=== PATIENT | female | born 1940 | race Caucasian/White ===

== ENCOUNTER 2017-12-02 11:58 | Observation (INO) | payer OTHER ==
[2017-12-02 12:39] LABS: Urine Blood TRACE (NEG); Urine Glucose NEGATIVE (NEG); Urine Protein NEGATIVE (NEG)
--- NOTE | 2017-12-02 12:58 | RAD REPORT ---
EXAM DESCRIPTION: CT - CTHCSPWOC - 12/02/2017 12:43 pm CLINICAL HISTORY: Trauma, head and neck injury. fall COMPARISON: No comparisons TECHNIQUE: Axial 5 mm thick images of the head were obtained. Axial 2 mm thick images of the cervical spine were obtained with sagittal and coronal reconstruction images generated and reviewed. All CT scans are performed using dose optimization technique as appropriate and may include automated exposure control or mA/KV adjustment according to patient size. FINDINGS: CT HEAD WITHOUT CONTRAST: No acute hemorrhage, hydrocephalus or extra-axial collection is identified.Moderate generalized brain atrophy is present with moderate periventricular and deep white matter chronic microvascular ischemi c changes.No areas of brain edema or midline shift. Mild opacification of the sphenoid sinus is seen. The paranasal sinuses and mastoids are otherwise cl ear.The calvarium is intact. CT CERVICAL SPINE WITHOUT CONTRAST: No fracture or subluxation.Moderate midcervical degenerative change.No prevertebral soft tissues swel ling is identified. IMPRESSION: No acute intracranial or cervical spine findings.
--- NOTE | 2017-12-02 13:39 | RAD REPORT ---
EXAM DESCRIPTION: RAD - Chest Single View - 12/02/2017 1:26 pm CLINICAL HISTORY: S/P FALL , COUGH Chest pain. COMPARISON: CHEST SINGLE VIEW dated 08/19/2014; CHEST SINGLE VIEW dated 04/30/2013 FINDINGS: Portable technique limits examination quality. The lungs are grossly clear. The heart is normal in size. No displaced fractures. IMPRESSION: No acute intrathoracic process suspected.
[2017-12-02 13:59] LABS: Absolute Lymphocytes (CBC) 1.2 K/uL (0.7-4.9); Absolute Monocytes 1.1 K/uL (0.1-1.3); Absolute Neutrophil 14.3 K/uL (1.8-8.0); Basophils % 0.4 % (0-1.3); Eosinophils % 0.1 % (0-4.4); Hematocrit 44.4 % (36.0-45.0); Lymphocytes % 7.3 % (15.3-44.8); MCH 32.8 pg (27.0-35.0); MCV 96.6 fL (80-100); MPV 8.6 fL (7.6-11.3); Monocytes % 6.6 % (3.3-12.3)
[2017-12-02] MEDS ORDERED: HYDROCODONE/APAP 5/325 MG TAB ONE (14:10)
[2017-12-02] MEDS ORDERED: ACETAMINOPHEN 500 MG TAB ONE (14:15)
--- NOTE | 2017-12-02 14:20 | ER ---
Nurse's Notes [facility] Name: Monique Bocanegra Age: 77 yrs Sex: Female : 1940 Arrival Date: 12/02/2017 Time: 12:00 Bed 7 Private MD: Diagnosis: Fracture of other parts of pelvis;Other slipping, tripping and stumbling and falls Presentation: 12/02 11:58 Presenting complaint: EMS states: c/o left groin pain last night and daughter reported sv to EMS that she fell this morning. BP 216/107 on arrival and before getting to ER 180/94. BS-124. Transition of care: patient was not received from another setting of care. Onset of symptoms was December 01, 2017. Risk Assessment: Do you want to hurt yourself or someone else? Patient reports no desire to harm self or others. Initial Sepsis Screen: Does the patient meet any 2 criteria? HR > 90 bpm. Yes Does the patient have a suspected source of infection? No. Patient's initial sepsis screen is negative. Care prior to arrival: None. 11:58 Method Of Arrival: EMS: [facility] sv 11:58 Acuity: JULIUS 3 sv 11:58 Mechanism of Injury: Fall from standing position. Trauma event details: Injury occurred sv in the [facility], Injury occurred: at home. Injury occurred: December 02, 2017. Trauma Activation: Not Applicable Physician: ED Physician; Name: ; Notified At: ; Arrived At: Physician: General Surgeon; Name: ; Notified At: ; Arrived At: Physician: Radiology; Name: ; Notified At: ; Arrived At: Physician: Respiratory; Name: ; Notified At: ; Arrived At: Physician: Lab; Name: ; Notified At: ; Arrived At: Historical: - Allergies: 12:12 Codeine; sv 12:12 Adhesives; sv - PMHx: 12:12 Hypertension; Dementia; sv - PSHx: 12:12 Hysterectomy; 3 heart stents; sv - Immunization history:: Adult Immunizations up to date. - Social history:: Smoking status: Patient/guardian denies using tobacco. - Immunization history: Last tetanus immunization: unknown. - Ebola Screening: : No symptoms or risks identified at this time. Screenin:00 Abuse screen: Denies threats or abuse. Denies injuries from another. Tuberculosis sv screening: No symptoms or risk factors identified. 12:00 Nutritional screening: No deficits noted. Fall Risk No fall in past 12 months (0 pts). sv Secondary diagnosis (15 points) dementia, IV access (20 points). Ambulatory Aid- None/Bed Rest/Nurse Assist (0 pts). Gait- Normal/Bed Rest/Wheelchair (0 pts) Mental Status- Oriented to own ability (0 pts). Total Hayden Fall Scale indicates Low Risk Score (25-44 pts). Fall prevention measures have been instituted. Side Rails Up X 2 Placed close to Nursing Station Frequent Obs/Assesments occuring As available Patient and Family Educated on Fall Prevention Program and strategies. Primary Survey: 11:58 A: Airway: patent, No supplemental oxygen in use on arrival. Oral cavity: clear, sv Trachea midline. Breathing/Chest: Respiratory pattern: regular, Respiratory effort: spontaneous, unlabored, Breath sounds: clear, bilaterally. Chest inspection: symmetrical rise and fall of the chest. Circulation: Cardiac rhythm: sinus rhythm Heart tones present. Pulses: palpable right radial artery, right dorsalis pedis artery, left radial artery and left dorsalis pedis artery. Skin color: pink, Skin temperature: warm. Disability Alert. 13:30 Reassessment Airway Airway Patent Oxygen No O2 Oral cavity Clear Trachea Midline sv Breathing/Chest Respiratory pattern Regular Respiratory effort Spontaneous Unlabored Breath sounds Clear Chest inspection Symmetrical Circulation Heart rhythm Sinus rhythm Heart tones Present Pulses Palpable Color [place] Temperature Warm Dry Disability Alert. Secondary Survey: 11:58 HEENT: No deficits noted. Gastrointestinal: No deficits noted. : No deficits noted. sv Musculoskeletal: Circulation, motion, and sensation intact. Range of motion: limited in left hip Swelling absent. Assessment: 13:20 Reassessment: Patient appears in no apparent distress at this time. No changes from sv previously documented assessment. Patient and/or family updated on plan of care and expected duration. Pain level reassessed. 14:00 Reassessment: Patient appears in no apparent distress at this time. No changes from sv previously documented assessment. Patient and/or family updated on plan of care and expected duration. Pain level reassessed. 15:21 Reassessment: Tapan GILBERT to call back for report. sv 15:45 Reassessment: Patient appears in no apparent distress at this time. No changes from sv previously documented assessment. Patient and/or family updated on plan of care and expected duration. Pain level reassessed. Vital Signs: 12:00 BP 187 / 75; Pulse 102; Resp 18; Temp 98.7; Pulse Ox 100% ; Pain 3/10; sv 12:15 BP 187 / 75; Pulse 96; Resp 20; Temp 98.6; Pulse Ox 95% ; Pain 3/10; sv 13:29 BP 148 / 66; Pulse 91; Resp 22; Pulse Ox 99% ; sv 14:22 BP 127 / 64; Pulse 108; Resp 18; Pulse Ox 99% ; sv 15:46 BP 125 / 86; Pulse 105; Resp 18; Pulse Ox 99% ; sv 16:16 BP 115 / 63; Pulse 103; Resp 16; Pulse Ox 99% ; sv [place] Coma Score: 11:58 Eye Response: spontaneous(4). Verbal Response: confused(4). Motor Response: obeys sv commands(6). Total: 14. 12:15 Eye Response: spontaneous(4). Verbal Response: confused(4). Motor Response: obeys sv commands(6). Total: 14. Trauma Score (Adult): 11:58 Eye Response: spontaneous(1); Verbal Response: confused(1); Motor Response: obeys sv commands(2); Systolic BP: > 89 mm Hg(4); Respiratory Rate: 10 to 29 per min(4); Rodri Score: 14; Trauma Score: 12 12:15 Eye Response: spontaneous(1); Verbal Response: confused(1); Motor Response: obeys sv commands(2); Systolic BP: > 89 mm Hg(4); Respiratory Rate: 10 to 29 per min(4); [place] Score: 14; Trauma Score: 12 ED Course: 12:00 Patient arrived in ED. sv 12:06 Gabi Kwan, VLADIMIR is Primary Nurse. sv 12:08 Triage completed. sv 12:12 Arm band placed on right wrist. sv 12:14 Aldair Serrano PA is PHCP. cp 12:14 Hiren Lopez MD is Attending Physician. cp 12:15 Patient has correct armband on for positive identification. Placed in gown. Bed in low sv position. Call light in reach. Side rails up X2. clinical research monitor on. Pulse ox on. NIBP on. Door closed. Head of bed elevated. 12:15 Patient maintains SpO2 saturation greater than 95% on room air. Thermoregulation: warm sv blanket given to patient. 12:31 EKG done, by senior maintenance technician. reviewed by Aldair JONES. tc 12:43 CT Head C Spine In Process Unspecified. EDMS 12:50 CT completed. Patient tolerated procedure well. Patient moved to radiology via stretcher. 13:06 XRAY Pelvis In Process Unspecified. EDMS 13:06 XRAY Hip LEFT 2 view In Process Unspecified. EDMS 13:06 XRAY Hip RIGHT 2 view In Process Unspecified. EDMS 13:17 X-ray completed. Patient tolerated procedure well. Patient moved back from radiology. jb2 13:25 Chest Single View In Process Unspecified. EDMS 13:32 BMP Sent. ag 13:32 CBC with Diff Sent. ag 13:32 Inserted saline lock: 22 gauge in right antecubital area, using aseptic technique. ag Blood collected. 14:17 Jyoti Cheema MD is Hospitalizing Provider. cp 15:24 No provider procedures requiring assistance completed. Patient admitted, IV remains in sv place. intact. Administered Medications: 14:11 Not Given (Patient Refused): HYDROcodone-acetaminophen 5 mg-325 mg 1 tabs PO once tw2 14:14 Drug: Tylenol 500 mg Route: PO; tw2 14:38 Follow up: Response: No adverse reaction sv Intake: 11:58 PO: 0ml; Total: 0ml. sv Output: 11:58 Urine: 0ml; Total: 0ml. sv 12:30 Urine: 300ml (Voided); Total: 300ml. sv Outcome: 14:19 Decision to Hospitalize by Provider. cp 15:45 Patient's length of stay in the Emergency Department was greater than 2 hours. due to sv staffing on the floor.Patient's length of stay extended due to 16:02 Admitted to Med/surg accompanied by tech, via stretcher, room 201, with chart, Report sv called to Kriss GILBERT 16:02 Condition: stable 16:02 Instructed on the need for admit. 16:17 Patient left the ED. sv Signatures: Dispatcher [employer] Gabi Delgado RN RN sv Buechter, Jesse jb2 Comfort Lopez Justine Harden, bias binding cutter EKG Ttc Angella Dos Santos Corey, PA PA cp Merritt, Kirstin, RN RN tw2 Corrections: (The following items were deleted from the chart) 12:28 12:00 Pulse 102bpm; Resp 18bpm; Pulse Ox 100%; Temp 98.7F; Pain 3/10; sv sv
--- NOTE | 2017-12-02 14:20 | EDPHYS ---
Physician Documentation [facility] Name: Monique Bocanegra Age: 77 yrs Sex: Female : 1940 Arrival Date: 12/02/2017 Time: 12:00 Bed 7 Private MD: ED Physician Hiren Lopez HPI: 12/02 12:40 This 77 yrs old Female presents to ER via EMS with complaints of Groin Pain, cp Fall Injury. 12:40 Details of fall: The patient fell from an upright position. cp 12:40 Onset: The symptoms/episode began/occurred this morning. Associated injuries: The cp patient sustained pelvis, pain. Severity of symptoms: in the emergency department the symptoms are unchanged. Historical: - Allergies: 12:12 Codeine; sv 12:12 Adhesives; sv - PMHx: 12:12 Hypertension; Dementia; sv - PSHx: 12:12 Hysterectomy; 3 heart stents; sv - Immunization history:: Adult Immunizations up to date. - Social history:: Smoking status: Patient/guardian denies using tobacco. - Immunization history: Last tetanus immunization: unknown. - Ebola Screening: : No symptoms or risks identified at this time. ROS: 12:45 Constitutional: Negative for body aches, chills, fever, poor PO intake. cp 12:45 Eyes: Negative for injury, pain, redness, and discharge. cp 12:45 Neck: Negative for pain with movement, pain at rest, stiffness. 12:45 Cardiovascular: Negative for chest pain, edema, palpitations. 12:45 Respiratory: Negative for cough, shortness of breath, wheezing. 12:45 Abdomen/GI: Negative for abdominal pain, nausea, vomiting, and diarrhea. 12:45 Back: Negative for radiated pain. 12:45 : Positive for pelvic pain, of the right groin, Negative for urinary symptoms. 12:45 Skin: Negative for cellulitis, rash. 12:45 Neuro: Negative for altered mental status, headache, loss of consciousness, weakness. 12:45 All other systems are negative. Exam: 12:25 ECG was reviewed by the Attending Physician. cp 12:50 Constitutional: The patient appears in no acute distress, alert, awake, cp non-diaphoretic, non-toxic, well developed, well nourished. 12:50 Head/Face: Normocephalic, atraumatic. Eyes: Pupils equal round and reactive to light, cp extra-ocular motions intact. Lids and lashes normal. Conjunctiva and sclera are non-icteric and not injected. Cornea within normal limits. Periorbital areas with no swelling, redness, or edema. ENT: Nares patent. No nasal discharge, no septal abnormalities noted. Tympanic membranes are normal and external auditory canals are clear. Oropharynx with no redness, swelling, or masses, exudates, or evidence of obstruction, uvula midline. Mucous membranes moist. Neck: Trachea midline, no thyromegaly or masses palpated, and no cervical lymphadenopathy. Supple, full range of motion without nuchal rigidity, or vertebral point tenderness. No Meningismus. Chest/axilla: Normal chest wall appearance and motion. Nontender with no deformity. No lesions are appreciated. 12:50 Cardiovascular: Rate: normal, Rhythm: regular, Pulses: Pulses are 2+ in right radial artery, right dorsalis pedis artery, left radial artery and left dorsalis pedis artery. Edema: is not appreciated, JVD: is not appreciated. 12:50 Respiratory: the patient does not display signs of respiratory distress, Respirations: normal, no use of accessory muscles, no retractions, no splinting, no tachypnea, labored breathing, is not present, Breath sounds: are clear throughout, no decreased breath sounds, no stridor, no wheezing. 12:50 Abdomen/GI: Inspection: abdomen appears normal, Bowel sounds: active, all quadrants, Palpation: soft, in all quadrants, moderate abdominal tenderness, in the right lower abdomen and pelvic area, involuntary guarding. 12:50 Back: pain, that is mild, of the lumbar area, Straight leg raises: right lower extremity illicits pain. 12:50 Musculoskeletal/extremity: Exam is negative for calf tenderness, deformity. 12:50 Skin: cellulitis, is not appreciated, no rash present. 12:50 Neuro: Orientation: no acute changes, per family, Mentation: no acute changes, per family, lucid, able to follow commands, Cerebellar function: is grossly normal, Motor: moves all fours, strength is normal, Sensation: no obvious gross deficits. Vital Signs: 12:00 BP 187 / 75; Pulse 102; Resp 18; Temp 98.7; Pulse Ox 100% ; Pain 3/10; sv 12:15 BP 187 / 75; Pulse 96; Resp 20; Temp 98.6; Pulse Ox 95% ; Pain 3/10; sv 13:29 BP 148 / 66; Pulse 91; Resp 22; Pulse Ox 99% ; sv 14:22 BP 127 / 64; Pulse 108; Resp 18; Pulse Ox 99% ; sv 15:46 BP 125 / 86; Pulse 105; Resp 18; Pulse Ox 99% ; sv 16:16 BP 115 / 63; Pulse 103; Resp 16; Pulse Ox 99% ; sv [place] Coma Score: 11:58 Eye Response: spontaneous(4). Verbal Response: confused(4). Motor Response: obeys sv commands(6). Total: 14. 12:15 Eye Response: spontaneous(4). Verbal Response: confused(4). Motor Response: obeys sv commands(6). Total: 14. Trauma Score (Adult): 11:58 Eye Response: spontaneous(1); Verbal Response: confused(1); Motor Response: obeys sv commands(2); Systolic BP: > 89 mm Hg(4); Respiratory Rate: 10 to 29 per min(4); Rodri Score: 14; Trauma Score: 12 12:15 Eye Response: spontaneous(1); Verbal Response: confused(1); Motor Response: obeys sv commands(2); Systolic BP: > 89 mm Hg(4); Respiratory Rate: 10 to 29 per min(4); Rodri Score: 14; Trauma Score: 12 MDM: 12:14 Patient medically screened. cp 14:33 Data reviewed: vital signs, nurses notes, radiologic studies, CT scan, plain films, and cp as a result, I will admit patient. 14:33 Test interpretation: by ED physician or midlevel provider: plain radiologic studies. cp Counseling: I had a detailed discussion with the patient and/or guardian regarding: the historical points, exam findings, and any diagnostic results supporting the discharge/admit diagnosis, radiology results, the need for further work-up and treatment in the hospital. 14:34 Physician consultation: Frankie Aguilar MD was contacted at 14:35, regarding consult, cp patient's condition, would like admission per Dr. Jyoti Cheema MD. 12/02 12:24 Order name: Urine Dipstick--Ancillary (enter results); Complete Time: 13:33 dm5 12/02 13:33 Interpretation: Normal except: UBLD TRACE. cp 12/02 12:30 Order name: CBC with Diff cp 12/02 12:30 Order name: XRAY Pelvis; Complete Time: 14:33 cp 12/02 12:30 Order name: BMP; Complete Time: 14:33 cp 12/02 14:08 Order name: CBC Smear Scan EDMS 12/02 15:25 Order name: Manual Differential EDMS 12/02 12:30 Order name: XRAY Hip LEFT 2 view; Complete Time: 14:33 cp 12/02 14:34 Interpretation: Report reviewed. cp 12/02 12:30 Order name: XRAY Hip RIGHT 2 view; Complete Time: 14:33 cp 12/02 12:30 Order name: EKG; Complete Time: 12:30 cp 12/02 12:30 Order name: CT Head C Spine; Complete Time: 13:33 cp 12/02 13:24 Order name: Chest Single View; Complete Time: 13:52 EDMS 12/02 14:19 Order name: Diet Heart Healthy; Complete Time: 14:19 ss EC:25 Rate is 91 beats/min. QRS [employer] is Normal. QRS interval is normal. QT interval is cp normal. Interpreted by me. Reviewed by me. Administered Medications: 14:11 Not Given (Patient Refused): HYDROcodone-acetaminophen 5 mg-325 mg 1 tabs PO once tw2 14:14 Drug: Tylenol 500 mg Route: PO; tw2 14:38 Follow up: Response: No adverse reaction sv Disposition: 12/02/17 14:19 Hospitalization ordered by Jyoti Cheema for Inpatient Admission. Preliminary diagnosis are Fracture of other parts of pelvis, Other slipping, tripping and stumbling and falls. - Bed requested for Telemetry/MedSurg (Inpatient). - Status is Inpatient Admission. sv - Condition is Stable. - Problem is new. - Symptoms have improved. UTI on Admission? No Addendum: 12/05/2017 10:11 Co-signature as Attending Physician, Hiren Lopez MD I agree with the assessment and k dr plan of care. Signatures: Dispatcher [employer] EDGabi Wesley RN RN sv Woody, Diana, RN RN dw Rittger, Kevin, MD MD [facility] Page, Aldair, PA PA cp Merritt, Kirstin, RN RN tw2 Corrections: (The following items were deleted from the chart) 12/02 15:04 14:19 Hospitalization Ordered by yJoti Cheema MD for Inpatient Admission. Preliminary dw diagnosis is Fracture of other parts of pelvis; Other slipping, tripping and stumbling and falls. Bed requested for Telemetry/MedSurg (Inpatient). Status is Inpatient Admission. Condition is Stable. Problem is new. Symptoms have improved. UTI on Admission? No. cp 15:20 15:04 12/02/2017 14:19 Hospitalization Ordered by Jyoti Cheema MD for Inpatient sv Admission. Preliminary diagnosis is Fracture of other parts of pelvis; Other slipping, tripping and stumbling and falls. Bed requested for Telemetry/MedSurg (Inpatient). Status is Inpatient Admission. Condition is Stable. Problem is new. Symptoms have improved. UTI on Admission? No. dw 16:17 15:20 12/02/2017 14:19 Hospitalization Ordered by Jyoti Cheema MD for Inpatient sv Admission. Preliminary diagnosis is Fracture of other parts of pelvis; Other slipping, tripping and stumbling and falls. Bed requested for Telemetry/MedSurg (Inpatient). Status is Inpatient Admission. Condition is Stable. Problem is new. Symptoms have improved. UTI on Admission? No. sv
--- NOTE | 2017-12-02 14:25 | RAD REPORT ---
EXAM DESCRIPTION: RAD - Pelvis - 12/02/2017 1:16 pm CLINICAL HISTORY: bilateral groin pain Fall, trauma COMPARISON: No comparisons FINDINGS: Both hips appear intact. Fracture of the superior pubic ramus is seen on the right. Minima l fracture inferior pubic ramus on the right also likely present. Vascular stenting is seen. A large amount of stool is present in the rectum. IMPRESSION: Right-sided pubic rami fractures are seen.
--- NOTE | 2017-12-02 14:26 | RAD REPORT ---
EXAM DESCRIPTION: RAD - Hip Right 2 View - 12/02/2017 1:16 pm CLINICAL HISTORY: fall;Pain COMPARISON: No comparisons FINDINGS: Fractures of the superior and inferior pubic rami on the right are identified. Extensive v ascular stenting is seen. The right hip is intact. IMPRESSION: Right-sided pubic rami fractures are present.
--- NOTE | 2017-12-02 14:31 | RAD REPORT ---
EXAM DESCRIPTION: RAD - Hip Left 2 View - 12/02/2017 1:16 pm CLINICAL HISTORY: fall;Pain COMPARISON: Pelvis dated 12/02/2017; Hip Right 2 View dated 12/02/2017 FINDINGS: Bony irregularity of the superior and inferior pubic ramus on the right is again noted com patible with fracture. Subtle bony irregularity along the inferior margin of the left pubic ramus is probably chronic but a very subtle fracture in this location is difficult to completely exclude. The left hip is intact.
[2017-12-02 15:24] LABS: Platelet Estimate ADEQ
[2017-12-02 15:25] LABS: Blood Morphology Comment NOT SEEN (NOT SEEN)
[2017-12-02 16:04] LABS: Urine White Blood Cell Casts DIFF
[2017-12-02] MEDS ORDERED: ONDANSETRON 4 MG/2 ML VIAL IV PRN (16:29)
[2017-12-02] MEDS ORDERED: NA CHLORIDE 0.9% 1,000 ML IV SCH ×2 (16:29→18:00)
[2017-12-02 16:49] VITALS: BMI 18.7
[2017-12-02] MEDS: ENOXAPARIN 40 MG/0.4 ML SQ SCH (17:00)
--- NOTE | 2017-12-02 17:02 | EKG ---
Test Date: 2017-12-02 Test Time: 12:17:56 Tobacco Wetter: LEFTY MEASUREMENT RESULTS: Intervals: Rate: 91 WI: 138 QRSD: 76 QT: 354 QTc: 435 Hassell: P: 63 WI: 138 QRS: 57 T: 115 INTERPRETIVE STATEMENTS: Normal sinus rhythm Minimal voltage criteria for LVH, may be normal variant T wave abnormality, consider lateral ischemia Abnormal ECG Compared to ECG 08/20/2014 06:45:41 T-wave abnormality now present Possible ischemia now present Electronically Signed On 12-02-17 17:01:05 CDT by Chago Randall
--- NOTE | 2017-12-02 17:12 | P.HP ---
Certification for Inpatient Patient admitted to: Inpatient With expected LOS: >2 Midnights Patient will require the following post-hospital care: None Practitioner: I am a practitioner with admitting privileges, knowledge of patient current condition, hospital course, and medical plan of care. Services: Services provided to patient in accordance with Admission requirements found in Title 42 Section 412.3 of the Code of Federal Regulations Patient History Date of Service: 12/02/17 Reason for admission: FALL History of Present Illness: 77 y/o F with PMHX of dementia, CHF, COPD, HTN presented to the hospital after having a mechanical Fall at the house. Pt is currently Altered, However at baseline is severly demented but lives along by herself and is able to perform activities of daily living. Pt was found to have a fall in the kitched by her daughter today. She was then complaining of groin pain and hip pain. He was not able to get up on her own. In ER Pt was found to have Fracture of the pelvis and thus admitted to the hospital Allergies adhesive Allergy (Mild, Verified 10/07/14 13:23) Rash codeine Allergy (Verified 10/07/14 13:23) Unknown Adhesives Allergy (Uncoded 12/02/17 16:21) Unknown Home Medications: Carvedilol [Coreg] 25 mg PO DAILY 08/19/14 Donepezil HCl [Aricept] 10 mg PO DAILY 08/19/14 Doxazosin [Cardura*] 4 mg PO DAILY 08/19/14 Esomeprazole Magnesium [Nexium 24Hr] 40 mg PO DAILY 08/19/14 Isosorbide Mononitrate [Isosorbide Mononitrate ER] 30 mg PO DAILY 08/19/14 Memantine HCl [Namenda Xr] 28 mg PO DAILY 08/19/14 Pramipexole [Mirapex*] 0.5 mg PO BID 08/19/14 - Past Medical/Surgical History Has patient received pneumonia vaccine in the past: No Diabetic: No -: stroke 10 yrs ago -: hypertension -: stents in leg and heart -: hysterectomy -: bilateral foot surgery - Family History Father -: Cancer Notes: lung cancer Mother -: Stroke Sister -: Stroke - Social History Smoking Status: Current every day smoker Alcohol use: Yes CD- Drugs: No Caffeine use: Yes Place of Residence: Home Review of Systems General: As per HPI Physical Examination - Vital Signs Temperature: 98.6 F Blood Pressure: 115/63 Pulse: 103 Respirations: 16 - Physical Exam General: In no apparent distress, Other (AMS) HEENT: Atraumatic Neck: Supple Respiratory: Clear to auscultation bilaterally, Normal air movement Cardiovascular: Regular rate/rhythm, Normal S1 S2 Gastrointestinal: Normal bowel sounds, No tenderness Musculoskeletal: Tenderness (in the groin and right hip pain) Integumentary: No rashes Neurological: Normal speech, Normal strength at 5/5 x4 extr, Normal affect Lymphatics: No axilla or inguinal lymphadenopathy - Studies Laboratory Data (last 24 hrs) 12/02/17 13:30: Sodium 133 L, Potassium 4.0, BUN 14, Creatinine 0.80, Glucose 117 H 12/02/17 13:30: WBC 16.7 H, Hgb 15.1 H, Hct 44.4, Plt Count 284 Assessment and Plan - Problems (Diagnosis) (1) Fall Current Visit: Yes Status: Acute Plan: Mechanical Fall -PT consulted. Evaluation Pending -Fall precaution given -CM for placement Qualifiers: Encounter type: initial encounter Qualified Code(s): W19.XXXA - Unspecified fall, initial encounter (2) Pelvic fracture Current Visit: Yes Status: Acute Plan: Right Sided Inferior and superior Ramus Fracture -Ortho Consulted. Awaiting Reccs at this time -IV fludis with caution with History of CHF -PT consulted. Qualifiers: Encounter type: initial encounter Pelvic bone location: pubis Fracture type: closed Fracture alignment: nondisplaced Laterality: right Qualified Code(s): S32.501A - Unspecified fracture of right pubis, initial encounter for closed fracture (3) HTN (hypertension) Current Visit: Yes Status: Chronic Plan: Restart Home medicaiton Qualifiers: Hypertension type: essential hypertension Qualified Code(s): I10 - Essential (primary) hypertension (4) COPD (chronic obstructive pulmonary disease) Current Visit: Yes Status: Chronic Plan: Duonebs for now Qualifiers: COPD type: chronic bronchitis Chronic bronchitis type: unspecified Qualified Code(s): J42 - Unspecified chronic bronchitis (5) Dementia Current Visit: Yes Status: Chronic Qualifiers: Dementia type: Alzheimer's disease Alzheimer's disease onset: early-onset Dementia behavioral disturbance: without behavioral disturbance Qualified Code(s): G30.0 - Alzheimer's disease with early onset; F02.80 - Dementia in other diseases classified elsewhere without behavioral disturbance Discharge Plan: Other Plan to discharge in: 48 Hours - Advance Directives Does patient have a Living Will: No Does patient have a Durable POA for Healthcare: No - Code Status/Comfort Care Code Status Assessed: Yes Critical Care: No
[2017-12-02] MEDS: CEFTRIAXONE/SWI 1gm 1 GM/10 ML SYR IVP SCH (17:45)
[2017-12-02] MEDS: ALBUTEROL 2.5 MG/3 ML NEB SOL NEB SCH (20:00)
[2017-12-02] MEDS: IPRATROPIUM BROM 0.5MG/2.5ML NEB SCH (20:00)
[2017-12-02] MEDS: PNEUMOCOCCAL VACCINE 0.5 ML IMVAC ONE (21:00)
[2017-12-02] MEDS: ACETAMINOPHEN 500 MG TAB PO PRN (21:17)
[2017-12-03] MEDS: ALBUTEROL 2.5 MG/3 ML NEB SOL NEB SCH ×4 (02:00→20:13)
[2017-12-03] MEDS: IPRATROPIUM BROM 0.5MG/2.5ML NEB SCH ×4 (02:00→20:13)
[2017-12-03 04:52] LABS: Urine Appearance CLOUDY; Urine Bilirubin NEGATIVE (NEG); Urine Blood 1+ (NEG); Urine Color YELLOW; Urine Glucose NEGATIVE (NEG); Urine Protein NEGATIVE (NEG); Urine Specific Gravity 1.025 (1.005-1.030); Urine Urobilinogen 0.2 mg/dL (0.2-1.0)
[2017-12-03 04:54] LABS: Urine Microscopic Reflex ORDER UMIC
[2017-12-03 05:03] LABS: Urine Amorphous Sediment 2+ /HPF (NONE SEEN); Urine Bacteria 20-50 /HPF (<20); Urine Culture Reflex Order NOT NEEDED
[2017-12-03] MEDS: PNEUMOCOCCAL VACCINE 0.5 ML IMVAC ONE (05:24)
[2017-12-03 05:42] LABS: Absolute Lymphocytes (CBC) 2.1 K/uL (0.7-4.9); Absolute Monocytes 0.8 K/uL (0.1-1.3); Absolute Neutrophil 5.7 K/uL (1.8-8.0); Basophils % 0.5 % (0-1.3); Eosinophils % 1.2 % (0-4.4); Hematocrit 32.9 % (36.0-45.0); MCH 33.8 pg (27.0-35.0); MCV 96.6 fL (80-100); MPV 8.6 fL (7.6-11.3); Monocytes % 9.3 % (3.3-12.3); RBC Red Blood Cell Count 3.41 M/uL (3.86-4.86)
[2017-12-03 06:03] LABS: Bilirubin Total 0.6 mg/dL (0.2-1.0); Magnesium 2.1 mg/dL (1.8-2.4); Potassium 3.8 mmol/L (3.5-5.1); Protein, Total 6.2 g/dL (6.4-8.2)
[2017-12-03] MEDS ORDERED: POTASSIUM 25 MEQ EFFERV TAB PO ONE (06:38)
[2017-12-03] MEDS: ENOXAPARIN 40 MG/0.4 ML SQ SCH (08:45)
[2017-12-03] MEDS: CEFTRIAXONE/SWI 1gm 1 GM/10 ML SYR IVP SCH (08:45)
--- NOTE | 2017-12-03 11:54 | P.PN ---
Subjective Date of Service: 12/03/17 Chief Complaint: FALL Pt seen and examined at bedside. Chart Reviewed and Case DW with Orthopedics No C/o OVernight Today having pain while working with PT. Will premedicate before afternoon therapy Waiting on Placement to rehab Review of Systems General: As per HPI Physical Examination - Vital Signs Temperature: 97.8 F Blood Pressure: 125/67 Pulse: 116 Respirations: 16 Pulse Ox (%): 93 - Physical Exam General: Alert, In no apparent distress, Demented HEENT: Atraumatic Neck: Supple Respiratory: Clear to auscultation bilaterally, Normal air movement Cardiovascular: Regular rate/rhythm, Normal S1 S2 Gastrointestinal: Normal bowel sounds, Soft and benign, Non-distended, No tenderness Musculoskeletal: Tenderness, Other (Left sided Pain ) Integumentary: No rashes Neurological: Normal speech, Normal tone, Normal affect Lymphatics: No axilla or inguinal lymphadenopathy - Studies Laboratory Data (last 24 hrs) 12/02/17 13:30: Sodium 133 L, Potassium 4.0, BUN 14, Creatinine 0.80, Glucose 117 H 12/02/17 13:30: WBC 16.7 H, Hgb 15.1 H, Hct 44.4, Plt Count 284 Medications List Reviewed: Yes Assessment & Plan - Problems (Diagnosis) (1) Fall Onset Date: 12/03/17 Current Visit: Yes Status: Acute Plan: Mechanical Fall -PT consulted. Evaluation Pending -Fall precaution given -CM for placement Qualifiers: Encounter type: initial encounter Qualified Code(s): W19.XXXA - Unspecified fall, initial encounter (2) Pelvic fracture Onset Date: 12/03/17 Current Visit: Yes Status: Acute Plan: Left Sided Inferior and superior Ramus Fracture -Ortho Consulted. Awaiting Reccs at this time -IV fludis with caution with History of CHF -PT consulted. Awaiting Placement Qualifiers: Encounter type: initial encounter Pelvic bone location: pubis Fracture type: closed Fracture alignment: nondisplaced Laterality: right Qualified Code(s): S32.501A - Unspecified fracture of right pubis, initial encounter for closed fracture (3) HTN (hypertension) Onset Date: 12/03/17 Current Visit: Yes Status: Chronic Plan: Restart Home medicaiton Qualifiers: Hypertension type: essential hypertension Qualified Code(s): I10 - Essential (primary) hypertension (4) COPD (chronic obstructive pulmonary disease) Onset Date: 12/03/17 Current Visit: Yes Status: Chronic Plan: Duonebs for now Qualifiers: COPD type: chronic bronchitis Chronic bronchitis type: unspecified Qualified Code(s): J42 - Unspecified chronic bronchitis (5) Dementia Onset Date: 12/03/17 Current Visit: Yes Status: Chronic Qualifiers: Dementia type: Alzheimer's disease Alzheimer's disease onset: early-onset Dementia behavioral disturbance: without behavioral disturbance Qualified Code(s): G30.0 - Alzheimer's disease with early onset; F02.80 - Dementia in other diseases classified elsewhere without behavioral disturbance Discharge Plan: Other Plan to discharge in: 48 Hours - Code Status/Comfort Care Code Status Assessed: Yes Critical Care: No
[2017-12-03] MEDS: TRAMADOL HCL 50 MG TAB PO PRN (16:23)
[2017-12-04] MEDS: TRAMADOL HCL 50 MG TAB PO PRN (01:22)
[2017-12-04] MEDS: ALBUTEROL 2.5 MG/3 ML NEB SOL NEB SCH ×4 (01:26→20:07)
[2017-12-04] MEDS: IPRATROPIUM BROM 0.5MG/2.5ML NEB SCH ×4 (01:26→20:07)
[2017-12-04 05:19] LABS: Absolute Lymphocytes (CBC) 1.8 K/uL (0.7-4.9); Absolute Monocytes 0.9 K/uL (0.1-1.3); Absolute Neutrophil 6.2 K/uL (1.8-8.0); Basophils % 0.5 % (0-1.3); Eosinophils % 0.7 % (0-4.4); Hematocrit 30.4 % (36.0-45.0); Lymphocytes % 20.1 % (15.3-44.8); MCH 33.9 pg (27.0-35.0); MCV 96.1 fL (80-100); MPV 8.6 fL (7.6-11.3); Monocytes % 9.5 % (3.3-12.3); RBC Red Blood Cell Count 3.17 M/uL (3.86-4.86)
[2017-12-04 05:34] LABS: Bilirubin Total 0.6 mg/dL (0.2-1.0); Potassium 3.7 mmol/L (3.5-5.1); Protein, Total 6.3 g/dL (6.4-8.2)
[2017-12-04] MEDS: POTASSIUM CL SA 10 MEQ TAB PO ONE ×2 (05:36→05:45)
[2017-12-04] MEDS: ENOXAPARIN 40 MG/0.4 ML SQ SCH ×2 (09:00→09:24)
[2017-12-04] MEDS: levoFLOXacin 500 MG TAB PO SCH (09:24)
--- NOTE | 2017-12-04 13:44 | P.SSS ---
Patient History Date of Service: 12/04/17 Reason for admission: FALL History of Present Illness: 77 y/o F with PMHX of dementia, CHF, COPD, HTN presented to the hospital after having a mechanical Fall at the house. Pt is currently Altered, However at baseline is severly demented but lives along by herself and is able to perform activities of daily living. Pt was found to have a fall in the kitched by her daughter today. She was then complaining of groin pain and hip pain. He was not able to get up on her own. In ER Pt was found to have Fracture of the pelvis and thus admitted to the hospital Allergies adhesive Allergy (Mild, Verified 10/07/14 13:23) Rash codeine Allergy (Verified 10/07/14 13:23) Unknown Adhesives Allergy (Uncoded 12/02/17 16:21) Unknown Home Medications: levoFLOXacin [Levaquin*] 500 mg PO DAILY #10 tab 12/04/17 - Past Medical/Surgical History Has patient received pneumonia vaccine in the past: No Diabetic: No -: stroke 10 yrs ago -: hypertension -: stents in leg and heart -: hysterectomy -: bilateral foot surgery - Family History Father -: Cancer Notes: lung cancer Mother -: Stroke Sister -: Stroke - Social History Smoking Status: Current every day smoker Alcohol use: Yes CD- Drugs: No Caffeine use: Yes Place of Residence: Home Review of Systems General: As per HPI Physical Examination - Vital Signs Temperature: 98.8 F Blood Pressure: 104/55 Pulse: 79 Respirations: 16 Pulse Ox (%): 92 - Physical Exam General: Alert, In no apparent distress, Demented HEENT: Atraumatic, PERRLA, Mucous membr. moist/pink, EOMI, Sclerae nonicteric Neck: Supple, 2+ carotid pulse no bruit, No LAD, Without JVD or thyroid abnormality Respiratory: Clear to auscultation bilaterally, Normal air movement Cardiovascular: Regular rate/rhythm, Normal S1 S2 Gastrointestinal: Normal bowel sounds, No tenderness Musculoskeletal: No tenderness Integumentary: No rashes Neurological: Normal gait, Normal speech, Normal strength at 5/5 x4 extr, Normal tone, Normal affect Lymphatics: No axilla or inguinal lymphadenopathy - Diagnosis (Problem(s)) (1) Fall Onset Date: 12/03/17 Current Visit: Yes Status: Acute Qualifiers: Encounter type: initial encounter Qualified Code(s): W19.XXXA - Unspecified fall, initial encounter (2) Pelvic fracture Onset Date: 12/03/17 Current Visit: Yes Status: Acute Qualifiers: Encounter type: initial encounter Pelvic bone location: pubis Fracture type: closed Fracture alignment: nondisplaced Laterality: right Qualified Code(s): S32.501A - Unspecified fracture of right pubis, initial encounter for closed fracture (3) HTN (hypertension) Onset Date: 12/03/17 Current Visit: Yes Status: Chronic Qualifiers: Hypertension type: essential hypertension Qualified Code(s): I10 - Essential (primary) hypertension (4) COPD (chronic obstructive pulmonary disease) Onset Date: 12/03/17 Current Visit: Yes Status: Chronic Qualifiers: COPD type: chronic bronchitis Chronic bronchitis type: unspecified Qualified Code(s): J42 - Unspecified chronic bronchitis (5) Dementia Onset Date: 12/03/17 Current Visit: Yes Status: Chronic Qualifiers: Dementia type: Alzheimer's disease Alzheimer's disease onset: early-onset Dementia behavioral disturbance: without behavioral disturbance Qualified Code(s): G30.0 - Alzheimer's disease with early onset; F02.80 - Dementia in other diseases classified elsewhere without behavioral disturbance Treatment Summary: Overall during the hospital stay patient remained stable The patient was initially admitted to the hospital after having mechanical fall at the house. Patient was found to have a left inferior superior pubic ramus fracture. Orthopedic was consulted who recommended patient be managed medically and no surgical procedure was required. The patient then was referred to inpatient rehab for further therapy. Patient was accepted by inpatient rehab and then a stress over to the rehab for physical and occupational therapy. Patient of note also had a urinary tract infection while here in the hospital. Was given Levaquin 500 mg to be taken for total of 10-day - Disposition Disposition: ROUTINE DISCHARGE Condition: GOOD Diet: Regular Activity: Ad annemarie
[2017-12-05] MEDS: ALBUTEROL 2.5 MG/3 ML NEB SOL NEB SCH ×2 (01:50→07:11)
[2017-12-05] MEDS: IPRATROPIUM BROM 0.5MG/2.5ML NEB SCH ×2 (01:50→07:10)
[2017-12-05 05:35] LABS: Absolute Lymphocytes (CBC) 1.5 K/uL (0.7-4.9); Absolute Monocytes 0.9 K/uL (0.1-1.3); Absolute Neutrophil 5.4 K/uL (1.8-8.0); Basophils % 0.8 % (0-1.3); Eosinophils % 1.4 % (0-4.4); Hematocrit 30.6 % (36.0-45.0); MCH 34.1 pg (27.0-35.0); MCV 96.2 fL (80-100); MPV 8.5 fL (7.6-11.3); Monocytes % 10.9 % (3.3-12.3); RBC Red Blood Cell Count 3.19 M/uL (3.86-4.86)
[2017-12-05 05:45] LABS: ALT/SGPT 12 U/L (12-78); AST/SGOT 23 U/L (15-37); Albumin 2.8 g/dL (3.4-5.0); Alkaline Phosphatase 68 U/L (45-117); BUN Blood Urea Nitrogen 12 mg/dL (7-18); Bicarbonate 28 mmol/L (21-32); Bilirubin Total 0.6 mg/dL (0.2-1.0); Glucose Level 92 mg/dL (74-106); Protein, Total 6.2 g/dL (6.4-8.2); Sodium Level 134 mmol/L (136-145)
[2017-12-05] MEDS ORDERED: ALBUTEROL 2.5 MG/3 ML NEB SOL NEB PRN (08:49)
[2017-12-05] MEDS ORDERED: IPRATROPIUM BROM 0.5MG/2.5ML NEB PRN (08:49)
[2017-12-05] MEDS: ENOXAPARIN 40 MG/0.4 ML SQ SCH (09:00)
[2017-12-05] MEDS: levoFLOXacin 500 MG TAB PO SCH (09:25)
[2017-12-05] MEDS: TRAMADOL HCL 50 MG TAB PO PRN (10:36)
--- NOTE | 2017-12-05 16:54 | PN ---
Date of Progress Note: 12/05/2017 Code status: Full Subjective: The patient seen and examined. Chart reviewed and case discussed with RN. The patient doing well. Denies any pain. Awaiting acceptance to rehab. Review of Systems: Negative except as above. Medications: List reviewed. Physical Examination: Vital Signs: Temperature 99, heart rate 95, blood pressure 147/69, respirations 18, O2 sat 94% on room air. General: Awake, alert, oriented x3. Not any acute distress. Elderly female, cachectic. BMI 18. CV: S1, S2. No murmurs. Regular rate and rhythm. Peripheral pulses present. Respiratory: Moving air well bilaterally. No wheezing. Gastrointestinal: Abdomen is soft, nontender, nondistended. Positive bowel sounds. No guarding or rigidity. Extremities: No clubbing, cyanosis, edema. Musculoskeletal: No tenderness. Neurologic: Nonfocal. Laboratory Data: Sodium 134, potassium 4, chloride 101, CO2 of 28, BUN 12, creatinine 0.6, glucose 92, calcium 8.2. WBC 8, H and H are 10.9 and 30.6, platelets 184, neutrophils 67%. Assessment And Plan: 1. Status post fall, initial encounter. 2. Pelvic fracture, initial encounter, b/l pubic rami closed fracture, non surgical treatment. 3. Essential hypertension, stable. 4. Chronic obstructive pulmonary disease, chronic bronchitis. 5. Alzheimer's dementia early onset without behavioral disturbance. 6. Plan to discharge the patient to rehab once accepted. If not accepted to rehab, may include a SNF. 7. Urinary tract infection, acute cystitis without hematuria. Levaquin. LIZARRAGA/HOA Voice ID: [id number] Report ID: [id number] MTDD
[2017-12-06] MEDS: levoFLOXacin 500 MG TAB PO SCH (08:11)
[2017-12-06] MEDS: ENOXAPARIN 40 MG/0.4 ML SQ SCH (08:12)
[2017-12-06] MEDS: TRAMADOL HCL 50 MG TAB PO PRN (10:04)
[2017-12-06] MEDS: ACETAMINOPHEN 500 MG TAB PO PRN (12:47)
[2017-12-06] MEDS ORDERED: HYDROCODONE/APAP 5/325 MG TAB PO PRN (14:22)
[2017-12-07] MEDS: ACETAMINOPHEN 500 MG TAB PO PRN (01:28)
--- NOTE | 2017-12-07 03:59 | DS ---
Date of Discharge: 12/06/2017 Procedures: None. Admitting Diagnoses: 1.Status post mechanical fall. 2.Pelvic fracture, right inferior and superior rami. 3.Essential hypertension. 4.Chronic obstructive pulmonary disease, chronic bronchitis. 5.Alzheimer dementia, early onset without behavioral disturbance. Discharge Diagnoses: 1.Status post fall, initial encounter. 2.Pelvic fracture, initial encounter, bilateral pubic rami, nonsurgical treatment. 3.Essential hypertension, stable. 4.Chronic obstructive pulmonary disease with chronic bronchitis. 5.Alzheimer dementia, early onset without behavioral disturbance. 6.Urinary tract infection, acute cystitis without hematuria. Hospital Course: The patient is a 77-year-old demented female who had a mechanical fall at the house , comes in with pain in her hip. Imaging studies were done which showed bilateral pubic rami fractur e, inferior margin of the left pubic ramus as well as right-sided pubic ramus fracture. The patient was seen by Dr. Melchor. Dr. Melchor was consulted and did not recommend any surgical intervention . The patient was then seen by PT. She was recommended to go to rehab versus SNiF. Insurance [facility]. The patient was then referred to SNiF. The patient also incidentally found to have UTI and was treated with Levaquin. The patient otherwise was doing well, and her pain was well controlled. She did not have any further dysuria. Her electrolytes remained stable. Vital signs were also stab le. She was afebrile. She worked well with PT. The patient was then discharged in a stable conditi on. Activity: As per rehab. Diet: Regular. Followup: Follow up with primary care physician in 2 to 3 days. Follow up with orthopedic doctor, Wei Melchor in 1 to 2 weeks. Medications: As per medication reconciliation list. Physical Examination: General: Awake, alert, oriented, no acute distress, elderly female. CV: S1, S2. No murmurs. Respiratory: Moving air well bilaterally. GI: Abdomen is soft, nontender, nondistended. Positive bowel sounds. Extremities: No clubbing, cyanosis, or edema. Musculoskeletal: Mild hip pain. Neurologic: Nonfocal. SA/MODL Voice ID: [id number] Report ID: [id number]
[2017-12-07] MEDS: ENOXAPARIN 40 MG/0.4 ML SQ SCH (08:45)
[2017-12-07] MEDS: levoFLOXacin 500 MG TAB PO SCH (08:46)
[2017-12-07 09:15] VITALS: O2SAT 97
[2017-12-07 09:41] VITALS: BP 163/68; TEMP 97.9
== END 2017-12-07 11:41 ==
LOC: ER 11:58 → INTOOBSV 15:17 → ERHOLD 15:17 → 2ND 16:02
PROVIDERS: ADMIT Family Medicine; ATTEND Family Medicine
DX: S32.511A Fracture of superior rim of right pubis, initial encounter for closed fracture (principal); S32.591A Other specified fracture of right pubis, initial encounter for closed fracture; N30.00 Acute cystitis without hematuria; J44.9 Chronic obstructive pulmonary disease, unspecified; G30.0 Alzheimer's disease with early onset; F02.80 Dementia in other diseases classified elsewhere, unspecified severity, without behavioral disturbance, psychotic disturbance, mood disturbance, and anxiety; I10 Essential (primary) hypertension; W18.30XA Fall on same level, unspecified, initial encounter; Y92.009 Unspecified place in unspecified non-institutional (private) residence as the place of occurrence of the external cause; Z86.73 Personal history of transient ischemic attack (TIA), and cerebral infarction without residual deficits; Z95.5 Presence of coronary angioplasty implant and graft; Z23 Encounter for immunization
CPT/HCPCS: 36415 ×3; 70450; 71045; 72125; 72170; 73502 ×2; 80048; 80053 ×3; 81003; 82962 ×19; 83735; 84100; 85025 ×4; 90670; 93005; 94640; 97110; 97112 ×2; 97163; 97530 ×8; 99285; G0009; J0696 ×2; J1650 ×3; J7030; 81015; G0378

== ENCOUNTER 2018-11-06 09:24 | Inpatient (IN) | payer OTHER ==
--- OUTSIDE RECORDS SUMMARY | 2018-11-06 09:32 | XMS REPORT | Continuity of Care Document ---
:1940 Author Organization [employer] Information Motility Count Care Team Providers Name Role Phone [employer] Unavailable Unavailable Problems Problem Status Onset Classification Date Comments Source Date Reported Hypotension, 12/29/19 07/12/2018 unspecified 18 [place] Transient 12/24/19 07/12/2018 hypotension 18 [place] Weakness of both 12/24/19 07/12/2018 legs 18 [place] HYPERTENSION Active 12/24/19 18 [place] PER /IRENE HRT Active 08/23/[address] Center TIA, CAD Active 08/23/[address] DX:CLUADICATION, Active 07/10/19 [facility] SEVERE PAD / Medical Center CCL/ R LOWE EXTR Active 07/10/19 [facility] ANGIO / Medical DX:CLUADICATION Center CAD, HTN, DYSPNEA Active 02/11/[address] Center CCL/RENAL Active 02/11/20 [facility] ANGIO/DX: CAD, 14 Medical HTN, DYSPNEA Center Discharge 10/07/19 10/09/2013 [facility] Diagnosis: 14 Medical Ecchymosis Center Discharge 10/07/19 10/09/2013 [facility] Diagnosis: Postop 14 Medical check Center SENT BY Active 10/02/[address] Center CLAUDICATION, Active 09/15/19 [facility] SEVERE PAD 14 Medical Center CCL/RIGHT LOWER Active 09/15/19 [facility] EXTREMITY 14 Medical ANGIO/WAGE CONCILIATOR/DX: Center CCL/LEFT LOWER Active 09/02/19 [facility] EXTREMITY 14 Medical ANGIO/WAGE CONCILIATOR/DX: C Center ANGINA, ABN STRESS Active 08/22/19 [facility] TEST, CLAUDICATION 14 Medical Center 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 Problem 07/12/[address], [place] Nicotine 07/12/2018 dependence, other [place] tobacco product, uncomplicated 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 Heart failure, 07/12/2018 unspecified [place] Unspecified 07/12/2018 dementia without [place] behavioral disturbance Chronic 07/12/2018 obstructive [place] pulmonary disease, unspecified 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 [place] Personal history 07/12/2018 MH of transient [place] ischemic attack , and cerebral infarction without residual deficits 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 Anxiety Resolved Problem 07/12/2018 [facility], [place] Bronchitis Resolved Problem 07/12/2018 [facility], [place] CAD - Coronary Resolved Problem 07/12/2018 [facility] artery [facility], [place] CHF (Confirmed) Resolved Problem 07/12/2018 [facility], [place] COPD - Chronic Resolved Problem 07/12/2018 [facility] pulmonary disease [place], [place] CVA (Confirmed) Resolved Problem 07/12/2018 [facility], [place] Dementia Resolved Problem 07/12/2018 [facility], [place] Dyslipidemia Resolved Problem 07/12/2018 [facility], [place] Headache Resolved Problem 07/12/2018 [facility], [place] Heartburn Resolved Problem 07/12/2018 [facility] HTN - Hypertension Resolved Problem 07/12/2018 [facility] PVD - Peripheral Resolved Problem 07/12/2018 [facility] vascular disease [facility], [place] Squamous cell Resolved Problem 07/12/2018 [facility] carcinoma [facility], [place] Tingling Resolved Problem 07/12/2018 [facility], [place] Weakness Resolved Problem 07/12/2018 [facility], [place] Final: 08/27/2014 [facility] TRANS CEREB Active [facility] ISCHEMIA [facility] Medications Medication Details Route Status Patient Ordering Order Source Instructions Provider Date Sodium Chloride 500 mL, 500 Inactive 0.9% (Bolus) IV ml/hr, Infuse 2017 [facility] Over: 1 hr, Route: IV, 500, Drug form: INJ, ONCE, Priority: STAT, Dosing Weight 61.364 kg, Start date: 12/23/17 16:42:00 CDT, Stop date: 12/23/17 16:42:00 CDT Saline Flush 0.9% 10 mL, Route: Inactive IVP, Drug 2017 [facility] Form: INJ, Dosing Weight 61.364, kg, PRN, PRN Line Flush, Start date: 12/23/17 16:42:00 CDT, Duration: 30 day, Stop date: 01/22/18 16:41:00 CDTNotes: (Same as: BD Posiflush) Niferex-150 Forte 1 cap, Route: No Longer [facility] PO, Drug Form: Active 2014 Medical CAP, Dosing Center Weight 57.273, kg, Daily, Start date: 08/25/14 9:00:00, Duration: 30 day, Stop date: 09/23/14 9:00:00Notes: Give with food. Thiamine 100 mg, 1 tab, No Longer [place] Route: PO, Active 2014 Medical Drug form: Center TAB, Daily, Dosing Weight 57.273, kg, Start date: 08/25/14 9:00:00, Duration: 30 day, Stop date: 09/23/14 9:00:00Notes: (Same As: Vitamin B1) Hydrochlorothiazid 1 tab, PO, Active [facility] e 12.5 MG / Daily, # 30 2014 Medical Olmesartan tab, 0 Center medoxomil 40 MG Refill(s) Oral Tablet 12 HR ranolazine 500 mg=1 tab, Active [facility] 500 MG Extended PO, Q12H, # 30 2015 Medical Release Tablet tab, 0 Center [Ranexa] Refill(s) Vitamin B12 with 1 mg=1 tab, Active [facility] Folic Acid and PO, Daily, # 2015 Medical Iron oral capsule 30 tab, 0 Center Refill(s) prasugrel 10 MG 10 mg=1 tab, Active [facility] Oral Tablet PO, Daily, # 2015 Medical [Effient] 30 tab, 0 Center Refill(s) Trazodone 25 mg=0.5 tab, Active [facility] Hydrochloride 50 PO, Bedtime, 2015 Medical MG Oral Tablet PRN Center Sleeplessness, use this for sleeplessness; discuss possibly continuing it with your primay care MD., # 10 tab, 0 Refill(s)Speci al Instructions: use this for sleeplessness; discuss possibly continuing it with your primay care MD. thiamine 100 mg 100 mg, PO, Active [facility] oral tablet Daily, # 30 2015 Medical tab, 0 Center Refill(s) doxazosin 2 mg 6 mg=3 tab, Active [facility] oral tablet PO, Daily, 2015 Medical take three 0.2 Center mg tabs each day, making 6 mg of medication daily, # 90 tab, 0 Refill(s)Speci al Instructions: take three 0.2 mg tabs each day, making 6 mg of medication daily isosorbide 30 mg=1 tab, Active [facility] mononitrate 30 mg PO, QAM, # 30 2014 Medical oral tablet, tab, 0 [place] extended release Refill(s) Effient 10 mg, 1 tab, Inactive [facility] Route: PO, 2014 Medical Drug form: Center TAB, Daily, Start date: 08/24/14 13:00:00, Duration: 30 day, Stop date: 09/23/14 9:00:00Notes: Same as Effient For patients 60kg, without history of TIA/Ischemic stroke and without likely bypass surgery Effient 10 mg, Route: Inactive [facility] PO, Daily, 2014 Medical Dosing Weight Center 57.273, kg, Start date: 08/24/14 11:27:00, Duration: 30 day, Stop date: 09/23/14 9:00:00 Vitamin B12 1,000 Inactive [facility] microgram, 1 2014 Medical mL, Route: IM, [place] Drug form: INJ, ONCE, Dosing Weight 57.273, kg, Start date: 08/24/14 11:20:00, Stop date: 08/24/14 11:20:00Notes: (Same As: Vitamin B12) atorvastatin 10 mg, 1 tab, No Longer [facility] Route: PO, Active 2014 Medical Drug form: [place] TAB, Bedtime, Dosing Weight 56.818, kg, Start date: 08/23/14 21:00:00, Duration: 30 day, Stop date: 09/21/14 21:00:00Notes: (Same As: Lipitor) Trazodone 25 mg, 0.5 No Longer [facility] tab, Route: Active 2014 Medical PO, Drug form: [place] TAB, Bedtime, Dosing Weight 57.273, kg, PRN Sleep, dose for inability to sleep, please, Start date: 08/23/14 19:52:00, Duration: 30 day, Stop date: 09/22/14 19:51:00Notes: (Same As: Desyrel) potassium chloride 20 mEq, 1 tab, Inactive [place] Route: PO, 2014 Medical Drug form: [place] ERTAB, ONCE, Dosing Weight 57.273, kg, Start date: 08/23/14 14:22:00, Stop date: 08/23/14 14:22:00Notes: (Same as: K-Dur 20) "Do Not Crush" With food and full glass of water Lovenox 40 mg, 0.4 mL, No Longer [place] Route: SUB-Q, Active 2014 Medical Drug form: [place] INJ, [id number], Dosing Weight 57.273, kg, Start date: 08/23/14 10:00:00, Duration: 30 day, Stop date: 09/21/14 10:00:00Notes: (Same as: Lovenox) Albuterol 0.833 3 mL, Route: No Longer [place] MG/ML / INHALATION, Active 2014 Medical Ipratropium Drug Form: [place] 0.167 SOLN, Dosing MG/ML Inhalant Weight 57.273, Solution [DuoNeb] kg, QID, PRN as needed for shortness of breath or wheezing, Start date: 08/23/14 9:04:00, Duration: 30 day, Stop date: 09/22/14 9:03:00Notes: (Same as: Duoneb) Dulcolax Laxative 10 mg, 2 tab, No Longer [place] Route: PO, Active 2014 Medical Drug form: [place] ECTAB, Daily, Dosing Weight 57.273, kg, PRN Constipation, Start date: 08/23/14 9:02:00, Duration: 30 day, Stop date: 09/22/14 9:01:00Notes: (Same As: Dulcolax, Correctol) (Do Not Crush) "Do Not Crush" Docusate 100 mg, 1 cap, No Longer [place] Route: PO, Active 2014 Medical Drug form: [place] CAP, BID, Dosing Weight 56.818, kg, Start date: 08/23/14 9:00:00, Duration: 30 day, Stop date: 09/21/14 17:00:00Notes: (Same as: Colace) (Do Not Crush) Microzide 12.5 mg, 1 No Longer [place] cap, Route: Active 2014 Medical PO, Drug form: [place] CAP, Daily, Start date: 08/23/14 9:00:00, Duration: 30 day, Stop date: 09/21/14 9:00:00Notes: (Same as: Microzide) With food. Isosorbide 30 mg, 1 tab, No Longer [place] Route: PO, Active 2014 Medical Drug form: [place] ERTAB, QAM, Dosing Weight 56.818, kg, hold for sbpNotes: (Same as:Imdur) "Do Not Crush" Take on empty stomach/ full glass of water. Do not crush Hydrochlorothiazid 1 tab, Route: No Longer [place] e 12.5 MG / PO, Drug Form: Active 2014 Medical Olmesartan TAB, Dosing Center medoxomil 40 MG Weight 56.818, Oral Tablet kg, Daily, [Benicar HCT hold for sbp 40/12.5] Nexium 40 mg, Route: No Longer [place] PO, Drug form: Active 2014 Medical ECCAP, Daily, Center Dosing Weight 56.818, kg, Start date: 08/23/14 9:00:00, Duration: 30 day, Stop date: 09/21/14 9:00:00 Coreg 25 mg, 1 tab, No Longer [place] Route: PO, Active 2014 Medical Drug form: [place] TAB, BID, Dosing Weight 56.818, kg, Start date: 08/23/14 9:00:00, Duration: 30 day, Stop date: 09/21/14 17:00:00Notes: Give with food. (Same As: Coreg) Magnesium Oxide 400 mg, 1 tab, No Longer [place] Route: PO, Active 2014 Medical Drug form: [place] TAB, BID, Dosing Weight 57.273, kg, Start date: 08/23/14 9:00:00, Duration: 4 doses or times, Stop date: 08/24/14 17:00:00Notes: (Same as: Mag-Ox 400) Magnesium oxide [id number] elemental magnesium Dose=____mg magnesium oxide (___mg elemental magnesium) Benicar 40 mg, 2 tab, No Longer [place] Route: PO, Active 2014 Medical Drug form: [place] TAB, Daily, Start date: 08/23/14 9:00:00, Stop date: 09/21/14 9:00:00 Doxazosin 6 mg, 3 tab, No Longer [place] Route: PO, Active 2014 Medical Drug form: [place] TAB, Daily, Dosing Weight 56.818, kg, hold for sbpNotes: (Same as: Pa) Aspirin 81 mg, 1 tab, No Longer [place] Route: PO, Active 2014 Medical Drug form: [place] CHEWTAB, Daily, Dosing Weight 56.818, kg, Start date: 08/23/14 9:00:00, Duration: 30 day, Stop date: 09/21/14 9:00:00Notes: Take with food. 12 HR ranolazine 500 mg, 1 tab, No Longer [place] 500 MG Extended Route: PO, Active 2014 Medical Release Tablet Drug form: [place] [Ranexa] TAB, Q12H, Dosing Weight 56.818, kg, Start date: 08/23/14 9:00:00, Duration: 30 day, Stop date: 09/21/14 21:00:00Notes: Same as Ranexa "Do Not Crush" Mirapex 0.5 mg, 2 tab, No Longer [place] Route: PO, Active 2014 Medical Drug form: [place] TAB, BID, Dosing Weight 56.818, kg, Start date: 08/23/14 9:00:00, Duration: 30 day, Stop date: 09/21/14 17:00:00Notes: (Same as: Mirapex) Namenda 10 mg, 1 tab, No Longer [place] Route: PO, Active 2014 Medical Drug form: [place] TAB, BID, Dosing Weight 56.818, kg, Start date: 08/23/14 9:00:00, Duration: 30 day, Stop date: 09/21/14 17:00:00Notes: (Same As: Namenda) Protonix 40 mg, 1 tab, No Longer [place] Route: PO, Active 2014 Medical Drug form: [place] ECTAB, Before Breakfast, Start date: 08/23/14 7:30:00, Duration: 30 day, Stop date: 09/21/14 7:30:00Notes: Tablet should not be chewed or crushed. (Same as: Protonix) donepezil 10 mg 10 mg=1 tab, Active [place] oral tablet PO, Bedtime, 0 2014 Medical Refill(s) Center doxazosin 4 mg 4 mg=1 tab, No Longer [facility] oral tablet PO, Daily, 0 Active 2014 Medical Refill(s) Center Morphine 2 mg, 1 mL, No Longer [place] Route: IVP, Active 2014 Medical Drug form: Center INJ, Q3H, Dosing Weight 56.818, kg, PRN Pain Score 4-6, Start date: 08/22/14 21:32:00, Duration: 30 day, Stop date: 09/21/14 21:31:00Notes: (Same as:MORPhine Sulfate) Acetaminophen 325 1 tab, Route: No Longer [place] MG / Hydrocodone PO, Drug Form: Active 2014 Medical Bitartrate 5 MG TAB, Dosing Center Oral Tablet Weight 56.818, kg, Q4H, PRN Pain Score 1-3, Start date: 08/22/14 21:32:00, Duration: 30 day, Stop date: 09/21/14 21:31:00Notes: (Same as: Vest 325/5) Do not exceed 4gm/day of acetaminophen. Acetaminophen 650 mg, 2 tab, No Longer [place] Route: PO, Active 2014 Medical Drug form: Center TAB, Q4H, Dosing Weight 56.818, kg, PRN Pain 1-3/Temp > 100.4 F, Start date: 08/22/14 21:32:00, Duration: 30 day, Stop date: 09/21/14 21:31:00Notes: Do not exceed 4 gm/day. (Same as: Tylenol) Ondansetron 4 mg, 2 mL, No Longer [place] Route: IVP, Active 2014 Medical Drug form: Center INJ, Q6H, Dosing Weight 56.818, kg, PRN Nausea & Vomiting, Start date: 08/22/14 21:32:00, Duration: 30 day, Stop date: 09/21/14 21:31:00Notes: (Same as: Tree) MEDICATION WASTE Product Size: 4 mg Product Wasted: ___ mg Doxazosin 4 mg, 1 tab, Inactive [place] Route: PO, 2014 Medical Drug form: [place] TAB, ONCE, Dosing Weight 56.818, kg, Start date: 08/22/14 19:09:00, Stop date: 08/22/14 19:09:00Notes: (Same as: Pa) Aspirin 324 mg, 4 tab, Inactive [facility] Route: CHEW, 2014 Medical Drug form: [place] CHEWTAB, ONCE, Dosing Weight 56.818, kg, Priority: STAT, Start date: 08/22/14 18:47:00, Stop date: 08/22/14 18:47:00Notes: Take with food. Nitroglycerin 100 mg, 250 No Longer [facility] mL, Rate: Active 2014 Medical Infuse as Center directed, Dosing Weight 56.818, kg, Route: IV, Total Volume: 250 mL, Start date: 08/22/14 17:27:00, Duration: 30 day, Stop date: 09/21/14 17:26:00, Replace Every: 24 hrNotes: (Same as:Tridil) Final conc=0.4 mg/ml. Premix bottle. Tylenol 975 mg, Route: Inactive [facility] PO, Drug form: 2014 Medical TAB, ONCE, Center Dosing Weight 56.818, kg, Priority: STAT, Start date: 08/22/14 17:21:00, Stop date: 08/22/14 17:21:00 Saline Flush 0.9% 10 mL, Route: No Longer [facility] IVP, Drug Active 2014 Medical Form: INJ, [place] Dosing Weight 56.818, kg, PRN, PRN Line Flush, Start date: 08/22/14 15:36:00, Duration: 30 day, Stop date: 09/21/14 15:35:00Notes: (Same as: BD Posiflush) hydrochlorothiazid 12.5 mg, 0.5 No Longer [place] e 25 mg oral tab, Route: Active 2013 Medical tablet PO, Drug form: [place] TAB, Daily, Start date: 03/05/14 9:00:00, Duration: 30 day, Stop date: 04/03/14 9:00:00Notes: (Same as: Hydrodiuril) With food. Effient 10 mg, 1 tab, No Longer [place] Route: PO, Active 2013 Medical Drug form: [place] TAB, Daily, Dosing Weight 57.273, kg, Start date: 03/05/14 9:00:00, Duration: 30 day, Stop date: 04/03/14 9:00:00Notes: Same as Effient For patients 60kg, without history of TIA/Ischemic stroke and without likely bypass surgery Benicar 40 mg, 2 tab, No Longer [place] Route: PO, Active 2013 Medical Drug form: [place] TAB, Daily, Start date: 03/05/14 9:00:00, Duration: 30 day, Stop date: 04/03/14 9:00:00 Isosorbide 30 mg, 1 tab, No Longer [place] Route: PO, Active 2013 Medical Drug form: [place] ERTAB, QA, Dosing Weight 57.273, kg, Start date: 03/05/14 9:00:00, Duration: 30 day, Stop date: 04/03/14 9:00:00Notes: (Same as:Imdur) "Do Not Crush" Take on empty stomach/ full glass of water. Do not crush Hydrochlorothiazid 1 tab, Route: No Longer [facility] e 12.5 MG / PO, Drug Form: Active 2013 Medical Olmesartan TAB, Dosing Center medoxomil 40 MG Weight 57.273, Oral Tablet kg, Daily, [Benicar HCT Start date: .5] 03/05/14 9:00:00, Duration: 30 day, Stop date: 04/03/14 9:00:00 Nexium 40 mg, Route: No Longer [place] PO, Drug form: Active 2013 Medical ECCAP, Daily, Center Dosing Weight 57.273, kg, Start date: 03/05/14 9:00:00, Duration: 30 day, Stop date: 04/03/14 9:00:00 Doxazosin 6 mg, 3 tab, No Longer [place] Route: PO, Active 2013 Medical Drug form: Center TAB, Daily, Dosing Weight 57.273, kg, Start date: 03/05/14 9:00:00, Duration: 30 day, Stop date: 04/03/14 9:00:00Notes: (Same as: Cardura) aspirin 81 mg, 1 tab, No Longer [facility] Route: PO, Active 2013 Medical Drug form: [place] CHEWTAB, Daily, Dosing Weight 57.273, kg, Start date: 03/05/14 9:00:00, Duration: 30 day, Stop date: 04/03/14 9:00:00Notes: Take with food. Saline Flush 0.9% 10 ml, Route: Inactive [facility] IVP, Drug 2013 Medical Form: INJ, [place] Dosing Weight 57.273, kg, Q12H, Start date: 03/04/14 21:00:00, Duration: 30 day, Stop date: 04/03/14 9:00:00Notes: (Same as: BD Posiflush) carvedilol 25 mg, 1 tab, Inactive [facility] Route: PO, 2013 Medical Drug form: [place] TAB, Q12H, Dosing Weight 57.273, kg, Start date: 03/04/14 21:00:00, Duration: 30 day, Stop date: 04/03/14 9:00:00Notes: Give with food. (Same As: Coreg) atorvastatin 10 mg, 1 tab, Inactive [facility] Route: PO, 2013 Medical Drug form: [place] TAB, Bedtime, Dosing Weight 57.273, kg, Start date: 03/04/14 21:00:00, Duration: 30 day, Stop date: 04/02/14 21:00:00Notes: (Same As: Lipitor) 12 HR ranolazine 500 mg, 1 tab, Inactive [facility] 500 MG Extended Route: PO, 2013 Medical Release Tablet Drug form: [place] [Ranexa] TAB, BID, Dosing Weight 57.273, kg, Start date: 03/04/14 17:00:00, Duration: 30 day, Stop date: 04/03/14 9:00:00Notes: Same as Ranexa "Do Not Crush" Mirapex 0.5 mg, 2 tab, Inactive [facility] Route: PO2013 Medical Drug form: [place] TAB, BID, Dosing Weight 57.273, kg, Start date: 03/04/14 17:00:00, Duration: 30 day, Stop date: 04/03/14 9:00:00Notes: (Same as: Mirapex) Namenda 10 mg, 1 tab, Inactive [facility] Route: PO, 2013 Medical Drug form: [place] TAB, BID, Dosing Weight 57.273, kg, Start date: 03/04/14 17:00:00, Duration: 30 day, Stop date: 04/03/14 9:00:00Notes: (Same As: Namenda) Protonix 40 mg, 1 tab, Inactive [facility] Route: PO2013 Medical Drug form: [place] ECTAB, Before Dinner, Start date: 03/04/14 16:30:00, Duration: 30 day, Stop date: 04/02/14 16:30:00Notes: Tablet should not be chewed or crushed. (Same as: Protonix) Saline Flush 0.9% 10 ml, Route: Inactive [facility] IVP, Drug 2013 Medical Form: INJ, [place] Dosing Weight 57.273, kg, PRN, PRN Line Flush, Start date: 03/04/14 9:27:00, Duration: 30 day, Stop date: 04/03/14 9:26:00Notes: (Same as: BD Posiflush) Nitroglycerin 0.4 mg, 1 tab, Inactive [facility] Route: SL, 2013 Medical Drug form: [place] TAB, Q5Min, Dosing Weight 57.273, kg, PRN Chest Pain, Start date: 03/04/14 9:27:00, Duration: 3 doses or times, Stop date: 03/04/14 17:00:00Notes: (Same as:Nitroquick, Nitrostat) "Do Not Crush" Sublingual tablet isosorbide 30 mg=1 tab, Active [facility] mononitrate 30 mg PO, QAM, # 30 2013 Medical oral tablet, tab, 0 [place] extended release Refill(s) Doxazosin 6 mg, PO, Active [facility] Daily, 0 2013 Medical Refill(s) Center carvedilol 25 mg 25 mg=1 tab, Active [facility] oral tablet PO, Q12H, # 60 2013 Medical tab, 0 Center Refill(s) Hydrochlorothiazid 1 tab, PO, Active [facility] e 12.5 MG / Daily, # 30 2014 Medical Olmesartan tab, 0 Center medoxomil 40 MG Refill(s) Oral Tablet [Benicar HCT 40/12.5] Effient 10 mg, 1 tab, Inactive 08/25[facility] Route: PO2013 Medical Drug form: Center TAB, Daily, Dosing Weight 60, kg, Start date: 08/25/13 10:00:00, Duration: 30 day, Stop date: 09/24/13 9:00:00Notes: Same as Effient For patients 60kg, without history of TIA/Ischemic stroke and without likely bypass surgery Tylenol 650 mg, 2 tab, Inactive [facility] Route: 2013 Medical Drug form: Center TAB, Q4H, PRN Pain Score 6-10, Start date: 08/25/13 9:43:00, Duration: 30 day, Stop date: 09/24/13 9:42:00 Tylenol 325 mg, 1 tab, Inactive [facility] Route: PO2013 Medical Drug form: Center TAB, Q4H, Dosing Weight 60, kg, PRN Pain Score 1-5, Start date: 08/25/13 9:36:00, Duration: 30 day, Stop date: 09/24/13 9:35:00Notes: Do not exceed 4 gm/day. (Same as: Tylenol) prasugrel 10 MG 10 mg=1 tab, Active [facility] Oral Tablet PO, Daily, # 2013 Medical [Effient] 30 tab, 0 Center Refill(s) Hydrochlorothiazid 1 tab, Route: No Longer [facility] e 12.5 MG / PO, Drug Form: Active 2013 Medical Olmesartan TAB, Dosing Center medoxomil 40 MG Weight 60, kg, Oral Tablet Daily, Start [Benicar HCT date: 08/25/13 40/12.5] 9:00:00, Duration: 30 day, Stop date: 09/23/13 9:00:00 Benicar 40 mg, 2 tab, Inactive [facility] Route: PO, 2013 Medical Drug form: [place] TAB, Daily, Start date: 08/25/13 9:00:00, Duration: 30 day, Stop date: 09/23/13 9:00:00 Microzide 12.5 mg, 1 Inactive [facility] cap, Route: 2013 Medical PO, Drug form: [place] CAP, Daily, Start date: 08/25/13 9:00:00, Duration: 30 day, Stop date: 09/23/13 9:00:00Notes: (Same as: Microzide) With food. Saline Flush 0.9% 5 ml, Route: No Longer [facility] IVP, Drug Active 2013 Medical Form: INJ, Center Dosing Weight 60, kg, Q12H, Start date: 08/24/13 21:00:00, Duration: 30 day, Stop date: 09/23/13 9:00:00Notes: (Same as: BD Posiflush) Ondansetron 0.8 4 mg, 5 mL, Inactive [facility] MG/ML Oral Route: PO, 2013 Medical Solution [Zofran] Drug form: [place] SOLN, ONCE, Dosing Weight 60, kg, Start date: 08/24/13 16:02:00, Stop date: 08/24/13 16:02:00Notes: (Same as: Zofran) Coreg 12.5 mg, 1 No Longer [facility] tab, Route: Active 2013 Medical PO, Drug form: Center TAB, Q12H, Dosing Weight 60, kg, Start date: 08/24/13 14:00:00, Duration: 30 day, Stop date: 09/23/13 9:00:00Notes: Give with food. (Same As: Coreg) Saline Flush 0.9% 5 ml, Route: No Longer [facility] IVP, Drug Active 2013 Medical Form: INJ, Center Dosing Weight 60, kg, PRN, PRN Line Flush, Start date: 08/24/13 12:13:00, Duration: 30 day, Stop date: 09/23/13 12:12:00Notes: (Same as: BD Posiflush) Nitroglycerin 0.4 mg, 1 tab, Inactive [facility] Route: 2013 Medical Drug form: Center TAB, Q5Min, Dosing Weight 60, kg, PRN Chest Pain, Start date: 08/24/13 12:13:00, Duration: 3 doses or times, Stop date: 08/24/13 17:00:00Notes: (Same as:Nitroquick, Nitrostat) "Do Not Crush" Sublingual tablet carvedilol 25 MG 25 mg=1 tab, Inactive [facility] Oral Tablet PO, BID, # 180 2013 Medical [Coreg] tab, 0 Center Refill(s) Hydrochlorothiazid 1 tab, PO, Inactive [facility] e 12.5 MG / Daily, # 30 2013 Medical Olmesartan tab, 0 Center medoxomil 40 MG Refill(s) Oral Tablet [Benicar HCT 40/12.5] 12 HR ranolazine 500 mg=1 tab, Active [facility] 500 MG Extended PO, BID, # 60 2013 Medical Release Tablet tab, 0 Center [Ranexa] Refill(s) ALPRAZOLam 0.25 mg 0.25 mg=1 tab, Active [facility] oral tablet, PO, TID, for 2013 Medical disintegrating anxiety, 0 Center Refill(s) Memantine 10 mg=1 tab, Active [facility] hydrochloride 10 PO, BID, # 60 2013 Medical MG Oral Tablet tab, 0 Center [Namenda] Refill(s) Pramipexole 0.5 mg=1 tab, Active [facility] dihydrochloride PO, BID, # 270 2013 Medical 0.5 MG Oral Tablet tab, 0 Center [Mirapex] Refill(s) Aspirin Low Dose =1 tab, PO, Active [facility] 81 mg oral tablet Daily, 0 2013 Medical Refill(s) [place] tiotropium 0.018 18 microgram=1 Active [facility] MG/ACTUAT Inhalant cap, 2013 Medical Powder [Spiriva] INHALATION, Center Daily, # 90 cap, 0 Refill(s) Esomeprazole 40 MG 40 mg=1 cap, Active [facility] [facility] Coated PO, Daily, # 2014 [facility] Capsule [Nexium] 30 cap, 0 Center Refill(s) Fluticasone 1 puff, Active [place] propionate 0.5 INHALATION, 2013 Medical MG/ACTUAT / BID, # 60 Center salmeterol 0.05 puff, 0 MG/ACTUAT Dry Refill(s) Powder Inhaler [Advair 500/50] atorvastatin 10 mg 10 mg=1 tab, Active [place] oral tablet PO, Bedtime, # 2014 Medical 30 tab, 0 Center Refill(s) clopidogrel 75 MG 75 mg=1 tab, No Longer [place] Oral Tablet PO, Daily, # Active 2013 Medical [Plavix] 30 tab, 0 Center Refill(s) Allergies, Adverse Reactions, Alerts Substance Category Reaction Severity Reaction Status Date Comments Source type Reported codeine Assertion Drug Active allergy [place] Adhesive Assertion Propensity Active Tape to adverse [facility] reactions to substance Immunizations No Data Provided for This Section Results Order Name Results Value Reference Date Interpretation Comments Source Range URINE AND UA Glucose Negative Negative 12/23 [facility] mg/dL mg/dL [facility] URINE AND UA Protein 30 mg/dL Negative 12/23 [facility] mg/dL [facility] URINE AND UA pH 6.0 5.0 - 8.0 12/23 STOOL [place] URINE AND UA Spec Grav 1.025 <=1.030 12/23 [facility] [place] URINE AND UA Color Gisela 12/23 [facility] [place] URINE AND UA Hyal Cast 1 0 - 2 12/23 [facility] [place] URINE AND UA Mucus Few /LPF None Seen 12/23 [facility] /LPF [place] URINE AND UA Sq Epi Few /LPF Few /LPF 12/23 [facility] [place] URINE AND UA Leuk Est Negative Negative 12/23 [facility] (12/23/17 6:37 PM) [place] URINE AND UA RBC 13 0 - 2 12/23 [facility] [place] URINE AND UA WBC 3 0 - 5 12/23 [facility] [place] URINE AND UA Nitrite Negative Negative 12/23 [facility] (12/23/17 6:37 PM) [place] URINE AND UA 4.0 0.1 - 1.0 12/23 [facility] Urobilinogen /2017 [place] URINE AND UA Bili Negative Negative 12/23 [facility] *NA* /2017 [facility] (12/23/17 6:37 PM) URINE AND UA Ketones Negative Negative 12/23 [facility] mg/dL mg/dL [facility] URINE AND UA Blood Small Negative 12/23 [facility] *ABN* /2017 [place] (12/23/17 6:37 PM) URINE AND UA Turbidity Clear Clear 12/23 [facility] (12/23/17 6:37 PM) /2017 [facility] CARDIAC Troponin-I 0.04 0.00 - 12/23 ENZYMES 0.40 [facility] CHEM PANEL eGFR 66 12/23 [facility] Comment: The [facility] eGFR is calculated using the CKD-EPI formula. In most young, healthy individuals the eGFR will be >90 mL/min/1.73m2 . The eGFR declines with age. An eGFR of 60-89 may be normal in some populations, particularly the elderly, for whom the CKD-EPI formula has not been extensively validated. Use of the eGFR is not recommended in the following populations:< br/>
Tricia viduals with unstable creatinine concentration s, including patients and those with serious co-morbid conditions.<b r/>
Patie nts with extremes in muscle mass or diet.

The data above are obtained from the National Kidney Disease Education Program (NKDEP) which additionally recommends that when the eGFR is used in patients with extremes of body mass index for purposes of drug dosing, the eGFR should be multiplied by the estimated BMI. CHEM PANEL AST 19 0 - 37 12/23 [facility] CHEM PANEL Alk Phos 235 39 - 136 12/23 [facility] CHEM PANEL ALT 10 0 - 65 12/23 [facility] CHEM PANEL Bili Total 0.3 0.2 - 1.3 12/23 [facility] CHEM PANEL CO2 29 24 - 32 12/23 [facility] CHEM PANEL Glucose Lvl 75 70 - 99 12/23 [facility] CHEM PANEL Albumin Lvl 2.7 3.5 - 5.0 12/23 [facility] CHEM PANEL Total 6.6 6.4 - 8.4 12/23 Protein [facility] CHEM PANEL Calcium Lvl 8.3 8.5 - 10.5 12/23 [facility] CHEM PANEL Chloride Lvl 104 95 - 109 12/23 [facility] CHEM PANEL Potassium 4.3 3.5 - 5.1 12/23 Lvl [facility] CHEM PANEL Sodium Lvl 142 135 - 145 12/23 [facility] CHEM PANEL Creatinine 0.85 0.50 - 09 Lvl 1.40 /2017 [facility] CHEM PANEL BUN 16 7 - 22 12/23 /2017 [facility] CHEM PANEL B/C Ratio 19 6 - 25 09 /2017 [facility] CHEM PANEL AGAP 13.3 10.0 - 09 MH 20.0 /2017 [facility] CHEM PANEL Globulin 3.9 2.7 - 4.2 09/ /2017 [facility] CHEM PANEL A/G Ratio 0.7 0.7 - 1.6 09/ /2017 [facility] HEMATOLOGY PT 13.0 12.0 - 09 MH 14.7 /2017 [facility] HEMATOLOGY INR 0.98 0.85 - 12/23 MH 1.17 /2017 [facility] HEMATOLOGY Platelet 253 133 - 450 12/23 [facility] HEMATOLOGY RDW 13.4 11.5 - 12/23 14.5 /2017 [facility] HEMATOLOGY MPV 8.7 7.4 - 10.4 12/23 /2017 [facility] HEMATOLOGY MCHC 34.4 32.0 - 12/23 36.0 /2017 [facility] HEMATOLOGY MCH 34.0 27.0 - 12/23 31.0 /2017 [facility] HEMATOLOGY MCV 98.9 80.0 - 12/23 MH 98.0 /2018 [facility] HEMATOLOGY RBC 3.32 4.20 - 12/23 5.40 /2017 [facility] HEMATOLOGY WBC 9.2 3.7 - 10.4 09 /2017 [facility] HEMATOLOGY Hct 32.8 36.0 - 12/23 48.0 /2017 [facility] HEMATOLOGY Hgb 11.3 12.0 - 12/23 16.0 /2017 [facility] HEMATOLOGY PTT 34.6 22.9 - 12/23 35.8 /2018 [facility] HEMATOLOGY Lymphocytes 1.6 1.0 - 5.5 /10 MH # /2017 [facility] HEMATOLOGY Monocytes # 0.9 0.0 - 0.8 10 /2017 [facility] HEMATOLOGY Eosinophils 0.1 0.0 - 0.5 /10 MH # /2017 [facility] HEMATOLOGY Basophils # 0.1 0.0 - 0.2 12/23 /2017 [facility] HEMATOLOGY Basophils 0.7 0.0 - 1.0 09 /2017 [facility] HEMATOLOGY Neutrophils 6.6 1.5 - 8.1 09/10 MH # /2017 [facility] HEMATOLOGY Lymphocytes 17.0 20.0 - 12/23 40.0 /2017 [facility] HEMATOLOGY Segs 72.0 45.0 - 12/23 MH 75.0 /2017 [place] HEMATOLOGY Monocytes 9.7 2.0 - 12.0 12/23 [place] HEMATOLOGY Eosinophils 0.6 0.0 - 4.0 12/23 [place] DRUG U Cannab Scr Negative Negative 08/24 [facility] SCREEN *NA* /2014 Medical (08/24/14 1:18 AM) Center DRUG U Phencyc Negative Negative 08/24 [facility] SCREEN Scr *NA* /2014 Medical (08/24/14 1:18 AM) Center DRUG U Opiate Scr Positive Negative 08/24 [facility] SCREEN *ABN* /2014 Medical (08/24/14 1:18 AM) Center DRUG UDS Note See Note 08/24 <sup>5</sup>I [facility] SCREEN (08/24/14 1:18 AM) /2014 nterpretive Medical Data: Drugs Center reported as positive have not been confirmed by a second
la thod and should be used for medical purposes only. To order
con firmation, contact laboratory.<b r/>
not e: Below are cut-off concentration s for all urine drugs of
abuse performed in the laboratory. Some drugs listed in the table
may not be included in this panel.
<b r/>Descriptio n Cut-off concentration
----- ------
Am phetamine 1000 ng/mL
Bar biturates 200 ng/mL
Tushar zodiazepines 300 ng/mL
Janett delmy metabolites 300 ng/mL
Opi ates 300 ng/mL
Phencyclidine 25 ng/mL
Pro poxyphene 300 ng/mL
Marijuana metabolites 50 ng/mL
Met hadone 300 ng/mL
Urine alcohol 20 mg/dL DRUG U Propoxyph Negative Negative 08/24 [facility] SCREEN Scr *NA* /2014 Medical (08/24/14 1:18 AM) Center DRUG U Methadone Negative Negative 08/24 [facility] SCREEN Scr *NA* Medical (08/24/14 1:18 AM) Center DRUG U Amph Scr Negative Negative 08/24 [facility] SCREEN *NA* /2014 Medical (08/24/14 1:18 AM) Center DRUG U Edna Scr Negative Negative 08/24 [facility] SCREEN *NA* Medical (08/24/14 1:18 AM) Center DRUG U Benzodia Negative Negative 08/24 [facility] SCREEN Scr *NA* /2014 Medical (08/24/14 1:18 AM) Center DRUG U Cocaine Negative Negative 08/24 [facility] SCREEN Scr *NA* /2014 Medical (08/24/14 1:18 AM) Center HEMATOLOGY PB Smear Review of 08/23 [facility] peripheral Center blood smear and CBC results shows mild macrocytic anemia with slight polychroma usman, no nucleated RBCs seen; adequate WBC count and unremarkab le morphology ; adequate platelet count with few large forms seen. Impression : Common etiologies for macrocytic anemia include nutritiona l deficiency (B12/folat e), liver disease, alcohol use, hypothyroi dism, and drug effect, and myelodyspl mary beth. Clinical correlatio n is recommende d. CPT: 67259 IMMUNOLOGY Homocyst Tot 10.8 3.7 - 13.9 08/23 [facility] TOXICOLOGY Etoh (%) <0.003 08/23 <sup>6</sup>I nterpretive Medical Data: Ethanol Center testing results should be used for medical purposes only.
Neg ative Range: <0.003%
T oxic Range: >0.25% TOXICOLOGY Ethanol Lvl <3 08/23 <sup>7</sup>I nterpretive Medical Data: Center Negative Range: <3 mg/dL
Tox ic Range: >250 mg/dL ANEMIA Vitamin B12 326 254 - 1320 08/23 [facility] STUDY Lvl /2014 [facility] CARDIAC Total CK 44 12 - 191 08/23 [facility] ENZYMES /2014 [facility] CARDIAC Troponin-T <0.010 0.000 - 08/23 [facility] ENZYMES 0.100 /2014 [facility] CARDIAC Troponin-I 0.03 0.00 - 08/23 [facility] ENZYMES 0.40 /2015 [facility] ANEMIA RBC Folate 666 280 - 791 08/23 [facility] STUDY [facility] CHEM PANEL eGFR 86 08/23 <sup>1</sup>R esult Medical Comment: The Center eGFR is calculated using the CKD-EPI formula. In most young, healthy individuals the eGFR will be >90 mL/min/1.73m2 . The eGFR declines with age. An eGFR of 60-89 may be normal in some populations, particularly the elderly, for whom the CKD-EPI formula has not been extensively validated. Use of the eGFR is not recommended in the following populations:& lt;br/>
I ndividuals with unstable creatinine concentration s, including patients and those with serious co-morbid conditions.<b r/>
Patie nts with extremes in muscle mass or diet.

The data above are obtained from the National Kidney Disease Education Program (NKDEP) which additionally recommends that when the eGFR is used in patients with extremes of body mass index for purposes of drug dosing, the eGFR should be multiplied by the estimated BMI. CHEM PANEL CO2 30 24 - 32 08/23 [facility] CHEM PANEL Calcium Lvl 8.5 8.5 - 10.5 08/23 [facility] CHEM PANEL AGAP 10.6 10.0 - 08/23 [facility] 20.0 [facility] CHEM PANEL Creatinine 0.7 0.5 - 1.4 08/23 [facility] CHEM PANEL BUN 19 7 - 22 08/23 2014 [facility] CHEM PANEL Sodium Lvl 143 135 - 145 08/23 [facility] CHEM PANEL Potassium 3.6 3.5 - 5.1 08/23 [facility] CHEM PANEL Chloride Lvl 106 95 - 109 08/23 [facility]2014 [facility] CHEM PANEL Glucose Lvl 76 70 - 99 08/23 <sup>3</sup>I nterpretive Medical Data: [facility] reference range values reflect the clinical guidelines
of the [place] [employer]. CHEM PANEL Magnesium 1.7 1.8 - 2.4 08/23 [facility] CHEM PANEL Phosphorus 3.7 2.5 - 4.5 08/23 [facility] HEMATOLOGY Retic Auto 0.9 0.5 - 1.5 08/23 [facility] HEMATOLOGY Monocytes # 0.9 0.0 - 0.8 08/23 [facility] HEMATOLOGY Lymphocytes 3.2 1.0 - 5.5 08/23 # [facility] HEMATOLOGY Macrocyte 1+ None Seen 08/23 [facility] *ABN* /2014 Medical (08/23/14 4:40 AM) [place] HEMATOLOGY Eosinophils 0.1 0.0 - 0.5 08/23 # /2014 [facility] HEMATOLOGY Basophils 0.6 0.0 - 1.0 08/23 [facility] HEMATOLOGY Eosinophils 1.5 0.0 - 4.0 08/23 [facility] HEMATOLOGY Segs-Bands # 3.0 1.5 - 8.1 08/23 [facility] HEMATOLOGY Lymphocytes 44.4 20.0 - 08/23 40.0 [facility] HEMATOLOGY Segs 40.6 45.0 - 08/23 [place] 75.0 [facility] HEMATOLOGY Monocytes 12.9 2.0 - 12.0 08/23 [facility] HEMATOLOGY Hct 34.7 36.0 - 08/23 48.0 [facility] HEMATOLOGY MCV 104.7 80.0 - 08/23 98.0 /2014 [facility] HEMATOLOGY MCH 35.4 27.0 - 08/23 31.0 /2014 [facility] HEMATOLOGY MCHC 33.8 32.0 - 08/23 36.0 /2014 [facility] HEMATOLOGY WBC 7.3 3.7 - 10.4 08/23 [facility] HEMATOLOGY RBC 3.31 4.20 - 08/23 [place] 5.40 /2014 [facility] HEMATOLOGY Hgb 11.7 12.0 - 05 16.0 [facility] HEMATOLOGY RDW 12.0 11.5 - 05 14.5 [facility] HEMATOLOGY Platelet 201 133 - 450 08/23 [facility] HEMATOLOGY MPV 8.8 7.4 - 10.4 08/23 [facility] HEMATOLOGY INR 1.02 0.85 - 08/23 <sup>9</sup>I 1. nterpretive Medical Data: Center RECOMMENDED RANGES FOR PROTIME INR:
2.0-3.0 for most medical and surgical thromboemboli c states.
2.5-3.5 for artificial heart valves and recurrent embolism.<br/ >
INR SHOULD BE USED ONLY FOR PATIENTS ON STABLE ANTICOAGULANT THERAPY. HEMATOLOGY PTT 36.6 22.9 - 08/23 <sup>11</sup> [facility] 35.8 /2014 Interpretive Medical Data: Heparin Center Therapeutic Range: 57 - 92 Seconds HEMATOLOGY PT 13.4 12.0 - 08/23 [facility] 14.7 /2014 [facility] URINE AND UA Sq Epi Occasional Few /LPF 08/22 [facility] STOOL /LPF /2014 [facility] URINE AND UA WBC 0-2 /HPF None Seen 08/22 [facility] /HPF /2014 [facility] URINE AND UA RBC 3-5 /HPF 0 - 2 08/22 [facility] /2014 [facility] URINE AND UA Bacteria Few /HPF None Seen 08/22 [facility] /HPF /2014 [facility] URINE AND UA Turbidity Clear Clear 08/22 [facility] (08/22/14 5:00 PM) /2014 [facility] URINE AND UA Color Yellow Yellow 08/22 [facility] *NA* /2014 [facility] (08/22/14 5:00 PM) [place] URINE AND UA Blood Small Negative 08/22 [facility] *ABN* /2014 [facility] (08/22/14 5:00 PM) [place] URINE AND UA Bili Negative Negative 08/22 [facility] *NA* /2014 [facility] (08/22/14 5:00 PM) [place] URINE AND UA Spec Grav 1.025 <=1.030 08/22 [facility] /2014 [facility] URINE AND UA Ketones Trace Negative 08/22 [facility] *ABN* /2014 [facility] (08/22/14 5:00 PM) [place] URINE AND UA Glucose Negative Negative 08/22 [facility] (08/22/14 5:00 PM) /2014 [facility] URINE AND UA Nitrite Negative Negative 08/22 [facility] (08/22/14 5:00 PM) /2014 [facility] URINE AND UA 0.2 0.1 - 1.0 08/22 [facility] Urobilinogen /2014 [facility] URINE AND UA Protein Negative Negative 08/22 [facility] (08/22/14 5:00 PM) /2014 [facility] URINE AND UA pH 6.0 5.0 - 8.0 08/22 [facility] STOOL [facility] URINE AND UA Leuk Est Negative Negative 08/22 [facility] STOOL (08/22/14 5:00 PM) [facility] URINE CHEM U Cotinine Positive 8 Negative 08/22 <sup>8</sup>I [facility] Lvl *ABN* nterpretive Medical (08/22/14 5:00 PM) Data: Center Negative: </=212 ng/mL Cotinine. CARDIAC Troponin-I <0.02 0.00 - 08/22 [facility] ENZYMES 0.40 [facility] CHEM PANEL eGFR 63 08/22 <sup>2</sup>R esult Medical Comment: The Center eGFR is calculated using the CKD-EPI formula. In most young, healthy individuals the eGFR will be >90 mL/min/1.73m2 . The eGFR declines with age. An eGFR of 60-89 may be normal in some populations, particularly the elderly, for whom the CKD-EPI formula has not been extensively validated. Use of the eGFR is not recommended in the following populations:& lt;br/>
I ndividuals with unstable creatinine concentration s, including patients and those with serious co-morbid conditions.<b r/>
Patie nts with extremes in muscle mass or diet.

The data above are obtained from the National Kidney Disease Education Program (NKDEP) which additionally recommends that when the eGFR is used in patients with extremes of body mass index for purposes of drug dosing, the eGFR should be multiplied by the estimated BMI. CHEM PANEL Calcium Lvl 9.1 8.5 - 10.5 08/22 [facility] CHEM PANEL CO2 30 24 - 32 08/22 [facility] CHEM PANEL Sodium Lvl 139 135 - 145 08/22 [facility] CHEM PANEL Creatinine 0.9 0.5 - 1.4 08/22 [facility] CHEM PANEL Potassium 3.6 3.5 - 5.1 08/22 [facility] CHEM PANEL Chloride Lvl 102 95 - 109 08/22 [facility] CHEM PANEL Glucose Lvl 76 70 - 99 08/22 <sup>4</sup>I nterpretive Medical Data: Adult Center reference range values reflect the clinical guidelines
of the [place] [employer]. CHEM PANEL BUN 19 7 - 22 05/ [facility] CHEM PANEL ALT 19 0 - 65 05/ [facility] CHEM PANEL Bili Total 0.3 0.2 - 1.3 05/ [facility] CHEM PANEL Alk Phos 105 39 - 136 05/ [facility] CHEM PANEL AST 26 0 - 37 05/ [facility] CHEM PANEL Total 7.8 6.4 - 8.4 05 Protein [facility] CHEM PANEL Albumin Lvl 4.1 3.5 - 5.0 05/ [facility] CHEM PANEL AGAP 10.6 10.0 - 0510 [place] 20.0 [facility] CHEM PANEL B/C Ratio 21 6 - 25 05/ [facility] CHEM PANEL A/G Ratio 1.1 0.7 - 1.6 / [facility] CHEM PANEL Globulin 3.7 2.0 - 4.0 05/ [facility] HEMATOLOGY RBC 3.60 4.20 - 0510 [place] 5.40 /2014 [facility] HEMATOLOGY WBC 9.1 3.7 - 10.4 05/ [facility] HEMATOLOGY MCV 105.2 80.0 - 0510 [place] 98.0 /2014 [facility] HEMATOLOGY Hgb 12.7 12.0 - 0510 [place] 16.0 /2014 [facility] HEMATOLOGY Hct 37.9 36.0 - 0510 [place] 48.0 /2014 [facility] HEMATOLOGY MCHC 33.5 32.0 - 05/10 [place] 36.0 /2014 [facility] HEMATOLOGY RDW 11.9 11.5 - 0510 [place] 14.5 /2014 [facility] HEMATOLOGY MCH 35.3 27.0 - 05/10 [place] 31.0 [facility] HEMATOLOGY MPV 8.4 7.4 - 10.4 05 [facility] HEMATOLOGY Platelet 254 133 - 450 05 [facility] HEMATOLOGY INR 0.97 0.85 - 0510 <sup>10</sup> [place] 1.17 Interpretive Medical Data: Center RECOMMENDED RANGES FOR PROTIME INR:
2.0-3.0 for most medical and surgical thromboemboli c states.
2.5-3.5 for artificial heart valves and recurrent embolism.<br/ >
INR SHOULD BE USED ONLY FOR PATIENTS ON STABLE ANTICOAGULANT THERAPY. HEMATOLOGY PT 12.9 12.0 - 08/22 [facility] 14.7 [facility] HEMATOLOGY PTT 34.2 22.9 - 08/22 <sup>12</sup> [facility] 35.8 /2014 Interpretive Medical Data: Heparin Center Therapeutic Range: 57 - 92 Seconds HEMATOLOGY Macrocyte 3+ None Seen 08/22 [facility] *NA* /2014 [facility] (08/22/14 3:51 PM) [place] HEMATOLOGY Segs-Bands # 4.8 1.5 - 8.1 08/22 [facility] HEMATOLOGY Monocytes # 1.0 0.0 - 0.8 08/22 [facility] HEMATOLOGY Lymphocytes 3.2 1.0 - 5.5 08/22 [facility] HEMATOLOGY Basophils # 0.0 0.0 - 0.2 08/22 [facility] HEMATOLOGY Eosinophils 0.1 0.0 - 0.5 08/22 [facility] HEMATOLOGY Eosinophils 1.1 0.0 - 4.0 08/22 [facility] HEMATOLOGY Basophils 0.2 0.0 - 1.0 08/22 [facility] HEMATOLOGY Plt Morph Normal 08/22 [facility] (08/22/14 3:51 PM) [facility] HEMATOLOGY Lymphocytes 35.5 20.0 - 08/22 [facility] 40.0 [facility] HEMATOLOGY Segs 51.9 45.0 - 08/22 [facility] 75.0 [facility] HEMATOLOGY Monocytes 11.3 2.0 - 12.0 08/22 [facility] BLOOD BANK Antibody Negative 07/15 [facility] RESULTS Scrn (07/15/14 7:10 AM) /2014 [facility] BLOOD BANK ABO/Rh O POS 07/15 [facility] RESULTS /2014 [facility] CHEM PANEL eGFR 86 07/15 <sup>1</sup>R esult Medical Comment: The Center eGFR is calculated using the CKD-EPI formula. In most young, healthy individuals the eGFR will be >90 mL/min/1.73m2 . The eGFR declines with age. An eGFR of 60-89 may be normal in some populations, particularly the elderly, for whom the CKD-EPI formula has not been extensively validated. Use of the eGFR is not recommended in the following populations:& lt;br/>
I ndividuals with unstable creatinine concentration s, including patients and those with serious co-morbid conditions.<b r/>
Patie nts with extremes in muscle mass or diet.

The data above are obtained from the National Kidney Disease Education Program (NKDEP) which additionally recommends that when the eGFR is used in patients with extremes of body mass index for purposes of drug dosing, the eGFR should be multiplied by the estimated BMI. CHEM PANEL Calcium Lvl 8.9 8.5 - 10.5 07/15 [facility] CHEM PANEL Sodium Lvl 139 135 - 145 07/15 [facility] CHEM PANEL CO2 31 24 - 32 07/15 2014 [facility] CHEM PANEL Chloride Lvl 103 95 - 109 07/15 2014 [facility] CHEM PANEL Potassium 3.5 3.5 - 5.1 07/15 [facility] CHEM PANEL Creatinine 0.7 0.5 - 1.4 07/15 [facility] CHEM PANEL Glucose Lvl 92 70 - 99 07/15 <sup>2</sup>I nterpretive Medical Data: Adult Center reference range values reflect the clinical guidelines
of the [place] [employer]. CHEM PANEL BUN 13 7 - 22 07/15 [facility] CHEM PANEL AGAP 8.5 10.0 - 07/15 20.0 [facility] HEMATOLOGY Macrocyte 1+ None Seen 07/15 [facility] *ABN* /2014 Medical (07/15/14 7:10 AM) [place] HEMATOLOGY Segs 51.3 45.0 - 07/15 [place] 75.0 [facility] HEMATOLOGY Monocytes 9.0 2.0 - 12.0 07/15 [facility] HEMATOLOGY Eosinophils 1.3 0.0 - 4.0 07/15 [facility] HEMATOLOGY Lymphocytes 37.8 20.0 - 04 [place] 40.0 /2014 [facility] HEMATOLOGY Lymphocytes 2.3 1.0 - 5.5 07/15 [facility] # /2015 [facility] HEMATOLOGY Segs-Bands # 3.1 1.5 - 8.1 / /2014 [facility] HEMATOLOGY Basophils 0.6 0.0 - 1.0 / /2014 [facility] HEMATOLOGY Eosinophils 0.1 0.0 - 0.5 / [facility] # /2014 [facility] HEMATOLOGY Monocytes # 0.5 0.0 - 0.8 / /2014 [facility] HEMATOLOGY PT 12.8 12.0 - 07/15 [place] 14.7 /2014 [facility] HEMATOLOGY PTT 36.0 22.9 - 07/15 <sup>4</sup>I [facility] 35.8 /2014 nterpretive Medical Data: Heparin Center Therapeutic Range: 57 - 92 Seconds HEMATOLOGY INR 0.96 0.85 - 07/15 <sup>3</sup>I [facility] 1.17 nterpretive Medical Data: Center RECOMMENDED RANGES FOR PROTIME INR:
2.0-3.0 for most medical and surgical thromboemboli c states.
2.5-3.5 for artificial heart valves and recurrent embolism.<br/ >
INR SHOULD BE USED ONLY FOR PATIENTS ON STABLE ANTICOAGULANT THERAPY. HEMATOLOGY Hgb 12.0 12.0 - 07/15 [facility] 16.0 /2014 [facility] HEMATOLOGY RBC 3.59 4.20 - 07/15 [facility] 5.40 /2014 [facility] HEMATOLOGY WBC 6.0 3.7 - 10.4 07/15 /2014 [facility] HEMATOLOGY RDW 12.4 11.5 - 07/15 14.5 /2014 [facility] HEMATOLOGY MCHC 32.0 32.0 - 07/15 [place] 36.0 /2014 [facility] HEMATOLOGY MCH 33.4 27.0 - 07/15 [place] 31.0 /2014 [facility] HEMATOLOGY MCV 104.6 80.0 - 07/15 98.0 /2014 [facility] HEMATOLOGY Hct 37.5 36.0 - 07/15 [place] 48.0 /2014 [facility] HEMATOLOGY Platelet 248 133 - 450 07/15 /2014 [facility] HEMATOLOGY MPV 8.3 7.4 - 10.4 07/15 [facility] URINE AND UA <=1.0 0.1 - 1.0 03/04 [facility] STOOL Urobilinogen mg/dL /2013 [facility] URINE AND UA WBC 3 0 - 5 03/04 [facility] STOOL [facility] URINE AND UA Sq Epi Few /LPF Few /LPF 03/04 [facility] STOOL [facility] URINE AND UA Mucus Few /LPF None Seen 03/04 [facility] STOOL /LPF [facility] URINE AND UA RBC 2 0 - 2 03/04 [facility] STOOL [facility] URINE AND UA Leuk Est Negative Negative 03/04 [facility] (03/04/14 11:54 AM) [facility] URINE AND UA Color Light Yellow Yellow 03/04 [facility] STOOL *NA* /2013 [facility] (03/04/14 11:54 AM) [place] URINE AND UA Turbidity Clear Clear 03/04 [facility] (03/04/14 11:54 AM) [facility] URINE AND UA pH 7.0 5.0 - 8.0 03/04 [facility] URINE AND UA Spec Grav 1.049 <=1.030 03/04 [facility] URINE AND UA Glucose Negative Negative 03/04 [facility] mg/dL mg/dL [facility] URINE AND UA Protein 30 mg/dL Negative 03/04 [facility] mg/dL [facility] URINE AND UA Bili Negative Negative 03/04 [facility] *NA* [facility] (03/04/14 11:54 AM) [place] URINE AND UA Nitrite Negative Negative 03/04 [facility] (03/04/14 11:54 AM) [facility] URINE AND UA Blood Moderate Negative 03/04 [facility] *ABN* [facility] (03/04/14 11:54 AM) [place] URINE AND UA Ketones Negative Negative 03/04 [facility] mg/dL mg/dL [facility] BLOOD BANK ABO/Rh O POS 03/04 [facility] RESULTS [facility] BLOOD BANK Antibody Negative 03/04 [facility] RESULTS Scrn (03/04/14 6:30 AM) [facility] CHEM PANEL Magnesium 1.7 1.8 - 2.4 03/04 [facility] Lvl [facility] ELECTROLYT AGAP 9.0 10.0 - 03/04 [facility] ES 20.0 [facility] ELECTROLYT eGFR 73 03/04 <sup>1</sup>R [facility] ES esult Medical Comment: The Center eGFR is calculated using the CKD-EPI formula. In most young, healthy individuals the eGFR will be >90 mL/min/1.73m2 . The eGFR declines with age. An eGFR of 60-89 may be normal in some populations, particularly the elderly, for whom the CKD-EPI formula has not been extensively validated. Use of the eGFR is not recommended in the following populations:& lt;br/>
I ndividuals with unstable creatinine concentration s, including patients and those with serious co-morbid conditions.<b r/>
Patie nts with extremes in muscle mass or diet.

The data above are obtained from the National Kidney Disease Education Program (NKDEP) which additionally recommends that when the eGFR is used in patients with extremes of body mass index for purposes of drug dosing, the eGFR should be multiplied by the estimated BMI. ELECTROLYT Calcium Lvl 9.1 8.5 - 10.5 03/04 [facility] ELECTROLYT Chloride Lvl 95 95 - 109 03/04 [facility] ELECTROLYT CO2 30 24 - 32 03/04 [facility] ELECTROLYT Potassium 4.0 3.5 - 5.1 03/04 [facility] ELECTROLYT Creatinine 0.8 0.5 - 1.4 03/04 [facility] ELECTROLYT Glucose Lvl 94 70 - 99 03/04 <sup>2</sup>I nterpretive Medical Data: Adult Center reference range values reflect the clinical guidelines
of the [place] [employer]. ELECTROLYT BUN 12 7 - 22 03/04 [facility] ELECTROLYT Sodium Lvl 130 135 - 145 03/04 [facility] HEMATOLOGY Macrocyte 2+ None Seen 03/04 *ABN* Medical (03/04/14 6:15 AM) Center HEMATOLOGY Eosinophils 0.1 0.0 - 0.5 03/04 # [facility] HEMATOLOGY Basophils # 0.1 0.0 - 0.2 03/04 [facility] HEMATOLOGY Monocytes # 0.8 0.0 - 0.8 03/04 [facility] HEMATOLOGY Lymphocytes 2.4 1.0 - 5.5 03/04 # [facility] HEMATOLOGY Segs-Bands # 6.0 1.5 - 8.1 03/04 [facility] HEMATOLOGY Basophils 0.9 0.0 - 1.0 03/04 [facility] HEMATOLOGY Segs 63.7 45.0 - 03/04 [place] 75.0 /2013 [facility] HEMATOLOGY Lymphocytes 25.5 20.0 - 03/04 [place] 40.0 /2013 [facility] HEMATOLOGY Eosinophils 1.1 0.0 - 4.0 03/04 [facility] HEMATOLOGY Monocytes 8.8 2.0 - 12.0 03/04 [facility] HEMATOLOGY INR 0.95 0.85 - 03/04 <sup>3</sup>I [facility] 1.17 nterpretive Medical Data: Center RECOMMENDED RANGES FOR PROTIME INR:
2.0-3.0 for most medical and surgical thromboemboli c states.
2.5-3.5 for artificial heart valves and recurrent embolism.<br/ >
INR SHOULD BE USED ONLY FOR PATIENTS ON STABLE ANTICOAGULANT THERAPY. HEMATOLOGY PT 12.7 12.0 - 03/04 [place] 14.7 [facility] HEMATOLOGY PTT 37.9 22.9 - 03/04 <sup>4</sup>I [facility] 35.8 nterpretive Medical Data: [facility] Therapeutic Range: 57 - 92 Second[facility] HEMATOLOGY Platelet 319 133 - 450 03/04 [facility] HEMATOLOGY MPV 7.8 7.4 - 10.4 03/04 [facility] HEMATOLOGY Hct 38.4 36.0 - 03/04 [place] 48.0 /2013 [facility] HEMATOLOGY Hgb 13.4 12.0 - 03/04 [place] 16.0 [facility] HEMATOLOGY MCV 107.6 80.0 - 03/04 [place] 98.0 /2013 [facility] HEMATOLOGY MCHC 34.8 32.0 - 03/04 [place] 36.0 [facility] HEMATOLOGY RDW 13.2 11.5 - 03/04 [place] 14. [facility] HEMATOLOGY MCH 37.4 27.0 - 03/04 [place] 31.0 [facility] HEMATOLOGY RBC 3.57 4.20 - 03/04 [place] 5.40 /2013 [facility] HEMATOLOGY WBC 9.4 3.7 - 10.4 03/04 [facility] CHEM PANEL eGFR 86 10/07 <sup>1</sup>R esult Medical Comment: The Center eGFR is calculated using the CKD-EPI formula. In most young, healthy individuals the eGFR will be >90 mL/min/1.73m2 . The eGFR declines with age. An eGFR of 60-89 may be normal in some populations, particularly the elderly, for whom the CKD-EPI formula has not been extensively validated. Use of the eGFR is not recommended in the following populations:& lt;br/>
I ndividuals with unstable creatinine concentration s, including patients and those with serious co-morbid conditions.<b r/>
Patie nts with extremes in muscle mass or diet.

The data above are obtained from the National Kidney Disease Education Program (NKDEP) which additionally recommends that when the eGFR is used in patients with extremes of body mass index for purposes of drug dosing, the eGFR should be multiplied by the estimated BMI. CHEM PANEL Creatinine 0.7 0.5 - 1.4 10/07 [facility] CHEM PANEL Potassium 3.8 3.5 - 5.1 10/07 [facility] CHEM PANEL BUN 6 7 - 22 10/07 [facility] CHEM PANEL Sodium Lvl 132 135 - 145 10/07 [facility] CHEM PANEL Glucose Lvl 85 70 - 99 10/07 <sup>2</sup>I nterpretive Medical Data: Adult Center reference range values reflect the clinical guidelines
of the [place] [employer]. CHEM PANEL Chloride Lvl 97 95 - 109 10/07 [facility] CHEM PANEL CO2 29 24 - 32 10/07 [facility] CHEM PANEL Calcium Lvl 9.7 8.5 - 10.5 10/07 [facility] CHEM PANEL AGAP 9.8 10.0 - 10/07 20.0 [facility] HEMATOLOGY WBC 7.8 3.7 - 10.4 10/07 [facility] HEMATOLOGY RBC 3.51 4.20 - 10/07 [place] 5.40 [facility] HEMATOLOGY Hgb 12.7 12.0 - 10/07 [place] 16.0 [facility] HEMATOLOGY Hct 35.8 36.0 - 10/07 48.0 /2013 [facility] HEMATOLOGY MCV 102.1 81.0 - 10/07 99.0 /2013 [facility] HEMATOLOGY MCH 36.2 27.0 - 10/07 [place] 31.0 /2013 [facility] HEMATOLOGY MCHC 35.5 32.0 - 10/07 36.0 /2013 [facility] HEMATOLOGY RDW 12.1 11.5 - 10/07 14.5 /2013 [facility] HEMATOLOGY Platelet 314 133 - 450 10/07 [facility] HEMATOLOGY MPV 7.7 7.4 - 10.4 10/07 [facility] HEMATOLOGY Segs 54.0 45.0 - 10/07 75.0 [facility] HEMATOLOGY Lymphocytes 34.6 20.0 - 10/07 40.0 [facility] HEMATOLOGY Monocytes 9.6 2.0 - 12.0 10/07 [facility] HEMATOLOGY Basophils 0.5 0.0 - 1.0 10/07 [facility] HEMATOLOGY Eosinophils 1.3 0.0 - 4.0 10/07 [facility] HEMATOLOGY Lymphocytes 2.7 1.0 - 5.5 10/07 # /2013 [facility] HEMATOLOGY Monocytes # 0.7 0.0 - 0.8 10/07 [facility] HEMATOLOGY Segs-Bands # 4.3 1.5 - 8.1 10/07 [facility] HEMATOLOGY Eosinophils 0.1 0.0 - 0.5 10/07 [facility] HEMATOLOGY Basophils # 0.0 0.0 - 0.2 10/07 [facility] HEMATOLOGY Macrocyte 2+ None Seen 10/07 [facility] *ABN* /2013 Medical (10/06/13 7:50 PM) Center HEMATOLOGY PTT 39.5 22.9 - 10/07 <sup>4</sup>I [place] 35.8 nterpretive Medical Data: Heparin Center Therapeutic Range: 57 - 92 Seconds HEMATOLOGY INR 0.84 0.85 - 10/07 <sup>3</sup>I [facility] 1 nterpretive Medical Data: Center RECOMMENDED RANGES FOR PROTIME INR:
2.0-3.0 for most medical and surgical thromboemboli c states.
2.5-3.5 for artificial heart valves and recurrent embolism.<br/ >
INR SHOULD BE USED ONLY FOR PATIENTS ON STABLE ANTICOAGULANT THERAPY. HEMATOLOGY PT 11.5 12.0 - 10/07 [facility] 14.7 [facility] CHEM PANEL Magnesium 1.4 1.8 - 2.4 09/10 [facility] CHEM PANEL eGFR 86 09/10 <sup>1</sup>R esult Medical Comment: The Center eGFR is calculated using the CKD-EPI formula. In most young, healthy individuals the eGFR will be >90 mL/min/1.73m2 . The eGFR declines with age. An eGFR of 60-89 may be normal in some populations, particularly the elderly, for whom the CKD-EPI formula has not been extensively validated. Use of the eGFR is not recommended in the following populations:& lt;br/>
I ndividuals with unstable creatinine concentration s, including patients and those with serious co-morbid conditions.<b r/>
Patie nts with extremes in muscle mass or diet.

The data above are obtained from the National Kidney Disease Education Program (NKDEP) which additionally recommends that when the eGFR is used in patients with extremes of body mass index for purposes of drug dosing, the eGFR should be multiplied by the estimated BMI. CHEM PANEL Glucose Lvl 100 70 - 99 09/10 <sup>2</sup>I nterpretive Medical Data: Adult Center reference range values reflect the clinical guidelines
of the [place] [employer]. CHEM PANEL BUN 13 7 - 22 09/10 [facility] CHEM PANEL Creatinine 0.7 0.5 - 1.4 09/10 [facility] CHEM PANEL Sodium Lvl 132 135 - 145 09/10 [facility] CHEM PANEL CO2 29 24 - 32 09/10 [facility] CHEM PANEL Calcium Lvl 9.5 8.5 - 10.5 09/10 [facility] CHEM PANEL Chloride Lvl 94 95 - 109 09/10 [facility] CHEM PANEL Potassium 3.9 3.5 - 5.1 09/10 [facility] CHEM PANEL AGAP 12.9 10.0 - 09/10 [facility] 20.0 [facility] HEMATOLOGY Eosinophils 0.1 0.0 - 0.5 09/10 [place] # /2013 [facility] HEMATOLOGY Monocytes # 0.9 0.0 - 0.8 09/10 [facility] HEMATOLOGY Macrocyte 1+ None Seen 09/10 [facility] *ABN* /2013 Medical (09/10/13 7:05 AM) [place] HEMATOLOGY Basophils # 0.1 0.0 - 0.2 09/10 [facility] HEMATOLOGY Lymphocytes 31.7 20.0 - 09/10 [place] 40.0 [facility] HEMATOLOGY Segs 55.5 45.0 - 09/10 [place] 75.0 [facility] HEMATOLOGY Lymphocytes 2.7 1.0 - 5.5 09/10 # [facility] HEMATOLOGY Segs-Bands # 4.7 1.5 - 8.1 09/10 [facility] HEMATOLOGY Basophils 1.4 0.0 - 1.0 09/10 [facility] HEMATOLOGY Eosinophils 1.0 0.0 - 4.0 09/10 [facility] HEMATOLOGY Monocytes 10.4 2.0 - 12.0 09/10 [facility] HEMATOLOGY PT 12.4 12.0 - 09/10 14.7 [facility] HEMATOLOGY PTT 37.3 22.9 - 09/10 <sup>4</sup>I [facility] 35.8 nterpretive Medical Data: Heparin Center Therapeutic Range: 57 - 92 Seconds HEMATOLOGY INR 0.93 0.85 - 09/10 <sup>3</sup>I [facility] 1.17 nterpretive Medical Data: Center RECOMMENDED RANGES FOR PROTIME INR:
2.0-3.0 for most medical and surgical thromboemboli c states.
2.5-3.5 for artificial heart valves and recurrent embolism.<br/ >
INR SHOULD BE USED ONLY FOR PATIENTS ON STABLE ANTICOAGULANT THERAPY. HEMATOLOGY RBC 4.04 4.20 - 09/10 5.40 [facility] HEMATOLOGY Hct 40.9 36.0 - 09/10 [place] 48.0 [facility] HEMATOLOGY WBC 8.4 3.7 - 10.4 09/10 [facility] HEMATOLOGY Hgb 14.0 12.0 - 09/10 [facility] 16.0 [facility] HEMATOLOGY MCHC 34.3 32.0 - 09/10 [facility] 36.0 [facility] HEMATOLOGY MCH 34.7 27.0 - 09/10 [facility] 31.0 [facility] HEMATOLOGY RDW 11.9 11.5 - 09/10 [facility] 14. [facility] HEMATOLOGY MCV 101.2 81.0 - 09/10 [facility] 99.0 [facility] HEMATOLOGY MPV 7.4 7.4 - 10.4 09/10 [facility] HEMATOLOGY Platelet 325 133 - 450 09/10 [facility] BLOOD BANK ABO/Rh O POS 09/10 [facility] RESULTS [facility] BLOOD BANK Antibody Negative 09/10 [facility] RESULTS Scrn (09/10/13 7:00 AM) [facility] CHEM PANEL Magnesium 1.8 1.8 - 2.4 08/25 [facility] Lvl [facility] CHEM PANEL eGFR 96 08/25 <sup>2</sup>R esult Medical Comment: The Center eGFR is calculated using the CKD-EPI formula. In most young, healthy individuals the eGFR will be >90 mL/min/1.73m2 . The eGFR declines with age. An eGFR of 60-89 may be normal in some populations, particularly the elderly, for whom the CKD-EPI formula has not been extensively validated. Use of the eGFR is not recommended in the following populations:& lt;br/>
I ndividuals with unstable creatinine concentration s, including patients and those with serious co-morbid conditions.<b r/>
Patie nts with extremes in muscle mass or diet.

The data above are obtained from the National Kidney Disease Education Program (NKDEP) which additionally recommends that when the eGFR is used in patients with extremes of body mass index for purposes of drug dosing, the eGFR should be multiplied by the estimated BMI. CHEM PANEL Chloride Lvl 102 95 - 109 08/25 [facility] CHEM PANEL BUN 12 7 - 22 08/25 [facility] CHEM PANEL Glucose Lvl 84 70 - 99 08/25 <sup>4</sup>I nterpretive Medical Data: Adult Center reference range values reflect the clinical guidelines
of the [place] [employer]. CHEM PANEL Sodium Lvl 138 135 - 145 08/25 [facility] CHEM PANEL Creatinine 0.5 0.5 - 1.4 08/25 Lvl [facility] CHEM PANEL Calcium Lvl 8.5 8.5 - 10.5 08/25 [facility] CHEM PANEL CO2 27 24 - 32 08/25 [facility] CHEM PANEL Potassium 4.4 3.5 - 5.1 08/25 <sup>1</sup>R [facility] esult Medical Comment: Center Specimen Slightly Hemolyzed. CHEM PANEL AGAP 13.4 10.0 - 08/25 20.0 [facility] HEMATOLOGY RBC 2.56 4.20 - 08/25 [place] 5.40 /2013 [facility] HEMATOLOGY WBC 6.4 3.7 - 10.4 08/25 [facility] HEMATOLOGY Hct 26.8 36.0 - 08/25 [place] 48.0 [facility] HEMATOLOGY MCH 35.1 27.0 - 08/25 [place] 31.0 [facility] HEMATOLOGY MCV 104.6 81.0 - 08/25 [place] 99.0 [facility] HEMATOLOGY Hgb 9.0 12.0 - 08/25 16.0 [facility] HEMATOLOGY RDW 12.2 11.5 - 08/25 [place] 14.5 [facility] HEMATOLOGY MCHC 33.6 32.0 - 08/25 [place] 36.0 [facility] HEMATOLOGY MPV 7.4 7.4 - 10.4 08/25 [facility] HEMATOLOGY Platelet 194 133 - 450 08/25 [facility] BLOOD BANK ABO/Rh O POS 08/24 [facility] RESULTS [facility] BLOOD BANK Antibody Negative 08/24 [facility] RESULTS Scrn (08/24/13 7:21 AM) [facility] CHEM PANEL Magnesium 1.8 1.8 - 2.4 08/24 Lv [facility] ELECTROLYT AGAP 7.9 10.0 - 08/24 [facility] ES 20.0 [facility] ELECTROLYT eGFR 86 08/24 <sup>3</sup>R esult Medical Comment: The Center eGFR is calculated using the CKD-EPI formula. In most young, healthy individuals the eGFR will be >90 mL/min/1.73m2 . The eGFR declines with age. An eGFR of 60-89 may be normal in some populations, particularly the elderly, for whom the CKD-EPI formula has not been extensively validated. Use of the eGFR is not recommended in the following populations:& lt;br/>
I ndividuals with unstable creatinine concentration s, including patients and those with serious co-morbid conditions.<b r/>
Patie nts with extremes in muscle mass or diet.

The data above are obtained from the National Kidney Disease Education Program (NKDEP) which additionally recommends that when the eGFR is used in patients with extremes of body mass index for purposes of drug dosing, the eGFR should be multiplied by the estimated BMI. ELECTROLYT Calcium Lvl 9.1 8.5 - 10.5 08/24 [facility] ELECTROLYT Sodium Lvl 135 135 - 145 08/24 [facility] ELECTROLYT Creatinine 0.7 0.5 - 1.4 08/24 [facility] ELECTROLYT BUN 12 7 - 22 08/24 [facility] ELECTROLYT Glucose Lvl 99 70 - 99 08/24 <sup>5</sup>I [facility] nterpretive Medical Data: Adult Center reference range values reflect the clinical guidelines
of the [place] [employer]. ELECTROLYT CO2 33 24 - 32 08/24 [facility] ELECTROLYT Chloride Lvl 98 95 - 109 08/24 [facility] ELECTROLYT Potassium 3.9 3.5 - 5.1 08/24 [facility] HEMATOLOGY INR 0.90 0.85 - 08/24 <sup>6</sup>I [facility] 1.17 nterpretive Medical Data: Center RECOMMENDED RANGES FOR PROTIME INR:
2.0-3.0 for most medical and surgical thromboemboli c states.
2.5-3.5 for artificial heart valves and recurrent embolism.<br/ >
INR SHOULD BE USED ONLY FOR PATIENTS ON STABLE ANTICOAGULANT THERAPY. HEMATOLOGY PTT 36.9 22.9 - 08/24 <sup>7</sup>I [facility] 35.8 /2014 nterpretive Medical Data: Heparin Center Therapeutic Range: 57 - 92 Seconds HEMATOLOGY PT 12.1 12.0 - 08/24 14.7 [facility] HEMATOLOGY MCV 103.2 81.0 - 08/24 99.0 /2013 [facility] HEMATOLOGY Hct 40.1 36.0 - 08/24 [place] 48.0 /2013 [facility] HEMATOLOGY Hgb 13.8 12.0 - 08/24 [place] 16.0 [facility] HEMATOLOGY RBC 3.89 4.20 - 08/24 [place] 5.40 /2013 [facility] HEMATOLOGY MPV 7.2 7.4 - 10.4 08/24 [facility] HEMATOLOGY Platelet 273 133 - 450 08/24 [facility] HEMATOLOGY RDW 12.0 11.5 - 08/24 14. [facility] HEMATOLOGY MCHC 34.5 32.0 - 08/24 [place] 36.0 [facility] HEMATOLOGY MCH 35.6 27.0 - 08/24 [place] 31.0 [facility] HEMATOLOGY WBC 8.0 3.7 - 10.4 08/24 [facility] HEMATOLOGY Basophils # 0.1 0.0 - 0.2 08/24 [facility] HEMATOLOGY Monocytes # 0.8 0.0 - 0.8 08/24 [facility] HEMATOLOGY Segs-Bands # 5.6 1.5 - 8.1 08/24 [facility] HEMATOLOGY Lymphocytes 1.5 1.0 - 5.5 08/24 # /2013 [facility] HEMATOLOGY Eosinophils 0.1 0.0 - 0.5 08/24 # [facility] HEMATOLOGY Macrocyte 1+ None Seen 08/24 [facility] *ABN* /2013 Medical (08/24/13 7:05 AM) [place] HEMATOLOGY Basophils 0.5 0.0 - 1.0 08/24 [facility] HEMATOLOGY Eosinophils 0.8 0.0 - 4.0 08/24 [facility] HEMATOLOGY Monocytes 9.8 2.0 - 12.0 08/24 [facility] HEMATOLOGY Lymphocytes 18.9 20.0 - 08/24 [place] 40.0 [facility] HEMATOLOGY Segs 70.0 45.0 - 08/24 [place] 75.0 /2013 [facility] Center Pathology Reports No Data Provided for This Section Diagnostic Reports Report Value Date Source Brain wo contrast CT I have reviewed this examination and concur with the interpretation. 12/23/2017 [facility] Clinical Indication: - weakness, near syncope; weakness Comparison: 08/22/2014 TECHNIQUE: CT images were obtained from the foramen magnum to the vertex without the use of intravenous contrast on a multidetector CT. Coronal and sagittal reconstructions were obtained. CT imaging performed at this location utilizes radiation dose optimization techniques which include one or more of the following: -Automated exposure control -Adjustment of the mA and/or kV according to patient size -Use of iterative reconstruction technique CT Radiation Dose DLP 859 mGy-cm FINDINGS: BRAIN PARENCHYMA: There is further generalized diffuse atrophy. There are moderate to severe periventricular white matter low densities without mass effect. Stable similar focal low densities basal ganglia aspects again noted likely remote lacunar infarcts Vascular atherosclerotic changes carotid artery siphons are noted. There is no mass effect, midline shift or edema. There is no intracranial hyperdense hemorrhage. VENTRICLES: Continued dilatation the lateral 3rd and 4th ventricles noted possibly from the atrophy, nonspecific, correlate with symptoms if there is concern for other processes such as NPH. The basilar cisterns are normal. ORBITS, MASTOIDS AND PARANASAL SINUSES: The limited visualized orbits are unremarkable. The limited visualized paranasal sinuses shows mucosal changes and /or fluid at the sphenoid sinuses. The mastoid air cells are clear. SKULL: There are no osseous abnormalities. If there is further concern for intracranial pathology or acute stroke, MRI of the brain may be performed for complete assessment. ---- IMPRESSION: 1. No acute CT abnormality -- no mass effect, hemorrhage or subacute stroke. 2. Chronic changes of atrophy with nonspecific ventricular dilatation and chronic microvascular ischemic sequela again shown ----- SL: [id number] Chest 1view DX EXAM: Chest 1view DX 12/23/2017 [facility] DATE: 12/23/2017 4:42 PM CDT INDICATION: - weakness, hypotensive COMPARISON: 08/22/2014. IMPRESSION: Stable mildly enlarged cardiac silhouette. Tortuous atherosclerotic thoracic aorta. No definite failure. The lungs are mildly hyperexpanded. No gross focal consolidation, significant pleural effusion or thorax. Surgical clips overlying bilateral breasts. Mild dextroscoliosis. SL: LEVI HVI VAS Arterial INDICATION: complaints of dizziness, confusion. near syncope . 08/23/2014 [facility] Extracranial Doppler [facility] IMPRESSION: 1. There is evidence of mild atherosclerotic disease of bilateral carotid bulbs and proximal internal carotid arteries consistent with less than 50% stenosis. COMMENT: No prior studies are available for comparison. Bilateral grayscale, color- flow, and Doppler examination of the extracranial carotid arterial system was performed. On the right, mild plaque is noted in the internal carotid artery. The right internal carotid to common carotid peak systolic velocity ratio is 0.99. The peak systolic velocity in the internal carotid a rtery is 113 cm/sec. This is consistent with less than 50% stenosis. On the left, mild plaque is noted in the internal carotid artery. The left internal carotid to common carotid peak systolic velocity ratio is 1.27. The peak systolic velocity in the internal carotid art terrance a 149 cm/sec. This is consistent with less than 50% stenosis. Bilateral external carotid arteries are patent. Bilateral antegrade flow was noted in the vertebral arteries. Brain wo contrast CT CT SCAN OF THE BRAIN 08/22/2014 [facility] DATE: 08/22/2014 at 6:07 p.m. Comparison studies: 02/20/2012. CLINICAL INFORMATION: Focal neurological deficit. TECHNIQUE: Routine axial images of the brain were obtained in the unenhanced mode. Sagittal and coronal reformatted images were also provided FINDINGS: There are no acute hemorrhages or infarcts. The hudson/white interfaces are well defined. Old lacunae are noted within the right anterior limb of internal capsule, and left posterior putamen, and low density is noted within the periventricular white matter consistent with chronic small vesse l ischemic disease. There is prominence of the cortical sulci, fissures, cisterns and ventricles consistent with cortical atrophy appropriate for the patient's age of 74 years. There are no mass lesions or extra-axial collections. A partially empty sella is noted, a normal variant. There are no acute bony abnormalities. The calvarium is intact. Atherosclerotic calcification is noted within the gallegos of the cavernous internal carotid arteries bilaterally. IMPRESSION: 1. No acute intracranial abnormality. 2. Old bilateral basal ganglia region lacunae, and white matter hypodensity consistent with chronic small vessel ischemic disease. 3. Age-related volume loss. 4. Arterial atherosclerosis. Resident preliminary report by Dr.Usman Esqueda -No acute intracranial abnormality. -Chronic ischemic changes. -Ventricular size is increased slightly out of proportion to degree of volume loss. A compone nt of communicating hydrocephalus could be considered as a possible cause. - Partly empty sella. Ventricle size is likely unchanged from 02/20/2012 given differences in technique. Chest 1view DX EXAM: CHEST 1 VIEW 08/22/2014 [facility] DATE: August 22, 2014 03:57:00 PM INDICATION: Focal neurological deficit COMPARISON: August 19, 2007 at 1256 hours TECHNIQUE: Single AP view of the chest FINDINGS: The cardiomediastinal silhouette is stable. The heart is of upper limit normal in size .The thoracic aorta remains mildly tortuous and ectatic. Calcification is seen within aortic knob. Pulmo nary vascularity is normal. A cluster of surgical clips is seen overlying each breast, unchanged. The lungs are clear without focal consolidation. The costophrenic recesses are sharp without pleural eff usion. There is no acute osseous abnormality. Patient has a scoliotic curve at the thoracolumbar junction. IMPRESSION: 1. There is no acute cardio pulmonary disease nor significant interval change in the appearance of the chest radiograph since August 19, 2007. 2. Surgical clips are identified overlying each breast, unchanged. HVI VAS Venous Lower INDICATION: Limb pain. 10/07/2013 [facility] Doppler Center IMPRESSION: 1. There is no evidence of deep venous thrombosis. COMMENT: Right lower extremity hudson scale, color-flow, and Doppler examination of the venous system was performed. Examination of the right common femoral, superficial femoral, deep femoral, and popliteal veins demonstrate normal phasic flow and appropriate response to compression and augmentation. There is no evidence of deep venous thrombosis. venous HVI VAS Arterial/bypass INDICATION: Peripheral arterial disease 10/07/2013 [facility] IMPRESSION: 1. The visualized arteries of the right lower extremity are patent without any evidence of hemodynamically significant stenosis. 2. Evidence of left groin mass consistent with hematoma. COMMENT: Bilateral lower extremity grayscale, color-flow, and Doppler examination of the arterial system was performed. Examination of the right external iliac, common femoral, profunda femoral, superficial femoral, popliteal, anterior tibial, posterior tibial, and peroneal arteries demonstrates primarily monophasic wave forms without any evidence of a hemodynamically significant focal stenosis. Diffuse atherosclerotic disease is visualized. The previously placed stent in the superficial femoral artery is patent. Examination of the left groin demonstrates echolucent changes consistent with a hematoma. Consultation Notes No Data Provided for This Section Discharge Summaries No Data Provided for This Section History and Physicals No Data Provided for This Section Vital Signs Vital Sign Value Date Comments Source BMI Calculated 22.51 12/23/2017 [facility] Height 165.1 cm 12/23/2017 [facility] Temperature Oral (F) 98.6 F 12/23/2017 [facility] Weight 61.364 12/23/2017 [facility] Heart Rate 59 12/23/2017 [facility] Respitory Rate 20 12/23/2017 [facility] Systolic (mm Hg) 120 12/23/2017 [facility] Diastolic (mm Hg) 49 12/23/2017 [facility] Systolic (mm Hg) 129 08/24/2014 [facility] Diastolic (mm Hg) 61 08/24/2014 [facility] Systolic (mm Hg) 89 08/24/2014 [facility] Diastolic (mm Hg) 51 08/24/2014 [facility] Temperature Oral (F) 97.5 F 08/24/2014 [facility] Systolic (mm Hg) 146 08/24/2014 [facility] Diastolic (mm Hg) 63 08/24/2014 [facility] Temperature Oral (F) 97 F 08/24/2014 [facility] Temperature Oral (F) 96.8 F 08/24/2014 [facility] Weight 57.273 08/23/2014 [facility] Respitory Rate 49 08/23/2014 [facility] Respitory Rate 18 08/23/2014 [facility] Respitory Rate 32 08/23/2014 [facility] BMI Calculated 22.19 08/22/2014 [facility] Weight 56.818 08/22/2014 [facility] Height 160.02 cm 08/22/2014 [facility] Heart Rate 66 08/22/2014 [facility] Systolic (mm Hg) 137 07/15/2014 [facility] Diastolic (mm Hg) 66 07/15/2014 [facility] Systolic (mm Hg) 137 07/15/2014 [facility] Diastolic (mm Hg) 66 07/15/2014 [facility] Systolic (mm Hg) 137 07/15/2014 [facility] Diastolic (mm Hg) 66 07/15/2014 [facility] Height 154.94 cm 07/15/2014 [facility] BMI Calculated 24.05 07/15/2014 [facility] Weight 57.727 07/15/2014 [facility] Diastolic (mm Hg) 70 03/04/2014 [facility] Systolic (mm Hg) 150 03/04/2014 [facility] Diastolic (mm Hg) 73 03/04/2014 [facility] Systolic (mm Hg) 152 03/04/2014 [facility] Diastolic (mm Hg) 70 03/04/2014 [facility] Systolic (mm Hg) 154 03/04/2014 [facility] BMI Calculated 23.86 03/04/2014 [facility] Height 154.94 cm 03/04/2014 [facility] Weight 57.273 03/04/2014 [facility] Diastolic (mm Hg) 92 10/07/2013 [facility] Systolic (mm Hg) 193 10/07/2013 [facility] Temperature Oral (F) 97.2 F 10/07/2013 [facility] Respitory Rate 18 10/07/2013 [facility] Heart Rate 82 10/07/2013 [facility] Systolic (mm Hg) 206 10/07/2013 [facility] Diastolic (mm Hg) 92 10/07/2013 [facility] Respitory Rate 18 10/07/2013 [facility] Heart Rate 82 10/07/2013 [facility] Height 154.94 cm 10/06/2013 [facility] BMI Calculated 24.61 10/06/2013 [facility] Weight 59.091 10/06/2013 [facility] Systolic (mm Hg) 213 10/06/2013 [facility] Diastolic (mm Hg) 93 10/06/2013 [facility] Temperature Oral (F) 98.0 F 10/06/2013 [facility] Respitory Rate 18 10/06/2013 [facility] Heart Rate 78 10/06/2013 [facility] Diastolic (mm Hg) 70 09/10/2013 [facility] Systolic (mm Hg) 139 09/10/2013 [facility] Diastolic (mm Hg) 67 09/10/2013 [facility] Systolic (mm Hg) 142 09/10/2013 [facility] Diastolic (mm Hg) 66 09/10/2013 [facility] Systolic (mm Hg) 144 09/10/2013 [facility] BMI Calculated 24.43 09/10/2013 [facility] Height 154.94 cm 09/10/2013 [facility] Weight 58.636 09/10/2013 [facility] Temperature Oral (F) 97.2 F 08/25/2013 [facility] Systolic (mm Hg) 109 08/25/2013 [facility] Diastolic (mm Hg) 55 08/25/2013 [facility] Systolic (mm Hg) 106 08/25/2013 [facility] Diastolic (mm Hg) 55 08/25/2013 [facility] Diastolic (mm Hg) 50 08/25/2013 [facility] Systolic (mm Hg) 91 08/25/2013 [facility] Respitory Rate 16 08/24/2013 [facility] Temperature Oral (F) 96.7 F 08/24/2013 [facility] Respitory Rate 18 08/24/2013 [facility] Weight 60 08/24/2013 [facility] BMI Calculated 24.99 08/24/2013 [facility] Height 154.94 cm 08/24/2013 [facility] Encounters Location Location Encounter Encounter Reason Attending ADM DC Status Source Details Type Number For Provider Date Date Visit [facility] Bedded [id number] [place] 08/24 08/25 [facility] Outpatient [place] /2013 [facility] Bedded [id number] Chalino 09/10 09/10 [facility] Outpatient [place] /2013 [facility] EC [id number] [place] 10/06 10/07 [facility] Emergency [place] /2013 [facility] Bedded [id number] Chalino 03/04 03/04 [facility] Outpatient [place] /2013 [facility] Bedded [id number] Chalino 07/15 07/15 [facility] Outpatient [place] /2014 [facility] Inpatient [id number] Gilda 08/22 08/24 [facility]Pr /2014 [facility] Emergency [id number] Blake Lang 12/23 12/24 [facility] /2017 [facility] Procedures Procedure Code Date Perfomer Comments Source Partial hysterectomy [id number] [place] [id number] Partial hysterectomy [id number] [address] Cardiac [id number] [facility] catheterization, combined right and left heart Cataract surgery [id number] [facility] Decompression of [id number] [facility] lumbar spine Limb revascularization [id number] [facility] Cardiac [id number] [facility] combined right and left heart Limb revascularization [id number] [facility] Cataract surgery [id number] [facility] Decompression of [id number] [facility] Assessment and Plan Assessment and Plan Date Source Extracted from:Title: Progress Note * 08/24/2014 [facility] Author: Valentina Mosquera NP CARPENTER HELPER Date: 08/24/14 Impression and Plan Patient is a 74yo F with PMH of CAD, dementia, PAD, and prior stroke brought in for evaluation of prescyncopal symptoms and difficulty walking in the setting of chest pain, SOB, and hypertension &gt ;200s. Patient has a history of PAD with stent placement in RLE, exam only notable for mildly weak RLE with decreased sensation distal extremity related to poorly healing skin biopsy lesion. 1. Presyncopal symptoms - Neurology following. CT brain shows stable hydrocephalus ex vacuo, no acute abnormality. Carotid US shows mild stenosis < 50% bilaterally. - She describes her symtpoms as loss of balance/ coordination. - Pt has macrocytic anemia-B12 level in 300's. RBC folate level pending. Pt reports she drinks about 2 glasses of wine everyda. We will check MMA levels per neuro rec's and give Vit b12 x 1 dose. - Pt is not orthostatic. BP well controlled at this time. 2. CAD (s/p LAS PCI in , PCI LAD in 08/2013 with [facility]) She had an LVEF of 56% via nuclear study on 08/2013. - Pt denies any chest discomfort - cardiac enzymes x2 are negative. - EKG without any significant ST-T wave changes that would indicate ischemia. - It does not apper that her symptoms are cardiac related. No signs of cardiac ischemia. - Cont ASA, BB, statin, Ranexa. resume effient 3. Hypertension - SBP much improved Sbp 100-120's. - BP medications have been resumed - Monitor BP closely and adjust as necessary. - Pt had renal artery stenosis s/p successful WAGE CONCILIATOR and stenting in 02/2014. 4. Dyslipidemia - cont statin 5. Severe PAD- ( s/p bilateral SFA angioplasty and stenting as well as right external iliac artery stenting on 07/2014) - cont asa, statin. Will resume Effient. 6. Tobacco use - Pt report she quit smoking one month ago. 7. Dementia - Pt on Namenda - neuro following. 8. Hx mild bilateral carotid artery stenosis - bilat carotid < 50% stenosis Dispo: It is unclear what exactly is causing her symptoms. It is likely there is mild Vit b12 deficiency. She has been insutrcted to follow up with ENT as outpatient. Her symtpmos do not appear to be ca rdiac related. She is ok to discharge and follow up with Dr. Hammer in 1 month. Pt seen and discussed with Dr.Reyes Valentina Mosquera APRN, MSN, ACNP- Department of Cardiology Pager# [phone] MSO# [id number] Extracted from:Title: Neurology Consult Note Author: Iza Mendez MD Date: 08/22/14 NEUROLOGY CONSULT NOTE Patient Name: Monique Bocanegra Date of Consult: 08/22/14 Requesting Physician/Service: ER CC: dizziness, ataxia HISTORY OF PRESENT ILLNESS: Patient is a 74yo RH F with PMH of CAD, dementia, PAD, and prior stroke brought in for evaluation of dizziness and difficulty walking. Patient reports symptoms started 3-4 days ago. She was admitted to [facility] at symptom onset. She reports she wasn't very cooperative with them because she doesn't trust them so no testing was done. She wanted to come here where her log truck driver Dr. Hammer is affiliated. She was discharged to home on 08/20/14. She was unable to get a ride back to hospital until today. At symptoms onset around 08/18/14, patient reports she had just gotten out of the shower. She reports acute onset of difficulty breathing, shortness of breath, diaphoresis, and feeling shaky and felt like she was going to pass out. She vomited at home and then called 911. She reports feeling unsteady on her feet with weakness. She was admitted for a few days and symptoms overall seemed to improve. Symptoms seem to improve during hospitalization, however patient continued to have shaking/un steadiness in bilateral lower extremities and complaining of chest pain/ heaviness. Patient has had episodes of syncope in the past without warning. She had injured herself in the past with those episode s. 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 BP 200s. REVIEW OF SYSTEMS: GEN: +weight loss past few days for decreased appetite EYES: no blurred vision, double vision CARDIO: +chest pain/pressure PULM: +SOB GI: +nausea/vomiting : no frequency, dysuria, hematuria NEURO: see HPI SKIN: +anterior westfall poorly healing lesion MSK: no pain, swelling, redness LYMPH/IMMUNO: No lymph node enlargement PAST MEDICAL HISTORY: hemorrhagic stroke occured 20-30yrs ago, presented with syncope and headache. 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 Quit smoking 1 month ago, smoked for 50 year 1ppd. Has a walker at home but does not use it. MEDICATIONS: tylenol PM Doxazosin 4mg daily esomeprazole 40mg daily carvedilol 50mg BID Isosorbide MN ER 30mg daily Donepezil 10mg daily Pramipexole 0.5mg BID Namenda XR 28mg daily ASA 81mg daily ALLERGIES: NKDA adhesive tape PHYSICAL EXAM: Vitals Tmp(F) Tmp(C) Ttype BP MAP Pulse RR SpO2 FIO2 ETCO2 08/22 20:59 ---- ---- ---- 207/84 120 73 39 98 --- --- 08/22 20:37 ---- ---- ---- 125/60 87 76 28 98 --- --- 08/22 18:44 ---- ---- ---- 149/67 98 72 20 94 --- --- 08/22 18:36 ---- ---- ---- 177/77 --- 70 17 95 21% --- 08/22 17:58 ---- ---- ---- 181/79 114 65 17 96 --- --- 24 Hr Tmax: 98.2F (36.78c) at 08/22 14:27 Vital Signs are the last 5 in the past 48 hours. 24 Hr Tmin: 98.2F (36.78c) at 08/22 14:27 Weights are the last 5 in 60 days , plus initial. Date Wt(kg) Wt(lb) Ht(cm) Ht(in) Method BMI BSA 08/22 (initial) 56.82 125.00 Estimated 22.2 1.59 08/22 160.02 63.00 Stated CVS:RRR Lungs:CTAB Abdomen: (+) bowel sounds NEURO: Mental status: Awake, alert, and interactive. Answers questions and follows commands appropriately. AAOx3. Speech: fluent, nondysarthric Cranial nerves: Pupils equal, round, and reactive. R___2___mm L__2___mm. Visual herman intact to confrontation. Eye movements full without nystagmus. Face symmetric at rest and with activation. Facial s ensation is intact to light touch. Tongue and palate midline. Good strength in trapezius and sternocleidomastoid bilaterally. Motor: Normal bulk and tone. Full strength UEs, 5/5. RLE 4+/5, LLE 5/5. Sensation: Decreased sensation to pinprick, light touch right distal extremity. Coordination: No dysmetria on finger-nose Reflexes: brisk throughout. Toes equivocal. SIGNIFICANT LABS: Creatinine: 0.9 Glucose: 76 INR: 0.97 Cardiac Markers: neg UA neg DIAGNOSTIC TESTS: CT Head: stable hydrocephalus ex vacuo, no acute abnormality ASSESSMENT: Patient is a 74yo F with PMH of CAD, dementia, PAD, and prior stroke brought in for evaluation of prescyncopal symptoms and difficulty walking in the setting of chest pain, SOB, and hypertension &gt ;200s. Patient has a history of PAD with stent placement in RLE, exam only notable for mildly weak RLE with decreased sensation distal extremity related to poorly healing skin biopsy lesion. RECOMMENDATIONS: 1. Continue cardiac w/u per ED/cardiology teams. 2. Patient remains hypertensive up to 200s, normalize BP. 3. Consider MRI brain without contrast. 4. Neurology will follow as consult. Patient discussed with attending. Iza Mendez PGY3 Post-round addendum Rounded w Dr. Gallegos. Pt denied spinning sensation, endorsed that she had high BP, and her BP was 109/61 during our interview which is low per patient. Neural exam was non significant. Based on pt&ap os;s symptoms and findings so far, we do not think pt's "dizziness" was neurological. We will sign off. Yanet Sparks MD, PhD PGY1 Attending's Addendum: I personally saw,examined and interviewed the patient. I reviewed the laboratory and imaging w/u. I agree with the resident's clinical assessment. On examination patient has no focal neurological deficits. Her imaging studies do not show any significant pathological changes. Patient is complaining of "light headedness and not vertigo. Her symptoms do not appear to be of neurological etiology. Dx: Dizziness (780.4) [id number] Addendum by Cornelius Gallegos MD on 08/24/2014 00:13 Patient's B12 is [id number]. She also has macrocytic anemia. Recommend checking for methylmalonic acid levels. Will contiune to follow with vascular imaging study results as well as MMA levels, Extracted from:Title: post cath 03/04/2014 [facility] Author: Sukhdeep Rivas MD Date: 03/04/14 Interventional Cardiology Post-Catheterization Note S - No acute issues O - Medications (15) Active Scheduled: (13) aspirin 81 mg CHEW TAB 81 mg 1 tab, PO, Daily atorvastatin 10 mg TAB 10 mg 1 tab, PO, Bedtime carvedilol 25 mg TAB 25 mg 1 tab, PO, Q12H doxazosin 2 mg TAB 6 mg 3 tab, PO, Daily hydrochlorothiazide 25 mg TAB 12.5 mg 0.5 tab, PO, Daily isosorbide mononitrate 30 mg ERT 30 mg 1 tab, PO, QAM memantine 10 mg tab 10 mg 1 tab, PO, BID olmesartan 20 mg tab 40 mg 2 tab, PO, Daily pantoprazole 40 mg ECT 40 mg 1 tab, PO, Before Dinner pramipexole 0.25 mg TAB 0.5 mg 2 tab, PO, BID prasugrel 10 mg tab 10 mg 1 tab, PO, Daily Ranolazine 500mg ER tab 500 mg 1 tab, PO, BID sodium chloride 0.9% 10 ml flush syr BD 10 ml, IVP, Q12H Continuous: (0) PRN: (2) nitroglycerin 0.4 mg TAB 25's btl 0.4 mg 1 tab, SL, Q5Min sodium chloride 0.9% 10 ml flush syr BD 10 ml, IVP, PRN Vital Signs (last 24 hrs) Last Charted Minimum Maximum Heart Rate 68 (MAR 04 10:15) 68 (MAR 04 10:00) 72 (MAR 04 09:30) SBP 134 (MAR 04:15) 134 (MAR 04 10:15) H 193 (MAR 04 09:30) DBP 75 (MAR 04 10:15) 70 (MAR 04 09:45) 84 (MAR 04 06:00) Weight 57.273 (MAR 04:) Height 154.94 (MAR 04:14) BMI 23.86 (MAR 04:) Gen: NAD Chest: decreased b/s b/l lower lungs Neuro: AAOx3, ESTEBAN x 4 Abd: Soft, NT, ND, + BS HEENT: PERRLA, EOMI, no JVD Ext: + pulses b/l lower extremities CVS: RRR, s1s2+ Access site: R Groin c/d/i, no erythema/drainage noted Labs (Last four charted values) WBC 9.4 (MAR 04) Hgb 13.4 (MAR 04) Hct 38.4 (MAR 04) Plt 319 (MAR 04) Na L 130 (MAR 04) K 4.0 (MAR 04) CO2 30 (MAR 04) Cl 95 (MAR 04) Cr 0.8 (MAR 04) BUN 12 (MAR 04) Glucose Random 94 (MAR 04) Mg L 1.7 (MAR 04) Ca 9.1 (MAR 04) PT 12.7 (MAR 04) INR 0.95 (MAR 04) PTT H 37.9 (MAR 04) A/P Patient is s/p PTCA to R Renal artery - continue DAPT therapy and bp management - encouraged smoking cessation - likely to be dc/d this evening post ambulation Sukhdeep Rivas MD PGY-7 Interventional Quality Assurance Test Program Manager pager: [phone] Plan of Care No Data Provided for This Section Social History Social History Date Source Social History TypeResponse 08/23/2014 [facility] Substance Abuse Use: None. Sexual Sexually active: Yes. Alcohol Current, Type Wine. Frequency: Daily. Last use: 2-3 Glasses of Wine Daily. Alcohol use interferes with work or home: No. Drinks more than intended: No. Others hurt by drinking: No. Ready to change: No. Smoking Status Former smoker; Type: Cigarettes; Exposure to Tobacco Smoke None; Cigarette Smoking Last 365 Days Yes; Reg Smoking Cessation Counseling Yes Social History TypeResponse 08/23/2014 [facility] Substance Abuse Use: None. Sexual Sexually active: Yes. Alcohol Current, Type Wine. Frequency: Daily. Last use: 2-3 Glasses of Wine Daily. Alcohol use interferes with work or home: No. Drinks more than intended: No. Others hurt by drinking: No. Ready to change: No. Smoking Status Former smoker; Type: Cigarettes; Exposure to Tobacco Smoke None; Cigarette Smoking Last 365 Days Yes; Reg Smoking Cessation Counseling No entered on: 12/23/17 Family History No Data Provided for This Section Advance Directives No Data Provided for This Section Functional Status No Data Provided for This Section
[2018-11-06 09:56] LABS: Absolute Lymphocytes (CBC) 1.9 K/uL (0.7-4.9); Basophils % 0.3 % (0-1.3); Hematocrit 33.7 % (36.0-45.0); Lymphocytes % 7.4 % (15.3-44.8); MPV 8.8 fL (7.6-11.3); RBC Red Blood Cell Count 3.43 M/uL (3.86-4.86)
[2018-11-06 10:00] LABS: Protime INR 1.52
--- NOTE | 2018-11-06 10:10 | RAD REPORT ---
EXAM DESCRIPTION: RAD - Chest Single View - 11/06/2018 9:58 am CLINICAL HISTORY: Transient alteration of awareness COMPARISON: November 2017 TECHNIQUE: AP portable chest image was obtained 0950 hours . FINDINGS: Lung volumes are low compared to the prior study accentuating baseline interstitial patter n. No peripheral mass or consolidation. No significant failure or volume overload. Heart size within normal limits for portable imaging and shallow inspiration. No measurable pleural effusion and no pne umothorax. No acute bony abnormality seen. Aortic calcifications are present. No acute finding suspec shiva. IMPRESSION: No acute cardiopulmonary process. Shallow inspiration film is not substantially different from comparison.
[2018-11-06 10:13] LABS: Albumin 2.9 g/dL (3.4-5.0); Bilirubin Direct 0.2 mg/dL (0-0.2); Bilirubin Total 0.5 mg/dL (0.2-1.0); Potassium 5.1 mmol/L (3.5-5.1); Protein, Total 7.5 g/dL (6.4-8.2)
[2018-11-06 10:14] LABS: CKMB Creatine Kinase MB 1.7 ng/mL (0.3-3.6); Troponin (Emerg Dept Use Only) 0.08 ng/mL (0.0-0.045)
[2018-11-06 10:23] LABS: Blood Morphology Comment NOT SEEN (NOT SEEN); Platelet Estimate ADEQ
[2018-11-06 10:31] LABS: Urine Bacteria 20-50 /HPF (<20); Urine Culture Reflex Order REFLEXED; Urine RBC TNTC /HPF (NONE SEEN)
[2018-11-06 10:33] LABS: Urine Blood 2+ (NEG); Urine Glucose NEGATIVE (NEG); Urine Protein NEGATIVE (NEG); Urine Specific Gravity 1.015 (1.005-1.030); Urine pH 5.5 (5.0-7.0)
--- NOTE | 2018-11-06 10:34 | RAD REPORT ---
EXAM DESCRIPTION: CT - Head Brain Wo Cont - 11/06/2018 10:16 am CLINICAL HISTORY: Alteration of awareness/confusion COMPARISON: None TECHNIQUE: Computed axial tomography of the head was obtained. IV contrast was not requested. All CT scans are performed using dose optimization technique as appropriate and may include automated exposure control or mA/KV adjustment according to patient size. FINDINGS: An intracranial bleed is not seen . Cerebral atrophy is present The ventricles are normal in caliber. No extra-axial fluid collection is noted. Mild to moderate low-density areas within periventricular, deep and subcortical white matter likely r epresent ischemic changes secondary to small vessel disease. Small low-density area left basal gangli a likely an old lacunar infarction Fluid within the sinuses/ mastoids is not seen. IMPRESSION: No acute intracranial abnormality is seen. If patient's symptoms persist MRI of the bra in would be recommended.
--- NOTE | 2018-11-06 10:43 | RAD REPORT ---
EXAM DESCRIPTION: CT - Abdomen Pelvis Wo Contrast - 11/06/2018 10:18 am CLINICAL HISTORY: Abdominal pain COMPARISON: None TECHNIQUE: Computed axial tomography of the abdomen and pelvis was obtained. IV and oral contrast we re not requested. All CT scans are performed using dose optimization technique as appropriate and may include automated exposure control or mA/KV adjustment according to patient size. FINDINGS: The evaluation of solid organs, vessels and bowel is limited secondary to the lack of con trast administration. The liver, spleen, pancreas, and adrenals appear grossly normal. Right extrarenal pelvis which is mildly dilated. Portions of the distal right ureter are not well see n. There does not appear to be an obstructing ureteral calculus. A Jason catheter is present within t he bladder. A moderate amount of stool is present within the colon. Rectum is mildly distended with stool. Rectal wall is mildly thickened. Vascular calcifications. Edema within the subcutaneous tissues. Presacral edema. Gallstones IMPRESSION: Mild right hydronephrosis may be secondary to a UPJ stricture. Tiny nonobstructing left renal calculus. Moderate amount stool within the colon. Mild rectal wall thickening may indicate proctitis Cholelithiasis
--- NOTE | 2018-11-06 11:02 | ER ---
Nurse's Notes [facility] Name: Monique Bocanegra Age: 78 yrs Sex: Female : 1940 Arrival Date: 11/06/2018 Time: : Bed 6 Private MD: Diagnosis: Altered mental status, unspecified;Sepsis, unspecified organism Presentation: 11/06 09:23 Transition of care: patient was received from another setting of care (long-term care facility), [facility]. Risk Assessment: Do you want to hurt yourself or someone else? Unable to obtain. Initial Sepsis Screen: Does the patient meet any 2 criteria? Altered Mental Status. HR > 90 bpm. Yes Does the patient have a suspected source of infection? Yes: Skin breakdown/wound. 09:23 Method Of Arrival: EMS: [facility] sv 09: Acuity: JULIUS 2 sv 09:23 Presenting complaint: EMS states: AMS and tremors, pt is alert to person and pain, O2 sv sat in the high 80s, placed on O2 \T\ 4L per NC O2 sat up to 98%. Onset of symptoms was November 06, 2018. Care prior to arrival: IV initiated. 22 GA, in the right forearm, Glucose check: 116 Oxygen administered. via nasal cannula. 09:28 Presenting complaint: Spoke with Kezia at [facility], she stated that pt's last sv known well was last night around 1900/2000. A EQUAL OPPORTUNITY ASSISTANT went to get pt up this morning around 0700 and noticed she was a little altered. Kezia stated pt is normally able to answer questions appropriately, feeds self and is wheelchair bound. Pt was found drooling, not answering questions, laying on her right side, no pain with sternal rub. Triage Assessment: 09: General: Appears in no apparent distress. slender, Behavior is flat, obtunded. General: sv Unable to do NIH stroke scale, pt unable to follow commands.. Pain: Unable to use pain scale. Does not appear to understand pain scale. FLACC scale score is 0 out of 10. Neuro: Level of Consciousness is obtunded, Oriented to none Facial symmetry appears normal. Cardiovascular: Patient's skin is warm and dry. Rhythm is sinus tachycardia. Respiratory: Airway is patent Respiratory effort is even, unlabored, Respiratory pattern is regular, symmetrical. GI: Abdomen is flat, non-distended, Pt has a soiled brief with stool. Derm: Skin is normal, Wound noted lateral aspect of right calf Other: covered with a dressing from the snf. Historical: - Allergies: 09:48 Adhesives; tw2 09:48 Codeine; tw2 - PMHx: 09:48 Dementia; Hypertension; tw2 09:51 CHF; sv - PSHx: 09:48 Hysterectomy; 3 heart stents; tw2 - Immunization history:: Adult Immunizations. - Social history:: Smoking status: . - Ebola Screening: : Patient denies travel to an Ebola-affected area in the 21 days before illness onset. Screenin:30 Patient has been NPO before screening. The patient is not alert, or is unable to follow sv commands. Bedside swallow screening discontinued. Patient kept NPO until cleared by Speech Therapy or Physician. The patient failed the bedside swallow screening. The patient will be kept NPO until cleared by Speech Therapy or Physician. Provider notified of bedside swallow screening results: Hiren Lopez MD. 09:47 Abuse screen: Denies threats or abuse. Nutritional screening: No deficits noted. tw2 Tuberculosis screening: No symptoms or risk factors identified. Fall Risk Secondary diagnosis (15 points) impaired mobility. Assessment: 09:30 Reassessment: Code Sepsis called. sv 10:20 Reassessment: Patient appears in no apparent distress at this time. Patient and/or sv family updated on plan of care and expected duration. Pain level reassessed. 11:17 Reassessment: Patient appears in no apparent distress at this time. Patient and/or sv family updated on plan of care and expected duration. Pain level reassessed. 11:26 Reassessment: Dr Cerna at the bedside. sv 11:56 Reassessment: Juan JONES attempted LP but was unsuccessful. [facility] assisted myself sv with rolling the pt onto her back. Noticed pt stopped tremoring and RR decreased to about 14 bpm. Pupils are pinpoint and non reactive. Called Dr Lopez to the bedside and informed of change in status. 11:58 Reassessment: Dr Lopez speaking with the daughter regarding code status. Daughter sv stated that the pt is a DNR and they will see how she responds with the IVF and reevaluate if they want to start any vasopressors. 12:41 Reassessment: Patient appears in no apparent distress at this time. Patient and/or sv family updated on plan of care and expected duration. Pain level reassessed. Pt has tremors again, pupils are equal round and reactive to light. Pt trying to squeeze daughter's hand. 13:30 Reassessment: Patient appears in no apparent distress at this time. Patient and/or sv family updated on plan of care and expected duration. Pain level reassessed. Family remains at the bedside. Vital Signs: 09:29 BP 106 / 95; Pulse 91; Resp 17; Temp 98.5; Pulse Ox 96% ; Weight 57.38 kg (R); Height sv 63 in. (160.02 cm) (R); Pain 0/10; 11:17 Pulse 89; Resp 18; Pulse Ox 96% on R/A; sv 11:54 BP 79 / 39; Pulse 82; Resp 16; Pulse Ox 95% on R/A; sv 11:55 Pulse Ox 90% on R/A; sv 11:58 BP 80 / 34; Pulse 72; Resp 14; Pulse Ox 95% on 30% Venturi mask; sv 12:10 BP 82 / 36; Pulse 68; Resp 14; Pulse Ox 100% on 30% Venturi mask; sv 12:20 BP 99 / 36; Pulse 69; Resp 13; Pulse Ox 100% on 30% Venturi mask; sv 12:40 BP 113 / 97; Pulse 84; Resp 18; Pulse Ox 100% on 30% Venturi mask; sv 12:55 BP 126 / 46; Pulse 70; Resp 13; Pulse Ox 100% on 30% Venturi mask; sv 13:34 BP 106 / 39; Pulse 71; Resp 16; Pulse Ox 99% on 30% Venturi mask; sv 09:29 Body Mass Index 22.41 (57.38 kg, 160.02 cm) sv 11:55 Pt placed on 30% Venturi mask sv 11:[address] Lopez of the change in pt's status and vitals. sv ED Course: 09:23 Maintain EMS IV. Dressing intact. Site clean \T\ dry. Gauge \T\ site: 22G R FA. sv 09:27 Patient arrived in ED. sv 09:27 Gabi Kwan RN is Primary Nurse. sv 09:27 Bed in low position. Call light in reach. Side rails up X2. classroom monitor on. Pulse tw2 ox on. NIBP on. 09:29 Triage completed. sv 09:35 Initial lab(s) drawn, by ED staff, sent to lab. First set of blood cultures drawn by ED sv staff. 09:35 Inserted saline lock: 22 gauge in left antecubital area, using aseptic technique. Blood tw2 collected. 09:42 Hiren Lopez MD is Attending Physician. kdr 09:46 ED physician to see patient. sv 09:46 X-ray(s) taken. sv 09:47 Arm band placed on. tw2 09:[address] Scan. sv 09:58 Chest Single View XRAY In Process Unspecified. EDMS 10:01 Radiology exam delayed due to nurse at bedside cleaning pt. to call when ready. jj2 10:05 Jason cath inserted, using sterile technique, 16 Fr., by ar, balloon inflated, to sv gravity drainage, urine specimen collected. returned sravan urine. Patient tolerated well. 10:09 EKG done, by ED staff. sm3 10:[address] via stretcher. sv 10:18 CT Head Brain wo Cont In Process Unspecified. EDMS 10:19 Abdomen In Process Unspecified. EDMS 10:40 Awaiting lab results, Awaiting radiology results. sv 10:59 Marti Cerna MD is Hospitalizing Provider. kdr 11:17 Consent for a lumbar puncture explained by staff, explained by physician, signed by sv guardian. 11:50 Assist provider with lumbar puncture: Set up LP tray. Performed by Juan JONES sv Puncture site dressed with band aid, Procedure unsuccessful. Patient tolerated well. 12:01 ED physician to see patient. sv 12:10 Dressings: Kerlix X 1; lateral aspect of right calf non-adherent dressing x 1 lateral sv aspect of right calf. 13:25 Patient admitted, IV remains in place. intact. sv Administered Medications: 10:13 CANCELLED (Physician Discretion): NS 0.9% (30 ml/kg) 30 ml/kg IV at bolus once; Sepsis hb Protocol 11:15 Drug: Rocephin - (cefTRIAXone) 1 grams Route: IVPB; Infused Over: 30 mins; Site: right sv forearm; 11:17 Follow up: Response: No adverse reaction; IV Status: Completed infusion; IV Intake: 10mlsv 11:17 Drug: Flagyl 500 mg Volume: 100 ml; Route: IVPB; Rate: 200 ml/hr; Infused Over: 30 sv mins; Site: right forearm; 12:10 Follow up: Response: No adverse reaction; IV Status: Completed infusion; IV Intake: sv 100ml 12:10 Drug: vancoMYCIN 1 grams Route: IVPB; Infused Over: 2 hrs; Site: right forearm; sv 13:34 Follow up: Response: No adverse reaction; IV Status: Infusion continued upon admission sv 12:10 Drug: NS 0.9% (30 ml/kg) 30 ml/kg Route: IV; Rate: bolus; Site: right forearm; sv 13:33 Follow up: Response: No adverse reaction; IV Status: Order to discontinue infusion; IV sv Intake: 1000ml ; Dr Lopez said he only wants 1L bolus at this time. Intake: 11:17 IV: 10ml; Total: 10ml. sv 12:10 IV: 100ml; Total: 110ml. sv 13:33 IV: 1000ml; Total: 1110ml. sv Outcome: 10:59 Decision to Hospitalize by Provider. kdr 13:26 Admitted to Tele accompanied by tech, family with patient, via stretcher, room 425, sv with oxygen, with chart, Report called to Lucy GILBERT 13:26 Condition: stable 13:26 Instructed on the need for admit. 13:37 Patient left the ED. sv Signatures: Dispatcher [employer] Gabi Delgado, RN RN sv Hiren Lopez MD MD kdr Jaramillo, Justin jj2 Kirstin Merritt RN RN 2 Latanya Valerio 3 Angelique Mckeon RN Corrections: (The following items were deleted from the chart) 10:25 09:29 BP 106 / 95; Pulse 91bpm; Resp 17bpm; Pulse Ox 96%; Temp 98.5F; Pain 0/10; sv sv
--- NOTE | 2018-11-06 11:02 | EDPHYS ---
Physician Documentation [facility] Name: Monique Bocanegra Age: 78 yrs Sex: Female : 1940 Arrival Date: 11/06/2018 Time: : Bed 6 Private MD: ED Physician Hiren Lopez HPI: 11/06 10:09 This 78 yrs old Female presents to ER via EMS with complaints of Altered kdr Mental Status. 10:09 The patient presents with confusion, decreased responsiveness. Onset: The kdr symptoms/episode began/occurred at an unknown time. Possible causes: CVA or TIA, head injury, sepsis. Associated signs and symptoms: The patient has no apparent associated signs or symptoms. Current symptoms: In the emergency department the patient's symptoms are unchanged from the initial presentation. Patient's baseline: Neuro: alert but confused, Motor: no deficits, Ambulation: walks with assist only, uses walker. It is unknown whether or not the patient has had similar symptoms in the past. It is unknown whether or not the patient has recently seen a physician. Historical: - Allergies: 09:48 Adhesives; tw2 09:48 Codeine; tw2 - PMHx: 09:48 Dementia; Hypertension; tw2 09:51 CHF; sv - PSHx: 09:48 Hysterectomy; 3 heart stents; tw2 - Immunization history:: Adult Immunizations. - Social history:: Smoking status: . - Ebola Screening: : Patient denies travel to an Ebola-affected area in the 21 days before illness onset. ROS: 10:09 Constitutional: Unable to assess due to AMS kdr 10:09 Unable to obtain ROS due to altered mental status, obtunded state. Exam: 10:09 Constitutional: This is a well developed, well nourished patient who is awake, alert, kdr and in no acute distress. Head/Face: Normocephalic, atraumatic. Eyes: Pupils equal round and reactive to light, extra-ocular motions intact. Lids and lashes normal. Conjunctiva and sclera are non-icteric and not injected. Cornea within normal limits. Periorbital areas with no swelling, redness, or edema. Neck: Trachea midline, no thyromegaly or masses palpated, and no cervical lymphadenopathy. There is a lesion on the left lateral neck - prior treated abscess per the nursing/EMS report. Chest/axilla: Normal chest wall appearance and motion. Nontender with no deformity. No lesions are appreciated. Cardiovascular: Regular rate and rhythm with a normal S1 and S2. No gallops, murmurs, or rubs. Normal PMI, no JVD. No pulse deficits. Respiratory: Lungs have equal breath sounds bilaterally, clear to auscultation and percussion. No rales, rhonchi or wheezes noted. No increased work of breathing, no retractions or nasal flaring. Back: No spinal tenderness. No costovertebral tenderness. Full range of motion. Skin: Warm, dry with normal turgor. Normal color with no rashes, no lesions, and no evidence of cellulitis. MS/ Extremity: Pulses equal, no cyanosis. Neurovascular intact. Full, normal range of motion. 10:09 Abdomen/GI: Inspection: abdomen appears normal, Bowel sounds: active, all quadrants, Palpation: soft, mild abdominal tenderness, in all quadrants, rebound tenderness, is appreciated in the abdomen diffusely. Vital Signs: 09:29 BP 106 / 95; Pulse 91; Resp 17; Temp 98.5; Pulse Ox 96% ; Weight 57.38 kg (R); Height sv 63 in. (160.02 cm) (R); Pain 0/10; 11:17 Pulse 89; Resp 18; Pulse Ox 96% on R/A; sv 11:54 BP 79 / 39; Pulse 82; Resp 16; Pulse Ox 95% on R/A; sv 11:55 Pulse Ox 90% on R/A; sv 11:58 BP 80 / 34; Pulse 72; Resp 14; Pulse Ox 95% on 30% Venturi mask; sv 12:10 BP 82 / 36; Pulse 68; Resp 14; Pulse Ox 100% on 30% Venturi mask; sv 12:20 BP 99 / 36; Pulse 69; Resp 13; Pulse Ox 100% on 30% Venturi mask; sv 12:40 BP 113 / 97; Pulse 84; Resp 18; Pulse Ox 100% on 30% Venturi mask; sv 12:55 BP 126 / 46; Pulse 70; Resp 13; Pulse Ox 100% on 30% Venturi mask; sv 13:34 BP 106 / 39; Pulse 71; Resp 16; Pulse Ox 99% on 30% Venturi mask; sv 09:29 Body Mass Index 22.41 (57.38 kg, 160.02 cm) sv 11:55 Pt placed on 30% Venturi mask sv 11:[address] Lopez of the change in pt's status and vitals. sv MDM: 10:09 Data reviewed: vital signs, nurses notes, lab test result(s). kdr 10:59 Patient medically screened. kdr 11/06 09:35 Order name: Basic Metabolic Panel; Complete Time: 10:51 sv 11/06 09:35 Order name: Blood Culture Adult (2) sv 11/06 09:35 Order name: CBC with Diff; Complete Time: 10:51 sv 11/06 09:35 Order name: Ckmb; Complete Time: 10:51 sv 11/06 09:35 Order name: CPK; Complete Time: 10:51 sv 11/06 09:35 Order name: Lactate; Complete Time: 10:51 sv 11/06 09:35 Order name: LFT's; Complete Time: 10:51 sv 11/06 09:35 Order name: Lipase; Complete Time: 10:51 sv 11/06 09:35 Order name: Procalcitonin; Complete Time: 10:51 sv 11/06 09:35 Order name: Protime (+inr); Complete Time: 10:51 sv 11/06 09:35 Order name: Ptt, Activated; Complete Time: 10:51 sv 11/06 09:35 Order name: Troponin (emerg Dept Use Only); Complete Time: 10:51 sv 11/06 09:35 Order name: Urine Microscopic Only; Complete Time: 10:51 sv 11/06 10:16 Order name: Urine Dipstick--Ancillary (enter results); Complete Time: 10:51 eb 11/06 09:35 Order name: Chest Single View XRAY; Complete Time: 10:51 sv 11/06 09:35 Order name: Accucheck; Complete Time: 09:49 sv 11/06 09:35 Order name: Cardiac monitoring; Complete Time: 09:38 sv 11/06 09:35 Order name: EKG - Nurse/Tech; Complete Time: 12:40 sv 11/06 09:35 Order name: IV Saline Lock - Large Bore; Complete Time: 09:49 sv 11/06 09:35 Order name: CT Head Brain wo Cont; Complete Time: 10:51 sv 11/06 09:48 Order name: EKG; Complete Time: 09:49 tw2 11/06 10:06 Order name: Abdomen ; Complete Time: 10:51 EDMS 11/06 10:25 Order name: Manual Differential; Complete Time: 10:51 EDMS 11/06 10:36 Order name: Urine Culture EDMS 11/06 09:35 Order name: Labs collected and sent; Complete Time: 09:49 sv 11/06 09:35 Order name: O2 Per Protocol; Complete Time: 09:38 sv 11/06 09:35 Order name: O2 Sat Monitoring; Complete Time: 09:38 sv 11/06 09:35 Order name: Urine Dipstick-Ancillary (obtain specimen); Complete Time: 10:34 sv 11/06 09:46 Order name: Jason; Complete Time: 10:34 kdr Administered Medications: 10:13 CANCELLED (Physician Discretion): NS 0.9% (30 ml/kg) 30 ml/kg IV at bolus once; Sepsis hb Protocol 11:15 Drug: Rocephin - (cefTRIAXone) 1 grams Route: IVPB; Infused Over: 30 mins; Site: right sv forearm; 11:17 Follow up: Response: No adverse reaction; IV Status: Completed infusion; IV Intake: 10mlsv 11:17 Drug: Flagyl 500 mg Volume: 100 ml; Route: IVPB; Rate: 200 ml/hr; Infused Over: 30 sv mins; Site: right forearm; 12:10 Follow up: Response: No adverse reaction; IV Status: Completed infusion; IV Intake: sv 100ml 12:10 Drug: vancoMYCIN 1 grams Route: IVPB; Infused Over: 2 hrs; Site: right forearm; sv 13:34 Follow up: Response: No adverse reaction; IV Status: Infusion continued upon admission sv 12:10 Drug: NS 0.9% (30 ml/kg) 30 ml/kg Route: IV; Rate: bolus; Site: right forearm; sv 13:33 Follow up: Response: No adverse reaction; IV Status: Order to discontinue infusion; IV sv Intake: 1000ml ; Dr Lopez said he only wants 1L bolus at this time. Disposition: 11/06/18 10:59 Hospitalization ordered by Marti Cerna for Inpatient Admission. Preliminary diagnosis are Altered mental status, unspecified, Sepsis, unspecified organism. - Bed requested for Telemetry/MedSurg (Inpatient). - Status is Inpatient Admission. sv - Condition is Serious. - Problem is new. - Symptoms are unchanged. UTI on Admission? No Signatures: Dispatcher [employer] [facility] Gabi Kwan, RN RN Hiren Lopez MD MD [facility] Kirstin Merritt RN RN tw2 Daljit Morataya RN RN ja1 Angelique Mckeon RN Corrections: (The following items were deleted from the chart) 10:06 09:47 Abdomen Pelvis W Con+CT.RAD.BRZ ordered. [facility] 10:13 09:35 NS 0.9% (30 ml/kg) 30 ml/kg IV at bolus once; Sepsis Protocol ordered. sv hb 13:15 10:59 Hospitalization Ordered by Marti Cerna MD for Inpatient Admission. Preliminary ja1 diagnosis is Altered mental status, unspecified; Sepsis, unspecified organism. Bed requested for Telemetry/MedSurg (Inpatient). Status is Inpatient Admission. Condition is Serious. Problem is new. Symptoms are unchanged. UTI on Admission? No. kdr 13:37 13:15 11/06/2018 10:59 Hospitalization Ordered by Marti Cerna MD for Inpatient sv Admission. Preliminary diagnosis is Altered mental status, unspecified; Sepsis, unspecified organism. Bed requested for Telemetry/MedSurg (Inpatient). Status is Inpatient Admission. Condition is Serious. Problem is new. Symptoms are unchanged. UTI on Admission? No. ja1
[2018-11-06] MEDS ORDERED: VANCOMYCIN/NS 1 gm 1 GM/250 ML BAG IV ONE (11:15)
[2018-11-06] MEDS ORDERED: METRONIDAZOLE 500mg IVPB 500 MG/100 ML BAG IV ONE (11:21)
[2018-11-06] MEDS ORDERED: CEFTRIAXONE/SWI 1gm 1 GM/10 ML SYR ONE (11:21)
[2018-11-06] MEDS ORDERED: NA CHLORIDE 0.9% 2,000 ML ONE (12:17)
--- NOTE | 2018-11-06 14:49 | EKG ---
Test Date: 2018-11-06 Test Time: 10:09:44 Gear Grinding Machine Operator: LOBO MEASUREMENT RESULTS: Intervals: Rate: 89 KY: 172 QRSD: 88 QT: 378 QTc: 459 Sawyer: P: 41 KY: 172 QRS: 29 T: 96 INTERPRETIVE STATEMENTS: Normal sinus rhythm Minimal voltage criteria for LVH, may be normal variant ST & T wave abnormality, consider lateral ischemia Abnormal ECG Compared to ECG 12/02/2017 12:17:56 ST (T wave) deviation now present T-wave abnormality no longer present Possible ischemia still present Electronically Signed On 11-06-18 14:49:03 CDT by Abelardo Flannery
[2018-11-06] MEDS ORDERED: ONDANSETRON 4 MG/2 ML VIAL IV PRN (14:59)
[2018-11-06] MEDS ORDERED: ALBUTEROL 2.5 MG/3 ML NEB SOL NEB PRN (14:59)
[2018-11-06] MEDS ORDERED: VANCOMYCIN/NS 1 gm 1 GM/250 ML BAG IVPB SCH (14:59)
[2018-11-06] MEDS: NA CHLORIDE 0.9% 1,000 ML IV SCH (14:59)
[2018-11-06] MEDS ORDERED: NA CHLORIDE 0.9% 1,000 ML ONE (15:31)
[2018-11-06] MEDS ORDERED: VANCOMYCIN 500 MG in NA CHLORIDE 0.9% 100 ML IVPB ONE (17:00)
[2018-11-06] MEDS ORDERED: ENOXAPARIN 30 MG/0.3 ML SQ SCH (17:00)
[2018-11-06] MEDS: METRONIDAZOLE 500mg IVPB 500 MG/100 ML BAG IV SCH (17:03)
--- NOTE | 2018-11-06 20:33 | HP ---
Date of Admission: 11/06/2018 Chief Complaint: Altered mental status. Code Status: Do not resuscitate. Daughter at the bedside. Patient has living will and advanced dir ectives. History Of Present Illness: Patient is a 78-year-old female, resident of nursing facility with past medical history of CVA, hypertension, coronary artery disease, and peripheral arterial disease, demen tia, who was in her usual state of health until day of admission when the patient was found to be mor e lethargic, tremulous, and not very much responsive. Patient recently had a fall with leg wound as well as hospitalization for Staph bacteremia in [place] recently. Patient's symptoms are constant, moderate, progressively worsening, therefore, was brought into the ER for further evaluation. Upon a rrival, patient was found to be septic. She was hypotensive. Her workup revealed white blood cell c ount of 25,000, with a left shift. She had elevated lactate and procalcitonin level. Kidney functio n was 1.75 and is usually normal at baseline. The patient did have some bacteria in her urine, howev er, nitrite and leukocyte esterase were negative. CT of the abdomen and pelvis showed proctitis. He ad CT scan was negative for any acute changes. Patient was started on IV antibiotics and referred fo r admission. When seen in the ER, she was awake, alert, oriented to self only in moderate distress. Past Medical History: Dementia, hypertension, history of CVA 10 years ago, coronary artery disease, peripheral arterial disease, and history of benign tremor. Surgical History: Hysterectomy, bilateral foot surgery, stent in the legs and heart. Allergies: TO ADHESIVES, AND CODEINE. Medications: List reviewed. Social History: Patient is a resident of nursing facility, was a former heavy smoker. No alcohol us e currently. Family History: Father had lung cancer. Mother had stroke and sister also had stroke. Review of Systems: Limited to the patient's medical condition, however, supplemented by the family member. 10-point sys tem reviewed, negative except as per HPI. Physical Examination: Vital Signs: Temperature 98.5, heart rate 91, blood pressure 106/95, respirations 17, O2 of 96% on r oom air. General: Awake, alert, and oriented to self only, ill-appearing, frail, cachectic, elderly female, c urrently having tremors. HEENT: Normocephalic, atraumatic. PERRLA, EOMI. Dry mucous membranes. Oropharynx is clear. Conju nctivae anicteric. Poor dentition. Neck: Supple. No JVD trachea midline. CV: S1, S2. Patient has a 3/6 systolic murmur. Regular rate and rhythm. Respiratory: Moving air well bilaterally. No wheezing or stridor. No use of accessory muscles. Gastrointestinal: Abdomen is soft. Mild tenderness to palpation. No guarding or rigidity. Bowel s ounds positive. Extremities: No clubbing, cyanosis, or edema. No calf tenderness. Skin: Normal skin turgor. Cap refill is less than 2 seconds. Patient does have a wound on the left leg anterior aspect with some surrounding erythema. No drainage. NEURO: Cranial nerves 2-12 intact grossly. Patient has generalized weakness of the lower extremitie s, but no focal neurological deficit. Speech is normal. Laboratory Data: UA is negative nitrite, negative leukocyte esterase, too numerous to count rbc's, 2 0-50 bacteria. Sodium 141, potassium 5.1, chloride 104, CO2 of 29, BUN 39, creatinine 1.75, glucose 128, lactate 2.1, calcium 8.5. CK levels 265, troponin 0.08. Albumin 2.9. Procalcitonin 4.24. INR 1.52. WBC 25.4, H and H 11.1 and 33.7, platelets 397, neutrophils 86%. Imaging Studies: Chest x-ray personally reviewed shows no acute cardiopulmonary process, shallow ins piration film not substantially different from previous. 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 Tiny nonobstructing left renal calculus. Moderate amount of stool within the colon. Mild rectal wall thickening may indicate proctitis and al so has incidental cholelithiasis. Head CT scan personally reviewed, shows no acute intracranial abno rmality. Small low density area left basal ganglia, likely old lacunar infarct. Assessment And Plan: A 78-year-old female with. 1.Sepsis secondary to urinary tract infection or possible bronchitis. CT abdomen does show UPJ stri cture, right hydronephrosis. We will continue with IV fluids. Patient is hypotensive, has elevated lactate 2.1. Procalcitonin elevated at 4. WBC count 25,000. Patient is tachycardic. Also has end- organ damage with elevated creatinine. 2.Acute cystitis with hematuria. Continue with IV antibiotics. 3.Acute kidney injury, likely related to above. We will continue with IV fluids and avoid NSAIDs, m onitor creatinine level. 4.Rhabdomyolysis. CK level is elevated at 265. We will continue with IV fluids atraumatic. 5.Elevated troponin level likely related to demand mismatch. 6.Chronic obstructive pulmonary disease, chronic bronchitis, and we will continue with albuterol as needed. 7.Alzheimer's dementia early onset without behavioral disturbance. 8.Acute metabolic encephalopathy, likely due to sepsis, unclear source other than urinary tract infe ction. There is possibility of meningitis. Lumbar puncture was attempted by ER, however, due to her chronic lumbar issues, was unable to be performed. Radiology was also curbsided by ER for possible fluoroscopic guided lumbar puncture. Plan: We will admit patient to Med-Surg, place as inpatient. Length Of Stay: Greater than 2 midnights. We will start on broad spectrum IV antibiotics. ANTHONY Voice ID: [id number]
[2018-11-06] MEDS: CEFTRIAXONE/SWI 2gm 2 GM/20 ML SYR IVP SCH (20:56)
[2018-11-06] MEDS ORDERED: HOME MED 1 EA UNK (Gabapentin [Gralise] 300 MG) PO SCH (21:00)
[2018-11-06] MEDS ORDERED: BUSPIRONE HCL 5 MG TABLET PO SCH (21:00)
[2018-11-06] MEDS ORDERED: HOME MED 1 EA UNK (Pravastatin Sodium [Pravastatin Sodium] 10 MG) PO SCH (21:00)
[2018-11-06] MEDS ORDERED: RISPERIDONE 0.5 MG PO SCH (21:00)
[2018-11-06] MEDS: ESCITALOPRAM 20 MG TAB PO SCH (21:58)
[2018-11-06] MEDS: APIXABAN 5 MG TABLET PO SCH (21:58)
[2018-11-06] MEDS: ATORVASTATIN 10 MG TAB PO SCH (21:59)
[2018-11-06] MEDS: GABAPENTIN 300 MG CAP PO SCH (21:59)
[2018-11-06] MEDS: RISPERIDONE 0.25 MG TABLET PO SCH (21:59)
[2018-11-06] MEDS: ACETAMINOPHEN 500 MG TAB PO PRN (22:03)
[2018-11-07] MEDS: METRONIDAZOLE 500mg IVPB 500 MG/100 ML BAG IV SCH ×3 (01:34→17:52)
[2018-11-07 06:16] LABS: Absolute Lymphocytes (CBC) 1.6 K/uL (0.7-4.9); Basophils % 0.2 % (0-1.3); Hematocrit 25.6 % (36.0-45.0); Lymphocytes % 7.8 % (15.3-44.8); MPV 9.2 fL (7.6-11.3); RBC Red Blood Cell Count 2.63 M/uL (3.86-4.86)
[2018-11-07 06:34] LABS: Albumin 2.5 g/dL (3.4-5.0); Bilirubin Total 0.3 mg/dL (0.2-1.0); Magnesium 2.4 mg/dL (1.8-2.4); Phosphorus 2.7 mg/dL (2.5-4.9); Potassium 3.8 mmol/L (3.5-5.1); Protein, Total 6.5 g/dL (6.4-8.2)
[2018-11-07] MEDS ORDERED: HOME MED 1 EA UNK (Buspirone Hcl [Buspar] 10 MG) PO SCH (08:00)
[2018-11-07] MEDS ORDERED: METOPROLOL XL 25 MG TAB PO SCH (09:00)
[2018-11-07] MEDS: AMIODARONE HCL 200 MG TAB PO SCH (09:03)
[2018-11-07] MEDS: APIXABAN 5 MG TABLET PO SCH ×2 (09:03→22:14)
[2018-11-07] MEDS: MEMANTINE HCL 10 MG TABLET PO SCH (09:03)
[2018-11-07] MEDS: CEFTRIAXONE/SWI 2gm 2 GM/20 ML SYR IVP SCH ×2 (09:05→22:15)
[2018-11-07] MEDS: PANTOPRAZOLE 40MG TABLET PO SCH (09:08)
[2018-11-07] MEDS: GABAPENTIN 100 MG CAP PO SCH ×2 (09:09→11:11)
[2018-11-07] MEDS: BUSPIRONE HCL 5 MG TABLET PO SCH ×2 (09:09→12:42)
[2018-11-07] MEDS ORDERED: METOPROLOL TARTRATE 5 MG/5 ML INJ IV PRN (10:53)
[2018-11-07] MEDS: NA CHLORIDE 0.9% 1,000 ML IV SCH (12:43)
--- NOTE | 2018-11-07 13:05 | P.CNS ---
Date of Consult: 11/07/18 Reason for Consult: wounds bilateral feet Requesting Physician: Marti Cerna Chief Complaint: Patient was admitted for sespsis. History of Present Illness: ER/hospitalist noted multiple pressure ulcers bilateral feet Allergies adhesive Allergy (Mild, Verified 10/07/14 13:23) Rash codeine Allergy (Verified 10/07/14 13:23) Unknown Adhesives Allergy (Uncoded 12/02/17 16:21) Unknown Home Medications: Amiodarone HCl [Cordarone*] 200 mg PO DAILY 11/06/18 Apixaban [Eliquis *] 5 mg PO BID 11/06/18 Buspirone HCl [Buspar*] 5 mg PO BEDTIME 11/06/18 Buspirone HCl [Buspar] 10 mg PO BREAKFAST & LUNCH 11/06/18 Cephalexin [Keflex*] 1 cap PO BID 11/06/18 Escitalopram [Lexapro] 5 mg PO BEDTIME 11/06/18 Furosemide [Lasix*] 40 mg PO DAILY 11/06/18 Gabapentin [Gralise] 300 mg PO BEDTIME 11/06/18 Gabapentin [Neurontin*] 100 mg PO BREAKFAST & LUNCH 11/06/18 Isosorbide Mononitrate [Isosorbide Mononitrate ER] 1 tab PO DAILY 11/06/18 Memantine HCl [Namenda*] 10 mg PO DAILY 11/06/18 Metoprolol Succinate 12.5 mg PO DAILY 11/06/18 Mirtazapine [Remeron*] 15 mg PO BEDTIME 11/06/18 Pantoprazole Sodium [Protonix] 40 mg pe PO DAILY 11/06/18 Potassium Chloride 20 mg PO DAILY 11/06/18 Pravastatin Sodium 10 mg PO BEDTIME 11/06/18 Risperidone [Risperidone Odt] 0.5 mg PO BEDTIME 11/06/18 - Past Medical/Surgical History Diabetic: No -: stroke 10 yrs ago -: hypertension -: stents in leg and heart -: hysterectomy -: bilateral foot surgery - Family History Father Medical History: Cancer Notes: lung cancer Mother Medical History: Stroke Sister Medical History: Stroke - Social History Smoking Status: Current every day smoker Alcohol use: Yes CD- Drugs: No Caffeine use: Yes Place of Residence: Longterm Review of Systems is unable to be obtained Physical Examination Temp Pulse Resp BP Pulse Ox 99.5 F 125 H 24 H 112/78 97 11/07/18 12:00 11/07/18 12:00 11/07/18 12:00 11/07/18 12:00 11/07/18 12:00 General: Mild distress Cardiovascular: No edema, Abnormal pulses (nonpalpable pedal pulses bilateral feet) Capillary refill: >2 Seconds Musculoskeletal: No clubbing, No swelling, No contractures, No erythema, No tenderness, No warmth Integumentary: Other (Absent hair growth bilateral feet. Skin is atrophic. Noted preulcerative, stage 1 pressure ulcers right lateral foot and posterior heel. Dry, gangrene/eschar lateral aspect of right lateral malleolus with no periwound erythema or drainage. Also noted dry eschar left medial heel with no purulence or edema noted) Neurological: Abnormal sensation - Problems (1) Pressure ulcer of ankle, right, unstageable Current Visit: Yes Status: Acute (2) Pressure ulcer of heel, left, unstageable Current Visit: Yes Status: Acute Conclusions/Impression: Patient is noted to have pvd. Wounds to lateral right ankle and medial left heel have stable eschar with no purulence present. Xrays ordered to evaluate for osteomyelitis. Also order bilateral lower extremity arterial dopplers to evaluate vascularity. Orders for santyl to be applied to wounds daily with saline moistened gauze. Also offloading of feet in waffle boots Physician Review: Patient Assessed, Agree with Above Assessment and Plan
--- NOTE | 2018-11-07 13:32 | EKG ---
Test Date: 2018-11-07 Test Time: 11:13:56 Data Processing Equipment Repairer: JERMAN MEASUREMENT RESULTS: Intervals: Rate: 123 [place]: QRSD: 86 QT: 296 QTc: 423 [place]: P: [place]: QRS: 48 T: 209 INTERPRETIVE STATEMENTS: Atrial fibrillation with rapid ventricular response ST & T wave abnormality, consider inferolateral ischemia or digitalis effect Abnormal ECG Compared to ECG 11/06/2018 10:09:44 Sinus rhythm no longer present Left ventricular hypertrophy no longer present ST (T wave) deviation still present Possible ischemia still present Electronically Signed On 11-07-18 13:31:56 CDT by Chago Randall
--- NOTE | 2018-11-07 15:54 | RAD REPORT ---
EXAM DESCRIPTION: RAD - Hip Bilateral With Pelvis - 11/07/2018 3:39 pm CLINICAL HISTORY: Bilateral hip pain COMPARISON: November 2017 TECHNIQUE: AP view of the pelvis and hip joints was obtained with frogleg views of each hip joint. FINDINGS: Patient is rotated. No acute pelvic fractures seen. There is remodeling from an old right superior pubic ramus fracture. No pathologic bone process. Prominent lower lumbar degenerative change s are present only partially imaged. No fracture or dislocation of either proximal femur. Bilateral hip joint degenerative changes are pre sent left greater than right. No radiographic findings for AVN. No joint effusion suspected. Right-si de arterial stenting matches prior imaging. No abnormal stool volume in the rectum. IMPRESSION: Degenerative changes are present at each hip joint slightly worse on the left. Pattern i s not clearly different from November 2017. No acute pelvis, proximal femur or hip joint finding.
--- NOTE | 2018-11-07 15:54 | PN ---
Date of Progress Note: 11/07/2018 Patient was seen and examined. Chart reviewed and case discussed with RN. Family at the bedside. T reatment plan explained, all questions answered. The patient is much more awake and alert today, mor e responsive. Did have some low-grade fevers overnight. Medications List: Reviewed. Physical Examination: Vital Signs: T-max was 100.7 last night, T-current is 99.5, heart rate 90, blood pressure 143/65, re spirations 24, O2 at 97% on 2 L. General: Awake, alert, oriented to self, more responsive today, elderly female, frail. CV: S1, S2, irregularly irregular. Peripheral pulses weak. Respiratory: Moving air well bilaterally. No wheezing. Gastrointestinal: Abdomen is soft, nontender, nondistended. Positive bowel sounds. No guarding or rigidity. Extremities: No clubbing, cyanosis, or edema. Skin: The patient has multiple skin abrasions on the leg as well as black eschar, pressure wounds on both heels and left ankle. Neurological: Cranial nerves 2 through 12 intact grossly. Extremities: The patient has generalized weakness of her lower extremities, does have pain with move ment of the left leg. Laboratory Data: Sodium 147, potassium 3.8, chloride 113, CO2 of 25, BUN 37, creatinine 1.21, glucos e 82, calcium 8.3, phosphorus 2.7, magnesium 2.4, albumin 2.5. WBC 20.6, H and H 8.6 and 25.6, plate lets 290, neutrophils 84%. The urine culture so far shows no growth. Blood cultures are no growth to date. Blood cultures pend ing. Assessment And Plan: A 78-year-old female with: 1.Sepsis secondary to UTI and possible bronchitis. Cultures are pending, no growth to date, respond ing to IV antibiotics. White count is trending down. The patient is much more awake and alert. 2.Acute cystitis with hematuria. We will continue IV antibiotics and follow up on culture, no growt h to date. 3.Acute kidney injury secondary to sepsis, improved. The creatinine has normalized. We will contin ue IV fluids and avoid NSAIDs. 4.Rhabdomyolysis. We will recheck CK level. Continue IV fluids, nontraumatic. 5.Elevated troponin level likely due to demand mismatch. No chest pain. EKG, we will repeat EKG. 6.Chronic obstructive pulmonary disease, chronic bronchitis. Continue albuterol as needed. 7.Alzheimer's dementia early onset without behavioral disturbance, stable. 8.Acute metabolic encephalopathy, likely due to sepsis and urinary tract infection. Doubt any menin gitis. The patient does not have any nuchal rigidity. Her mental status has improved. 9.Multiple leg wounds and heel wounds. Dr. Levin with Podiatry has been consulted. We will continu e with DuoDerm and offloading. Cultures are pending. Plan: Continue broad-spectrum IV antibiotics. Followup on cultures. The patient has some pain with movement of her left leg. We will obtain pelvis x-ray. /HOA Voice ID: [id number] Report ID: [id number]
--- NOTE | 2018-11-07 16:07 | RAD REPORT ---
EXAM DESCRIPTION: US - Lower Extremity Arterial Bilat - 11/07/2018 3:02 pm CLINICAL HISTORY: Leg pain, peripheral vascular disease COMPARISON: None. TECHNIQUE: Waveforms were obtained along the length of each lower extremity. BEAU values could not be calculated. Patient positioning and physical limitations precluding application of the pressure cuff s. Visual inspection of the lower extremity arterial tree performed. FINDINGS: Biphasic to triphasic waveform pattern seen in the right common femoral artery. Velocity w as 154 cm/seconds. No flow is identifiable in the superficial femoral artery from the proximal and mi d portions. The patient has arterial stenting in the superficial femoral artery. The distal extent of the stent is unknown. Flow re-established at the adductor canal extending into the popliteal artery where the waveform was monophasic. Distal to the adductor canal the vessel does not appear to be sten shiva. Dorsalis pedis and posterior tibial artery waveforms were monophasic as well on the right. Velocity value in the popliteal artery on the right was 29 cm/second with the posterior tibial and do rsalis pedis arteries measuring 20 cm/second and 54 cm/second, respectively. Left lower extremity from the common femoral artery to the popliteal artery showed triphasic waveform . Common femoral velocity was 167 cm/second with the femoral artery 128 cm/second. Popliteal artery w as 108 cm/second. Biphasic waveforms noted at the ankle. Posterior tibial velocity was 28 cm/second a nd the dorsalis pedis artery was 49 cm/second. A 4 centimeter x 2 centimeter right popliteal fossa cyst present. A smaller 15 millimeter left poplit eal fossa cyst present. IMPRESSION: Patient has a stented right superficial femoral artery. Distal extent of the stent is un known but appears to terminate proximal to the adductor canal. Based on the sonographic images the stent is occluded with recanalization of flow in the femoral nubia ry distal to the adductor canal. Distal to the right adductor canal waveform pattern is monophasic with dampened waveforms. Atheroscle rotic changes are present in the gallegos with no focal flow restricting lesion defined. Below-knee atherosclerotic changes are present in the left lower extremity with decreased velocity va lues. No left lower extremity focal flow restricting lesion.
--- NOTE | 2018-11-07 16:25 | RAD REPORT ---
EXAM DESCRIPTION: RAD - Foot Left 3 View - 11/07/2018 3:40 pm CLINICAL HISTORY: Foot pain, soft tissue infection, possible calcaneus osteomyelitis COMPARISON: None. FINDINGS: No fracture, dislocation or periosteal reaction. No cortical disruption or other destructi ve changes in the calcaneus. Patient has a small plantar spur. Postsurgical changes are present along the medial margin of the first metatarsal head. Scattered dege nerative changes are present. No acute bone findings seen. No air or foreign body in the soft tissues. IMPRESSION: No evidence for osteomyelitis of the calcaneus.
--- NOTE | 2018-11-07 16:26 | RAD REPORT ---
EXAM DESCRIPTION: RAD - Ankle Right 3 View - 11/07/2018 3:39 pm CLINICAL HISTORY: Soft tissue wound, possible osteomyelitis of the ankle COMPARISON: None. FINDINGS: No fracture, dislocation or periosteal reaction. No joint effusion seen. No joint space na rrowing. No destructive bone process identifiable. No areas seen that is suspicious for osteomyelitis . Osteomyelitis can exist prior to radiographic bone destruction. Some osteopenic underlying changes are evident. Degenerative changes are present relatively mild for age. No air or foreign body in the soft tissues. IMPRESSION: Degenerative changes are evident at the ankle but no focal destructive process to suspec t osteomyelitis.
[2018-11-07] MEDS: PROMOD 30 ML DOSE PO SCH (21:00)
[2018-11-07] MEDS: ESCITALOPRAM 20 MG TAB PO SCH (22:12)
[2018-11-07] MEDS: RISPERIDONE 0.25 MG TABLET PO SCH (22:12)
[2018-11-07] MEDS: METOPROLOL XL 25 MG TAB PO SCH (22:13)
[2018-11-07] MEDS: ATORVASTATIN 10 MG TAB PO SCH (22:14)
[2018-11-07] MEDS: GABAPENTIN 300 MG CAP PO SCH (22:14)
[2018-11-07] MEDS: ACETAMINOPHEN 500 MG TAB PO PRN (22:14)
[2018-11-08] MEDS: METRONIDAZOLE 500mg IVPB 500 MG/100 ML BAG IV SCH ×3 (01:00→17:10)
[2018-11-08 02:43] LABS: Absolute Lymphocytes (CBC) 1.2 K/uL (0.7-4.9); Basophils % 0.2 % (0-1.3); Hematocrit 26.6 % (36.0-45.0); Lymphocytes % 7.5 % (15.3-44.8); RBC Red Blood Cell Count 2.71 M/uL (3.86-4.86)
[2018-11-08 02:54] LABS: Albumin 2.2 g/dL (3.4-5.0); Bilirubin Direct 0.1 mg/dL (0-0.2); Bilirubin Total 0.2 mg/dL (0.2-1.0); Potassium 3.3 mmol/L (3.5-5.1); Protein, Total 6.1 g/dL (6.4-8.2)
[2018-11-08] MEDS: NA CHLORIDE 0.9% 1,000 ML IV SCH (03:54)
[2018-11-08 04:36] LABS: Absolute Lymphocytes (CBC) 1.8 K/uL (0.7-4.9); Basophils % 0.3 % (0-1.3); Hematocrit 26.1 % (36.0-45.0); Lymphocytes % 10.1 % (15.3-44.8); MPV 8.9 fL (7.6-11.3); RBC Red Blood Cell Count 2.66 M/uL (3.86-4.86)
[2018-11-08 04:45] LABS: Albumin 2.2 g/dL (3.4-5.0); Bilirubin Total 0.2 mg/dL (0.2-1.0); Potassium 3.4 mmol/L (3.5-5.1)
[2018-11-08] MEDS ORDERED: VANCOMYCIN/NS 1 gm 1 GM/250 ML BAG IV SCH ×2 (05:00→17:00)
[2018-11-08] MEDS ORDERED: D5W 1,000 ML IV SCH (07:00)
--- NOTE | 2018-11-08 07:44 | RAD REPORT ---
EXAM DESCRIPTION: Sosa Single View11/08/2018 6:59 am CLINICAL HISTORY: Fever COMPARISON: November 06, 2018 FINDINGS: The lungs appear clear of acute infiltrate. The heart is mildly to moderately enlarged IMPRESSION: No acute abnormalities displayed
[2018-11-08] MEDS: COLLAGENASE 30 GM OINTMENT TOP SCH (09:00)
[2018-11-08] MEDS: PROMOD 30 ML DOSE PO SCH ×2 (09:00→22:31)
[2018-11-08] MEDS: METOPROLOL XL 25 MG TAB PO SCH ×2 (09:11→22:30)
[2018-11-08] MEDS: CEFTRIAXONE/SWI 2gm 2 GM/20 ML SYR IVP SCH ×2 (09:11→22:27)
[2018-11-08] MEDS: APIXABAN 5 MG TABLET PO SCH ×2 (09:12→22:33)
[2018-11-08] MEDS: GABAPENTIN 100 MG CAP PO SCH ×2 (09:12→11:31)
[2018-11-08] MEDS: AMIODARONE HCL 200 MG TAB PO SCH (09:12)
[2018-11-08] MEDS: BUSPIRONE HCL 5 MG TABLET PO SCH ×2 (09:12→11:31)
[2018-11-08] MEDS: MEMANTINE HCL 10 MG TABLET PO SCH (09:12)
[2018-11-08] MEDS: PANTOPRAZOLE 40MG TABLET PO SCH (09:12)
--- NOTE | 2018-11-08 12:33 | P.PN ---
Subjective Date of Service: 11/08/18 Chief Complaint: Patient was admitted for sespsis. Subjective: No new changes Review of Systems is unable to be obtained Physical Examination - Vital Signs Temperature: 99.6 F Blood Pressure: 154/63 Pulse: 76 Respirations: 18 Pulse Ox (%): 98 - Physical Exam General: Unresponsive Cardiovascular: No edema, Abnormal pulses Capillary refill: >2 Seconds Musculoskeletal: No clubbing, No swelling, No contractures, No erythema, No tenderness, No warmth Integumentary: Other (ulcerations to left medial heel and right lateral ankle are slightly improved with softening of eschar. No purulence, no periwound erythema noted.) Neurological: Abnormal sensation - Studies Microbiology Data (last 24 hrs): 11/06/18 10:10 Clean Catch Urine [place] Count - Final <10,000 CFU/ML. 11/06/18 10:10 Clean Catch Urine - Final No growth. Assessment And Plan - Current Problems (Diagnosis) (1) Pressure ulcer of ankle, right, unstageable Current Visit: Yes Status: Acute (2) Pressure ulcer of heel, left, unstageable Current Visit: Yes Status: Acute - Plan wounds to bilateral feet are somewhat improved with application of santyl. Suggest continued santyl and vascular consult. Continue offloading Physician Review: Patient Assessed, Agree with Above Assessment and Plan
[2018-11-08] MEDS ORDERED: LORazepam 2 MG/ML VIAL IV ONE (13:26)
--- NOTE | 2018-11-08 14:55 | PN ---
Date of Progress Note: 11/08/2018 Subjective: Patient seen and examined. Chart reviewed and case discussed with RN. Patient does report some stiffness of her neck. She is unable to turn her neck. It should be noted she is on Risperdal. Medication list reviewed. Physical Examination: Vital Signs: Temperature 98.5, heart rate 143, respirations 20, blood pressure 114/58, O2 97% on 2 L via nasal cannula. General: Awake, alert, oriented x2, some mild distress. Elderly female, frail. CV: S1, S2, irregularly irregular. Rapid rate. Peripheral pulses weak. Respiratory: Diminished breath sounds at the bases, otherwise moving air well. Gastrointestinal: Abdomen is soft, nontender, nondistended. Positive bowel sounds. Extremities: No clubbing, cyanosis, or edema. Neuro: Has generalized weakness of the lower extremities. Speech is normal. Musculoskeletal: Patient has stiffness of the neck with some contractures of the neck muscles. Laboratory Data: WBC 17.3, H and H 8.6 and 26.1, platelets 265, neutrophils 83% . Sodium 151, potassium 3.4, chloride 117, CO2 27, BUN 28, creatinine 0.88, calcium 8.1, albumin 2.2. Blood cultures, no growth to date. Wound cultures from the leg growing out staph, coagulase positive. Chest x-ray, no acute cardiopulmonary process. EKG showed atrial fibrillation with RVR. Assessment And Plan: A 78-year-old female with; 1. Sepsis secondary to urinary tract infection, bronchitis, and possibly leg wound. Wound cultures from the lower extremity growing out staphylococcus, coagulase positive. Blood cultures, no growth to date. WBC is trending down, slightly up from yesterday at 17,000. 2. Acute metabolic encephalopathy, improved. The patient much more awake and alert. 3. Acute cystitis with hematuria. We will continue IV antibiotics. No growth on urine cultures to date. 4. Acute kidney injury secondary to sepsis, improved. Creatinine normalized. We will continue to monitor. Avoid NSAIDs. 5. Rhabdomyolysis, likely due to her baseline tremors. Patient also appears to have some possible torticollis. We will hold the risperidone for now and initiate cyclobenzaprine and Cogentin. 6. Elevated troponin level due to demand mismatch. No chest pain. Patient does have some nonspecific changes on EKG. 7. Chronic obstructive pulmonary disease, chronic bronchitis. We will continue with nebulizers as needed. 8. 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 9. Leg wound with pressure ulcers and eschar. Ankle, foot x-ray and pelvic x- ray reviewed. No signs of osteomyelitis. We will continue with offloading and wound care per Dr. Levin, appreciate his input. Culture is growing staphylococcus, coagulase positive. Continue with vancomycin. 10. NMS: check CK level. Stop risperdal. Ativan x1. Plan: Continue IV antibiotics and monitor closely. Likely discharge in the next 24 to 48 hours depending on clinical response. /HOA Voice ID: [id number] Report ID: [id number] OLGA
[2018-11-08] MEDS: D5W 1,000 ML IV SCH ×2 (22:00→22:27)
[2018-11-08] MEDS: ESCITALOPRAM 20 MG TAB PO SCH (22:29)
[2018-11-08] MEDS: GABAPENTIN 300 MG CAP PO SCH (22:29)
[2018-11-08] MEDS: ATORVASTATIN 10 MG TAB PO SCH (22:29)
[2018-11-09] MEDS: METRONIDAZOLE 500mg IVPB 500 MG/100 ML BAG IV SCH ×2 (01:12→08:54)
[2018-11-09 06:22] LABS: Absolute Lymphocytes (CBC) 1.7 K/uL (0.7-4.9); Basophils % 0.3 % (0-1.3); Hematocrit 25.9 % (36.0-45.0); Lymphocytes % 12.3 % (15.3-44.8); MPV 9.4 fL (7.6-11.3); RBC Red Blood Cell Count 2.65 M/uL (3.86-4.86)
[2018-11-09 06:40] LABS: Bilirubin Total 0.2 mg/dL (0.2-1.0); Potassium 3.1 mmol/L (3.5-5.1); Protein, Total 5.8 g/dL (6.4-8.2)
[2018-11-09] MEDS: D5W 1,000 ML IV SCH ×2 (07:34→19:30)
[2018-11-09] MEDS: CEFTRIAXONE/SWI 2gm 2 GM/20 ML SYR IVP SCH (08:58)
[2018-11-09] MEDS: MEMANTINE HCL 10 MG TABLET PO SCH (08:59)
[2018-11-09] MEDS: METOPROLOL XL 25 MG TAB PO SCH ×2 (09:00→20:28)
[2018-11-09] MEDS: AMIODARONE HCL 200 MG TAB PO SCH (09:00)
[2018-11-09] MEDS: PANTOPRAZOLE 40MG TABLET PO SCH (09:00)
[2018-11-09] MEDS: BUSPIRONE HCL 5 MG TABLET PO SCH ×2 (09:01→13:51)
[2018-11-09] MEDS: APIXABAN 5 MG TABLET PO SCH ×2 (09:01→20:32)
[2018-11-09] MEDS: GABAPENTIN 100 MG CAP PO SCH ×2 (09:01→13:52)
[2018-11-09] MEDS: PROMOD 30 ML DOSE PO SCH ×2 (09:02→20:33)
[2018-11-09] MEDS: VANCOMYCIN/NS 1 gm 1 GM/250 ML BAG IV SCH (10:25)
[2018-11-09] MEDS: COLLAGENASE 30 GM OINTMENT TOP SCH (10:30)
--- NOTE | 2018-11-09 10:48 | CON ---
Reason For Consultation: Evaluate circulation in her legs. History Of Present Illness: Dr. Levin was asked to see her to try and help with some wounds on her f eet. Arterial Doppler was done. It indicates that there is a total occlusion of her right superfici al femoral artery close to its origin to the adductor canal. Reconstitution is noted. There is mono phasic flow into the feet. On the left, there is no evidence of a total obstruction. There seems to be diffuse moderate peripheral vascular disease. The occluded right superficial femoral is within a n old stent, so she has had previous revascularization. She had a cardiac cath several years ago, vikas coffey gives a history of having had a stent in her heart and a cardiac cath was done that was September 2014, and there is no mention of a stent in place, but just mild CAD in a codominant coronary system. The patient is in a do not resuscitate status. She lives in a halfway. She has flexion contracture s. I could not straighten out her legs at all without causing a lot of pain, so I did not wish to ca use any pain, avoided doing that. There are some superficial wounds. The skin is warm. Perfusion i s diminished, but there is some perfusion. The patient's neurological status is she is obtunded, she only responded to pain when I tried to move her legs a little bit, straighten them out. Impression: The patient is not a candidate for doing any kind of revascularization given [facility] and survives by collateral blood flow and she cannot stra ighten her legs. It would be impossible to do anything with that other than a femoral-popliteal bypa ss and she is just not a candidate to do that. I would recommend that we do not do any angiograms of her legs or attempt any stents for her legs. MELVI/HOA Voice ID: [id number] Report ID: [id number]
[2018-11-09] MEDS: CEFTRIAXONE/SWI 1gm 1 GM/10 ML SYR IVP SCH (11:44)
[2018-11-09] MEDS ORDERED: POTASSIUM PHOSPHATE 40 MEQ in NS 500 ML IV ONE (12:00)
[2018-11-09] MEDS ORDERED: KCL 20 MEQ/100 mL IVPB 20 MEQ/100 ML BAG IV SCH (12:00)
[2018-11-09] MEDS ORDERED: NA CHLORIDE 0.9% 500 ML with POTASSIUM CL 40 MEQ IV ONE ×2 (12:00)
--- NOTE | 2018-11-09 14:48 | PN ---
Date of Progress Note: 11/09/2018 Subjective: Patient is seen and examined. Chart was reviewed and case was discussed with Dr. Levin. Patient is feeling better today, not as tremulous. Her neck rigidity has improved. Medications: List was reviewed. Physical Examination: Vital Signs: T-max is 99.6, T-current is 99.3, heart rate 110, blood pressure 110/72, respirations 20, O2 98% on 2 L via nasal cannula. General: Awake, alert, oriented x2. Elderly female, ill appearing. CV: S1, S2. Irregularly irregular. Peripheral pulses weak. Respiratory: Diminished breath sounds at the bases. No wheezing or stridor. Gastrointestinal: Abdomen is soft, nontender, nondistended. Positive bowel sounds. Extremities: No clubbing, cyanosis, or edema. Neuro: Weakness of the lower extremities bilaterally. Skin: Patient has multiple pressure ulcers on both wounds and ankle. Laboratory Data: Sodium 148, potassium 3.1, chloride 115, CO2 is 27, BUN is 21 , creatinine 0.77, glucose 125, calcium 8. CK levels down to 215, yesterday was 504. Albumin 2. WBC 13.9, H and H 8.6/25.9, platelets 262, neutrophils 79% . Leg wound is growing MRSA. Blood cultures: No growth to date. Assessment: A 78-year-old female with: 1. Sepsis secondary to urinary tract infection, bronchitis, and leg wound. Wound culture is growing out MRSA. We will continue with IV antibiotics. Follow up with blood cultures, which have been negative to date. WBC is trending down. 2. Acute metabolic encephalopathy, improved. Seems to be back to her baseline. 3. Acute cystitis with hematuria, no growth on urine cultures. We will continue with IV antibiotics. 4. Acute kidney injury secondary to sepsis, improved. Creatinine is now normalized. 5. Acute rhabdomyolysis, likely secondary to NMS (neuroleptic malignant syndrome). CK level is trending down. We will continue with IV fluids. 6. Neuroleptic malignant syndrome secondary to Risperdal, which has been discontinued. Patient was given Ativan 1 time dose yesterday. Her rigidity and tremors have improved. CK level is trending down. She is still slightly hyperthermic. We will continue to monitor. 7. Elevated troponin level, likely due to demand mismatch. 8. Chronic obstructive pulmonary disease, chronic bronchitis. Continue nebulizers as needed. 9. 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 10. Leg wound secondary to methicillin-resistant Staphylococcus aureus with multiple pressure ulcers. Appreciate Dr. Levin's input. Continue with IV vancomycin. 11. PVD: doppler arterial reviewed. Stent occlusion. Cardiology consulted. Not a candidate for angiogram or bypass surgery. Plan: Continue current treatment. Patient will need long-term IV antibiotic treatment for at least 2 weeks. We will obtain PICC line. /HOA Voice ID: [id number] Report ID: [id number] OLGA
--- NOTE | 2018-11-09 16:50 | RAD REPORT ---
EXAM DESCRIPTION: RAD - Chest Single View - 11/09/2018 4:22 pm CLINICAL HISTORY: PICC line placement COMPARISON: November 08 FINDINGS: Portable chest was obtained following placement of a right upper extremity PICC line. The catheter tip is in the right atrium. Retraction of the PICC line 2-[address] the line in the SVC..
[2018-11-09] MEDS ORDERED: LIDOCAINE 1% MPF 5 ML VIAL ONE (17:25)
[2018-11-09] MEDS ORDERED: SODIUM CHLORIDE 0.9% 10ML INJ IV PRN ×2 (18:00)
[2018-11-09] MEDS: ATORVASTATIN 10 MG TAB PO SCH (20:28)
[2018-11-09] MEDS: GABAPENTIN 300 MG CAP PO SCH (20:32)
[2018-11-09] MEDS: SODIUM CHLORIDE 0.9% 10ML INJ IV SCH (20:33)
[2018-11-09] MEDS: ESCITALOPRAM 20 MG TAB PO SCH (21:01)
[2018-11-10] MEDS: SODIUM CHLORIDE 0.9% 10ML INJ IV SCH ×3 (00:39→21:12)
[2018-11-10] MEDS: D5W 1,000 ML IV SCH ×2 (00:42→09:32)
[2018-11-10] MEDS: KCL 20 MEQ/100 mL IVPB 20 MEQ/100 ML BAG IV SCH ×2 (00:44→02:44)
[2018-11-10 04:48] LABS: Absolute Lymphocytes (CBC) 2.1 K/uL (0.7-4.9); Basophils % 0.6 % (0-1.3); Hematocrit 26.7 % (36.0-45.0); Lymphocytes % 16.7 % (15.3-44.8); MPV 9.6 fL (7.6-11.3); RBC Red Blood Cell Count 2.72 M/uL (3.86-4.86)
[2018-11-10 05:05] LABS: Albumin 2.1 g/dL (3.4-5.0); Bilirubin Total 0.2 mg/dL (0.2-1.0); Potassium 4.2 mmol/L (3.5-5.1); Protein, Total 5.8 g/dL (6.4-8.2)
[2018-11-10] MEDS: METOPROLOL XL 25 MG TAB PO SCH ×3 (09:00→21:10)
[2018-11-10] MEDS ORDERED: NA CHLORIDE 0.9% 500 ML IV ONE (09:14)
[2018-11-10] MEDS: PANTOPRAZOLE 40MG TABLET PO SCH (09:30)
[2018-11-10] MEDS: GABAPENTIN 100 MG CAP PO SCH ×2 (09:30→13:00)
[2018-11-10] MEDS: AMIODARONE HCL 200 MG TAB PO SCH (09:30)
[2018-11-10] MEDS: MEMANTINE HCL 10 MG TABLET PO SCH (09:30)
[2018-11-10] MEDS: APIXABAN 5 MG TABLET PO SCH ×2 (09:30→21:10)
[2018-11-10] MEDS: BUSPIRONE HCL 5 MG TABLET PO SCH ×2 (09:31→13:00)
[2018-11-10] MEDS: CEFTRIAXONE/SWI 1gm 1 GM/10 ML SYR IVP SCH (09:32)
[2018-11-10] MEDS: PROMOD 30 ML DOSE PO SCH ×2 (09:33→21:12)
[2018-11-10 10:43] LABS: Potassium 3.4 mmol/L (3.5-5.1)
[2018-11-10] MEDS: VANCOMYCIN/NS 1 gm 1 GM/250 ML BAG IV SCH (10:45)
[2018-11-10] MEDS ORDERED: POTASSIUM 25 MEQ EFFERV TAB PO ONE (11:58)
[2018-11-10] MEDS: NA CHLORIDE 0.9% 1,000 ML IV SCH (13:00)
[2018-11-10] MEDS: COLLAGENASE 30 GM OINTMENT TOP SCH (13:33)
[2018-11-10] MEDS: PIPER/TAZO/NS 3.375gm 3.375 GM/100 ML BAG IVPB SCH (16:21)
--- NOTE | 2018-11-10 16:28 | PN ---
Subjective: Patient is seen and examined. Chart reviewed and case discussed with RN. Patient has gone into atrial fibrillation with RVR. Denies any chest pain or shortness of breath. Patient's tremors have ceased. Patient is doing well otherwise. Medications: List reviewed. Physical Examination: Vital Signs: Temperature 98.2, heart rate 111, blood pressure 119/72, respirations 20, O2 96% on 2 L via nasal cannula. General: Awake, alert, oriented x2, elderly female, frail, cachectic. BMI 21. CV: S1, S2. Irregularly irregular, rapid rate. Peripheral pulses weak. Respiratory: Moving air well bilaterally. No wheezing. Gastrointestinal: Abdomen is soft, nontender, nondistended. Positive bowel sounds. Extremities: No clubbing, cyanosis. No edema. Neuro: Patient has weakness of the lower extremities. Laboratory Data: Sodium 131, potassium 3.4, chloride 100, CO2 of 26, BUN 15, creatinine 0.8, glucose 532, calcium 7. WBC 12.4, H and H of 9 and 26.7, platelets 258, neutrophils 73%. Leg wound is growing out MRSA and Klebsiella pneumoniae. Blood cultures no growth to date. Chest x-ray shows right PICC line placement. Catheter tip in right atrium, retract PICC line 2 to 3 cm. Assessment And Plan: A 78-year-old female with: 1. Sepsis secondary to urinary tract infection and leg wound. Wound cultures positive for methicillin-resistant Staphylococcus aureus and Klebsiella. IV antibiotics have been adjusted. WBC is trending down. 2. Acute metabolic encephalopathy, resolved. Patient back to her baseline. 3. Acute cystitis with hematuria. Urine culture shows no growth. We will continue IV antibiotics. 4. Leg wound and multiple wounds on bilateral heels. Wound cultures are positive for methicillin-resistant Staphylococcus aureus and Klebsiella pneumoniae. Continue with IV antibiotics. Patient will need 2 weeks of vancomycin and likely oral Levaquin. 5. Acute kidney injury secondary to sepsis, improved. Creatinine now normalized. 6. Hyponatremia. We will adjust IV fluids. Patient initially had elevated sodium level. 7. Acute rhabdomyolysis secondary to neuroleptic malignant syndrome. CK level trending down, now normalized. We will continue with IV fluids. 8. Neuroleptic malignant syndrome secondary to Risperdal, improved. 9. Elevated troponin level likely due to demand mismatch. 10. Chronic obstructive pulmonary disease, chronic bronchitis. We will continue nebulizer as needed. 11. 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 12. Deep venous thrombosis prophylaxis addressed. Plan; PICC line was placed yesterday and patient will need to be discharged once more stable with IV antibiotics, vancomycin for 2 weeks, as well as oral Levaquin. 13. Atrial fibrillation with rapid ventricular response. We will increase dose of metoprolol to 25 b.i.d. Patient is already on Eliquis. Likely related to sepsis. ADDENDUM: after discussing with charge nurse, BMP is likely not accurate as pt was on d5 IVFs - finger check showed glucose around 150 not 500. Will repeat BMP SA/MODL Voice ID: [id number] Report ID: [id number] MTDD
[2018-11-10] MEDS: ESCITALOPRAM 20 MG TAB PO SCH (21:10)
[2018-11-10] MEDS: ATORVASTATIN 10 MG TAB PO SCH (21:12)
[2018-11-10] MEDS: GABAPENTIN 300 MG CAP PO SCH (21:12)
[2018-11-11] MEDS: PIPER/TAZO/NS 3.375gm 3.375 GM/100 ML BAG IVPB SCH ×3 (01:00→16:54)
[2018-11-11] MEDS: NA CHLORIDE 0.9% 1,000 ML IV SCH (06:28)
[2018-11-11 07:15] LABS: Absolute Lymphocytes (CBC) 1.6 K/uL (0.7-4.9); Basophils % 0.5 % (0-1.3); Hematocrit 26.5 % (36.0-45.0); Lymphocytes % 15.8 % (15.3-44.8); MPV 9.6 fL (7.6-11.3)
[2018-11-11 07:24] LABS: Albumin 1.8 g/dL (3.4-5.0); Bilirubin Total 0.2 mg/dL (0.2-1.0); Potassium 3.7 mmol/L (3.5-5.1); Protein, Total 5.4 g/dL (6.4-8.2)
[2018-11-11] MEDS: APIXABAN 5 MG TABLET PO SCH ×2 (08:51→21:34)
[2018-11-11] MEDS: AMIODARONE HCL 200 MG TAB PO SCH (08:51)
[2018-11-11] MEDS: GABAPENTIN 100 MG CAP PO SCH ×2 (08:51→12:04)
[2018-11-11] MEDS: BUSPIRONE HCL 5 MG TABLET PO SCH ×2 (08:52→12:04)
[2018-11-11] MEDS: VANCOMYCIN 1.25 GM in NA CHLORIDE 0.9% 250 ML IVPB SCH (08:52)
[2018-11-11] MEDS: MEMANTINE HCL 10 MG TABLET PO SCH (08:52)
[2018-11-11] MEDS: PROMOD 30 ML DOSE PO SCH ×2 (08:52→21:00)
[2018-11-11] MEDS: PANTOPRAZOLE 40MG TABLET PO SCH (08:53)
[2018-11-11] MEDS: SODIUM CHLORIDE 0.9% 10ML INJ IV SCH ×2 (08:53→21:33)
[2018-11-11] MEDS: COLLAGENASE 30 GM OINTMENT TOP SCH (08:54)
[2018-11-11] MEDS: METOPROLOL XL 25 MG TAB PO SCH ×2 (09:02→21:32)
[2018-11-11] MEDS ORDERED: POTASSIUM 25 MEQ EFFERV TAB PO ONE (11:26)
--- NOTE | 2018-11-11 15:58 | P.PN ---
Subjective Date of Service: 11/11/18 Chief Complaint: Patient was admitted for sespsis. Subjective: Improving Patient seen and examined at bedside. Daughter at bedside. Chart reviewed and case discussed with nursing staff. Patient continues to have contractures. Continues to be not as alert. Does not speak - per daughter, she was talking more prior to this admission. Review of Systems 10-point ROS is otherwise unremarkable Physical Examination - Vital Signs Temperature: 98.3 F Blood Pressure: 116/81 Pulse: 121 Respirations: 20 Pulse Ox (%): 100 - Physical Exam General: In no apparent distress, Confused, Other (elderly, frail. ) HEENT: Atraumatic, PERRLA, EOMI Neck: Supple, JVD not distended Respiratory: Clear to auscultation bilaterally, Normal air movement Cardiovascular: Normal S1 S2, Irregular heart rate/rhythm (Atrial fibrillation) Gastrointestinal: Normal bowel sounds, No tenderness Musculoskeletal: Contractures - Studies Microbiology Data (last 24 hrs): 11/06/18 09:50 Blood - Blood Aerobic Blood Culture - Final No growth in 5 days. 11/06/18 09:50 Blood - Blood Anaerobic Blood Culture - Final No growth in 5 days. 11/06/18 09:35 Blood - Blood Aerobic Blood Culture - Final No growth in 5 days. 11/06/18 09:35 Blood - Blood Anaerobic Blood Culture - Final No growth in 5 days. Assessment And Plan - Plan A 78-year-old female with: 1. Sepsis secondary to urinary tract infection and leg wound. Wound cultures positive for Staphylococcus aureus and Klebsiella. IV antibiotics have been adjusted according to sensitivities. WBC now normalized. 2. Acute metabolic encephalopathy, resolved. Patient back to her baseline. 3. Acute cystitis with hematuria. Urine culture shows no growth. We will continue IV antibiotics. 4. Leg wound and multiple wounds on bilateral heels. Wound cultures are positive for Staphylococcus aureus and Klebsiella pneumoniae. Continue with IV antibiotics. Patient will need 2 weeks of vancomycin and likely oral Levaquin. PICC line in place. She will be able to continue IV antibiotics at [facility]. 5. Acute kidney injury secondary to sepsis, improved. Creatinine now normalized. 6. Hyponatremia. We will adjust IV fluids. Patient initially had elevated sodium level. 7. Acute rhabdomyolysis secondary to neuroleptic malignant syndrome. CK level trending down, now normalized. We will continue with IV fluids. 8. Neuroleptic malignant syndrome secondary to Risperdal, improved. 9. Elevated troponin level likely due to demand mismatch. 10. Chronic obstructive pulmonary disease, chronic bronchitis. We will continue nebulizer as needed. 11. 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 12. Deep venous thrombosis prophylaxis addressed. 13. Atrial fibrillation with rapid ventricular response. We will increase dose of metoprolol to 25 b.i.d. Patient is already on Eliquis. Likely related to sepsis. Plan; PICC line was placed yesterday and patient will need to be discharged once more stable with IV antibiotics, vancomycin for 2 weeks, as well as oral Levaquin. She will be returning to [facility]. Anticipate discharge back to facility tomorrow. Physician Review: Patient Assessed, Agree with Above Assessment and Plan
[2018-11-11] MEDS: ESCITALOPRAM 20 MG TAB PO SCH (21:32)
[2018-11-11] MEDS: GABAPENTIN 300 MG CAP PO SCH (21:32)
[2018-11-11] MEDS: ATORVASTATIN 10 MG TAB PO SCH (21:32)
[2018-11-12] MEDS: PIPER/TAZO/NS 3.375gm 3.375 GM/100 ML BAG IVPB SCH ×3 (01:25→16:29)
[2018-11-12 05:47] LABS: Potassium 3.8 mmol/L (3.5-5.1)
[2018-11-12 06:08] VITALS: BMI 21.7
[2018-11-12] MEDS ORDERED: POTASSIUM 25 MEQ EFFERV TAB PO ONE (09:00)
[2018-11-12] MEDS: PANTOPRAZOLE 40MG TABLET PO SCH (09:14)
[2018-11-12] MEDS: MEMANTINE HCL 10 MG TABLET PO SCH (09:15)
[2018-11-12] MEDS: AMIODARONE HCL 200 MG TAB PO SCH (09:15)
[2018-11-12] MEDS: GABAPENTIN 100 MG CAP PO SCH ×2 (09:15→11:30)
[2018-11-12] MEDS: BUSPIRONE HCL 5 MG TABLET PO SCH ×2 (09:15→11:30)
[2018-11-12] MEDS: METOPROLOL XL 25 MG TAB PO SCH ×2 (09:15→23:01)
[2018-11-12] MEDS: APIXABAN 5 MG TABLET PO SCH ×2 (09:15→23:02)
[2018-11-12] MEDS: SODIUM CHLORIDE 0.9% 10ML INJ IV SCH ×2 (09:16→23:03)
[2018-11-12] MEDS: COLLAGENASE 30 GM OINTMENT TOP SCH (09:32)
[2018-11-12] MEDS: VANCOMYCIN 1.25 GM in NA CHLORIDE 0.9% 250 ML IVPB SCH (10:10)
[2018-11-12] MEDS: PROMOD 30 ML DOSE PO SCH ×2 (11:31→23:03)
--- NOTE | 2018-11-12 11:39 | PN ---
Date of Progress Note: 11/11/2018 Ms. Bocanegra had been followed by Dr. Randall for atrial fibrillation, coronary artery disease, periphera l arterial disease. She has a completely occluded right superficial femoral artery. Patient is unab le to straighten her legs still, and she is a very poor candidate for angiogram. She is asymptomatic today. Her wounds are improving and being cared for. We will continue her present regimen. I am n ot so sure if her atrial fibrillation is new or old, but I will discuss that with Dr. Cerna. She is rate controlled and asymptomatic from that issue. FRANCISCO/HOA Voice ID: [id number] Report ID: [id number]
--- NOTE | 2018-11-12 11:47 | P.DS ---
Admission Date: 11/06/18 Discharge Date: 11/12/18 Disposition: TRANSFER TO [facility] Discharge Condition: FAIR Reason for Admission: Patient was admitted for sespsis. Consultations: Podiatry Cardiology Brief History of Present Illness: Patient is a 78-year-old female, resident of nursing facility with past medical history of CVA, hypertension, coronary artery disease, and peripheral arterial disease, dementia, who was in her usual state of health until day of admission when the patient was found to be more lethargic, tremulous, and not very much responsive. Patient recently had a fall with leg wound as well as hospitalization for Staph bacteremia in [facility]. Patient's symptoms are constant, moderate, progressively worsening, therefore, was brought into the ER for further evaluation. Upon arrival, patient was found to be septic. She was hypotensive. Her workup revealed white blood cell count of 25,000, with a left shift. She had elevated lactate and procalcitonin level. Kidney function was 1.75 and is usually normal at baseline. The patient did have some bacteria in her urine, however, nitrite and leukocyte esterase were negative. CT of the abdomen and pelvis showed proctitis. Head CT scan was negative for any acute changes. Patient was started on IV antibiotics and referred for admission. When seen in the ER, she was awake, alert, oriented to self only in moderate distress. Hospital Course: Patient was admitted with sepsis secondary to urinary tract infection or possible bronchitis. CT abdomen showed a UPJ stricture, with right hydronephrosis. She was provided with supportive care with IV fluids. She was started on IV antibiotics as well for her acute cystitis with matching area. She presented with acute metabolic encephalopathy, likely secondary to sepsis. Due to her multiple wounds on the bilateral lower extremities and heels, podiatry was consulted. Wound cultures were sent and were positive for Staph aureus and Klebsiella pneumonia. Her antibiotics were adjusted and it was decided that she would benefit from long-term IV antibiotics. A PICC line was placed, and she was discharged back to [facility] with IV vancomycin for 2 weeks along with oral Levaquin. Her mentation did improve and returned back to baseline. 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 Cardiology was consulted and they recommended no surgical intervention or revascularization at this time due to risks outweighing benefits. She otherwise remained as hemodynamically stable and prior to discharge, she was back to baseline mentation and heard labs improved. She was discharged back to [facility] with 2 weeks of vancomycin and oral Levaquin. Vital Signs/Physical Exam: Temp Pulse Resp BP Pulse Ox 97.1 F 90 18 128/63 99 11/12/18 08:00 11/12/18 09:15 11/12/18 08:00 11/12/18 09:15 11/12/18 08:00 General: Alert, In no apparent distress, Cachectic, Confused HEENT: Atraumatic, PERRLA, EOMI Neck: Supple, JVD not distended Respiratory: Clear to auscultation bilaterally, Normal air movement Cardiovascular: Regular rate/rhythm, Normal S1 S2 Musculoskeletal: Contractures Integumentary: Skin lesion Laboratory Data at Discharge: WBC 9.8 K/uL (4.3-10.9) D 11/11/18 06:30 Hgb 8.6 g/dL (12.0-15.0) L 11/11/18 06:30 Hct 26.5 % (36.0-45.0) L 11/11/18 06:30 Plt Count 249 K/uL (152-406) 11/11/18 06:30 PT 17.7 SECONDS (9.5-12.5) H 11/06/18 09:35 INR 1.52 11/06/18 09:35 APTT 37.0 SECONDS (24.3-36.9) H 11/06/18 09:35 Sodium 148 mmol/L (136-145) H 11/12/18 05:15 Potassium 3.8 mmol/L (3.5-5.1) 11/12/18 05:15 BUN 16 mg/dL (7-18) 11/12/18 05:15 Creatinine 0.85 mg/dL (0.55-1.3) 11/12/18 05:15 Glucose 89 mg/dL (74-106) 11/12/18 05:15 Phosphorus 2.7 mg/dL (2.5-4.9) 11/07/18 05:37 Magnesium 2.4 mg/dL (1.8-2.4) 11/07/18 05:37 Total Bilirubin 0.2 mg/dL (0.2-1.0) 11/11/18 06:30 AST 27 U/L (15-37) 11/11/18 06:30 ALT 19 U/L (12-78) 11/11/18 06:30 Alkaline Phosphatase 63 U/L (45-117) 11/11/18 06:30 Amylase 21 U/L (25-115) L 11/08/18 02:18 Lipase 39 U/L (73-393) L 11/08/18 02:18 Home Medications: Amiodarone HCl [Cordarone*] 200 mg PO DAILY 11/06/18 Apixaban [Eliquis *] 5 mg PO BID 11/06/18 Buspirone HCl [Buspar*] 5 mg PO BEDTIME 11/06/18 Buspirone HCl [Buspar] 10 mg PO BREAKFAST & LUNCH 11/06/18 Escitalopram [Lexapro*] 5 mg PO BEDTIME 11/06/18 Furosemide [Lasix*] 40 mg PO DAILY 11/06/18 Gabapentin [Gralise] 300 mg PO BEDTIME 11/06/18 Gabapentin [Neurontin*] 100 mg PO BREAKFAST & LUNCH 11/06/18 Isosorbide Mononitrate [Isosorbide Mononitrate ER] 1 tab PO DAILY 11/06/18 Memantine HCl [Namenda*] 10 mg PO DAILY 11/06/18 Metoprolol Succinate 12.5 mg PO DAILY 11/06/18 Mirtazapine [Remeron*] 15 mg PO BEDTIME 11/06/18 Pantoprazole Sodium [Protonix] 40 mg pe PO DAILY 11/06/18 Potassium Chloride 20 mg PO DAILY 11/06/18 Pravastatin Sodium 10 mg PO BEDTIME 11/06/18 Risperidone [Risperidone Odt] 0.5 mg PO BEDTIME 11/06/18 Albuterol Neb [Proventil 0.083% Neb Soln] 2.5 mg NEB [id number] PRN amp 11/12/18 Collagenase [Santyl Ointment*] 1 appl TOP DAILY #1 tube 11/12/18 Vancomycin HCl in Dextrose 5 % [Vancomycin 1.25 Gram/250Ml-D5w] 1.25 gm IV DAILY 14 Days plast..bag 11/12/18 levoFLOXacin [Levaquin] 500 mg PO DAILY #14 tab 11/12/18 New Medications: Collagenase [Santyl Ointment*] 1 appl TOP DAILY #1 tube levoFLOXacin [Levaquin] 500 mg PO DAILY #14 tab Vancomycin HCl in Dextrose 5 % [Vancomycin 1.25 Gram/250Ml-D5w] 1.25 gm IV DAILY 14 Days plast..bag Diet: AHA Activity: Ad annemarie Time spent managing pt's care (in minutes): 55
[2018-11-12] MEDS: GABAPENTIN 300 MG CAP PO SCH (23:01)
[2018-11-12] MEDS: ESCITALOPRAM 20 MG TAB PO SCH (23:02)
[2018-11-12] MEDS: ATORVASTATIN 10 MG TAB PO SCH (23:02)
[2018-11-13] MEDS: PIPER/TAZO/NS 3.375gm 3.375 GM/100 ML BAG IVPB SCH ×2 (01:15→08:44)
[2018-11-13 06:30] LABS: Potassium 3.7 mmol/L (3.5-5.1)
[2018-11-13] MEDS ORDERED: KCL 20 MEQ/100 mL IVPB 20 MEQ/100 ML BAG IV SCH (07:00)
[2018-11-13] MEDS: BUSPIRONE HCL 5 MG TABLET PO SCH ×2 (08:42→13:20)
[2018-11-13] MEDS: GABAPENTIN 100 MG CAP PO SCH ×2 (08:42→13:20)
[2018-11-13] MEDS: APIXABAN 5 MG TABLET PO SCH (08:42)
[2018-11-13] MEDS: PANTOPRAZOLE 40MG TABLET PO SCH (08:42)
[2018-11-13] MEDS: METOPROLOL XL 25 MG TAB PO SCH (08:42)
[2018-11-13] MEDS: MEMANTINE HCL 10 MG TABLET PO SCH (08:43)
[2018-11-13] MEDS: AMIODARONE HCL 200 MG TAB PO SCH (08:43)
[2018-11-13] MEDS: PROMOD 30 ML DOSE PO SCH (09:00)
[2018-11-13] MEDS: VANCOMYCIN 1.25 GM in NA CHLORIDE 0.9% 250 ML IVPB SCH (09:21)
[2018-11-13 09:29] VITALS: O2SAT 98
[2018-11-13] MEDS: SODIUM CHLORIDE 0.9% 10ML INJ IV SCH (13:21)
[2018-11-13] MEDS: COLLAGENASE 30 GM OINTMENT TOP SCH (13:58)
--- NOTE | 2018-11-13 15:00 | P.PN ---
Subjective Date of Service: 11/13/18 Chief Complaint: Patient was admitted for sespsis. Patient seen and examined at bedside. Daughter at bedside. Chart reviewed and case discussed with nursing staff. Patient continues to have contractures. Continues to be not as alert. Does not speak - per daughter, she was talking more prior to this admission. Physical Examination - Vital Signs Temperature: 98.1 F Blood Pressure: 113/78 Pulse: 114 Respirations: 18 Pulse Ox (%): 99 Assessment And Plan - Plan A 78-year-old female with: 1. Sepsis secondary to urinary tract infection and leg wound. Wound cultures positive for Staphylococcus aureus and Klebsiella. IV antibiotics have been adjusted according to sensitivities. WBC now normalized. 2. Acute metabolic encephalopathy, resolved. Patient back to her baseline. 3. Acute cystitis with hematuria. Urine culture shows no growth. We will continue IV antibiotics. 4. Leg wound and multiple wounds on bilateral heels. Wound cultures are positive for Staphylococcus aureus and Klebsiella pneumoniae. Continue with IV antibiotics. Patient will need 2 weeks of vancomycin and likely oral Levaquin. PICC line in place. She will be able to continue IV antibiotics at [facility]. 5. Acute kidney injury secondary to sepsis, improved. Creatinine now normalized. 6. Hyponatremia. We will adjust IV fluids. Patient initially had elevated sodium level. 7. Acute rhabdomyolysis secondary to neuroleptic malignant syndrome. CK level trending down, now normalized. We will continue with IV fluids. 8. Neuroleptic malignant syndrome secondary to Risperdal, improved. 9. Elevated troponin level likely due to demand mismatch. 10. Chronic obstructive pulmonary disease, chronic bronchitis. We will continue nebulizer as needed. 11. 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 12. Deep venous thrombosis prophylaxis addressed. 13. Atrial fibrillation with rapid ventricular response. We will increase dose of metoprolol to 25 b.i.d. Patient is already on Eliquis. Likely related to sepsis. Plan; PICC line was placed yesterday and patient will need to be discharged once more stable with IV antibiotics, vancomycin for 2 weeks, as well as oral Levaquin. She will be returning to [facility]. Anticipate discharge back to facility today once insurance authorization goes through. Physician Review: Patient Assessed, Agree with Above Assessment and Plan
[2018-11-13 17:32] VITALS: BP 108/74; TEMP 98.7
== END 2018-11-13 17:51 | DRG 871 ==
LOC: ER 09:24 → ERHOLD 11:17 → 4TH 13:26
PROVIDERS: ADMIT Family Medicine; ATTEND Family Medicine
PROC: 00JU3ZZ Inspection of Spinal Canal, Percutaneous Approach (ICD-10-PCS; principal; 2018-11-06)
PROC: 02HV33Z Insertion of Infusion Device into Superior Vena Cava, Percutaneous Approach (ICD-10-PCS; 2018-11-09)
DX: A41.9 Sepsis, unspecified organism (principal); G93.41 Metabolic encephalopathy; G21.0 Malignant neuroleptic syndrome; N13.6 Pyonephrosis; N17.9 Acute kidney failure, unspecified; M62.82 Rhabdomyolysis; E87.1 Hypo-osmolality and hyponatremia; J44.9 Chronic obstructive pulmonary disease, unspecified; T43.595A Adverse effect of other antipsychotics and neuroleptics, initial encounter; G30.0 Alzheimer's disease with early onset; F02.80 Dementia in other diseases classified elsewhere, unspecified severity, without behavioral disturbance, psychotic disturbance, mood disturbance, and anxiety; I10 Essential (primary) hypertension; I25.10 Atherosclerotic heart disease of native coronary artery without angina pectoris; I73.9 Peripheral vascular disease, unspecified; I77.1 Stricture of artery; B95.62 Methicillin resistant Staphylococcus aureus infection as the cause of diseases classified elsewhere; B96.1 Klebsiella pneumoniae [K. pneumoniae] as the cause of diseases classified elsewhere; I48.91 Unspecified atrial fibrillation; L89.611 Pressure ulcer of right heel, stage 1; L89.510 Pressure ulcer of right ankle, unstageable; L89.620 Pressure ulcer of left heel, unstageable; Z79.01 Long term (current) use of anticoagulants; Z87.891 Personal history of nicotine dependence; Z86.73 Personal history of transient ischemic attack (TIA), and cerebral infarction without residual deficits; Z88.5 Allergy status to narcotic agent
CPT/HCPCS: 36415; 51702; 62270; 62272; 70450; 71045; 73521; 74176; 80048; 80053; 80076; 80202; 81003; 81015; 82150; 82248; 82550; 82553; 82962; 83605; 83690; 83735; 84100; 84132; 84145; 84484; 85025; 85610; 85730; 87040; 87070; 87077; 87086; 87088; 87186; 87205; 93005; 93925; 94760; 96365; 96367; 96368; 96375; 97163; 99285; J0696; J1650; J2543; J3370; J3590; J7030

== ENCOUNTER 2018-11-13 18:51 | Inpatient (IN) | payer OTHER ==
--- OUTSIDE RECORDS SUMMARY | 2018-11-13 18:56 | XMS REPORT | Continuity of Care Document ---
:1940 Author Organization [employer] Information [facility] Team Providers Name Role Phone Entreda Unavailable Unavailable Problems Problem Status Onset Classification Date Comments Source Date Reported Hypotension, 12/29/19 07/12/2018 unspecified 18 [place] Transient 12/24/19 07/12/2018 hypotension 18 [place] Weakness of both 12/24/19 07/12/2018 legs 18 [place] HYPERTENSION Active 12/24/19 18 [place] PER /IRENE HRT Active 08/23/[address] Center TIA, CAD Active 08/23/[address] DX:CLUADICATION, Active 07/10/19 [facility] SEVERE PAD / Medical Center CCL/ R LOWE EXTR Active 07/10/19 [facility] ANGIO / Medical DX:CLUADICATION Center CAD, HTN, DYSPNEA Active 02/11/[address] Center CCL/RENAL Active 02/11/20 [facility] ANGIO/DX: CAD, 14 Medical HTN, DYSPNEA Center Discharge 10/07/19 10/09/2013 [facility] Diagnosis: 14 Medical Ecchymosis Center Discharge 10/07/19 10/09/2013 [facility] Diagnosis: Postop 14 Medical check Center SENT BY Active 10/02/[address] Center CLAUDICATION, Active 09/15/19 [facility] SEVERE PAD 14 Medical Center CCL/RIGHT LOWER Active 09/15/19 [facility] 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 CCL/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 LOWER Active 09/02/19 [facility] EXTREMITY 14 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 ANGINA, ABN STRESS Active 08/22/19 [facility] TEST, CLAUDICATION 14 Medical Center 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 Problem 07/12/[address], [place] Nicotine 07/12/2018 dependence, other [place] [...] deficits 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 Anxiety Resolved Problem 07/12/2018 [facility], [place] Bronchitis Resolved Problem 07/12/2018 [facility], [place] CAD - Coronary Resolved Problem 07/12/2018 [facility] artery [facility], [place] CHF (Confirmed) Resolved Problem 07/12/2018 [facility], [place] COPD - Chronic Resolved Problem 07/12/2018 [facility] pulmonary disease [place], [place] CVA (Confirmed) Resolved Problem 07/12/2018 [facility], [place] Dementia Resolved Problem 07/12/2018 [facility], [place] Dyslipidemia Resolved Problem 07/12/2018 [facility], [place] Headache Resolved Problem 07/12/2018 [facility], [place] Heartburn Resolved Problem 07/12/2018 [facility] HTN - Hypertension Resolved Problem 07/12/2018 [facility] PVD - Peripheral Resolved Problem 07/12/2018 [facility] vascular disease [facility], [place] Squamous cell Resolved Problem 07/12/2018 [facility] carcinoma [facility], [place] Tingling Resolved Problem 07/12/2018 [facility], [place] Weakness Resolved Problem 07/12/2018 [facility], [place] Final: 08/27/2014 [facility] TRANS CEREB Active [facility] ISCHEMIA [facility] Medications Medication Details Route Status Patient Ordering Order Source Instructions Provider Date Sodium Chloride 500 mL, 500 Inactive 0.9% (Bolus) IV ml/hr, Infuse 2017 [facility] Over: 1 hr, Route: IV, 500, Drug form: INJ, ONCE, Priority: STAT, Dosing Weight 61.364 kg, Start date: 12/23/17 16:42:00 CDT, Stop date: 12/23/17 16:42:00 CDT Saline Flush 0.9% 10 mL, Route: Inactive IVP, Drug 2017 [facility] Form: INJ, Dosing Weight 61.364, kg, PRN, PRN Line Flush, Start date: 12/23/17 16:42:00 CDT, Duration: 30 day, Stop date: 01/22/18 16:41:00 CDTNotes: (Same as: BD Posiflush) Niferex-150 Forte 1 cap, Route: No Longer [facility] PO, Drug Form: Active 2014 Medical CAP, Dosing Center Weight 57.273, kg, Daily, Start date: 08/25/14 9:00:00, Duration: 30 day, Stop date: 09/23/14 9:00:00Notes: Give with food. Thiamine 100 mg, 1 tab, No Longer [place] Route: PO, Active 2014 Medical Drug form: Center TAB, Daily, Dosing Weight 57.273, kg, Start date: 08/25/14 9:00:00, Duration: 30 day, Stop date: 09/23/14 9:00:00Notes: (Same As: Vitamin B1) Hydrochlorothiazid 1 tab, PO, Active [facility] e 12.5 MG / Daily, # 30 2014 Medical Olmesartan tab, 0 Center medoxomil 40 MG Refill(s) Oral Tablet 12 HR ranolazine 500 mg=1 tab, Active [facility] 500 MG Extended PO, Q12H, # 30 2015 Medical Release Tablet tab, 0 Center [Ranexa] Refill(s) Vitamin B12 with 1 mg=1 tab, Active [facility] Folic Acid and PO, Daily, # 2015 Medical Iron oral capsule 30 tab, 0 Center Refill(s) prasugrel 10 MG 10 mg=1 tab, Active [facility] Oral Tablet PO, Daily, # 2015 Medical [Effient] 30 tab, 0 Center Refill(s) Trazodone 25 mg=0.5 tab, Active [facility] Hydrochloride 50 PO, Bedtime, 2015 Medical MG Oral Tablet PRN Center Sleeplessness, use this for sleeplessness; discuss possibly continuing it with your primay care MD., # 10 tab, 0 Refill(s)Speci al Instructions: use this for sleeplessness; discuss possibly continuing it with your primay care MD. thiamine 100 mg 100 mg, PO, Active [facility] oral tablet Daily, # 30 2015 Medical tab, 0 Center Refill(s) doxazosin 2 mg 6 mg=3 tab, Active [facility] oral tablet PO, Daily, 2015 Medical take three 0.2 Center mg tabs each day, making 6 mg of medication daily, # 90 tab, 0 Refill(s)Speci al Instructions: take three 0.2 mg tabs each day, making 6 mg of medication daily isosorbide 30 mg=1 tab, Active [facility] mononitrate 30 mg PO, QAM, # 30 2014 Medical oral tablet, tab, 0 [place] extended release Refill(s) Effient 10 mg, 1 tab, Inactive [facility] Route: PO, 2014 Medical Drug form: Center TAB, Daily, Start date: 08/24/14 13:00:00, Duration: 30 day, Stop date: 09/23/14 9:00:00Notes: Same as Effient For patients 60kg, without history of TIA/Ischemic stroke and without likely bypass surgery Effient 10 mg, Route: Inactive [facility] PO, Daily, 2014 Medical Dosing Weight Center 57.273, kg, Start date: 08/24/14 11:27:00, Duration: 30 day, Stop date: 09/23/14 9:00:00 Vitamin B12 1,000 Inactive [facility] microgram, 1 2014 Medical mL, Route: IM, [place] Drug form: INJ, ONCE, Dosing Weight 57.273, kg, Start date: 08/24/14 11:20:00, Stop date: 08/24/14 11:20:00Notes: (Same As: Vitamin B12) atorvastatin 10 mg, 1 tab, No Longer [facility] Route: PO, Active 2014 Medical Drug form: [place] TAB, Bedtime, Dosing Weight 56.818, kg, Start date: 08/23/14 21:00:00, Duration: 30 day, Stop date: 09/21/14 21:00:00Notes: (Same As: Lipitor) Trazodone 25 mg, 0.5 No Longer [facility] tab, Route: Active 2014 Medical PO, Drug form: [place] TAB, Bedtime, Dosing Weight 57.273, kg, PRN Sleep, dose for inability to sleep, please, Start date: 08/23/14 19:52:00, Duration: 30 day, Stop date: 09/22/14 19:51:00Notes: (Same As: Desyrel) potassium chloride 20 mEq, 1 tab, Inactive [place] Route: PO, 2014 Medical Drug form: [place] ERTAB, ONCE, Dosing Weight 57.273, kg, Start date: 08/23/14 14:22:00, Stop date: 08/23/14 14:22:00Notes: (Same as: K-Dur 20) "Do Not Crush" With food and full glass of water Lovenox 40 mg, 0.4 mL, No Longer [place] Route: SUB-Q, Active 2014 Medical Drug form: [place] INJ, [id number], Dosing Weight 57.273, kg, Start date: 08/23/14 10:00:00, Duration: 30 day, Stop date: 09/21/14 10:00:00Notes: (Same as: Lovenox) Albuterol 0.833 3 mL, Route: No Longer [place] MG/ML / INHALATION, Active 2014 Medical Ipratropium Drug Form: [place] 0.167 SOLN, Dosing MG/ML Inhalant Weight 57.273, Solution [DuoNeb] kg, QID, PRN as needed for shortness of breath or wheezing, Start date: 08/23/14 9:04:00, Duration: 30 day, Stop date: 09/22/14 9:03:00Notes: (Same as: Duoneb) Dulcolax Laxative 10 mg, 2 tab, No Longer [place] Route: PO, Active 2014 Medical Drug form: [place] ECTAB, Daily, Dosing Weight 57.273, kg, PRN Constipation, Start date: 08/23/14 9:02:00, Duration: 30 day, Stop date: 09/22/14 9:01:00Notes: (Same As: Dulcolax, Correctol) (Do Not Crush) "Do Not Crush" Docusate 100 mg, 1 cap, No Longer [place] Route: PO, Active 2014 Medical Drug form: [place] CAP, BID, Dosing Weight 56.818, kg, Start date: 08/23/14 9:00:00, Duration: 30 day, Stop date: 09/21/14 17:00:00Notes: (Same as: Colace) (Do Not Crush) Microzide 12.5 mg, 1 No Longer [place] cap, Route: Active 2014 Medical PO, Drug form: [place] CAP, Daily, Start date: 08/23/14 9:00:00, Duration: 30 day, Stop date: 09/21/14 9:00:00Notes: (Same as: Microzide) With food. Isosorbide 30 mg, 1 tab, No Longer [place] Route: PO, Active 2014 Medical Drug form: [place] ERTAB, QAM, Dosing Weight 56.818, kg, hold for sbpNotes: (Same as:Imdur) "Do Not Crush" Take on empty stomach/ full glass of water. Do not crush Hydrochlorothiazid 1 tab, Route: No Longer [place] e 12.5 MG / PO, Drug Form: Active 2014 Medical Olmesartan TAB, Dosing Center medoxomil 40 MG Weight 56.818, Oral Tablet kg, Daily, [Benicar HCT hold for sbp 40/12.5] Nexium 40 mg, Route: No Longer [place] PO, Drug form: Active 2014 Medical ECCAP, Daily, Center Dosing Weight 56.818, kg, Start date: 08/23/14 9:00:00, Duration: 30 day, Stop date: 09/21/14 9:00:00 Coreg 25 mg, 1 tab, No Longer [place] Route: PO, Active 2014 Medical Drug form: [place] TAB, BID, Dosing Weight 56.818, kg, Start date: 08/23/14 9:00:00, Duration: 30 day, Stop date: 09/21/14 17:00:00Notes: Give with food. (Same As: Coreg) Magnesium Oxide 400 mg, 1 tab, No Longer [place] Route: PO, Active 2014 Medical Drug form: [place] TAB, BID, Dosing Weight 57.273, kg, Start date: 08/23/14 9:00:00, Duration: 4 doses or times, Stop date: 08/24/14 17:00:00Notes: (Same as: Mag-Ox 400) Magnesium oxide 508hm=244ci elemental magnesium Dose=____mg magnesium oxide (___mg elemental magnesium) Benicar 40 mg, 2 tab, No Longer [place] Route: PO, Active 2014 Medical Drug form: [place] TAB, Daily, Start date: 08/23/14 9:00:00, Stop date: 09/21/14 9:00:00 Doxazosin 6 mg, 3 tab, No Longer [place] Route: PO, Active 2014 Medical Drug form: [place] TAB, Daily, Dosing Weight 56.818, kg, hold for sbpNotes: (Same as: Pa) Aspirin 81 mg, 1 tab, No Longer [place] Route: PO, Active 2014 Medical Drug form: [place] CHEWTAB, Daily, Dosing Weight 56.818, kg, Start date: 08/23/14 9:00:00, Duration: 30 day, Stop date: 09/21/14 9:00:00Notes: Take with food. 12 HR ranolazine 500 mg, 1 tab, No Longer [place] 500 MG Extended Route: PO, Active 2014 Medical Release Tablet Drug form: [place] [Ranexa] TAB, Q12H, Dosing Weight 56.818, kg, Start date: 08/23/14 9:00:00, Duration: 30 day, Stop date: 09/21/14 21:00:00Notes: Same as Ranexa "Do Not Crush" Mirapex 0.5 mg, 2 tab, No Longer [place] Route: PO, Active 2014 Medical Drug form: [place] TAB, BID, Dosing Weight 56.818, kg, Start date: 08/23/14 9:00:00, Duration: 30 day, Stop date: 09/21/14 17:00:00Notes: (Same as: Mirapex) Namenda 10 mg, 1 tab, No Longer [place] Route: PO, Active 2014 Medical Drug form: [place] TAB, BID, Dosing Weight 56.818, kg, Start date: 08/23/14 9:00:00, Duration: 30 day, Stop date: 09/21/14 17:00:00Notes: (Same As: Namenda) Protonix 40 mg, 1 tab, No Longer [place] Route: PO, Active 2014 Medical Drug form: [place] ECTAB, Before Breakfast, Start date: 08/23/14 7:30:00, Duration: 30 day, Stop date: 09/21/14 7:30:00Notes: Tablet should not be chewed or crushed. (Same as: Protonix) donepezil 10 mg 10 mg=1 tab, Active [place] oral tablet PO, Bedtime, 0 2014 Medical Refill(s) Center doxazosin 4 mg 4 mg=1 tab, No Longer [facility] oral tablet PO, Daily, 0 Active 2014 Medical Refill(s) Center Morphine 2 mg, 1 mL, No Longer [place] Route: IVP, Active 2014 Medical Drug form: Center INJ, Q3H, Dosing Weight 56.818, kg, PRN Pain Score 4-6, Start date: 08/22/14 21:32:00, Duration: 30 day, Stop date: 09/21/14 21:31:00Notes: (Same as:MORPhine Sulfate) Acetaminophen 325 1 tab, Route: No Longer [place] MG / Hydrocodone PO, Drug Form: Active 2014 Medical Bitartrate 5 MG TAB, Dosing Center Oral Tablet Weight 56.818, kg, Q4H, PRN Pain Score 1-3, Start date: 08/22/14 21:32:00, Duration: 30 day, Stop date: 09/21/14 21:31:00Notes: (Same as: [place] 325/5) Do not exceed 4gm/day of acetaminophen. Acetaminophen 650 mg, 2 tab, No Longer [place] Route: PO, Active 2014 Medical Drug form: Center TAB, Q4H, Dosing Weight 56.818, kg, PRN Pain 1-3/Temp > 100.4 F, Start date: 08/22/14 21:32:00, Duration: 30 day, Stop date: 09/21/14 21:31:00Notes: Do not exceed 4 gm/day. (Same as: Tylenol) Ondansetron 4 mg, 2 mL, No Longer [place] Route: IVP, Active 2014 Medical Drug form: Center INJ, Q6H, Dosing Weight 56.818, kg, PRN Nausea & Vomiting, Start date: 08/22/14 21:32:00, Duration: 30 day, Stop date: 09/21/14 21:31:00Notes: (Same as: [place]) MEDICATION WASTE Product Size: 4 mg Product Wasted: ___ mg Doxazosin 4 mg, 1 tab, Inactive [place] Route: PO, 2014 Medical Drug form: [place] TAB, ONCE, Dosing Weight 56.818, kg, Start date: 08/22/14 19:09:00, Stop date: 08/22/14 19:09:00Notes: (Same as: Pa) Aspirin 324 mg, 4 tab, Inactive [facility] Route: CHEW, 2014 Medical Drug form: [place] CHEWTAB, ONCE, Dosing Weight 56.818, kg, Priority: STAT, Start date: 08/22/14 18:47:00, Stop date: 08/22/14 18:47:00Notes: Take with food. Nitroglycerin 100 mg, 250 No Longer [facility] mL, Rate: Active 2014 Medical Infuse as Center directed, Dosing Weight 56.818, kg, Route: IV, Total Volume: 250 mL, Start date: 08/22/14 17:27:00, Duration: 30 day, Stop date: 09/21/14 17:26:00, Replace Every: 24 hrNotes: (Same as:Tridil) Final conc=0.4 mg/ml. Premix bottle. Tylenol 975 mg, Route: Inactive [facility] PO, Drug form: 2014 Medical TAB, ONCE, Center Dosing Weight 56.818, kg, Priority: STAT, Start date: 08/22/14 17:21:00, Stop date: 08/22/14 17:21:00 Saline Flush 0.9% 10 mL, Route: No Longer [facility] IVP, Drug Active 2014 Medical Form: INJ, [place] Dosing Weight 56.818, kg, PRN, PRN Line Flush, Start date: 08/22/14 15:36:00, Duration: 30 day, Stop date: 09/21/14 15:35:00Notes: (Same as: BD Posiflush) hydrochlorothiazid 12.5 mg, 0.5 No Longer [place] e 25 mg oral tab, Route: Active 2013 Medical tablet PO, Drug form: [place] TAB, Daily, Start date: 03/05/14 9:00:00, Duration: 30 day, Stop date: 04/03/14 9:00:00Notes: (Same as: Hydrodiuril) With food. Effient 10 mg, 1 tab, No Longer [place] Route: PO, Active 2013 Medical Drug form: [place] TAB, Daily, Dosing Weight 57.273, kg, Start date: 03/05/14 9:00:00, Duration: 30 day, Stop date: 04/03/14 9:00:00Notes: Same as Effient For patients 60kg, without history of TIA/Ischemic stroke and without likely bypass surgery Benicar 40 mg, 2 tab, No Longer [place] Route: PO, Active 2013 Medical Drug form: [place] TAB, Daily, Start date: 03/05/14 9:00:00, Duration: 30 day, Stop date: 04/03/14 9:00:00 Isosorbide 30 mg, 1 tab, No Longer [place] Route: PO, Active 2013 Medical Drug form: [place] ERTAB, QA, Dosing Weight 57.273, kg, Start [...] aspirin 81 mg, 1 tab, No Longer [facility] Route: PO, Active 2013 Medical Drug form: [place] CHEWTAB, Daily, Dosing Weight 57.273, kg, Start date: 03/05/14 9:00:00, Duration: 30 day, Stop date: 04/03/14 9:00:00Notes: Take with food. Saline Flush 0.9% 10 ml, Route: Inactive [facility] IVP, Drug 2013 Medical Form: INJ, [place] Dosing Weight 57.273, kg, Q12H, Start date: 03/04/14 21:00:00, Duration: 30 day, Stop date: 04/03/14 9:00:00Notes: (Same as: BD Posiflush) carvedilol 25 mg, 1 tab, Inactive [place] Route: PO, 2013 Medical Drug form: [place] TAB, Q12H, Dosing Weight 57.273, kg, Start date: 03/04/14 21:00:00, Duration: 30 day, Stop date: 04/03/14 9:00:00Notes: Give with food. (Same As: Coreg) atorvastatin 10 mg, 1 tab, Inactive [place] Route: PO, 2013 Medical Drug form: [place] TAB, Bedtime, Dosing Weight 57.273, kg, Start date: 03/04/14 21:00:00, Duration: 30 day, Stop date: 04/02/14 21:00:00Notes: (Same As: Lipitor) 12 HR ranolazine 500 mg, 1 tab, Inactive [place] 500 MG Extended Route: PO, 2013 Medical Release Tablet Drug form: [place] [Ranexa] TAB, BID, Dosing Weight 57.273, kg, Start date: 03/04/14 17:00:00, Duration: 30 day, Stop date: 04/03/14 9:00:00Notes: Same as Ranexa "Do Not Crush" Mirapex 0.5 mg, 2 tab, Inactive [facility] Route: PO2013 Medical Drug form: [place] TAB, BID, Dosing Weight 57.273, kg, Start date: 03/04/14 17:00:00, Duration: 30 day, Stop date: 04/03/14 9:00:00Notes: (Same as: Mirapex) Namenda 10 mg, 1 tab, Inactive [facility] Route: PO, 2013 Medical Drug form: [place] TAB, BID, Dosing Weight 57.273, kg, Start date: 03/04/14 17:00:00, Duration: 30 day, Stop date: 04/03/14 9:00:00Notes: (Same As: Namenda) Protonix 40 mg, 1 tab, Inactive [facility] Route: PO2013 Medical Drug form: [place] ECTAB, Before Dinner, Start date: 03/04/14 16:30:00, Duration: 30 day, Stop date: 04/02/14 16:30:00Notes: Tablet should not be chewed or crushed. (Same as: Protonix) Saline Flush 0.9% 10 ml, Route: Inactive [facility] IVP, Drug 2013 Medical Form: INJ, [place] Dosing Weight 57.273, kg, PRN, PRN Line Flush, Start date: 03/04/14 9:27:00, Duration: 30 day, Stop date: 04/03/14 9:26:00Notes: (Same as: BD Posiflush) Nitroglycerin 0.4 mg, 1 tab, Inactive [facility] Route: SL, 2013 Medical Drug form: [place] TAB, Q5Min, Dosing Weight 57.273, kg, PRN Chest Pain, Start date: 03/04/14 9:27:00, Duration: 3 doses or times, Stop date: 03/04/14 17:00:00Notes: (Same as:Nitroquick, Nitrostat) "Do Not Crush" Sublingual tablet isosorbide 30 mg=1 tab, Active [facility] mononitrate 30 mg PO, QAM, # 30 2013 Medical oral tablet, tab, 0 [place] extended release Refill(s) Doxazosin 6 mg, PO, Active [facility] Daily, 0 2013 Medical Refill(s) Center carvedilol 25 mg 25 mg=1 tab, Active [facility] oral tablet PO, Q12H, # 60 2013 Medical tab, 0 Center Refill(s) Hydrochlorothiazid 1 tab, PO, Active [facility] e 12.5 MG / Daily, # 30 2014 Medical Olmesartan tab, 0 Center medoxomil 40 MG Refill(s) Oral Tablet [Benicar HCT 40/12.5] Effient 10 mg, 1 tab, Inactive 08/25[facility] Route: PO2013 Medical Drug form: Center TAB, Daily, Dosing Weight 60, kg, Start date: 08/25/13 10:00:00, Duration: 30 day, Stop date: 09/24/13 9:00:00Notes: Same as Effient For patients 60kg, without history of TIA/Ischemic stroke and without likely bypass surgery Tylenol 650 mg, 2 tab, Inactive [facility] Route: 2013 Medical Drug form: Center TAB, Q4H, PRN Pain Score 6-10, Start date: 08/25/13 9:43:00, Duration: 30 day, Stop date: 09/24/13 9:42:00 Tylenol 325 mg, 1 tab, Inactive [facility] Route: PO2013 Medical Drug form: Center TAB, Q4H, Dosing Weight 60, kg, PRN Pain Score 1-5, Start date: 08/25/13 9:36:00, Duration: 30 day, Stop date: 09/24/13 9:35:00Notes: Do not exceed 4 gm/day. (Same as: Tylenol) prasugrel 10 MG 10 mg=1 tab, Active [facility] Oral Tablet PO, Daily, # 2013 Medical [Effient] 30 tab, 0 Center Refill(s) Hydrochlorothiazid 1 tab, Route: No Longer [facility] e 12.5 MG / PO, Drug Form: Active 2013 Medical Olmesartan TAB, Dosing Center medoxomil 40 MG Weight 60, kg, Oral Tablet Daily, Start [Benicar HCT date: 08/25/13 40/12.5] 9:00:00, Duration: 30 day, Stop date: 09/23/13 9:00:00 Benicar 40 mg, 2 tab, Inactive [facility] Route: PO, 2013 Medical Drug form: [place] TAB, Daily, Start date: 08/25/13 9:00:00, Duration: 30 day, Stop date: 09/23/13 9:00:00 Microzide 12.5 mg, 1 Inactive [facility] cap, Route: 2013 Medical PO, Drug form: [place] CAP, Daily, Start date: 08/25/13 9:00:00, Duration: 30 day, Stop date: 09/23/13 9:00:00Notes: (Same as: Microzide) With food. Saline Flush 0.9% 5 ml, Route: No Longer [facility] IVP, Drug Active 2013 Medical Form: INJ, Center Dosing Weight 60, kg, Q12H, Start date: 08/24/13 21:00:00, Duration: 30 day, Stop date: 09/23/13 9:00:00Notes: (Same as: BD Posiflush) Ondansetron 0.8 4 mg, 5 mL, Inactive [facility] MG/ML Oral Route: PO, 2013 Medical Solution [Zofran] Drug form: [place] SOLN, ONCE, Dosing Weight 60, kg, Start date: 08/24/13 16:02:00, Stop date: 08/24/13 16:02:00Notes: (Same as: Zofran) Coreg 12.5 mg, 1 No Longer [facility] tab, Route: Active 2013 Medical PO, Drug form: Center TAB, Q12H, Dosing Weight 60, kg, Start date: 08/24/13 14:00:00, Duration: 30 day, Stop date: 09/23/13 9:00:00Notes: Give with food. (Same As: Coreg) Saline Flush 0.9% 5 ml, Route: No Longer [facility] IVP, Drug Active 2013 Medical Form: INJ, Center Dosing Weight 60, kg, PRN, PRN Line Flush, Start date: 08/24/13 12:13:00, Duration: 30 day, Stop date: 09/23/13 12:12:00Notes: (Same as: BD Posiflush) Nitroglycerin 0.4 mg, 1 tab, Inactive [facility] Route: 2013 Medical Drug form: Center TAB, Q5Min, Dosing Weight 60, kg, PRN Chest Pain, Start date: 08/24/13 12:13:00, Duration: 3 doses or times, Stop date: 08/24/13 17:00:00Notes: (Same as:Nitroquick, Nitrostat) "Do Not Crush" Sublingual tablet carvedilol 25 MG 25 mg=1 tab, Inactive [facility] Oral Tablet PO, BID, # 180 2013 Medical [Coreg] tab, 0 Center Refill(s) Hydrochlorothiazid 1 tab, PO, Inactive [facility] e 12.5 MG / Daily, # 30 2013 Medical Olmesartan tab, 0 Center medoxomil 40 MG Refill(s) Oral Tablet [Benicar HCT 40/12.5] 12 HR ranolazine 500 mg=1 tab, Active [facility] 500 MG Extended PO, BID, # 60 2013 Medical Release Tablet tab, 0 Center [Ranexa] Refill(s) ALPRAZOLam 0.25 mg 0.25 mg=1 tab, Active [facility] oral tablet, PO, TID, for 2013 Medical disintegrating anxiety, 0 Center Refill(s) Memantine 10 mg=1 tab, Active [facility] hydrochloride 10 PO, BID, # 60 2013 Medical MG Oral Tablet tab, 0 Center [Namenda] Refill(s) Pramipexole 0.5 mg=1 tab, Active [facility] dihydrochloride PO, BID, # 270 2013 Medical 0.5 MG Oral Tablet tab, 0 Center [Mirapex] Refill(s) Aspirin Low Dose =1 tab, PO, Active [facility] 81 mg oral tablet Daily, 0 2013 Medical Refill(s) [place] tiotropium 0.018 18 microgram=1 Active [facility] MG/ACTUAT Inhalant cap, 2013 Medical Powder [Spiriva] INHALATION, Center Daily, # 90 cap, 0 Refill(s) Esomeprazole 40 MG 40 mg=1 cap, Active [facility] Enteric Coated PO, Daily, # 2014 Medical Capsule [Nexium] 30 cap, 0 Center Refill(s) Fluticasone 1 puff, Active [place] propionate 0.5 INHALATION, 2013 Medical MG/ACTUAT / BID, # 60 Center salmeterol 0.05 puff, 0 MG/ACTUAT Dry Refill(s) Powder Inhaler [Advair 500/50] atorvastatin 10 mg 10 mg=1 tab, Active [place] oral tablet PO, Bedtime, # 2014 Medical 30 tab, 0 Center Refill(s) clopidogrel 75 MG 75 mg=1 tab, No Longer [place] Oral Tablet PO, Daily, # Active 2013 Medical [Plavix] 30 tab, 0 Center Refill(s) Allergies, Adverse Reactions, Alerts Substance Category Reaction Severity Reaction Status Date Comments Source type Reported codeine Assertion Drug Active allergy [place] Adhesive Assertion Propensity Active Tape to adverse [facility] reactions to substance Immunizations No Data Provided for This Section Results Order Name Results Value Reference Date Interpretation Comments Source Range URINE AND UA Glucose Negative Negative 12/23 STOOL mg/dL mg/dL [facility] URINE AND UA Protein 30 mg/dL Negative 12/23 STOOL mg/dL [facility] URINE AND UA pH 6.0 5.0 [...] Bili Negative Negative 12/23 STOOL *NA* /2017 [facility] (12/23/17 6:37 PM) URINE AND UA Ketones Negative Negative 12/23 STOOL mg/dL mg/dL [facility] URINE AND UA Blood Small Negative 12/23 STOOL *ABN* /2017 [place] (12/23/17 6:37 PM) URINE AND UA Turbidity Clear Clear 12/23 [facility] (12/23/17 6:37 PM) /2017 [facility] CARDIAC Troponin-I 0.04 0.00 - 12/23 ENZYMES 0.40 [facility] CHEM PANEL eGFR 66 12/23 [facility] Comment: The [facility] eGFR is calculated using the CKD-EPI [...] PANEL AST 19 0 - 37 12/23 [facility] CHEM PANEL Alk Phos 235 39 - 136 12/23 [facility] CHEM PANEL ALT 10 0 - 65 12/23 [facility] CHEM PANEL Bili Total 0.3 0.2 - 1.3 12/23 [facility] CHEM PANEL CO2 29 24 - 32 12/23 [facility] CHEM PANEL Glucose Lvl 75 70 - 99 12/23 [facility] CHEM PANEL Albumin Lvl 2.7 3.5 - 5.0 12/23 [facility] CHEM PANEL Total 6.6 6.4 - 8.4 12/23 Protein [facility] CHEM PANEL Calcium Lvl 8.3 8.5 - 10.5 12/23 [facility] CHEM PANEL Chloride Lvl 104 95 - 109 12/23 [facility] CHEM PANEL Potassium 4.3 3.5 - 5.1 12/23 Lvl [facility] CHEM PANEL Sodium Lvl 142 135 - 145 12/23 [facility] CHEM PANEL Creatinine 0.85 0.50 - 09 Lvl 1.40 /2017 [facility] CHEM PANEL BUN 16 7 - 22 12/23 /2017 [facility] CHEM PANEL B/C Ratio 19 6 - 25 09 /2017 [facility] CHEM PANEL AGAP 13.3 10.0 - 09 MH 20.0 /2017 [facility] CHEM PANEL Globulin 3.9 2.7 - 4.2 09/ /2017 [facility] CHEM PANEL A/G Ratio 0.7 0.7 - 1.6 09/ /2017 [facility] HEMATOLOGY PT 13.0 12.0 - 09 MH 14.7 /2017 [facility] HEMATOLOGY INR 0.98 0.85 - 12/23 MH 1.17 /2017 [facility] HEMATOLOGY Platelet 253 133 - 450 12/23 [facility] HEMATOLOGY RDW 13.4 11.5 - 12/23 14.5 /2017 [facility] HEMATOLOGY MPV 8.7 7.4 - 10.4 12/23 /2017 [facility] HEMATOLOGY MCHC 34.4 32.0 - 12/23 36.0 /2017 [facility] HEMATOLOGY MCH 34.0 27.0 - 12/23 31.0 /2017 [facility] HEMATOLOGY MCV 98.9 80.0 - 12/23 MH 98.0 /2018 [facility] HEMATOLOGY RBC 3.32 4.20 - 12/23 5.40 /2017 [facility] HEMATOLOGY WBC 9.2 3.7 - 10.4 09 /2017 [facility] HEMATOLOGY Hct 32.8 36.0 - 12/23 48.0 /2017 [facility] HEMATOLOGY Hgb 11.3 12.0 - 12/23 16.0 /2017 [facility] HEMATOLOGY PTT 34.6 22.9 - 12/23 35.8 /2018 [facility] HEMATOLOGY Lymphocytes 1.6 1.0 - 5.5 /10 MH # /2017 [facility] HEMATOLOGY Monocytes # 0.9 0.0 - 0.8 10 /2017 [facility] HEMATOLOGY Eosinophils 0.1 0.0 - 0.5 /10 MH # /2017 [facility] HEMATOLOGY Basophils # 0.1 0.0 - 0.2 12/23 /2017 [facility] HEMATOLOGY Basophils 0.7 0.0 - 1.0 09 /2017 [facility] HEMATOLOGY Neutrophils 6.6 1.5 - 8.1 09/10 MH # /2017 [facility] HEMATOLOGY Lymphocytes 17.0 20.0 - 12/23 40.0 /2017 [facility] HEMATOLOGY Segs 72.0 45.0 - 12/23 MH 75.0 /2017 [facility] HEMATOLOGY Monocytes 9.7 2.0 - 12.0 12/23 [facility] HEMATOLOGY Eosinophils 0.6 0.0 - 4.0 12/23 [facility] DRUG U Cannab Scr Negative Negative 08/24 [facility] SCREEN *NA* /2014 Medical (08/24/14 1:18 AM) Center DRUG U Phencyc Negative Negative 08/24 [facility] SCREEN Scr *NA* /2014 Medical (08/24/14 1:18 AM) Center DRUG U Opiate Scr Positive Negative 08/24 [facility] SCREEN *ABN* /2014 Medical (08/24/14 1:18 AM) Center DRUG UDS Note See Note 08/24 <sup>5</sup>I [facility] SCREEN (08/24/14 1:18 AM) /2014 nterpretive Medical Data: Drugs Center reported as positive have not been confirmed by a second
de thod and should be used for medical [...] mg/dL DRUG U Propoxyph Negative Negative 08/24 [facility] SCREEN Scr *NA* /2014 Medical (08/24/14 1:18 AM) Center DRUG U Methadone Negative Negative 08/24 [facility] SCREEN Scr *NA* Medical (08/24/14 1:18 AM) Center DRUG U Amph Scr Negative Negative 08/24 [facility] SCREEN *NA* /2014 Medical (08/24/14 1:18 AM) Center DRUG U Edna Scr Negative Negative 08/24 [facility] SCREEN *NA* Medical (08/24/14 1:18 AM) Center DRUG U Benzodia Negative Negative 08/24 [facility] SCREEN Scr *NA* /2014 Medical (08/24/14 1:18 AM) Center DRUG U Cocaine Negative Negative 08/24 [facility] SCREEN Scr *NA* /2014 Medical (08/24/14 1:18 AM) Center HEMATOLOGY PB Smear Review of 08/23 [facility] Path [facility] peripheral Center blood smear and [...] Clinical correlatio n is recommende d. CPT: 96155 IMMUNOLOGY Homocyst Tot 10.8 3.7 - 13.9 08/23 [facility] TOXICOLOGY Etoh (%) <0.003 08/23 <sup>6</sup>I nterpretive Medical Data: Ethanol Center testing results should be used for medical purposes only.
Neg ative Range: <0.003%
T oxic Range: >0.25% TOXICOLOGY Ethanol Lvl <3 08/23 <sup>7</sup>I nterpretive Medical Data: Center Negative Range: <3 mg/dL
Tox ic Range: >250 mg/dL ANEMIA Vitamin B12 326 254 - 1320 08/23 [facility] STUDY Lvl /2014 [facility] CARDIAC Total CK 44 12 - 191 08/23 [facility] ENZYMES /2014 [facility] CARDIAC Troponin-T <0.010 0.000 - 08/23 [facility] ENZYMES 0.100 /2014 [facility] CARDIAC Troponin-I 0.03 0.00 - 08/23 [facility] ENZYMES 0.40 /2015 [facility] ANEMIA RBC Folate 666 280 - 791 08/23 [facility] STUDY [facility] CHEM PANEL eGFR 86 08/23 <sup>1</sup>R [...] PANEL CO2 30 24 - 32 08/23 [facility] CHEM PANEL Calcium Lvl 8.5 8.5 - 10.5 08/23 [facility] CHEM PANEL AGAP 10.6 10.0 - 08/23 [facility] 20.0 [facility] CHEM PANEL Creatinine 0.7 0.5 - 1.4 08/23 [facility] CHEM PANEL BUN 19 7 - 22 08/23 2014 [facility] CHEM PANEL Sodium Lvl 143 135 - 145 08/23 [facility] CHEM PANEL Potassium 3.6 3.5 - 5.1 08/23 [facility] CHEM PANEL Chloride Lvl 106 95 - 109 08/23 [facility] CHEM PANEL Glucose Lvl 76 70 - 99 08/23 <sup>3</sup>I nterpretive Medical Data: [facility] Center reference range values reflect the clinical guidelines
of the [place] [employer]. CHEM PANEL Magnesium 1.7 1.8 - 2.4 08/23 [facility] CHEM PANEL Phosphorus 3.7 2.5 - 4.5 08/23 [facility] HEMATOLOGY Retic Auto 0.9 0.5 - 1.5 08/23 [facility] HEMATOLOGY Monocytes # 0.9 0.0 - 0.8 08/23 [facility] HEMATOLOGY Lymphocytes 3.2 1.0 - 5.5 08/23 # [facility] HEMATOLOGY Macrocyte 1+ None Seen 08/23 [facility] *ABN* /2014 Medical (08/23/14 4:40 AM) [place] HEMATOLOGY Eosinophils 0.1 0.0 - 0.5 08/23 # /2014 [facility] HEMATOLOGY Basophils 0.6 0.0 - 1.0 08/23 [facility] HEMATOLOGY Eosinophils 1.5 0.0 - 4.0 08/23 [facility] HEMATOLOGY Segs-Bands # 3.0 1.5 - 8.1 08/23 [facility] HEMATOLOGY Lymphocytes 44.4 20.0 - 08/23 40.0 [facility] HEMATOLOGY Segs 40.6 45.0 - 08/23 [place] 75.0 [facility] HEMATOLOGY Monocytes 12.9 2.0 - 12.0 08/23 [facility] HEMATOLOGY Hct 34.7 36.0 - 08/23 48.0 [facility] HEMATOLOGY MCV 104.7 80.0 - 08/23 98.0 /2014 [facility] HEMATOLOGY MCH 35.4 27.0 - 08/23 31.0 /2014 [facility] HEMATOLOGY MCHC 33.8 32.0 - 08/23 36.0 /2014 [facility] HEMATOLOGY WBC 7.3 3.7 - 10.4 08/23 [facility] HEMATOLOGY RBC 3.31 4.20 - 08/23 [place] 5.40 /2014 [facility] HEMATOLOGY Hgb 11.7 12.0 - 05 16.0 [facility] HEMATOLOGY RDW 12.0 11.5 - 05 14.5 [facility] HEMATOLOGY Platelet 201 133 - 450 08/23 [facility] HEMATOLOGY MPV 8.8 7.4 - 10.4 08/23 [facility] HEMATOLOGY INR 1.02 0.85 - 08/23 <sup>9</sup>I 1. nterpretive Medical Data: Center RECOMMENDED RANGES FOR PROTIME INR:
2.0-3.0 for most medical and surgical thromboemboli c states.
2.5-3.5 for artificial heart valves and recurrent embolism.<br/ >
INR SHOULD BE USED ONLY FOR PATIENTS ON STABLE ANTICOAGULANT THERAPY. HEMATOLOGY PTT 36.6 22.9 - 08/23 <sup>11</sup> [facility] 35.8 /2014 Interpretive Medical Data: Heparin Center Therapeutic Range: 57 - 92 Seconds HEMATOLOGY PT 13.4 12.0 - 08/23 [facility] 14.7 /2014 [facility] URINE AND UA Sq Epi Occasional Few /LPF 08/22 [facility] STOOL /LPF /2014 [facility] URINE AND UA WBC 0-2 /HPF None Seen 08/22 [facility] /HPF /2014 [facility] URINE AND UA RBC 3-5 /HPF 0 - 2 08/22 [facility] /2014 [facility] URINE AND UA Bacteria Few /HPF None Seen 08/22 [facility] /HPF /2014 [facility] URINE AND UA Turbidity Clear Clear 08/22 [facility] (08/22/14 5:00 PM) /2014 [facility] URINE AND UA Color Yellow Yellow 08/22 [facility] *NA* /2014 [facility] (08/22/14 5:00 PM) [place] URINE AND UA Blood Small Negative 08/22 [facility] *ABN* /2014 [facility] (08/22/14 5:00 PM) [place] URINE AND UA Bili Negative Negative 08/22 [facility] *NA* /2014 [facility] (08/22/14 5:00 PM) [place] URINE AND UA Spec Grav 1.025 <=1.030 08/22 [facility] /2014 [facility] URINE AND UA Ketones Trace Negative 08/22 [facility] *ABN* /2014 [facility] (08/22/14 5:00 PM) [place] URINE AND UA Glucose Negative Negative 08/22 [facility] (08/22/14 5:00 PM) /2014 [facility] URINE AND UA Nitrite Negative Negative 08/22 [facility] (08/22/14 5:00 PM) /2014 [facility] URINE AND UA 0.2 0.1 - 1.0 08/22 [facility] Urobilinogen /2014 [facility] URINE AND UA Protein Negative Negative 08/22 [facility] (08/22/14 5:00 PM) /2014 [facility] URINE AND UA pH 6.0 5.0 - 8.0 08/22 [facility] STOOL [facility] URINE AND UA Leuk Est Negative Negative 08/22 [facility] STOOL (08/22/14 5:00 PM) [facility] URINE CHEM U Cotinine Positive 8 Negative 08/22 <sup>8</sup>I [facility] Lvl *ABN* nterpretive Medical (08/22/14 5:00 PM) Data: Center Negative: </=212 ng/mL Cotinine. CARDIAC Troponin-I <0.02 0.00 - 08/22 [facility] ENZYMES 0.40 [facility] CHEM PANEL eGFR 63 08/22 <sup>2</sup>R [...] Calcium Lvl 9.1 8.5 - 10.5 08/22 [facility] CHEM PANEL CO2 30 24 - 32 08/22 [facility] CHEM PANEL Sodium Lvl 139 135 - 145 08/22 [facility] CHEM PANEL Creatinine 0.9 0.5 - 1.4 08/22 [facility] CHEM PANEL Potassium 3.6 3.5 - 5.1 08/22 [facility] CHEM PANEL Chloride Lvl 102 95 - 109 08/22 [facility] CHEM PANEL Glucose Lvl 76 70 - 99 08/22 <sup>4</sup>I nterpretive Medical Data: Adult Center reference range values reflect the clinical guidelines
of the [place] [employer]. CHEM PANEL BUN 19 7 - 22 05/ [facility] CHEM PANEL ALT 19 0 - 65 05/ [facility] CHEM PANEL Bili Total 0.3 0.2 - 1.3 05/ [facility] CHEM PANEL Alk Phos 105 39 - 136 05/ [facility] CHEM PANEL AST 26 0 - 37 05/ [facility] CHEM PANEL Total 7.8 6.4 - 8.4 05 Protein [facility] CHEM PANEL Albumin Lvl 4.1 3.5 - 5.0 05/ [facility] CHEM PANEL AGAP 10.6 10.0 - 0510 [place] 20.0 [facility] CHEM PANEL B/C Ratio 21 6 - 25 05/ [facility] CHEM PANEL A/G Ratio 1.1 0.7 - 1.6 / [facility] CHEM PANEL Globulin 3.7 2.0 - 4.0 05/ [facility] HEMATOLOGY RBC 3.60 4.20 - 0510 [place] 5.40 /2014 [facility] HEMATOLOGY WBC 9.1 3.7 - 10.4 05/ [facility] HEMATOLOGY MCV 105.2 80.0 - 0510 [place] 98.0 /2014 [facility] HEMATOLOGY Hgb 12.7 12.0 - 0510 [place] 16.0 /2014 [facility] HEMATOLOGY Hct 37.9 36.0 - 0510 [place] 48.0 /2014 [facility] HEMATOLOGY MCHC 33.5 32.0 - 05/10 [place] 36.0 /2014 [facility] HEMATOLOGY RDW 11.9 11.5 - 0510 [place] 14.5 /2014 [facility] HEMATOLOGY MCH 35.3 27.0 - 05/10 [place] 31.0 [facility] HEMATOLOGY MPV 8.4 7.4 - 10.4 05 [facility] HEMATOLOGY Platelet 254 133 - 450 05 [facility] HEMATOLOGY INR 0.97 0.85 - 0510 <sup>10</sup> [place] 1.17 Interpretive Medical Data: Center RECOMMENDED RANGES FOR PROTIME INR:
2.0-3.0 for most medical and surgical thromboemboli c states.
2.5-3.5 for artificial heart valves and recurrent embolism.<br/ >
INR SHOULD BE USED ONLY FOR PATIENTS ON STABLE ANTICOAGULANT THERAPY. HEMATOLOGY PT 12.9 12.0 - 08/22 [facility] 14.7 [facility] HEMATOLOGY PTT 34.2 22.9 - 08/22 <sup>12</sup> [facility] 35.8 /2014 Interpretive Medical Data: Heparin Center Therapeutic Range: 57 - 92 Seconds HEMATOLOGY Macrocyte 3+ None Seen 08/22 [facility] *NA* /2014 [facility] (08/22/14 3:51 PM) [place] HEMATOLOGY Segs-Bands # 4.8 1.5 - 8.1 08/22 [facility] HEMATOLOGY Monocytes # 1.0 0.0 - 0.8 08/22 [facility] HEMATOLOGY Lymphocytes 3.2 1.0 - 5.5 08/22 [facility] HEMATOLOGY Basophils # 0.0 0.0 - 0.2 08/22 [facility] HEMATOLOGY Eosinophils 0.1 0.0 - 0.5 08/22 [facility] HEMATOLOGY Eosinophils 1.1 0.0 - 4.0 08/22 [facility] HEMATOLOGY Basophils 0.2 0.0 - 1.0 08/22 [facility] HEMATOLOGY Plt Morph Normal 08/22 [facility] (08/22/14 3:51 PM) [facility] HEMATOLOGY Lymphocytes 35.5 20.0 - 08/22 [facility] 40.0 [facility] HEMATOLOGY Segs 51.9 45.0 - 08/22 [facility] 75.0 [facility] HEMATOLOGY Monocytes 11.3 2.0 - 12.0 08/22 [facility] BLOOD BANK Antibody Negative 07/15 [facility] RESULTS Scrn (07/15/14 7:10 AM) /2014 [facility] BLOOD BANK ABO/Rh O POS 07/15 [facility] RESULTS /2014 [facility] CHEM PANEL eGFR 86 07/15 <sup>1</sup>R [...] Calcium Lvl 8.9 8.5 - 10.5 07/15 [facility] CHEM PANEL Sodium Lvl 139 135 - 145 07/15 [facility] CHEM PANEL CO2 31 24 - 32 07/15 2014 [facility] CHEM PANEL Chloride Lvl 103 95 - 109 07/15 2014 [facility] CHEM PANEL Potassium 3.5 3.5 - 5.1 07/15 [facility] CHEM PANEL Creatinine 0.7 0.5 - 1.4 07/15 [facility] CHEM PANEL Glucose Lvl 92 70 - 99 07/15 <sup>2</sup>I nterpretive Medical Data: Adult Center reference range values reflect the clinical guidelines
of the [place] [employer]. CHEM PANEL BUN 13 7 - 22 07/15 [facility] CHEM PANEL AGAP 8.5 10.0 - 07/15 20.0 [facility] HEMATOLOGY Macrocyte 1+ None Seen 07/15 [facility] *ABN* /2014 Medical (07/15/14 7:10 AM) [place] HEMATOLOGY Segs 51.3 45.0 - 07/15 [place] 75.0 [facility] HEMATOLOGY Monocytes 9.0 2.0 - 12.0 07/15 [facility] HEMATOLOGY Eosinophils 1.3 0.0 - 4.0 07/15 [facility] HEMATOLOGY Lymphocytes 37.8 20.0 - 04 [place] 40.0 /2014 [facility] HEMATOLOGY Lymphocytes 2.3 1.0 - 5.5 07/15 [facility] # /2015 [facility] HEMATOLOGY Segs-Bands # 3.1 1.5 - 8.1 / /2014 [facility] HEMATOLOGY Basophils 0.6 0.0 - 1.0 / /2014 [facility] HEMATOLOGY Eosinophils 0.1 0.0 - 0.5 / [facility] # /2014 [facility] HEMATOLOGY Monocytes # 0.5 0.0 - 0.8 / /2014 [facility] HEMATOLOGY PT 12.8 12.0 - 07/15 [place] 14.7 /2014 [facility] HEMATOLOGY PTT 36.0 22.9 - 07/15 <sup>4</sup>I [facility] 35.8 /2014 nterpretive Medical Data: Heparin Center Therapeutic Range: 57 - 92 Seconds HEMATOLOGY INR 0.96 0.85 - 07/15 <sup>3</sup>I [facility] 1.17 nterpretive Medical Data: Center RECOMMENDED RANGES FOR PROTIME INR:
2.0-3.0 for most medical and surgical thromboemboli c states.
2.5-3.5 for artificial heart valves and recurrent embolism.<br/ >
INR SHOULD BE USED ONLY FOR PATIENTS ON STABLE ANTICOAGULANT THERAPY. HEMATOLOGY Hgb 12.0 12.0 - 07/15 [facility] 16.0 /2014 [facility] HEMATOLOGY RBC 3.59 4.20 - 07/15 [facility] 5.40 /2014 [facility] HEMATOLOGY WBC 6.0 3.7 - 10.4 07/15 /2014 [facility] HEMATOLOGY RDW 12.4 11.5 - 07/15 14.5 /2014 [facility] HEMATOLOGY MCHC 32.0 32.0 - 07/15 [place] 36.0 /2014 [facility] HEMATOLOGY MCH 33.4 27.0 - 07/15 [place] 31.0 /2014 [facility] HEMATOLOGY MCV 104.6 80.0 - 07/15 98.0 /2014 [facility] HEMATOLOGY Hct 37.5 36.0 - 07/15 [place] 48.0 /2014 [facility] HEMATOLOGY Platelet 248 133 - 450 07/15 /2014 [facility] HEMATOLOGY MPV 8.3 7.4 - 10.4 07/15 [facility] URINE AND UA <=1.0 0.1 - 1.0 03/04 [facility] STOOL Urobilinogen mg/dL /2013 [facility] URINE AND UA WBC 3 0 - 5 03/04 [facility] STOOL [facility] URINE AND UA Sq Epi Few /LPF Few /LPF 03/04 [facility] STOOL [facility] URINE AND UA Mucus Few /LPF None Seen 03/04 [facility] STOOL /LPF [facility] URINE AND UA RBC 2 0 - 2 03/04 [facility] STOOL [facility] URINE AND UA Leuk Est Negative Negative 03/04 [facility] (03/04/14 11:54 AM) [facility] URINE AND UA Color Light Yellow Yellow 03/04 [facility] STOOL *NA* /2013 [facility] (03/04/14 11:54 AM) [place] URINE AND UA Turbidity Clear Clear 03/04 [facility] (03/04/14 11:54 AM) [facility] URINE AND UA pH 7.0 5.0 - 8.0 03/04 [facility] URINE AND UA Spec Grav 1.049 <=1.030 03/04 [facility] URINE AND UA Glucose Negative Negative 03/04 [facility] mg/dL mg/dL [facility] URINE AND UA Protein 30 mg/dL Negative 03/04 [facility] mg/dL [facility] URINE AND UA Bili Negative Negative 03/04 [facility] *NA* [facility] (03/04/14 11:54 AM) [place] URINE AND UA Nitrite Negative Negative 03/04 [facility] (03/04/14 11:54 AM) [facility] URINE AND UA Blood Moderate Negative 03/04 [facility] *ABN* [facility] (03/04/14 11:54 AM) [place] URINE AND UA Ketones Negative Negative 03/04 [facility] mg/dL mg/dL [facility] BLOOD BANK ABO/Rh O POS 03/04 [facility] RESULTS [facility] BLOOD BANK Antibody Negative 03/04 [facility] RESULTS Scrn (03/04/14 6:30 AM) [facility] CHEM PANEL Magnesium 1.7 1.8 - 2.4 03/04 [facility] Lvl [facility] ELECTROLYT AGAP 9.0 10.0 - 03/04 [facility] ES 20.0 [facility] ELECTROLYT eGFR 73 03/04 <sup>1</sup>R [facility] ES esult Medical Comment: The Center eGFR [...] Calcium Lvl 9.1 8.5 - 10.5 03/04 [facility] ELECTROLYT Chloride Lvl 95 95 - 109 03/04 [facility] ELECTROLYT CO2 30 24 - 32 03/04 [facility] ELECTROLYT Potassium 4.0 3.5 - 5.1 03/04 [facility] ELECTROLYT Creatinine 0.8 0.5 - 1.4 03/04 [facility] ELECTROLYT Glucose Lvl 94 70 - 99 03/04 <sup>2</sup>I nterpretive Medical Data: Adult Center reference range values reflect the clinical guidelines
of the [place] [employer]. ELECTROLYT BUN 12 7 - 22 03/04 [facility] ELECTROLYT Sodium Lvl 130 135 - 145 03/04 [facility] HEMATOLOGY Macrocyte 2+ None Seen 03/04 *ABN* Medical (03/04/14 6:15 AM) Center HEMATOLOGY Eosinophils 0.1 0.0 - 0.5 03/04 # [facility] HEMATOLOGY Basophils # 0.1 0.0 - 0.2 03/04 [facility] HEMATOLOGY Monocytes # 0.8 0.0 - 0.8 03/04 [facility] HEMATOLOGY Lymphocytes 2.4 1.0 - 5.5 03/04 # [facility] HEMATOLOGY Segs-Bands # 6.0 1.5 - 8.1 03/04 [facility] HEMATOLOGY Basophils 0.9 0.0 - 1.0 03/04 [facility] HEMATOLOGY Segs 63.7 45.0 - 03/04 [place] 75.0 /2013 [facility] HEMATOLOGY Lymphocytes 25.5 20.0 - 03/04 [place] 40.0 /2013 [facility] HEMATOLOGY Eosinophils 1.1 0.0 - 4.0 03/04 [facility] HEMATOLOGY Monocytes 8.8 2.0 - 12.0 03/04 [facility] HEMATOLOGY INR 0.95 0.85 - 03/04 <sup>3</sup>I [facility] 1.17 nterpretive Medical Data: Center RECOMMENDED RANGES FOR PROTIME INR:
2.0-3.0 for most medical and surgical thromboemboli c states.
2.5-3.5 for artificial heart valves and recurrent embolism.<br/ >
INR SHOULD BE USED ONLY FOR PATIENTS ON STABLE ANTICOAGULANT THERAPY. HEMATOLOGY PT 12.7 12.0 - 03/04 [place] 14.7 [facility] HEMATOLOGY PTT 37.9 22.9 - 03/04 <sup>4</sup>I [facility] 35.8 nterpretive Medical Data: Heparin Center Therapeutic Range: 57 - 92 Seconds HEMATOLOGY Platelet 319 133 - 450 03/04 [facility] HEMATOLOGY MPV 7.8 7.4 - 10.4 03/04 [facility] HEMATOLOGY Hct 38.4 36.0 - 03/04 [place] 48.0 /2013 [facility] HEMATOLOGY Hgb 13.4 12.0 - 03/04 [place] 16.0 [facility] HEMATOLOGY MCV 107.6 80.0 - 03/04 [place] 98.0 /2013 [facility] HEMATOLOGY MCHC 34.8 32.0 - 03/04 [place] 36.0 [facility] HEMATOLOGY RDW 13.2 11.5 - 03/04 [place] 14. [facility] HEMATOLOGY MCH 37.4 27.0 - 03/04 [place] 31.0 [facility] HEMATOLOGY RBC 3.57 4.20 - 03/04 [place] 5.40 /2013 [facility] HEMATOLOGY WBC 9.4 3.7 - 10.4 03/04 [facility] CHEM PANEL eGFR 86 10/07 <sup>1</sup>R [...] PANEL Creatinine 0.7 0.5 - 1.4 10/07 [facility] CHEM PANEL Potassium 3.8 3.5 - 5.1 10/07 [facility] CHEM PANEL BUN 6 7 - 22 10/07 [facility] [facility] CHEM PANEL Sodium Lvl 132 135 - 145 10/07 [facility] CHEM PANEL Glucose Lvl 85 70 - 99 10/07 <sup>2</sup>I nterpretive Medical Data: Adult Center reference range values reflect the clinical guidelines
of the [place] [employer]. CHEM PANEL Chloride Lvl 97 95 - 109 10/07 [facility] CHEM PANEL CO2 29 24 - 32 10/07 [facility] CHEM PANEL Calcium Lvl 9.7 8.5 - 10.5 10/07 [facility] CHEM PANEL AGAP 9.8 10.0 - 10/07 20.0 [facility] HEMATOLOGY WBC 7.8 3.7 - 10.4 10/07 [facility] HEMATOLOGY RBC 3.51 4.20 - 10/07 [place] 5.40 [facility] HEMATOLOGY Hgb 12.7 12.0 - 10/07 [place] 16.0 [facility] HEMATOLOGY Hct 35.8 36.0 - 10/07 48.0 /2013 [facility] HEMATOLOGY MCV 102.1 81.0 - 10/07 99.0 /2013 [facility] HEMATOLOGY MCH 36.2 27.0 - 10/07 [place] 31.0 /2013 [facility] HEMATOLOGY MCHC 35.5 32.0 - 10/07 36.0 /2013 [facility] HEMATOLOGY RDW 12.1 11.5 - 10/07 14.5 /2013 [facility] HEMATOLOGY Platelet 314 133 - 450 10/07 [facility] HEMATOLOGY MPV 7.7 7.4 - 10.4 10/07 [facility] HEMATOLOGY Segs 54.0 45.0 - 10/07 75.0 [facility] HEMATOLOGY Lymphocytes 34.6 20.0 - 10/07 40.0 [facility] HEMATOLOGY Monocytes 9.6 2.0 - 12.0 10/07 [facility] HEMATOLOGY Basophils 0.5 0.0 - 1.0 10/07 [facility] HEMATOLOGY Eosinophils 1.3 0.0 - 4.0 10/07 [facility] HEMATOLOGY Lymphocytes 2.7 1.0 - 5.5 10/07 # /2013 [facility] HEMATOLOGY Monocytes # 0.7 0.0 - 0.8 10/07 [facility] HEMATOLOGY Segs-Bands # 4.3 1.5 - 8.1 10/07 [facility] HEMATOLOGY Eosinophils 0.1 0.0 - 0.5 10/07 [facility] HEMATOLOGY Basophils # 0.0 0.0 - 0.2 10/07 [facility] HEMATOLOGY Macrocyte 2+ None Seen 10/07 [facility] *ABN* /2013 Medical (10/06/13 7:50 PM) Center HEMATOLOGY PTT 39.5 22.9 - 10/07 <sup>4</sup>I [place] 35.8 nterpretive Medical Data: Heparin Center Therapeutic Range: 57 - 92 Seconds HEMATOLOGY INR 0.84 0.85 - 10/07 <sup>3</sup>I [facility] 1 nterpretive Medical Data: Center RECOMMENDED RANGES FOR PROTIME INR:
2.0-3.0 for most medical and surgical thromboemboli c states.
2.5-3.5 for artificial heart valves and recurrent embolism.<br/ >
INR SHOULD BE USED ONLY FOR PATIENTS ON STABLE ANTICOAGULANT THERAPY. HEMATOLOGY PT 11.5 12.0 - 10/07 [facility] 14.7 [facility] CHEM PANEL Magnesium 1.4 1.8 - 2.4 09/10 [facility] CHEM PANEL eGFR 86 09/10 <sup>1</sup>R [...] values reflect the clinical guidelines
of the [place] [employer]. CHEM PANEL BUN 13 7 - 22 09/10 [facility] CHEM PANEL Creatinine 0.7 0.5 - 1.4 09/10 [facility] CHEM PANEL Sodium Lvl 132 135 - 145 09/10 [facility] CHEM PANEL CO2 29 24 - 32 09/10 [facility] CHEM PANEL Calcium Lvl 9.5 8.5 - 10.5 09/10 [facility] CHEM PANEL Chloride Lvl 94 95 - 109 09/10 [facility] CHEM PANEL Potassium 3.9 3.5 - 5.1 09/10 [facility] CHEM PANEL AGAP 12.9 10.0 - 09/10 [facility] 20.0 [facility] HEMATOLOGY Eosinophils 0.1 0.0 - 0.5 09/10 [place] # /2013 [facility] HEMATOLOGY Monocytes # 0.9 0.0 - 0.8 09/10 [facility] HEMATOLOGY Macrocyte 1+ None Seen 09/10 [facility] *ABN* /2013 Medical (09/10/13 7:05 AM) [place] HEMATOLOGY Basophils # 0.1 0.0 - 0.2 09/10 [facility] HEMATOLOGY Lymphocytes 31.7 20.0 - 09/10 [place] 40.0 [facility] HEMATOLOGY Segs 55.5 45.0 - 09/10 [place] 75.0 [facility] HEMATOLOGY Lymphocytes 2.7 1.0 - 5.5 09/10 # [facility] HEMATOLOGY Segs-Bands # 4.7 1.5 - 8.1 09/10 [facility] HEMATOLOGY Basophils 1.4 0.0 - 1.0 09/10 [facility] HEMATOLOGY Eosinophils 1.0 0.0 - 4.0 09/10 [facility] HEMATOLOGY Monocytes 10.4 2.0 - 12.0 09/10 [facility] HEMATOLOGY PT 12.4 12.0 - 09/10 14.7 [facility] HEMATOLOGY PTT 37.3 22.9 - 09/10 <sup>4</sup>I [facility] 35.8 nterpretive Medical Data: Heparin Center Therapeutic Range: 57 - 92 Seconds HEMATOLOGY INR 0.93 0.85 - 09/10 <sup>3</sup>I [facility] 1.17 nterpretive Medical Data: Center RECOMMENDED RANGES FOR PROTIME INR:
2.0-3.0 for most medical and surgical thromboemboli c states.
2.5-3.5 for artificial heart valves and recurrent embolism.<br/ >
INR SHOULD BE USED ONLY FOR PATIENTS ON STABLE ANTICOAGULANT THERAPY. HEMATOLOGY RBC 4.04 4.20 - 09/10 5.40 [facility] HEMATOLOGY Hct 40.9 36.0 - 09/10 [place] 48.0 [facility] HEMATOLOGY WBC 8.4 3.7 - 10.4 09/10 [facility] HEMATOLOGY Hgb 14.0 12.0 - 09/10 [facility] 16.0 [facility] HEMATOLOGY MCHC 34.3 32.0 - 09/10 [facility] 36.0 [facility] HEMATOLOGY MCH 34.7 27.0 - 09/10 [facility] 31.0 [facility] HEMATOLOGY RDW 11.9 11.5 - 09/10 [facility] 14. [facility] HEMATOLOGY MCV 101.2 81.0 - 09/10 [facility] 99.0 [facility] HEMATOLOGY MPV 7.4 7.4 - 10.4 09/10 [facility] HEMATOLOGY Platelet 325 133 - 450 09/10 [facility] BLOOD BANK ABO/Rh O POS 09/10 [facility] RESULTS [facility] BLOOD BANK Antibody Negative 09/10 [facility] RESULTS Scrn (09/10/13 7:00 AM) [facility] CHEM PANEL Magnesium 1.8 1.8 - 2.4 08/25 [facility] Lvl [facility] CHEM PANEL eGFR 96 08/25 <sup>2</sup>R [...] Chloride Lvl 102 95 - 109 08/25 [facility] CHEM PANEL BUN 12 7 - 22 08/25 [facility] CHEM PANEL Glucose Lvl 84 70 - 99 08/25 <sup>4</sup>I nterpretive Medical Data: Adult Center reference range values reflect the clinical guidelines
of the [place] [employer]. CHEM PANEL Sodium Lvl 138 135 - 145 08/25 [facility] CHEM PANEL Creatinine 0.5 0.5 - 1.4 08/25 Lvl [facility] CHEM PANEL Calcium Lvl 8.5 8.5 - 10.5 08/25 [facility] CHEM PANEL CO2 27 24 - 32 08/25 [facility] CHEM PANEL Potassium 4.4 3.5 - 5.1 08/25 <sup>1</sup>R [facility] esult Medical Comment: Center Specimen Slightly Hemolyzed. CHEM PANEL AGAP 13.4 10.0 - 08/25 20.0 [facility] HEMATOLOGY RBC 2.56 4.20 - 08/25 [place] 5.40 /2013 [facility] HEMATOLOGY WBC 6.4 3.7 - 10.4 08/25 [facility] HEMATOLOGY Hct 26.8 36.0 - 08/25 [place] 48.0 [facility] HEMATOLOGY MCH 35.1 27.0 - 08/25 [place] 31.0 [facility] HEMATOLOGY MCV 104.6 81.0 - 08/25 [place] 99.0 [facility] HEMATOLOGY Hgb 9.0 12.0 - 08/25 16.0 [facility] HEMATOLOGY RDW 12.2 11.5 - 08/25 [place] 14.5 [facility] HEMATOLOGY MCHC 33.6 32.0 - 08/25 [place] 36.0 [facility] HEMATOLOGY MPV 7.4 7.4 - 10.4 08/25 [facility] HEMATOLOGY Platelet 194 133 - 450 08/25 [facility] BLOOD BANK ABO/Rh O POS 08/24 [facility] RESULTS [facility] BLOOD BANK Antibody Negative 08/24 [facility] RESULTS Scrn (08/24/13 7:21 AM) [facility] CHEM PANEL Magnesium 1.8 1.8 - 2.4 08/24 Lv [facility] ELECTROLYT AGAP 7.9 10.0 - 08/24 [facility] ES 20.0 [facility] ELECTROLYT eGFR 86 08/24 <sup>3</sup>R esult [...] Calcium Lvl 9.1 8.5 - 10.5 08/24 [facility] ELECTROLYT Sodium Lvl 135 135 - 145 08/24 [facility] ELECTROLYT Creatinine 0.7 0.5 - 1.4 08/24 [facility] ELECTROLYT BUN 12 7 - 22 08/24 [facility] ELECTROLYT Glucose Lvl 99 70 - 99 08/24 <sup>5</sup>I [facility] nterpretive Medical Data: Adult Center reference range values reflect the clinical guidelines
of the [place] [employer]. ELECTROLYT CO2 33 24 - 32 08/24 [facility] ELECTROLYT Chloride Lvl 98 95 - 109 08/24 [facility] ELECTROLYT Potassium 3.9 3.5 - 5.1 08/24 [facility] HEMATOLOGY INR 0.90 0.85 - 08/24 <sup>6</sup>I [facility] 1.17 nterpretive Medical Data: Center RECOMMENDED RANGES FOR PROTIME INR:
2.0-3.0 for most medical and surgical thromboemboli c states.
2.5-3.5 for artificial heart valves and recurrent embolism.<br/ >
INR SHOULD BE USED ONLY FOR PATIENTS ON STABLE ANTICOAGULANT THERAPY. HEMATOLOGY PTT 36.9 22.9 - 08/24 <sup>7</sup>I [facility] 35.8 /2014 nterpretive Medical Data: Heparin Center Therapeutic Range: 57 - 92 Seconds HEMATOLOGY PT 12.1 12.0 - 08/24 14.7 [facility] HEMATOLOGY MCV 103.2 81.0 - 08/24 99.0 /2013 [facility] HEMATOLOGY Hct 40.1 36.0 - 08/24 [place] 48.0 /2013 [facility] HEMATOLOGY Hgb 13.8 12.0 - 08/24 [place] 16.0 [facility] HEMATOLOGY RBC 3.89 4.20 - 08/24 [place] 5.40 /2013 [facility] HEMATOLOGY MPV 7.2 7.4 - 10.4 08/24 [facility] HEMATOLOGY Platelet 273 133 - 450 08/24 [facility] HEMATOLOGY RDW 12.0 11.5 - 08/24 14. [facility] HEMATOLOGY MCHC 34.5 32.0 - 08/24 [place] 36.0 [facility] HEMATOLOGY MCH 35.6 27.0 - 08/24 [place] 31.0 [facility] HEMATOLOGY WBC 8.0 3.7 - 10.4 08/24 [facility] HEMATOLOGY Basophils # 0.1 0.0 - 0.2 08/24 [facility] HEMATOLOGY Monocytes # 0.8 0.0 - 0.8 08/24 [facility] HEMATOLOGY Segs-Bands # 5.6 1.5 - 8.1 08/24 [facility] HEMATOLOGY Lymphocytes 1.5 1.0 - 5.5 08/24 # /2013 [facility] HEMATOLOGY Eosinophils 0.1 0.0 - 0.5 08/24 # [facility] HEMATOLOGY Macrocyte 1+ None Seen 08/24 [facility] *ABN* /2013 Medical (08/24/13 7:05 AM) [place] HEMATOLOGY Basophils 0.5 0.0 - 1.0 08/24 [facility] HEMATOLOGY Eosinophils 0.8 0.0 - 4.0 08/24 [facility] HEMATOLOGY Monocytes 9.8 2.0 - 12.0 08/24 [facility] HEMATOLOGY Lymphocytes 18.9 20.0 - 08/24 [place] 40.0 [facility] HEMATOLOGY Segs 70.0 45.0 - 08/24 [place] 75.0 /2013 [facility] Center Pathology Reports No Data Provided for This Section Diagnostic Reports Report Value Date Source Brain wo contrast CT I have reviewed this examination and concur with the interpretation. 12/23/2017 [facility] Clinical Indication: - weakness, near syncope; weakness [...] microvascular ischemic sequela again shown ----- SL: [id number] Chest 1view DX EXAM: Chest 1view DX 12/23/2017 [facility] DATE: 12/23/2017 4:42 PM CDT INDICATION: - weakness, hypotensive COMPARISON: 08/22/2014. IMPRESSION: Stable mildly enlarged cardiac silhouette. Tortuous atherosclerotic thoracic aorta. No definite failure. The lungs are mildly hyperexpanded. No gross focal consolidation, significant pleural effusion or thorax. Surgical clips overlying bilateral breasts. Mild dextroscoliosis. SL: LEVI HVI VAS Arterial INDICATION: complaints of dizziness, confusion. near syncope . 08/23/2014 [facility] Extracranial Doppler Bi Center IMPRESSION: 1. There [...] CT CT SCAN OF THE BRAIN 08/22/2014 [facility] DATE: 08/22/2014 at 6:07 p.m. Comparison [...] 1view DX EXAM: CHEST 1 VIEW 08/22/2014 [facility] DATE: August 22, 2014 03:57:00 PM [...] VAS Venous Lower INDICATION: Limb pain. 10/07/2013 [facility] Doppler Center IMPRESSION: 1. There is no [...] VAS Arterial/bypass INDICATION: Peripheral arterial disease 10/07/2013 [facility] bilat Center IMPRESSION: 1. The visualized arteries [...] Date Comments Source BMI Calculated 22.51 12/23/2017 [facility] Height 165.1 cm 12/23/2017 [facility] Temperature Oral (F) 98.6 F 12/23/2017 [facility] Weight 61.364 12/23/2017 [facility] Heart Rate 59 12/23/2017 [facility] Respitory Rate 20 12/23/2017 [facility] Systolic (mm Hg) 120 12/23/2017 [facility] Diastolic (mm Hg) 49 12/23/2017 [facility] Systolic (mm Hg) 129 08/24/2014 [facility] Diastolic (mm Hg) 61 08/24/2014 [facility] Systolic (mm Hg) 89 08/24/2014 [facility] Diastolic (mm Hg) 51 08/24/2014 [facility] Temperature Oral (F) 97.5 F 08/24/2014 [facility] Systolic (mm Hg) 146 08/24/2014 [facility] Diastolic (mm Hg) 63 08/24/2014 [facility] Temperature Oral (F) 97 F 08/24/2014 [facility] Temperature Oral (F) 96.8 F 08/24/2014 [facility] Weight 57.273 08/23/2014 [facility] Respitory Rate 49 08/23/2014 [facility] Respitory Rate 18 08/23/2014 [facility] Respitory Rate 32 08/23/2014 [facility] BMI Calculated 22.19 08/22/2014 [facility] Weight 56.818 08/22/2014 [facility] Height 160.02 cm 08/22/2014 [facility] Heart Rate 66 08/22/2014 [facility] Systolic (mm Hg) 137 07/15/2014 [facility] Diastolic (mm Hg) 66 07/15/2014 [facility] Systolic (mm Hg) 137 07/15/2014 [facility] Diastolic (mm Hg) 66 07/15/2014 [facility] Systolic (mm Hg) 137 07/15/2014 [facility] Diastolic (mm Hg) 66 07/15/2014 [facility] Height 154.94 cm 07/15/2014 [facility] BMI Calculated 24.05 07/15/2014 [facility] Weight 57.727 07/15/2014 [facility] Diastolic (mm Hg) 70 03/04/2014 [facility] Center Systolic (mm Hg) 150 03/04/2014 [facility] Diastolic (mm Hg) 73 03/04/2014 [facility] Center Systolic (mm Hg) 152 03/04/2014 [facility] Diastolic (mm Hg) 70 03/04/2014 [facility] Systolic (mm Hg) 154 03/04/2014 [facility] BMI Calculated 23.86 03/04/2014 [facility] Height 154.94 cm 03/04/2014 [facility] Weight 57.273 03/04/2014 [facility] Diastolic (mm Hg) 92 10/07/2013 [facility] Systolic (mm Hg) 193 10/07/2013 [facility] Temperature Oral (F) 97.2 F 10/07/2013 [facility] Respitory Rate 18 10/07/2013 [facility] Heart Rate 82 10/07/2013 [facility] Systolic (mm Hg) 206 10/07/2013 [facility] Diastolic (mm Hg) 92 10/07/2013 [facility] Respitory Rate 18 10/07/2013 [facility] Heart Rate 82 10/07/2013 [facility] Height 154.94 cm 10/06/2013 [facility] BMI Calculated 24.61 10/06/2013 [facility] Weight 59.091 10/06/2013 [facility] Systolic (mm Hg) 213 10/06/2013 [facility] Diastolic (mm Hg) 93 10/06/2013 [facility] Temperature Oral (F) 98.0 F 10/06/2013 [facility] Respitory Rate 18 10/06/2013 [facility] Heart Rate 78 10/06/2013 [facility] Diastolic (mm Hg) 70 09/10/2013 [facility] Systolic (mm Hg) 139 09/10/2013 [facility] Diastolic (mm Hg) 67 09/10/2013 [facility] Systolic (mm Hg) 142 09/10/2013 [facility] Diastolic (mm Hg) 66 09/10/2013 [facility] Systolic (mm Hg) 144 09/10/2013 [facility] BMI Calculated 24.43 09/10/2013 [facility] Height 154.94 cm 09/10/2013 [facility] Weight 58.636 09/10/2013 [facility] Temperature Oral (F) 97.2 F 08/25/2013 [facility] Systolic (mm Hg) 109 08/25/2013 [facility] Diastolic (mm Hg) 55 08/25/2013 [facility] Systolic (mm Hg) 106 08/25/2013 [facility] Diastolic (mm Hg) 55 08/25/2013 [facility] Diastolic (mm Hg) 50 08/25/2013 [facility] Systolic (mm Hg) 91 08/25/2013 [facility] Respitory Rate 16 08/24/2013 [facility] Temperature Oral (F) 96.7 F 08/24/2013 [facility] Respitory Rate 18 08/24/2013 [facility] Weight 60 08/24/2013 [facility] BMI Calculated 24.99 08/24/2013 [facility] Height 154.94 cm 08/24/2013 [facility] Encounters Location Location Encounter Encounter Reason Attending ADM DC Status Source Details Type Number For Provider Date Date Visit [facility] [id number] [place] 08/24 08/25 [facility] [place] /2013 [facility] Bedded [id number] [place] 09/10 09/10 [facility] [place] /2013 [facility] EC [id number] [place] 10/06 10/07 [facility] Emergency [place] /2013 [facility] Bedded [id number] [place] 03/04 03/04 [facility] [place] /2013 [facility] Bedded [id number] [place] 07/15 07/15 [facility] [place] /2014 [facility] Inpatient [id number] G[place] 08/22 08/24 [facility] /2014 [facility] Emergency [id number] Blake Lang 12/23 12/24 [facility] /2017 [facility] Procedures Procedure Code Date Perfomer Comments Source Partial hysterectomy [id number] [place] [id number] Partial hysterectomy [id number] [address] Cardiac [id number] [facility] catheterization, combined right and left heart Cataract surgery [id number] [facility] Decompression of [id number] [facility] lumbar spine Limb revascularization [id number] [facility] Cardiac [id number] [facility] combined right and left heart Limb revascularization [id number] [facility] Cataract surgery [id number] [facility] Decompression of [id number] [facility] Assessment and Plan Assessment and Plan Date Source Extracted from:Title: Progress Note * 08/24/2014 [facility] Author: Valentina Mosquera NP GRINDER OPERATOR SURFACE TOOL Date: 08/24/14 Impression and Plan Patient is [...] Pt had renal artery stenosis 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 4. Dyslipidemia - [...] APRN, MSN, ACNP- Department of Cardiology Pager# [phone] MSO# [id number] Extracted from:Title: Neurology Consult Note Author: Iza [...] 3-4 days ago. She was admitted to [facility] at symptom onset. She reports she wasn't very cooperative with them because she doesn't trust them so no testing was done. She wanted to come here where her rn plastic surgery Dr. Hammer is affiliated. She was discharged [...] be of neurological etiology. Dx: Dizziness (780.4) [id number] Addendum by Cornelius Gallegos MD on 08/24/2014 00:13 Patient's B12 is [id number]. She also has macrocytic anemia. Recommend checking for methylmalonic acid levels. Will contiune to follow with vascular imaging study results as well as MMA levels, Extracted from:Title: post cath 03/04/2014 [facility] Author: Sukhdeep Rivas MD Date: 03/04/14 [...] post ambulation Sukhdeep Rivas MD PGY-7 Interventional Control Area Operator pager: [phone] Plan of Care No Data Provided for This Section Social History Social History Date Source Social History TypeResponse 08/23/2014 [facility] Substance Abuse Use: None. Sexual Sexually [...] Cessation Counseling Yes Social History TypeResponse 08/23/2014 [facility] Substance Abuse Use: None. Sexual Sexually active: [...]
[2018-11-13] MEDS ORDERED: NA CHLORIDE 0.9% 1,000 ML ONE (18:58)
[2018-11-13 19:13] LABS: Absolute Lymphocytes (CBC) 2.4 K/uL (0.7-4.9); Basophils % 0.8 % (0-1.3); Lymphocytes % 16.8 % (15.3-44.8); MPV 9.2 fL (7.6-11.3); RBC Red Blood Cell Count 2.74 M/uL (3.86-4.86)
[2018-11-13 19:20] LABS: Protime INR 1.72
[2018-11-13 19:30] LABS: ALT/SGPT 15 U/L (12-78); AST/SGOT 22 U/L (15-37); Alkaline Phosphatase 65 U/L (45-117); BUN Blood Urea Nitrogen 14 mg/dL (7-18); Bicarbonate 28 mmol/L (21-32); Bilirubin Direct < 0.1 mg/dL (0-0.2); Bilirubin Total 0.2 mg/dL (0.2-1.0); CKMB Creatine Kinase MB 1.5 ng/mL (0.3-3.6); Creatine Phosphokinase 38 U/L (26-192); Glucose Level 92 mg/dL (74-106); Lipase 120 U/L (73-393); Magnesium 2.2 mg/dL (1.8-2.4); NT PRO-BNP 10734 pg/mL (<450); Protein, Total 5.9 g/dL (6.4-8.2); Sodium Level 150 mmol/L (136-145); Troponin (Emerg Dept Use Only) 0.03 ng/mL (0.0-0.045)
[2018-11-13 19:54] LABS: Urine Blood 1+ (NEG); Urine Glucose NEGATIVE (NEG); Urine Protein 1+ (NEG); Urine Specific Gravity >1.030 (1.005-1.030)
--- NOTE | 2018-11-13 20:06 | RAD REPORT ---
EXAM DESCRIPTION: RAD - Chest Single View - 11/13/2018 7:55 pm CLINICAL HISTORY: Device placement PICC line placement COMPARISON: 09/09/2018 FINDINGS: A PICC line has been inserted with its tip in the mid superior vena cava. The lungs appear clear of acute infiltrate. The heart is mildly to moderately enlarged IMPRESSION: PICC line with its tip in the mid superior vena cava
--- NOTE | 2018-11-13 20:14 | RAD REPORT ---
EXAM DESCRIPTION: CT - Head Brain Wo Cont - 11/13/2018 8:00 pm CLINICAL HISTORY: Alteration of awareness/confusion COMPARISON: November 06, 2018 TECHNIQUE: Computed axial tomography of the head was obtained. IV contrast was not requested. All CT scans are performed using dose optimization technique as appropriate and may include automated exposure control or mA/KV adjustment according to patient size. FINDINGS: An intracranial bleed is not seen . The ventricles are normal in caliber. Small old lacunar infarction left basal ganglia No extra-axial fluid collection is noted. Cerebral atrophy is present. Mild to moderate low-density areas within periventricular, deep and subcortical white matter likely r epresent ischemic changes secondary to small vessel disease. Fluid within the sinuses/ mastoids is not seen. IMPRESSION: No acute intracranial abnormality is seen. If patient's symptoms persist MRI of the bra in would be recommended.
[2018-11-13] MEDS ORDERED: CEFTRIAXONE/SWI 1gm 2 GM/20 ML SYR ONE (20:28)
[2018-11-13] MEDS ORDERED: ACETAMINOPHEN 650MG/RECT SUPP PR ONE (20:28)
--- NOTE | 2018-11-13 21:21 | ER ---
Nurse's Notes [facility] Name: Monique Bocanegra Age: 78 yrs Sex: Female : 1940 Arrival Date: 11/13/2018 Time: 18:53 Bed 3 Private MD: Diagnosis: acute AMS;fever;hyperchloremia;Hyperosmolality and hypernatremia;anemia;Atrial fibrillation and flutter Presentation: 11/13 18:49 Presenting complaint: EMS states: called out by [facility] staff, stated pt was sv discharged 30 mins ago from here. Stated pt had a temp of 101.9 axillary, HR-120-140s Afib. AMS but is pt's normal. On EMS arrival temp 99.3 orally, O2 \T\ 2L per NC. Transition of care: patient was received from another setting of care (long-term care facility), [facility]. Onset of symptoms was November 13, 2018. Risk Assessment: Do you want to hurt yourself or someone else? Patient reports no desire to harm self or others. Initial Sepsis Screen: Does the patient meet any 2 criteria? Altered Mental Status. HR > 90 bpm. Yes Does the patient have a suspected source of infection? No. Patient's initial sepsis screen is negative. Care prior to arrival: Oxygen administered. via nasal cannula. 18:49 Method Of Arrival: EMS: [facility] sv 18:49 Acuity: JULIUS 2 sv Triage Assessment: 18:49 General: Appears uncomfortable, Behavior is cooperative. Neuro: Level of Consciousness sv is confused, Oriented to person. Cardiovascular: Rhythm is atrial fibrillation with rapid ventricular response. Respiratory: Airway is patent Respiratory effort is even, unlabored, Respiratory pattern is regular, symmetrical. Derm: Skin is pale. Historical: - Allergies: 19:05 Adhesives; sv 19:05 Codeine; sv - PMHx: 19:05 CHF; Dementia; Hypertension; sv - PSHx: 19:05 Hysterectomy; 3 heart stents; sv - Immunization history:: Adult Immunizations unknown. - Social history:: Smoking status: unknown. - Ebola Screening: : No symptoms or risks identified at this time. - Family history:: not pertinent. - Hospitalizations: : The patient was recently seen at [facility], and discharged 0 day(s) ago. Screenin:08 Abuse screen: Denies threats or abuse. Denies injuries from another. Nutritional hb screening: No deficits noted. Tuberculosis screening: No symptoms or risk factors identified. Fall Risk Total Hayden Fall Scale indicates High Risk Score (45 or more points). Fall prevention measures have been instituted. Side Rails Up X 2 Frequent Obs/Assessments Occuring As available patient and family educated on Fall Prevention Program and Strategies. Assessment: 19:41 General: Appears in no apparent distress. comfortable, Behavior is cooperative. Pain: ak1 Complains of pain in bilateral legs. Neuro: Level of Consciousness is awake, alert, obeys commands, Oriented to person, place, Chief Airline Radio Operator are weak on right previous CVA. Weakness contracted. Speech is slurred. Cardiovascular: Rhythm is atrial fibrillation. Respiratory: Airway is patent Respiratory effort is even, unlabored, Respiratory pattern is regular, Breath sounds are clear. GI: Abdomen is non-distended, Bowel sounds present X 4 quads. pt had BM in ER3 upon arrival. : redness noted to vaginal area. stat lock was still in place from previous li cath. this nurse removed old stat lock. EENT: Poor dentition noted. plaque build up noted. . Derm: Skin is dry, Skin is pale, Skin temperature is hot. Musculoskeletal: pt right arm and bilateral lower extremities are contracted. 19:53 Reassessment: DR. Lopez order spict fluids, DR. Thomas stated to hold fluids at this ak1 time due to CHF history. Dr. Thomas aware of pt's vital signs. 21:17 Reassessment: Patient appears in no apparent distress at this time. Patient and/or ak1 family updated on plan of care and expected duration. Pain level reassessed. Patient is alert, oriented x 3, equal unlabored respirations, skin warm/dry/pink. heart rate has decreased since start of fluids. Patient states symptoms have improved. 21:27 General: Appears in no apparent distress. comfortable, Behavior is drowsy, pt arousable ak1 very drowsy at this time ERP notified. . Respiratory: Airway is patent Respiratory effort is unlabored, relaxed, Respiratory pattern is symmetrical. 22:25 Reassessment: Report given to Vale GILBERT. ak1 Vital Signs: 19:05 BP 98 / 60; Pulse 128 MON; Resp 19; Temp 99.7(O); Pulse Ox 98% on 2 lpm NC; Pain 0/10; sv 19:08 Weight 55.34 kg; hb 19:17 Temp 100.7(R); jd3 19:55 BP 103 / 67; Pulse 115; Resp 22; Temp 100.7(R); Pulse Ox 100% on 2 lpm NC; ak1 20:45 BP 117 / 83; Pulse 111 MON; Resp 17; Pulse Ox 99% on 2 lpm NC; ak1 21:18 BP 100 / 59; Pulse 99; Resp 14; Pulse Ox 100% on R/A; ak1 22:09 BP 100 / 53; Pulse 98; Resp 13 S; Pulse Ox 100% on 2 lpm NC; jd3 19:05 A fib with Rapid ventricular response sv 20:45 A fib ak1 ED Course: 18:49 Accessed PICC line. Blood collected. Clean \T\ dry. Dressing intact. Good blood return. sv Flushes easily. 18:53 Patient arrived in ED. sv 19:00 Hiren Lopez MD is Attending Physician. kdr 19:00 Initial lab(s) drawn, by ED staff, sent to lab. First set of blood cultures drawn by ED ak1 staff, Urine collected: Li catheter specimen, EKG done, X-ray(s) taken. Dressings: in place upon arrival to left foot and left knee. 19:04 Triage completed. sv 19:05 Shahriar Thomas MD is Attending Physician. wa 19:06 Arm band placed on. sv 19:08 Report given to Gisela RN and Vikram RN. sv 19:41 Gisela Licea, VLADIMIR is Primary Nurse. ak1 19:41 Patient has correct armband on for positive identification. Placed in gown. Bed in low ak1 position. Call light in reach. Side rails up X2. Door closed. Lights dimmed. pillows placed under bilateral legs for comfort and pressure points. Cleaned of incontinence. 19:41 Li cath inserted, using sterile technique, 16 Fr., by ms, balloon inflated, to ak1 gravity drainage, urine specimen collected. Oxygen administration via nasal cannula \T\ 2L/min. 19:55 XRAY Chest (1 view) In Process Unspecified. EDMS 20:00 CT completed. Patient tolerated procedure well. Patient moved to CT via stretcher. nj Patient moved back from CT. 20:01 CT Head Brain wo Cont In Process Unspecified. EDMS 21:06 Cleaned of incontinence. ak1 21:18 José Luis Dockery MD is Hospitalizing Provider. wa 21:18 No provider procedures requiring assistance completed. Patient admitted, IV remains in ak1 place. Administered Medications: 20:44 Drug: NS 0.9% (30 ml/kg) 30 ml/kg {Note: Dr. Crzu stated to administer 1000mL only at ak1 this time. .} Route: IV; Rate: bolus; Site: left upper arm; 21:47 Follow up: IV Status: Completed infusion; IV Intake: 1000ml ak1 22:10 Follow up: IV Status: Order to discontinue infusion; Order to discontinue infusion. Dr. correa Martha stated only 1000mL to be infused. 20:44 Drug: Rocephin - (cefTRIAXone) 1 grams Route: IVPB; Infused Over: 30 mins; Site: left [facility] upper arm; 22:10 Follow up: IV Status: Completed infusion ak1 20:44 Drug: Rocephin - (cefTRIAXone) 1 grams Route: IVPB; Infused Over: 30 mins; Site: left [facility] upper arm; 22:10 Follow up: IV Status: Completed infusion ak1 21:06 Drug: Tylenol Suppository 650 mg Route: NM; ak1 21:17 Follow up: Response: No adverse reaction ak1 21:27 Drug: Cardizem 10 mg Route: IVP; Site: left upper arm; ak1 21:46 Follow up: Response: No adverse reaction ak1 Intake: 21:47 IV: 1000ml; Total: 1000ml. ak1 Outcome: 21:20 Decision to Hospitalize by Provider. wa 22:09 Admitted to Tele accompanied by tech, via stretcher, room 232, with oxygen, with chart. ak1 22:09 Condition: stable 22:09 Instructed on the need for admit. 22:48 Patient left the ED. ak1 Signatures: Dispatcher [employer] EDGabi Wesley RN Hiren Yuen MD MD kdr Krenek, Amber, RN RN ak1 Angelique Mckeon RN RN hb Jordan, Nathan nj Appiah, William, MD MD wa Davies, Jonathon, RN RN jd3 Corrections: (The following items were deleted from the chart) 19:58 19:08 NS 0.9% (30 ml/kg) 30 ml/kg IV at bolus in PICC hb ak1
--- NOTE | 2018-11-13 21:22 | EDPHYS ---
Physician Documentation [facility] Name: Monique Bocanegra Age: 78 yrs Sex: Female : 1940 Arrival Date: 11/13/2018 Time: 18:53 Bed 3 Private MD: ED Physician Shahriar Thomas HPI: 11/13 20:31 This 78 yrs old Female presents to ER via EMS with complaints of Tachycardia. wa 20:31 The patient presents with confusion, pt just d/c'd from this [facility] today. sent back for nh elevated HR and fever. per NH, pt slightly confused as well. pt denies complaints on direct query by MD. Onset: The symptoms/episode began/occurred today. Possible causes: sepsis, d/c'd from [facility] today. Associated signs and symptoms: Pertinent negatives: abdominal pain, chest pain, diarrhea, headache, lightheadedness, palpitations, shortness of breath. Current symptoms: In the emergency department the patient's symptoms are unchanged from the initial presentation. Patient's baseline: Neuro: alert and fully oriented, Motor: diffuse weakness, Ambulation: unable to walk, Speech: normal for age, The patient has a previous history of CHF, dementia. The patient has experienced similar episodes in the past, a few times. The patient has been recently seen by a physician: d/c'benton from in pt today. pt d/c'd today. went back to [place] and noted with fever and elevated HR. Historical: - Allergies: 19:05 Adhesives; sv 19:05 Codeine; sv - PMHx: 19:05 CHF; Dementia; Hypertension; sv - PSHx: 19:05 Hysterectomy; 3 heart stents; sv - Immunization history:: Adult Immunizations unknown. - Social history:: Smoking status: unknown. - Ebola Screening: : No symptoms or risks identified at this time. - Family history:: not pertinent. - Hospitalizations: : The patient was recently seen at [facility], and discharged 0 day(s) ago. ROS: 20:41 Eyes: Negative for injury, pain, redness, and discharge, ENT: Negative for injury, wa pain, and discharge, Neck: Negative for injury, pain, and swelling, Cardiovascular: Negative for chest pain, palpitations, and edema, Respiratory: Negative for shortness of breath, cough, wheezing, and pleuritic chest pain, Abdomen/GI: Negative for abdominal pain, nausea, vomiting, diarrhea, and constipation, Back: Negative for injury and pain, : Negative for injury, bleeding, discharge, and swelling, MS/Extremity: Negative for injury and deformity, Skin: Negative for injury, rash, and discoloration. 20:41 Constitutional: Positive for fever, Negative for chills, weight loss. 20:41 Neuro: Positive for altered mental status, Negative for syncope. Exam: 20:41 Head/Face: Normocephalic, atraumatic. Eyes: Pupils equal round and reactive to light, wa extra-ocular motions intact. Lids and lashes normal. Conjunctiva and sclera are non-icteric and not injected. Cornea within normal limits. Periorbital areas with no swelling, redness, or edema. Neck: Trachea midline, no thyromegaly or masses palpated, and no cervical lymphadenopathy. Supple, full range of motion without nuchal rigidity, or vertebral point tenderness. No Meningismus. Chest/axilla: Normal chest wall appearance and motion. Nontender with no deformity. No lesions are appreciated. Respiratory: Lungs have equal breath sounds bilaterally, clear to auscultation and percussion. No rales, rhonchi or wheezes noted. No increased work of breathing, no retractions or nasal flaring. Abdomen/GI: Soft, non-tender, with normal bowel sounds. No distension or tympany. No guarding or rebound. No evidence of tenderness throughout. Back: No spinal tenderness. No costovertebral tenderness. Full range of motion. Skin: Warm, dry with normal turgor. Normal color with no rashes, no lesions, and no evidence of cellulitis. MS/ Extremity: Pulses equal, no cyanosis. Neurovascular intact. Full, normal range of motion. 20:41 Constitutional: The patient appears alert, febrile. 20:41 ENT: Posterior pharynx: dry mucosa. 20:41 Cardiovascular: Rate: tachycardic, Rhythm: irregularly irregular, Pulses: no pulse deficits are appreciated, Heart sounds: murmur, not appreciated. 20:41 Respiratory: the patient does not display signs of respiratory distress, Respirations: normal, Breath sounds: mild bibasilar coarseness. 11/14 06:54 Neuro: Orientation: appropriate for stated age, Cranial nerves: grossly normal, Motor: wa moves all fours. Vital Signs: 11/13 19:05 BP 98 / 60; Pulse 128 MON; Resp 19; Temp 99.7(O); Pulse Ox 98% on 2 lpm NC; Pain 0/10; sv 19:08 Weight 55.34 kg; hb 19:17 Temp 100.7(R); jd3 19:55 BP 103 / 67; Pulse 115; Resp 22; Temp 100.7(R); Pulse Ox 100% on 2 lpm NC; ak1 20:45 BP 117 / 83; Pulse 111 MON; Resp 17; Pulse Ox 99% on 2 lpm NC; ak1 21:18 BP 100 / 59; Pulse 99; Resp 14; Pulse Ox 100% on R/A; ak1 22:09 BP 100 / 53; Pulse 98; Resp 13 S; Pulse Ox 100% on 2 lpm NC; jd3 19:05 A fib with Rapid ventricular response sv 20:45 A fib ak1 MDM: 19:05 Patient medically screened. wa 20:42 Differential Diagnosis: CVA, electrolyte abnormality, pneumonia, sepsis, UTI, volume wa depletion. Data reviewed: vital signs, nurses notes. 20:43 Test interpretation: by ED physician or midlevel provider: ECG, EKG: interp by me: HR wa 124. afib RVR. nml axis. noted infero-lateral flipped T waves. consider ischemia. 20:45 Test interpretation: by ED physician or midlevel provider: labs noted for wa hypernatremia, hyperchloremia. elevated BNP. leukocytosis and anemia. head CT nml. . Special discussion: low grade fever noted. tylenol given. will bolus and reassess HR. may need intervention for Afib RVR. Rocephin IV given empirically. 21:16 Response to treatment: the patient's symptoms have mildly improved after treatment. nh Physician consultation: José Luis Dockery MD. Admission orders: after a detailed discussion of the patient's condition and case, the admit orders are written by me. Special discussion: admit. HR improving. will give a dose of cardizem. 11/13 18:59 Order name: Basic Metabolic Panel kdr 11/13 18:59 Order name: CBC with Diff kdr 11/13 18:59 Order name: LFT's; Complete Time: 20:27 kdr 11/13 18:59 Order name: Magnesium; Complete Time: 20:28 kdr 11/13 18:59 Order name: NT PRO-BNP; Complete Time: 20:27 kdr 11/13 18:59 Order name: PT-INR; Complete Time: 20:27 kdr 11/13 18:59 Order name: Troponin (emerg Dept Use Only); Complete Time: 20:28 kdr 11/13 18:59 Order name: Blood Culture Adult (2) kdr 11/13 18:59 Order name: Ckmb; Complete Time: 20:28 kdr 11/13 18:59 Order name: CPK; Complete Time: 20:28 kdr 11/13 18:59 Order name: Lactate; Complete Time: 20:28 kdr 11/13 18:59 Order name: Lipase; Complete Time: 20:28 kdr 11/13 18:59 Order name: Procalcitonin; Complete Time: 20:28 kdr 11/13 18:59 Order name: Ptt, Activated; Complete Time: 20:28 kdr 11/13 18:59 Order name: XRAY Chest (1 view); Complete Time: 20:28 kdr 11/13 18:59 Order name: Urine Microscopic Only [facility] 11/13 19:00 Order name: Basic Metabolic Panel; Complete Time: 20:27 EDMS 11/13 19:00 Order name: CBC with Automated Diff; Complete Time: 19:23 EDMS 11/13 19:23 Order name: CT Head Brain wo Cont; Complete Time: 20:28 nh 11/13 19:25 Order name: Urine Culture nh 11/13 19:25 Order name: Urine Culture EDMS 11/13 19:44 Order name: Urine Dipstick--Ancillary (enter results); Complete Time: 20:27 mw2 11/13 21:53 Order name: CBC with Automated Diff EDMS 11/13 21:53 Order name: CBC with Automated Diff EDMS 11/13 21:53 Order name: Comprehensive Metabolic Panel EDMS 11/13 21:53 Order name: Comprehensive Metabolic Panel EDMS 11/13 21:53 Order name: PTT, Activated Partial Thromb EDMS 11/13 21:53 Order name: PTT, Activated Partial Thromb EDMS 11/13 18:59 Order name: EKG; Complete Time: 19:01 kdr 11/13 18:59 Order name: Cardiac monitoring; Complete Time: 19:03 kdr 11/13 18:59 Order name: EKG - Nurse/Tech; Complete Time: 19:03 kdr 11/13 18:59 Order name: IV Saline Lock; Complete Time: 19:03 kdr 11/13 18:59 Order name: Labs collected and sent; Complete Time: 19:03 kdr 11/13 18:59 Order name: O2 Per Protocol; Complete Time: 19:03 kdr 11/13 18:59 Order name: O2 Sat Monitoring; Complete Time: 19:03 kdr 11/13 18:59 Order name: IV Saline Lock - Large Bore; Complete Time: 19:02 kdr 11/13 18:59 Order name: Urine Dipstick-Ancillary (obtain specimen); Complete Time: 19:56 kdr 11/13 21:53 Order name: CONS Pharmacy Consult EDMS 11/13 21:53 Order name: NPO EDAR Administered Medications: 20:44 Drug: NS 0.9% (30 ml/kg) 30 ml/kg {Note: Dr. Cruz stated to administer 1000mL only at [facility] this time. .} Route: IV; Rate: bolus; Site: [facility]; 21:47 Follow up: IV Status: Completed infusion; IV Intake: 1000ml ak1 22:10 Follow up: IV Status: Order to discontinue infusion; Order to discontinue infusion. Dr. luis eduardo Thomas stated only 1000mL to be infused. 20:44 Drug: Rocephin - (cefTRIAXone) 1 grams Route: IVPB; Infused Over: 30 mins; Site: left [address]; 22:10 Follow up: IV Status: Completed infusion ak 20:44 Drug: Rocephin - (cefTRIAXone) 1 grams Route: IVPB; Infused Over: 30 mins; Site: [address]; 22:10 Follow up: IV Status: Completed infusion ak1 21:06 Drug: Tylenol Suppository 650 mg Route: SC; ak1 21:17 Follow up: Response: No adverse reaction ak1 21:27 Drug: Cardizem 10 mg Route: IVP; Site: left [facility]; ak1 21:46 Follow up: Response: No adverse reaction ak1 Disposition: 11/13/18 21:20 Hospitalization ordered by José Lius Dockery for Observation. Preliminary diagnosis are acute AMS, fever, hyperchloremia, Hyperosmolality and hypernatremia, anemia, Atrial fibrillation and flutter. - Bed requested for Telemetry/MedSurg (observation). - Status is Observation. ak1 - Condition is Stable. - Problem is new. - Symptoms have improved. UTI on Admission? No Signatures: Dispatcher [employer] EDGabi Wesley RN VLADIMIR Leigh Ann Taylor RN Hiren Aguilar MD MD [facility] Gisela Licea RN RN [facility] Shahriar Thomas MD MD nh Corrections: (The following items were deleted from the chart) 21:17 18:59 Accucheck ordered. [facility] ak1 22:08 21:20 Hospitalization Ordered by José Luis Dockery MD for Observation. Preliminary diagnosis is acute AMS; fever; hyperchloremia; Hyperosmolality and hypernatremia; anemia; Atrial fibrillation and flutter. Bed requested for Telemetry/MedSurg (observation). Status is Observation. Condition is Stable. Problem is new. Symptoms have improved. UTI on Admission? No. nh 22:48 22:08 11/13/2018 21:20 Hospitalization Ordered by José Luis Dockery MD for Observation. ak Preliminary diagnosis is acute AMS; fever; hyperchloremia; Hyperosmolality and hypernatremia; anemia; Atrial fibrillation and flutter. Bed requested for Telemetry/MedSurg (observation). Status is Observation. Condition is Stable. Problem is new. Symptoms have improved. UTI on Admission? No.
[2018-11-13] MEDS ORDERED: dilTIAZem HCl 25 MG/5 ML VIAL IV ONE (21:23)
[2018-11-13] MEDS ORDERED: MORPHINE 2 MG/ML SYR IV PRN (21:50)
[2018-11-13] MEDS ORDERED: ONDANSETRON 4 MG/2 ML VIAL IV PRN (21:50)
[2018-11-13] MEDS ORDERED: levoFLOXacin 500 MG TAB PO SCH (23:00)
[2018-11-13 23:07] VITALS: BMI 24.0
[2018-11-13] MEDS: D5W 1,000 ML IV SCH (23:58)
[2018-11-14 05:58] LABS: Hematocrit 24.7 % (36.0-45.0); Lymphocytes % 16.9 % (15.3-44.8); MPV 9.6 fL (7.6-11.3)
[2018-11-14 06:16] LABS: Albumin 1.8 g/dL (3.4-5.0); Bilirubin Total 0.2 mg/dL (0.2-1.0); Potassium 3.8 mmol/L (3.5-5.1); Protein, Total 5.5 g/dL (6.4-8.2)
[2018-11-14 07:47] LABS: Urine Bacteria <20 /HPF (<20); Urine RBC <5 /HPF (NONE SEEN)
[2018-11-14 08:01] LABS: Urine Culture Reflex Order NOT NEEDED
[2018-11-14] MEDS: VANCOMYCIN 1.25 GM in NA CHLORIDE 0.9% 250 ML IVPB SCH (09:28)
--- NOTE | 2018-11-14 11:23 | P.HP ---
Certification for Inpatient Patient admitted to: Observation With expected LOS: <2 Midnights Patient will require the following post-hospital care: None Practitioner: I am a practitioner with admitting privileges, knowledge of patient current condition, hospital course, and medical plan of care. Services: Services provided to patient in accordance with Admission requirements found in Title 42 Section 412.3 of the Code of Federal Regulations Patient History Date of Service: 11/13/18 Reason for admission: FEVER/ALTERED MENTAL STATUS / DEHYDRATION /HYPERNATREMIA History of Present Illness: PATIENT IS A 78-YEAR-OLD FEMALE WHO CAME TO THE HOSPITAL WITH CONFUSION. PATIENT HAD ALTERED MENTATION. SHE WAS RECENTLY DISCHARGED FROM THE HOSPITAL WITH OSTEOMYELITIS. SHE WAS GIVEN VANCOMYCIN AND LEVAQUIN. PATIENT WAS CLINICALLY DOING MUCH BETTER. HOWEVER, WHEN SHE ARRIVED TO THE CORRECTION SHE WAS DOING WELL. HOWEVER, SHE STARTED RUNNING A FEVER OF 102 AND HER MENTATION BECAME ALTERED. THEY SENT HER BACK TO THE ER. IN THE ER HER SODIUM LEVEL IS ELEVATED. SHE APPEARS DEHYDRATED. AFTER HYDRATION NEUROLOGICALLY SHE IS DOING BETTER. REASSESSED HER THIS MORNING AND HER MENTATION IS MUCH IMPROVED. SHE IS INTERACTING MUCH MORE APPROPRIATELY. SHE WILL BE ADMITTED FOR OBSERVATION. Allergies adhesive Allergy (Mild, Verified 10/07/14 13:23) Rash codeine Allergy (Verified 10/07/14 13:23) Unknown Adhesives Allergy (Uncoded 12/02/17 16:21) Unknown Home Medications: Albuterol Neb [Proventil 0.083% Neb Soln] 1 inh IN Q6H PRN 11/14/18 Amiodarone HCl [Cordarone*] 200 mg PO DAILY 11/14/18 Apixaban [Eliquis] 5 mg PO BID 11/14/18 Buspirone HCl [Buspar*] 1 tab PO BEDTIME 11/14/18 Buspirone HCl [Buspar] 10 mg PO BID 11/14/18 Collagenase [Santyl Ointment*] 1 appl TOP DAILY 11/14/18 Escitalopram Oxalate [Lexapro] 5 mg PO BEDTIME 11/14/18 Furosemide [Lasix] 40 mg PO DAILY 11/14/18 Gabapentin 300 mg PO BEDTIME 11/14/18 Isosorbide Dinitrate [Isosorbide Dinitrate ER] 1 tab PO DAILY 11/14/18 Levofloxacin [Levaquin] 500 mg PO DAILY 11/14/18 Memantine HCl 10 mg PO DAILY 11/14/18 Metoprolol Succinate 12.5 mg PO DAILY 11/14/18 Mirtazapine [Remeron*] 15 mg PO BEDTIME 11/14/18 Pantoprazole [Protonix Tab*] 40 mg PO DAILY 11/14/18 Potassium Chloride 1 tab PO DAILY 11/14/18 Pravastatin Sodium 10 mg PO BEDTIME 11/14/18 Risperidone [Risperdal] 1 tab PO BEDTIME 11/14/18 Vancomycin/0.9 % Sod Chloride [Vanco 1.25 gm/250 ml-0.9% NaCl] 2.5 gm IV DAILY 11/14/18 - Past Medical/Surgical History Has patient received pneumonia vaccine in the past: Yes Diabetic: No -: stroke 10 yrs ago -: hypertension -: stents in leg and heart -: hysterectomy -: bilateral foot surgery - Family History Father Medical History: Cancer Notes: lung cancer Mother Medical History: Stroke Sister Medical History: Stroke - Social History Smoking Status: Never smoker Alcohol use: Yes CD- Drugs: No Caffeine use: Yes Place of Residence: [facility] Review of Systems 10-point ROS is otherwise unremarkable Physical Examination - Vital Signs Temperature: 96.8 F Blood Pressure: 103/60 Pulse: 97 Respirations: 15 Pulse Ox (%): 99 - Physical Exam General: Alert, In no apparent distress, Oriented x1, Cooperative HEENT: Atraumatic, PERRLA, Mucous membr. moist/pink, EOMI, Sclerae nonicteric Neck: Supple, 2+ carotid pulse no bruit, No LAD, Without JVD or thyroid abnormality Respiratory: Clear to auscultation bilaterally, Normal air movement Cardiovascular: Regular rate/rhythm, Normal S1 S2 Gastrointestinal: Normal bowel sounds, Soft and benign, Non-distended, No tenderness Musculoskeletal: No clubbing, No swelling, No tenderness Integumentary: No rashes Neurological: Normal speech, Sensation intact, Cranial nerves 3-12 intact, Normal affect, Abnormal strength Lymphatics: No axilla or inguinal lymphadenopathy - Studies Laboratory Data (last 24 hrs) 11/13/18 19:05: PT 19.9 H, INR 1.72, APTT 34.2 11/13/18 19:05: WBC 14.2 H D, Hgb 9.0 L, Hct 27.0 L, Plt Count 349 D 11/13/18 19:05: Sodium 150 H, Potassium 4.0, BUN 14, Creatinine 0.77, Glucose 92 , Magnesium 2.2, Total Bilirubin 0.2, AST 22, ALT 15, Alkaline Phosphatase 65, Lipase 120 Assessment & Plan - Problems (Diagnosis) (1) Fever Current Visit: Yes Status: Acute (2) Altered mental status Current Visit: Yes Status: Acute (3) Hypernatremia Current Visit: Yes Status: Acute (4) Pressure ulcer of ankle, right, unstageable Current Visit: No Status: Acute (5) COPD (chronic obstructive pulmonary disease) Onset Date: 12/03/17 Current Visit: No Status: Chronic Qualifiers: (6) Dementia Onset Date: 12/03/17 Current Visit: No Status: Chronic Qualifiers: (7) HTN (hypertension) Onset Date: 12/03/17 Current Visit: No Status: Chronic Qualifiers: - Plan -IV hydration -IV antibiotics -cultures are pending -check renal function and electrolytes -MRI of the brain -check thyroid studies and cortisol studies -bed check in place -physical therapy evaluation once mentation is improved -discuss code status with family Discharge Plan: Home Plan to discharge in: 24 Hours - Advance Directives Does patient have a Living Will: No Does patient have a Durable POA for Healthcare: No - Code Status/Comfort Care Code Status Assessed: Yes Code Status: Full Code Critical Care: No Time Spent Managing PTS Care (In Minutes): 45
--- NOTE | 2018-11-14 12:35 | EKG ---
Test Date: 2018-11-13 Test Time: 19:01:25 Coagulation Operator: LOBO MEASUREMENT RESULTS: Intervals: Rate: 124 NC: QRSD: 88 QT: 334 QTc: 479 [place]: P: NC: QRS: 59 T: 225 INTERPRETIVE STATEMENTS: Atrial flutter with variable AV block T wave abnormality, consider inferolateral ischemia Abnormal ECG Compared to ECG 11/13/2018 19:01:00 No significant changes Electronically Signed On 11-14-18 12:32:54 CDT by Abelardo Flanneyr
--- NOTE | 2018-11-14 12:35 | EKG ---
Test Date: 2018-11-13 Test Time: 19:01:00 Restaurant Server: LOBO MEASUREMENT RESULTS: Intervals: Rate: 116 ME: QRSD: 84 QT: 304 QTc: 422 [place]: P: ME: QRS: 61 T: 214 INTERPRETIVE STATEMENTS: Atrial flutter with variable AV block T wave abnormality, consider inferolateral ischemia Abnormal ECG Compared to ECG 11/07/2018 11:13:56 T-wave abnormality now present Atrial fibrillation no longer present ST (T wave) deviation no longer present Possible ischemia still present Electronically Signed On 11-14-18 12:32:55 CDT by Abelardo Flannery
[2018-11-14] MEDS: D5W 1,000 ML IV SCH (14:17)
--- NOTE | 2018-11-14 15:03 | P.PN ---
Subjective Date of Service: 11/14/18 Chief Complaint: FEVER/ALTERED MENTAL STATUS / DEHYDRATION /HYPERNATREMIA Patient seen and examined at bedside. Daughter at bedside. Chart reveiwed and case dsicused with nursing staff. Patient afebrile overnight, no complaints this am. Review of Systems 10-point ROS is otherwise unremarkable Physical Examination - Vital Signs Temperature: 97.6 F Blood Pressure: 113/62 Pulse: 122 Respirations: 18 Pulse Ox (%): 98 - Physical Exam General: In no apparent distress, Cachectic, Demented HEENT: Atraumatic, PERRLA, EOMI Neck: Supple, JVD not distended Respiratory: Clear to auscultation bilaterally, Normal air movement Cardiovascular: Normal S1 S2, Irregular heart rate/rhythm - Studies Laboratory Data (last 24 hrs) 11/13/18 19:05: PT 19.9 H, INR 1.72, APTT 34.2 11/13/18 19:05: WBC 14.2 H D, Hgb 9.0 L, Hct 27.0 L, Plt Count 349 D 11/13/18 19:05: Sodium 150 H, Potassium 4.0, BUN 14, Creatinine 0.77, Glucose 92 , Magnesium 2.2, Total Bilirubin 0.2, AST 22, ALT 15, Alkaline Phosphatase 65, Lipase 120 Assessment And Plan - Plan (1) Fever (2) Altered mental status (3) Hypernatremia (4) Pressure ulcer of ankle, right, unstageable (5) COPD (chronic obstructive pulmonary disease) (6) Dementia (7) HTN (hypertension) - Plan -IV hydration -IV antibiotics -cultures are pending -check renal function and electrolytes -check thyroid studies and cortisol studies -bed check in place -physical therapy evaluation once mentation is improved -discuss code status with family
[2018-11-14] MEDS ORDERED: METOPROLOL TARTRATE 5 MG/5 ML INJ IV STA (20:34)
[2018-11-14] MEDS: AMIODARONE HCL 200 MG TAB PO SCH (20:51)
[2018-11-14] MEDS ORDERED: HOME MED 1 EA UNK (Pravastatin Sodium [Pravastatin Sodium] 10 MG) PO SCH (21:00)
[2018-11-14] MEDS: RISPERIDONE 0.25 MG TABLET PO SCH (21:00)
[2018-11-14] MEDS ORDERED: HOME MED 1 EA UNK (Escitalopram Oxalate [Lexapro] 5 MG) PO SCH (21:00)
[2018-11-14] MEDS ORDERED: RISPERIDONE PO SCH (21:00)
[2018-11-14] MEDS: BUSPIRONE HCL 5 MG TABLET PO SCH ×2 (21:00)
[2018-11-14] MEDS ORDERED: HOME MED 1 EA UNK (Buspirone Hcl [Buspar] 10 MG) PO SCH (21:00)
[2018-11-14] MEDS: ESCITALOPRAM 20 MG TAB PO SCH (21:01)
[2018-11-14] MEDS: ATORVASTATIN 10 MG TAB PO SCH (21:01)
[2018-11-14] MEDS: GABAPENTIN 300 MG CAP PO SCH (21:01)
[2018-11-14] MEDS: APIXABAN 5 MG TABLET PO SCH (21:01)
[2018-11-14] MEDS: MIRTAZAPINE 15 MG TAB PO SCH (21:02)
[2018-11-14] MEDS: METOPROLOL TARTRATE 5 MG/5 ML INJ IV SCH ×2 (22:45→22:56)
[2018-11-15] MEDS: D5W 1,000 ML IV SCH ×3 (00:40→18:07)
[2018-11-15] MEDS ORDERED: HOME MED 1 EA UNK (Potassium Chloride [Potassium Chloride] 1 TAB) PO SCH (09:00)
[2018-11-15] MEDS ORDERED: AMIODARONE HCL 200 MG TAB PO SCH (09:00)
[2018-11-15] MEDS ORDERED: COLLAGENASE 30 GM OINTMENT TOP SCH (09:00)
[2018-11-15] MEDS ORDERED: ISOSORBIDE DINITRATE PO SCH (09:00)
[2018-11-15] MEDS: VANCOMYCIN 1.25 GM in NA CHLORIDE 0.9% 250 ML IVPB SCH (09:11)
[2018-11-15] MEDS: FUROSEMIDE 40 MG TABLET PO SCH (09:12)
[2018-11-15] MEDS: METOPROLOL XL 25 MG TAB PO SCH (09:12)
[2018-11-15] MEDS: MEMANTINE HCL 10 MG TABLET PO SCH (09:13)
[2018-11-15] MEDS: APIXABAN 5 MG TABLET PO SCH ×2 (09:13→21:09)
[2018-11-15] MEDS: PANTOPRAZOLE 40MG TABLET PO SCH (09:13)
[2018-11-15] MEDS: POTASSIUM CL SA 10 MEQ TAB PO SCH (09:13)
[2018-11-15] MEDS: BUSPIRONE HCL 5 MG TABLET PO SCH ×3 (09:19→21:09)
[2018-11-15] MEDS: AMIODARONE HCL 200 MG TAB PO SCH (09:19)
[2018-11-15 14:30] LABS: Hematocrit 11.7 % (36.0-45.0)
[2018-11-15 16:17] LABS: Hematocrit 29.5 % (36.0-45.0)
--- NOTE | 2018-11-15 16:49 | P.PN ---
Subjective Date of Service: 11/15/18 Chief Complaint: FEVER/ALTERED MENTAL STATUS / DEHYDRATION /HYPERNATREMIA Subjective: Improving Patient seen and examined at bedside. Daughter at bedside. Chart reveiwed and case dsicused with nursing staff. Patient afebrile overnight, no complaints this am. Review of Systems 10-point ROS is otherwise unremarkable Physical Examination - Vital Signs Temperature: 97.9 F Blood Pressure: 130/76 Pulse: 96 Respirations: 18 Pulse Ox (%): 96 - Physical Exam General: In no apparent distress, Cachectic, Demented (At baseline) HEENT: Atraumatic, PERRLA, EOMI Neck: Supple, JVD not distended Respiratory: Clear to auscultation bilaterally, Normal air movement Cardiovascular: Regular rate/rhythm, Normal S1 S2 Gastrointestinal: Normal bowel sounds, No tenderness Musculoskeletal: No tenderness Integumentary: No rashes Neurological: Normal speech, Normal tone, Normal affect Lymphatics: No axilla or inguinal lymphadenopathy Assessment And Plan - Plan (1) Fever - resolved, afebrile since in hospital. (2) Altered mental status - resolved, back to baseline (3) Hypernatremia - improving (4) Pressure ulcer of ankle, right, unstageable (5) COPD (chronic obstructive pulmonary disease) (6) Dementia (7) HTN (hypertension) - Plan -continued IV hydration -continue IV antibiotics -cultures negative till date -bed check in place -physical therapy evaluation once mentation is improved Disposition: Anticipate discharge back to the [facility] in the next 24 hr.
[2018-11-15] MEDS: ATORVASTATIN 10 MG TAB PO SCH (21:08)
[2018-11-15] MEDS: ESCITALOPRAM 20 MG TAB PO SCH (21:08)
[2018-11-15] MEDS: RISPERIDONE 0.25 MG TABLET PO SCH (21:08)
[2018-11-15] MEDS: MIRTAZAPINE 15 MG TAB PO SCH (21:09)
[2018-11-15] MEDS: GABAPENTIN 300 MG CAP PO SCH (21:09)
[2018-11-16] MEDS: D5W 1,000 ML IV SCH ×2 (05:21→17:13)
[2018-11-16 05:42] LABS: Absolute Lymphocytes (CBC) 2.5 K/uL (0.7-4.9); Basophils % 0.5 % (0-1.3); Hematocrit 31.8 % (36.0-45.0); Lymphocytes % 19.1 % (15.3-44.8); MPV 9.1 fL (7.6-11.3); RBC Red Blood Cell Count 3.24 M/uL (3.86-4.86)
[2018-11-16 05:57] LABS: Potassium 3.9 mmol/L (3.5-5.1)
[2018-11-16] MEDS: VANCOMYCIN 1.25 GM in NA CHLORIDE 0.9% 250 ML IVPB SCH (09:00)
[2018-11-16] MEDS: APIXABAN 5 MG TABLET PO SCH ×2 (09:00→20:48)
[2018-11-16] MEDS: PANTOPRAZOLE 40MG TABLET PO SCH (09:20)
[2018-11-16] MEDS: METOPROLOL XL 25 MG TAB PO SCH (09:21)
[2018-11-16] MEDS: FUROSEMIDE 40 MG TABLET PO SCH (09:21)
[2018-11-16] MEDS: BUSPIRONE HCL 5 MG TABLET PO SCH ×3 (09:22→20:48)
[2018-11-16] MEDS: POTASSIUM CL SA 10 MEQ TAB PO SCH (09:22)
[2018-11-16] MEDS: AMIODARONE HCL 200 MG TAB PO SCH (09:23)
[2018-11-16] MEDS: MEMANTINE HCL 10 MG TABLET PO SCH (09:23)
--- NOTE | 2018-11-16 11:30 | P.PN ---
Subjective Date of Service: 11/16/18 Chief Complaint: FEVER/ALTERED MENTAL STATUS / DEHYDRATION /HYPERNATREMIA Patient seen and examined at bedside. Daughter at bedside. Chart reveiwed and case dsicused with nursing staff. Patient afebrile overnight, Patient went diarrhea, multiple episodes. C diff sent and pending. Review of Systems 10-point ROS is otherwise unremarkable Physical Examination - Vital Signs Temperature: 97.8 F Blood Pressure: 134/74 Pulse: 132 Respirations: 18 Pulse Ox (%): 93 - Physical Exam General: In no apparent distress, Cachectic, Demented HEENT: Atraumatic, PERRLA, EOMI Neck: Supple, JVD not distended Respiratory: Clear to auscultation bilaterally, Normal air movement Cardiovascular: Regular rate/rhythm, Normal S1 S2 Gastrointestinal: Normal bowel sounds, No tenderness - Studies Microbiology Data (last 24 hrs): 11/13/18 19:36 Catheterized Urine [place] Count - Final 11/13/18 19:36 Catheterized Urine - Final No growth. Assessment And Plan - Plan (1) Fever - resolved, afebrile since in hospital. (2) Altered mental status - resolved, back to baseline (3) Hypernatremia - resolved. (4) Pressure ulcer of ankle, right, unstageable (5) COPD (chronic obstructive pulmonary disease) (6) Dementia (7) HTN (hypertension) (8) diarrhea - Plan -continued IV hydration -continue IV antibiotics -cultures negative till date -bed check in place -physical therapy evaluation -pending C. diff Disposition: Anticipate discharge back to the [facility] in the next 24 hr.
--- NOTE | 2018-11-16 12:43 | EKG ---
Test Date: 2018-11-14 Test Time: 22:13:09 Lens Shaper Grinder: MEASUREMENT RESULTS: Intervals: Rate: 135 ID: QRSD: [id number] QT: 344 QTc: 516 [place]: P: ID: QRS: [id number] T: 192 INTERPRETIVE STATEMENTS: Atrial fibrillation with rapid ventricular response ST & T wave abnormality, consider lateral ischemia or digitalis effect Abnormal ECG Compared to ECG 11/13/2018 19:01:25 ST (T wave) deviation now present Atrial flutter no longer present T-wave abnormality no longer present Possible ischemia still present Electronically Signed On 11-16-18 07:13:50 CDT by Abelardo Flannery
[2018-11-16] MEDS: RISPERIDONE 0.25 MG TABLET PO SCH (20:47)
[2018-11-16] MEDS: ESCITALOPRAM 20 MG TAB PO SCH (20:47)
[2018-11-16] MEDS: GABAPENTIN 300 MG CAP PO SCH (20:48)
[2018-11-16] MEDS: MIRTAZAPINE 15 MG TAB PO SCH (20:48)
[2018-11-16] MEDS: ATORVASTATIN 10 MG TAB PO SCH (20:48)
[2018-11-16] MEDS ORDERED: ALTEPLASE 2 MG/VIAL IV SCH ×2 (23:00→23:45)
[2018-11-16] MEDS ORDERED: ALTEPLASE 2 MG/VIAL IV ONE (23:27)
[2018-11-16] MEDS ORDERED: WATER FOR INJ,STERILE 10 ML ONE (23:28)
[2018-11-17] MEDS: D5W 1,000 ML IV SCH (05:04)
[2018-11-17 05:16] LABS: Absolute Lymphocytes (CBC) 1.5 K/uL (0.7-4.9); Hematocrit 25.6 % (36.0-45.0); Lymphocytes % 11.3 % (15.3-44.8); RBC Red Blood Cell Count 2.62 M/uL (3.86-4.86)
[2018-11-17 05:24] LABS: Potassium 4.2 mmol/L (3.5-5.1)
[2018-11-17] MEDS: METOPROLOL XL 25 MG TAB PO SCH (09:03)
[2018-11-17] MEDS: AMIODARONE HCL 200 MG TAB PO SCH (09:04)
[2018-11-17] MEDS: BUSPIRONE HCL 5 MG TABLET PO SCH ×3 (09:05→22:53)
[2018-11-17] MEDS: FUROSEMIDE 40 MG TABLET PO SCH (09:05)
[2018-11-17] MEDS: POTASSIUM CL SA 10 MEQ TAB PO SCH (09:07)
[2018-11-17] MEDS: PANTOPRAZOLE 40MG TABLET PO SCH (09:08)
[2018-11-17] MEDS: MEMANTINE HCL 10 MG TABLET PO SCH (09:08)
[2018-11-17] MEDS: APIXABAN 5 MG TABLET PO SCH ×2 (09:09→22:51)
--- NOTE | 2018-11-17 16:28 | P.PN ---
Subjective Date of Service: 11/17/18 Chief Complaint: FEVER/ALTERED MENTAL STATUS / DEHYDRATION /HYPERNATREMIA Patient seen and examined at bedside. Daughter at bedside. Chart reviewed and case discussed with nursing staff. Patient afebrile overnight, Patient had diarrhea, multiple episodes. C diff negative. Patient continues to have diarrhea, though improved. Review of Systems 10-point ROS is otherwise unremarkable Physical Examination - Vital Signs Temperature: 97.3 F Blood Pressure: 115/62 Pulse: 116 Respirations: 18 Pulse Ox (%): 98 - Physical Exam General: Alert, In no apparent distress, Demented HEENT: Atraumatic, PERRLA, EOMI Neck: Supple, JVD not distended Respiratory: Clear to auscultation bilaterally, Normal air movement Cardiovascular: Regular rate/rhythm, Normal S1 S2 Gastrointestinal: Normal bowel sounds, No tenderness Musculoskeletal: No tenderness Integumentary: No rashes Neurological: Normal speech, Normal tone, Normal affect Lymphatics: No axilla or inguinal lymphadenopathy - Studies Microbiology Data (last 24 hrs): 11/15/18 18:56 Stool Clostridioides difficile Toxin Assay - Final Assessment And Plan - Plan (1) Fever - resolved, afebrile since in hospital. (2) Altered mental status - resolved, back to baseline (3) Hypernatremia - resolved. (4) Pressure ulcer of ankle, right, unstageable (5) COPD (chronic obstructive pulmonary disease) (6) Dementia (7) HTN (hypertension) (8) diarrhea- improved, almost resolved. (9) anemia, likely chronic for CC acute blood loss. Stool occult is positive. No GI on-call, if hemoglobin continues to drop, may need further GI intervention Plan -continued IV hydration -continue IV antibiotics -cultures negative till date -bed check in place -physical therapy evaluation - remains complete assist -negative C. diff -monitor H&H Disposition: Anticipate discharge back to the [facility] once clinically stable. Discharge Plan: Long Term
[2018-11-17] MEDS ORDERED: VANCOMYCIN 1.25 GM in NA CHLORIDE 0.9% 250 ML IVPB SCH (21:00)
[2018-11-17] MEDS: GABAPENTIN 300 MG CAP PO SCH (22:51)
[2018-11-17] MEDS: ATORVASTATIN 10 MG TAB PO SCH (22:52)
[2018-11-17] MEDS: RISPERIDONE 0.25 MG TABLET PO SCH (22:52)
[2018-11-17] MEDS: JUVEN PACKET PO SCH (22:58)
[2018-11-17] MEDS: MIRTAZAPINE 15 MG TAB PO SCH (23:03)
[2018-11-17] MEDS: ESCITALOPRAM 20 MG TAB PO SCH (23:03)
[2018-11-18 05:35] LABS: Absolute Lymphocytes (CBC) 1.5 K/uL (0.7-4.9); Basophils % 0.8 % (0-1.3); Hematocrit 24.6 % (36.0-45.0); Lymphocytes % 13.4 % (15.3-44.8); MPV 8.4 fL (7.6-11.3); RBC Red Blood Cell Count 2.51 M/uL (3.86-4.86)
[2018-11-18 05:43] LABS: Potassium 4.4 mmol/L (3.5-5.1)
[2018-11-18 07:57] LABS: Hematocrit 24.1 % (36.0-45.0)
[2018-11-18] MEDS: FUROSEMIDE 40 MG TABLET PO SCH (09:42)
[2018-11-18] MEDS: JUVEN PACKET PO SCH ×2 (09:42→21:10)
[2018-11-18] MEDS: MEMANTINE HCL 10 MG TABLET PO SCH (09:42)
[2018-11-18] MEDS: APIXABAN 5 MG TABLET PO SCH (09:43)
[2018-11-18] MEDS: POTASSIUM CL SA 10 MEQ TAB PO SCH (09:43)
[2018-11-18] MEDS: BUSPIRONE HCL 5 MG TABLET PO SCH ×3 (09:43→21:06)
[2018-11-18] MEDS: PANTOPRAZOLE 40MG TABLET PO SCH (09:44)
[2018-11-18] MEDS: METOPROLOL XL 25 MG TAB PO SCH (09:44)
[2018-11-18] MEDS: AMIODARONE HCL 200 MG TAB PO SCH (09:46)
[2018-11-18] MEDS ORDERED: VANCOMYCIN 1.25 GM in NA CHLORIDE 0.9% 250 ML IVPB SCH (13:00)
[2018-11-18] MEDS ORDERED: PNEUMOCOCCAL VACCINE 0.5 ML IMVAC ONE (16:00)
--- NOTE | 2018-11-18 18:18 | PN ---
Date of Progress Note: 11/18/2018 Subjective: Patient is seen and examined. Chart reviewed and case discussed with RN. Patient is demented. No acute events overnight. Medications: List reviewed. Code status: Full Physical Examination: Vital Signs: Temperature 97.8, heart rate 71, blood pressure 118/57, respirations 17, O2 95% on 2 L via nasal cannula. General: Awake, alert, oriented to self, elderly female, not in any acute distress. CV: S1, S2. Irregularly irregular rhythm. Respiratory: Diminished breath sounds at the bases, otherwise moving air well at the apices. No wheezing. Gastrointestinal: Abdomen is soft, nontender, nondistended. Positive bowel sounds. Extremities: No clubbing, cyanosis, or edema. Neuro: Patient has abnormal strength. Speech is normal. Laboratory Data: WBC 11.2, H and H are 7.9 and 24.6, platelets 349. Repeat H and H are 7.9 and 24.1. Sodium 140, potassium 4.4, chloride 107, CO2 of 29, BUN 12, creatinine 1.82, glucose 83, calcium 7.9. Hemoccult blood is positive. C diff assay is negative. Blood cultures, no growth to date. Urine culture also no growth. Assessment And Plan: A 78-year-old female with: 1. Fever, unclear etiology. Patient has been afebrile since being admitted. 2. Acute metabolic encephalopathy, likely related to current medical status and hypernatremia. Apparently, back to baseline. Patient has dementia. 3. Hypernatremia, resolved. We will continue to monitor sodium levels. 4. Right ankle pressure ulcer, unstageable. We will continue with offloading. Continue wound care. 5. Anemia, likely acute on chronic, secondary to blood loss. Hemoccult stool was positive. We will consult GI. Monitor H and H. We will hold Eliquis for now. 6. Diarrhea, improving. Clostridium difficile is negative. 7. Essential hypertension, stable. 8. Alzheimer's dementia early onset without behavioral disturbance. We will continue home medications. 9. Chronic obstructive pulmonary disease, chronic bronchitis. 10. History of cerebrovascular accident with residual weakness. 11. Atrial fibrillation, chronic. Patient is on Eliquis. We will place on hold due to anemia. 12. Deep vein thrombosis prophylaxis. No chemical anticoagulation due to anemia. GI consultation. SA/MODL Voice ID: [id number] Report ID: [id number] [id number]
[2018-11-18] MEDS ORDERED: MAGNESIUM CITRATE 300 ML BOT PO SCH (20:00)
[2018-11-18] MEDS ORDERED: GOLYTELY 4000 ML PO SCH (20:00)
[2018-11-18] MEDS: ESCITALOPRAM 20 MG TAB PO SCH (21:06)
[2018-11-18] MEDS: ATORVASTATIN 10 MG TAB PO SCH (21:06)
[2018-11-18] MEDS: GABAPENTIN 300 MG CAP PO SCH (21:08)
[2018-11-18] MEDS: RISPERIDONE 0.25 MG TABLET PO SCH (21:08)
[2018-11-18] MEDS: MIRTAZAPINE 15 MG TAB PO SCH (21:08)
[2018-11-19 04:55] LABS: Absolute Lymphocytes (CBC) 1.7 K/uL (0.7-4.9); Hematocrit 22.5 % (36.0-45.0); Lymphocytes % 17.2 % (15.3-44.8); MPV 8.4 fL (7.6-11.3); RBC Red Blood Cell Count 2.31 M/uL (3.86-4.86)
[2018-11-19 05:21] LABS: Potassium 4.7 mmol/L (3.5-5.1)
[2018-11-19] MEDS ORDERED: FLEET ENEMA ADULT PR ONE (06:12)
[2018-11-19] MEDS: PANTOPRAZOLE 40MG TABLET PO SCH (07:30)
[2018-11-19] MEDS: MEMANTINE HCL 10 MG TABLET PO SCH (08:54)
[2018-11-19] MEDS: BUSPIRONE HCL 5 MG TABLET PO SCH ×3 (08:54→21:16)
[2018-11-19] MEDS: AMIODARONE HCL 200 MG TAB PO SCH ×2 (08:54→09:22)
[2018-11-19] MEDS: JUVEN PACKET PO SCH ×2 (08:54→21:00)
[2018-11-19] MEDS: METOPROLOL XL 25 MG TAB PO SCH ×2 (08:54→09:22)
[2018-11-19] MEDS: POTASSIUM CL SA 10 MEQ TAB PO SCH (08:54)
[2018-11-19] MEDS ORDERED: NA CHLORIDE 0.9% 500 ML ONE (11:59)
[2018-11-19] MEDS ORDERED: LIDOCAINE 1% MPF 5 ML VIAL ONE (12:20)
[2018-11-19] MEDS ORDERED: PROPOFOL 200 MG/20 ML VIAL IV ONE (12:20)
--- NOTE | 2018-11-19 12:46 | ENDO RPT ---
[address], [address] EGD PROCEDURE REPORT EXAM DATE: 11/19/2018 PATIENT NAME: Monique Bocanegra MR#: [id number] BIRTHDATE: 1940 ATTENDING: Shahriar Medeiros Dr STATUS: inpatient - 7 DIPPER CLOCK AND WATCH HANDS: Gloria Dyson RN, Khloe Bacon RN, and Chelsea Jenkins INDICATIONS: The patient is a 78 yr old Female here for an EGD due to anemia and chronic unexplained diarrhea PROCEDURE PERFORMED: EGD with biopsy MEDICATIONS: Per Anesthesia. TOPICAL ANESTHETIC: none CONSENT: The patient understands the risks and benefits of the procedure and understands that these risks include, but are not limited to: sedation, allergic reaction, infection, perforation and/or bleeding. Alternative means of evaluation and treatment include, among others: physical exam, x-rays, and/or surgical intervention. The patient elects to proceed with this endoscopic procedure. DESCRIPTION OF PROCEDURE: During intra-op preparation period all mechanical medical equipment was checked for proper function. Hand hygiene and appropriate measures for infection prevention was taken. Procedure, possible complications, and alternatives including but not limited to the possibility of bleeding, perforation, tear, infection, sepsis, need for surgery, need for blood transfusion, and anesthesia related complications were explained to the patient. After the risks, benefits and alternatives of the procedure were thoroughly explained, Informed consent was verified, confirmed and timeout was successfully executed by the treatment team. The patient was placed in the left lateral position. The patient was anesthetized with topical anesthesia. Through the anesthetized oropharyngeal area, the scope was passed without any difficulty. The Pentax EG-[id number] ([id number]) endoscope was introduced through the mouth and advanced to the second portion of the duodenum. Retroflexed views revealed a moderate sized hiatal hernia. The gastroscope was then slowly withdrawn and removed. A stricture was found in the upper esophagus. A moderate sized hiatal hernia was found Mild gastritis was found in the antrum. Multiple biopsies were obtained and sent to pathology. Small bowel biopsies obtained with history of chronic unexplained diarrhea. ADVERSE EVENTS: There were no complications. IMPRESSIONS: 1. Severe stricture at the upper esophageal sphincter level, just able to pass with pressure and twist on endoscope - mild dilatation 2. Moderate sized hiatal hernia 3. Mild gastritis in the antrum, s/p biopsies 4. Small bowel biopsies obtained with history of chronic unexplained diarrhea RECOMMENDATIONS: 1. await biopsy results 2. acid suppression therapy REPEAT EXAM: Shahriar Medeiros Dr eSigned: Shahriar Medeiros Dr 11/19/2018 12:46 PM cc: CPT CODES: ICD9 CODES: PATIENT NAME: Monique Bocanegra MR#: [id number]
[2018-11-19 14:13] LABS: Hematocrit 25.7 % (36.0-45.0)
[2018-11-19] MEDS ORDERED: NA CHLORIDE 0.9% 1,000 ML IV SCH (16:00)
[2018-11-19] MEDS: NA CHLORIDE 0.9% 1,000 ML IV SCH (18:00)
--- NOTE | 2018-11-19 18:18 | PN ---
Date of Progress Note: 11/19/2018 Subjective: Patient seen and examined, chart reviewed, and case discussed with RN and Dr. Medeiros. Patient does not have any specific complaints, going for EGD today. Patient was found to have a stricture, was dilated. No gastritis or focus of bleeding found. Medications: List reviewed. Physical Examination: Vital Signs: Temperature 98.2, heart rate 69, blood pressure 156/71, respirations 16, O2 97% on room air. General: Awake, alert, oriented x1, not in any acute distress, elderly female. CV: S1, S2. Irregularly irregular rhythm. Peripheral pulses weak. Respiratory: Moving air well bilaterally. Gastrointestinal: Abdomen is soft, nontender, nondistended. Positive bowel sounds. No guarding or rigidity. Extremities: No clubbing, cyanosis, or edema. Neurologic: Nonfocal. Laboratory Data: Sodium 142, potassium 4.7, chloride 109, CO2 of 29, BUN 20, creatinine 2.16, glucose 80, and calcium 8. WBC 9.9, H and H 7.3 and 22.5, platelets 324. Blood cultures, no growth to date. Ova and parasites and stool cultures are pending. Hemoccult blood is positive. Assessment: A 78-year-old female with: 1. Fever, unclear etiology, now afebrile since being admitted. White blood cell count normal. 2. Acute metabolic encephalopathy, likely related to current medical condition and electrolyte abnormalities. Apparently, back to baseline. Patient does have dementia. 3. Hypernatremia, resolved. 4. Anemia, acute on chronic, secondary to blood loss. Hemoccult stools positive. Status post EGD. Patient was unable to tolerate the prep and colonoscopy was not able to be done. EGD showed stricture. Patient was dilated. There was no source of bleeding. 5. Right ankle pressure ulcer, unstageable. Continue with offloading and wound care. 6. Diarrhea, improving. Clostridium difficile is negative. Stool culture and ova and parasites are pending. 7. Essential hypertension, stable. 8. Alzheimer dementia, early onset without behavioral disturbance. Continue with home medications. 9. Chronic obstructive pulmonary disease, chronic bronchitis. 10. History of cerebrovascular accident with residual weakness. 11. Atrial fibrillation, chronic. We will resume Eliquis once H and H are more stable. 12. Deep vein thrombosis prophylaxis. SCDs. No chemical anticoagulation due to bleed. Plan: Repeat H and H. Obtain iron studies. Transfuse PRBCs if hemoglobin less than 7 and then likely discharge to nursing facility in a.m. once H and H are more stable. /HOA Voice ID: [id number] Report ID: [id number] OLGA
--- NOTE | 2018-11-19 20:45 | RAD REPORT ---
EXAM DESCRIPTION: Sosa Single View11/19/2018 8:34 pm CLINICAL HISTORY: Shortness of breath COMPARISON: November 13, 2018 FINDINGS: The lungs appear clear of acute infiltrate. The heart is moderately enlarged. A PICC line has tip in superior vena cava IMPRESSION: No acute abnormalities displayed
[2018-11-19] MEDS: ATORVASTATIN 10 MG TAB PO SCH (21:16)
[2018-11-19] MEDS: MIRTAZAPINE 15 MG TAB PO SCH (21:16)
[2018-11-19] MEDS: ESCITALOPRAM 20 MG TAB PO SCH (21:16)
[2018-11-19] MEDS: GABAPENTIN 300 MG CAP PO SCH (21:17)
[2018-11-19] MEDS: RISPERIDONE 0.25 MG TABLET PO SCH (21:17)
--- NOTE | 2018-11-19 21:25 | CON ---
Date of Consultation: 11/19/2018 Reason For Consultation: Elevated BUN and creatinine. History Of Present Illness: This is a pleasant 78-year-old female. All the information has been obt ained from the record as the patient is confused. This is a 78-year-old female with significant past medical history of hypertension, hyperlipidemia, CVA, coronary artery disease status post PTCA. Annie cuello recently admitted to the hospital with osteomyelitis. Patient was placed on Levaquin and vancom ycin. Apparently, patient readmitted to the hospital because of altered mental status and hypernatre razia. Patient was admitted on November . Upon discharge from previous admission, her kidney function within normal limit. When patient arrived, her creatinine was raised up to 1.4, on previous admission was 0.8. Her GFR was 69, on readmission is 34 with again hypernatremia, sodium up to 150. Gradually kidney functions started declining. Currently creatinine 2.1, GFR of 22. Patient had va ncomycin trough of 25 on admission. Currently, repeated vancomycin trough down to 18. Patient had a ltered mental status, poor intake. Past Medical History: Includes: 1.Coronary artery disease. 2.Hypertension. 3.Hyperlipidemia. 4.Osteomyelitis. 5.CVA. Social History: [place]. Denies smoking. Denies drinking. Denies drugs abuse. Review of Systems: Unobtainable. Allergies: TO ADHESIVE AND CODEINE. Medications: [facility] medications include albuterol, amiodarone, buspirone, citalopram, Lasix 40 , gabapentin, isosorbide, Levaquin, Namenda, metoprolol, pantoprazole, vancomycin, risperidone. Current medications the patient is on includes amiodarone, atorvastatin, metoprolol, Tylenol, buspiro ne, mirtazapine, normal saline at 75 per hour. Past Surgical History: Includes PTCA, hysterectomy, bilateral foot surgery. Physical Examination: General: When I saw the patient, patient was lying in bed. Vital Signs: Blood pressure 143/65, pulse of 62. Reviewing the record, there is no blood pressure o n the readmission. Chest: Clear to auscultation. Heart: S1, S2. Regular. Abdomen: Soft, nontender. Extremities: No edema. Dressing on the left foot. Laboratory Data: Vancomycin trough on the 4th was 25. Sodium 142, potassium 4.7, bicarb 29, BUN 20, creatinine 2.1, calcium of 8, T-sat of 10. BNP 107. Procalcitonin 0.1. WBC 9.9, H and H 7.3/22.5, platelets of 325. Urinalysis, specific gravity more than 01/1930. Negative for infection. Assessment And Plan: 1.Acute kidney injury, multifactorial, secondary to prerenal superimposed with diuresis with toxic a cute tubular necrosis secondary to vancomycin toxicity. Looks to me the patient still on the dry daniele e. I am going to increase IV fluid to 100 per hour and I am going to go ahead and send for full work up given the decline in H and H. 2.Altered mental status. I am going to send for LDH and haptoglobin to rule out any intravascular h emolysis and we will follow up. Keep holding Lasix and PATTI inhibitor for the time being. 3.Hypernatremia, improving. I am going to increase IV fluid to 100 per hour and we will follow up t he patient. 4.Osteomyelitis. Antibiotic has been discontinued. We will follow up with primary. 5.Hypertension. Given the acute kidney injury, hold the Lasix, hold the PATTI inhibitor. MA/MODL Voice ID: [id number] Report ID: [id number]
[2018-11-20 01:02] LABS: Urine Protein/Creatinine Ratio 0.68 ratio (<0.15)
[2018-11-20] MEDS: NA CHLORIDE 0.9% 1,000 ML IV SCH ×2 (02:37→04:00)
[2018-11-20 05:24] LABS: Absolute Lymphocytes (CBC) 1.2 K/uL (0.7-4.9); Basophils % 0.7 % (0-1.3); Hematocrit 27.6 % (36.0-45.0); Lymphocytes % 15.6 % (15.3-44.8); MPV 8.3 fL (7.6-11.3); RBC Red Blood Cell Count 2.85 M/uL (3.86-4.86)
[2018-11-20 05:49] LABS: Albumin 1.8 g/dL (3.4-5.0); Phosphorus 4.9 mg/dL (2.5-4.9); Potassium 4.3 mmol/L (3.5-5.1); Thyroid Stimulating Hormone 2.39 uIU/mL (0.360-3.740); Uric Acid 6.5 mg/dL (2.6-6.0)
[2018-11-20 08:42] LABS: Rheumatoid Factor NEG (NEG)
[2018-11-20] MEDS: JUVEN PACKET PO SCH ×2 (09:00→20:48)
[2018-11-20] MEDS: PANTOPRAZOLE 40MG TABLET PO SCH (09:41)
[2018-11-20] MEDS: AMIODARONE HCL 200 MG TAB PO SCH (09:41)
[2018-11-20] MEDS: BUSPIRONE HCL 5 MG TABLET PO SCH ×3 (09:41→20:47)
[2018-11-20] MEDS: METOPROLOL XL 25 MG TAB PO SCH (09:41)
[2018-11-20] MEDS: MEMANTINE HCL 10 MG TABLET PO SCH (09:42)
[2018-11-20] MEDS: POTASSIUM CL SA 10 MEQ TAB PO SCH (09:42)
--- NOTE | 2018-11-20 09:43 | RAD REPORT ---
EXAM DESCRIPTION: US - Renal Ultrasound-Complete - 11/20/2018 9:12 am CLINICAL HISTORY: Acute renal insufficiency COMPARISON: None. FINDINGS: The right kidney measures 10 cm with an increased echotexture. The left kidney measures 10 cm with an increased echotexture. Hydronephrosis is not seen. A Jason catheter is present within a collapsed bladder IMPRESSION: Increased renal echotexture consistent with parenchymal disease
[2018-11-20] MEDS ORDERED: levoFLOXacin 250 MG TAB PO SCH (12:41)
[2018-11-20] MEDS: D5 0.45 NS 1,000 ML IV SCH (14:00)
[2018-11-20] MEDS: IRON SUCROSE 200 MG in NA CHLORIDE 0.9% 250 ML IV SCH (15:00)
--- NOTE | 2018-11-20 17:14 | PN ---
Date of Progress Note: 11/20/2018 Subjective: Patient is seen and examined. Chart reviewed and case discussed with RN and Dr. Jezry guo. Patient does not have any complaints, doing well overall. Medications: Medication list reviewed. Physical Examination: Vital Signs: Temperature 97.3, heart rate 72, blood pressure 135/65, respirations 16, O2 98% on 2 L via nasal cannula. General: Awake, alert, oriented to self. Elderly female, demented. Cardiovascular: S1, S2. Regular rate and rhythm. Peripheral pulses weak bilaterally. Respiratory: Moving air well bilaterally. No wheezing or stridor. Gastrointestinal: Abdomen is soft, nontender, nondistended. Positive bowel sounds. Extremities: No clubbing, cyanosis, or edema. Neurologic: Nonfocal. Laboratory Data: WBC 7.4, H and H 8.9 and 27.6, platelets 280. Sodium 145, potassium 4.3, chloride 112, CO2 28, BUN 29, creatinine 2.11, glucose 76, calcium 8, phosphorus 4.9, albumin 1.9, TSH 2.39. Previous wound cultures from the left leg on 11/06/2018 grew out Klebsiella pneumonia and Staph aureu s, which is methicillin sensitive. Repeat blood cultures are negative to-date. Severe renal ultrasound shows increased renal echotexture consistent with parenchymal disease. Assessment: 78-year-old female with: 1.Acute metabolic encephalopathy resolved back to her baseline, likely secondary to electrolyte abno rmality and left leg infection. 2.Fever, resolved. Patient is afebrile, likely secondary to wound from the left leg. Patient's ant ibiotics were adjusted. Vancomycin was discontinued due to worsening kidney function. We will roxanne nue with oral Levaquin. 3.Hypernatremia, corrected. We will continue to monitor. 4.Acute kidney injury, likely related to toxic acute tubular necrosis. We will avoid NSAIDs and nep hrotoxins. Vancomycin has been discontinued. Appreciate Dr. Inman's input. 5.Esophageal stricture, status post dilatation. Patient had esophagogastroduodenoscopy done by Dr. Medeiros yesterday. 6.Ychon-fh-rmdhhhg anemia secondary to blood loss, status post esophagogastroduodenoscopy. No sourc e of bleeding found. Colonoscopy, prep was poor; therefore, was not done. We will continue to monit or H and H and transfuse as needed. Hemoglobin has been stable. 7.Right ankle and left leg wound. Continue offloading and wound care. We will continue with Levaqu in. 8.Diarrhea, resolved. Stool culture, ova, parasites pending. 9.Essential hypertension, stable. 10.Alzheimer's dementia, early onset without behavioral disturbance, stable. 11.Chronic obstructive pulmonary disease, chronic bronchitis. Continue nebulizer treatments as need ed. 12.History of cerebrovascular accident with residual weakness. 13.Chronic atrial fibrillation, currently in sinus rhythm. We will resume Eliquis. 14.Deep venous thrombosis prophylaxis with Eliquis. Plan: Resume Eliquis. Follow up on kidney function, slightly improved today. Discharge back to [facility] on oral Levaquin. No further vancomycin. Patient has been treated with IV vancomycin for at least 1 week. There were no signs or evidence of osteomyelitis. Her imaging studies did not show any osteomyelitis. White count is normal. Her blood cultures are negative. No signs of sepsis . SA/MODL Voice ID: [id number] Report ID: [id number]
--- NOTE | 2018-11-20 17:38 | PN ---
Date of Progress Note: 11/20/2018 Subjective: Patient was admitted with acute kidney injury secondary to vanc toxicity poor intake and the patient found to have esophageal stricture, status post dilatation. Physical Examination: Vital Signs: When I saw the patient, blood pressure 119/60, pulse of 66, afebrile. Patient had good urine output of 1000. Chest: Clear to auscultation. Heart: S1, S2 regular. Abdomen: Soft, nontender. Extremities: No edema. Dressing on the foot. Laboratory Data: H and H 8.9/27.6. Sodium 145, potassium 4.3, bicarb 28, BUN 29. Creatinine platea ued on 2.1, GFR of 23. Uric acid 6.5, calcium 8, phosphorus 4.9. Medications: Current medications the patient on include Eliquis 5 mg b.i.d., Levaquin 250 daily, ami odarone, metoprolol 12.5, citalopram, buspirone, mirtazapine, risperidone, IV fluid, normal saline at 100 per hour. Renal ultrasound showing 10/10 fully echogenic kidney. Assessment And Plan: 1.Acute kidney injury secondary to vanc toxicity, toxic acute tubular necrosis, poor perfusion acute tubular necrosis secondary to prerenal, secondary to poor intake. Currently, patient plateaued, I a m going to go ahead and change IV fluid to D5 half, giving the presence of poor intake and given that the patient not eating well and the hypernatremia. We will continue to monitor. 2.Hypernatremia secondary to poor intake, secondary to esophageal structure. We will change IV flui d. We will follow up. 3.Osteomyelitis as by primary. 4.Iron-deficiency anemia. We will start the patient on IV iron. 5.Proteinuria, nonnephrotic. Follow up SPEP. Thank you Dr. Cerna for allowing us to participate in the care of your patient. VIMAL/HOA Voice ID: [id number] Report ID: [id number]
[2018-11-20] MEDS: GABAPENTIN 300 MG CAP PO SCH (20:47)
[2018-11-20] MEDS: MIRTAZAPINE 15 MG TAB PO SCH (20:47)
[2018-11-20] MEDS: ESCITALOPRAM 20 MG TAB PO SCH (20:47)
[2018-11-20] MEDS: ATORVASTATIN 10 MG TAB PO SCH (20:47)
[2018-11-20] MEDS: RISPERIDONE 0.25 MG TABLET PO SCH (20:48)
[2018-11-21 05:21] LABS: Absolute Lymphocytes (CBC) 1.4 K/uL (0.7-4.9); Basophils % 0.5 % (0-1.3); Hematocrit 21.2 % (36.0-45.0); MPV 8.5 fL (7.6-11.3); RBC Red Blood Cell Count 2.18 M/uL (3.86-4.86)
[2018-11-21 05:36] LABS: Albumin 1.6 g/dL (3.4-5.0); Phosphorus 4.1 mg/dL (2.5-4.9); Potassium 4.4 mmol/L (3.5-5.1)
[2018-11-21 06:56] LABS: Hematocrit 23.2 % (36.0-45.0)
[2018-11-21] MEDS: JUVEN PACKET PO SCH ×2 (09:00→21:48)
[2018-11-21] MEDS: POTASSIUM CL SA 10 MEQ TAB PO SCH (09:20)
[2018-11-21] MEDS: METOPROLOL XL 25 MG TAB PO SCH (09:21)
[2018-11-21] MEDS: MEMANTINE HCL 10 MG TABLET PO SCH (09:21)
[2018-11-21] MEDS: PANTOPRAZOLE 40MG TABLET PO SCH (09:21)
[2018-11-21] MEDS: BUSPIRONE HCL 5 MG TABLET PO SCH ×3 (09:22→21:48)
[2018-11-21] MEDS: AMIODARONE HCL 200 MG TAB PO SCH (09:25)
[2018-11-21] MEDS: D5 0.45 NS 1,000 ML IV SCH (12:12)
[2018-11-21 12:29] LABS: Hematocrit 22.1 % (36.0-45.0)
[2018-11-21] MEDS: Levofloxacin 250mg IV 250 MG/50 ML BAG IV SCH (13:27)
--- NOTE | 2018-11-21 14:00 | PN ---
Date of Progress Note: 11/21/2018 Subjective: Patient is seen and examined. Chart reviewed and case discussed with RN and Dr. Durant. Patient had uneventful night. No complaints this morning. Medications: List reviewed. Physical Examination: Vital Signs: Temperature 98, heart rate 69, blood pressure 137/69, respirations 15, O2 at 97% on 2 L via nasal cannula. General: Awake, alert, oriented to self only, elderly female, not in any acute distress. CV: S1, S2. Regular rate and rhythm. Peripheral pulses weak. Respiratory: Moving air well bilaterally. No wheezing or stridor. No use of accessory muscles. Gastrointestinal: Abdomen is soft, nontender, nondistended. Positive bowel sounds. Extremities: No clubbing, cyanosis, or edema. Neurologic: Nonfocal. Laboratory Data: Sodium 145, potassium 4.4, chloride 114, CO2 of 28, BUN 30, creatinine 2.01, glucos e 99, calcium 8.1, phosphorus 4.1. WBC 8.5, H and H of 6.9 and 21.2, platelets 304, repeat H and H o f 7.5 and 23.2. Stool cultures pending. Remainder of the cultures are negative. Assessment And Plan: A 78-year-old female with: 1.Acute metabolic encephalopathy, resolved, back to baseline. Patient has underlying dementia. Thi s was secondary to electrolyte abnormality and left lower extremity infection. 2.Fever, resolved, secondary to wound from the left lower extremity. Patient's previous cultures we re growing methicillin-susceptible Staphylococcus aureus and Klebsiella pneumoniae from 11/06/2018. We will continue with oral Levaquin. Vancomycin discontinued due to acute kidney injury. 3.Hypernatremia, corrected. We will continue to monitor. 4.Acute kidney injury related to toxic acute tubular necrosis from vancomycin. We will continue wit h IV fluids, adjusted. Avoid NSAIDs. Continue to monitor. Trending down. 5.Esophageal stricture status post dilatation. Dr. Medeiros on board. 6.Acute on chronic anemia secondary to blood loss, status post EGD. No source of bleeding apparent. Unable to do colonoscopy due to poor prep. Patient's hemoglobin dropped again today. We will repe at H and H at noon. If further worsening, we will transfuse 1 unit of PRBCs. Her Eliquis has been o n hold. 7.Right ankle and left leg wound. We will continue wound care and continue offloading. Patient is on oral Levaquin. Cultures from 11/06/2018, growing out methicillin-susceptible Staphylococcus aureu s and Klebsiella. 8.Diarrhea, resolved. Stool cultures pending. 9.Essential hypertension, stable. 10.Alzheimer's dementia early onset without behavioral disturbance, stable. 11.Chronic obstructive pulmonary disease, chronic bronchitis. We will continue albuterol nebulizer as needed, supplemental oxygen as needed. 12.History of cerebrovascular accident with residual weakness. 13.Chronic atrial fibrillation, currently in sinus rhythm. Eliquis on hold due to low H and H. 14.Deep venous thrombosis prophylaxis. Currently, no chemical anticoagulation due to hemoglobin remington p. Repeat H and H, transfuse as needed, likely discharge in next 24 to 48 hours depending on clinical st ability and improvement in kidney function. /HOA Voice ID: [id number] Report ID: [id number]
[2018-11-21] MEDS: ATORVASTATIN 10 MG TAB PO SCH (21:48)
[2018-11-21] MEDS: MIRTAZAPINE 15 MG TAB PO SCH (21:48)
[2018-11-21] MEDS: RISPERIDONE 0.25 MG TABLET PO SCH (21:48)
[2018-11-21] MEDS: ESCITALOPRAM 20 MG TAB PO SCH (21:48)
[2018-11-21] MEDS: GABAPENTIN 300 MG CAP PO SCH (21:49)
--- NOTE | 2018-11-22 01:24 | PN ---
Date of Progress Note: 11/21/2018 Chief Complaint: Acute kidney injury, multifactorial, nonoliguric, associated with vancomycin toxicity; nonoliguric ATN and renal function has not improved over the last 24 hours. Patient has nonoliguric urine output. Review of Systems: Denies fever or chills. Physical Examination: Lungs: Clear to auscultation bilaterally. Heart: S1, S2. No pericardial friction rub. Abdomen: Soft, benign. Extremities: No edema. Laboratory Data: Creatinine 2.1, uric acid 6.5, calcium 8.0, phosphorus 4.9. Sodium 145. Impression And Plan: 1. Acute on chronic kidney injury secondary to vancomycin toxicity, acute tubular necrosis, renal hypoperfusion triggered by volume depletion with poor p.o. intake. Patient has nonoliguric urine output. Plan is to continue IV fluids and increase intake as tolerated. 2. Patient had episode of hypernatremia. Continue fluids with D5 half-normal saline for hydration. Monitor electrolytes. 3. Osteomyelitis, continue antibiotics. 4. Proteinuria, nonnephrotic. Patient will follow up with Nephrology to check urine protein electrophoresis with immunofixation. i spent total 36 min including 25 min to coordinate care plan. ROSANA/HOA Voice ID: [id number] Report ID: [id number] OLGA
[2018-11-22 01:34] LABS: Hematocrit 22.2 % (36.0-45.0)
[2018-11-22] MEDS: D5 0.45 NS 1,000 ML IV SCH ×2 (05:28→17:46)
[2018-11-22 06:12] LABS: Absolute Lymphocytes (CBC) 1.8 K/uL (0.7-4.9); Basophils % 0.9 % (0-1.3); Hematocrit 21.5 % (36.0-45.0); Lymphocytes % 19.7 % (15.3-44.8); RBC Red Blood Cell Count 2.22 M/uL (3.86-4.86)
[2018-11-22 06:36] LABS: Albumin 1.6 g/dL (3.4-5.0); Phosphorus 3.6 mg/dL (2.5-4.9); Potassium 4.8 mmol/L (3.5-5.1)
[2018-11-22] MEDS: BUSPIRONE HCL 5 MG TABLET PO SCH ×3 (08:55→22:06)
[2018-11-22] MEDS: PANTOPRAZOLE 40MG TABLET PO SCH (08:56)
[2018-11-22] MEDS: METOPROLOL XL 25 MG TAB PO SCH (08:56)
[2018-11-22] MEDS: AMIODARONE HCL 200 MG TAB PO SCH (08:56)
[2018-11-22] MEDS: MEMANTINE HCL 10 MG TABLET PO SCH (08:58)
[2018-11-22] MEDS: POTASSIUM CL SA 10 MEQ TAB PO SCH (08:58)
[2018-11-22] MEDS: JUVEN PACKET PO SCH ×2 (08:59→22:06)
[2018-11-22] MEDS ORDERED: FUROSEMIDE 20 MG/ 2ML VIAL IV ONE (09:48)
[2018-11-22] MEDS: Levofloxacin 250mg IV 250 MG/50 ML BAG IV SCH (13:54)
[2018-11-22] MEDS ORDERED: NA CHLORIDE 0.9% 250 ML ONE (15:15)
[2018-11-22] MEDS: ACETAMINOPHEN 500 MG TAB PO PRN (15:24)
--- NOTE | 2018-11-22 16:02 | P.PN ---
Subjective Date of Service: 11/22/18 Chief Complaint: FEVER/ALTERED MENTAL STATUS / DEHYDRATION /HYPERNATREMIA Subjective: No new changes (EGD done. She did not tolerate colonoscopy prep. Family agree to barium enema evaluation. Family also note lifelong history of anemia, but without hematology evaluation. CT abdomen/pelvis on 11-10-18 without GI colon / SB gross pathology.) Review of Systems 10-point ROS is otherwise unremarkable General: Weakness, Malaise Physical Examination - Vital Signs Temperature: 100.1 F Blood Pressure: 154/66 Pulse: 70 Respirations: 17 Pulse Ox (%): 100 - Physical Exam General: Alert, In no apparent distress, Oriented x1 (sleeping), Cooperative HEENT: Atraumatic, Normocephalic, PERRLA, EOMI Neck: Supple Respiratory: Normal air movement Cardiovascular: Normal pulses Gastrointestinal: Soft and benign, No rebound, No guarding Assessment And Plan - Current Problems (Diagnosis) (1) Anemia Current Visit: Yes Status: Acute Comment: Lifelong history of anemia as per family without hematology evaluation. EGD without significant findings, CT abdomen/pelvis without significant GI findings 11-10-18. Refused / did not tolerate colon prep. (2) CHF (congestive heart failure) Current Visit: Yes Status: Acute (3) Altered mental status Current Visit: Yes Status: Acute (4) Hypernatremia Current Visit: Yes Status: Acute (5) Pressure ulcer of ankle, right, unstageable Current Visit: No Status: Acute (6) Pressure ulcer of heel, left, unstageable Current Visit: No Status: Acute (7) COPD (chronic obstructive pulmonary disease) Onset Date: 12/03/17 Current Visit: No Status: Chronic Qualifiers: (8) Dementia Onset Date: 12/03/17 Current Visit: No Status: Chronic Qualifiers: (9) HTN (hypertension) Onset Date: 12/03/17 Current Visit: No Status: Chronic Qualifiers: - Plan REC: 1) air contrast barium enema 2) agree with PRBC transfusion (CHF with elevated BNP 10,000+, Cr 2.2)
[2018-11-22 19:15] LABS: Hepatitis C Virus RNA (PCR)log <1.18 log IU/mL
--- NOTE | 2018-11-22 19:27 | PN ---
Date of Progress Note: 11/22/2018 Subjective: Patient is seen and examined. Chart reviewed and case discussed with RN. Patient did n ot have any acute events overnight. Medications: List reviewed. Physical Examination: Vital Signs: Temperature 98.4, heart rate 73, blood pressure 136/88, respirations 17, O2 95% on 1.5 L nasal cannula. General: Awake, alert, oriented to self only. CV: S1, S2. Peripheral pulses weak. Respiratory: Moving air well bilaterally. No wheezing. Gastrointestinal: Abdomen is soft, nontender, nondistended. Positive bowel sounds. Extremities: No clubbing, cyanosis, edema. Neurologic: Nonfocal. Laboratory Data: WBC 8.9, H and H 7.1 and 21.5, platelets 307. Sodium 145, potassium 4.8, chloride 112, CO2 29, BUN 32, creatinine 2.04, glucose 95, calcium 8.2, phosphorus 3.6. Assessment And Plan: A 78-year-old female with: 1.Acute metabolic encephalopathy, resolved, back to baseline. The patient has underlying dementia a nd mental status changes were secondary to left lower extremity infection and electrolyte abnormaliti es. 2.Left lower extremity wound. Previous culture results growing methicillin-susceptible Staphylococc us aureus and Klebsiella from 11/06/2018. We will continue with oral antibiotics. 3.Hypernatremia, corrected. Continue to monitor. 4.Acute kidney injury related to toxic acute tubular necrosis from vancomycin. Kidney function is s till elevated, currently worse than yesterday 2.04. We will continue to monitor. Avoid NSAIDs. 5.Esophageal stricture status post dilatation. Appreciate Dr. Medeiros's input. 6.Acute on chronic anemia secondary to blood loss, status post esophagogastroduodenoscopy. May have lower source, unable to do colonoscopy due to poor prep. We will transfuse 1 unit PRBCs and monitor H and H. Continue to hold Eliquis. 7.Right ankle and left leg wound. Continue with offloading. Continue antibiotics. 8.Diarrhea, resolved. 9.Essential hypertension, stable. 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 11.Chronic obstructive pulmonary disease, chronic bronchitis. We will continue nebulizer treatments as needed. 12.History of cerebrovascular accident, stable. 13.Chronic atrial fibrillation, currently in sinus rhythm. I will place on hold due to low hemoglob in level. 14.Deep venous thrombosis prophylaxis, SCDs. No chemical anticoagulation due to anemia. Plan: Repeat H and H after transfusion. Discharge back to nursing facility once more stable and betty ared by Nephrology. /HOA Voice ID: [id number] Report ID: [id number]
[2018-11-22] MEDS: ESCITALOPRAM 20 MG TAB PO SCH (22:05)
[2018-11-22] MEDS: ATORVASTATIN 10 MG TAB PO SCH (22:05)
[2018-11-22] MEDS: RISPERIDONE 0.25 MG TABLET PO SCH (22:05)
[2018-11-22] MEDS: GABAPENTIN 300 MG CAP PO SCH (22:05)
[2018-11-22] MEDS: MIRTAZAPINE 15 MG TAB PO SCH (22:06)
[2018-11-22] MEDS: ENSURE ENLIVE 237 ML CAN PO SCH (22:06)
[2018-11-22 22:25] LABS: Hematocrit 25.5 % (36.0-45.0)
[2018-11-23] MEDS: D5 0.45 NS 1,000 ML IV SCH ×2 (02:00→23:23)
--- NOTE | 2018-11-23 02:23 | PN ---
Date of Progress Note: 11/22/2018 Chief Complaint: Acute kidney injury, nonoliguric, associated with vancomycin toxicity, nonoliguric ATN. Renal function is plateauing, has not improved over the last 24 hours. Patient is remains nonoliguric. There is no fluid overload. Patient has adequate p.o. fluid intake. Review of Systems: Denies complaints. Physical Examination: Lungs: Clear to auscultation bilaterally. HEART: S1, S2. ABDOMEN: Soft, benign. EXTREMITIES: No edema. Laboratory Data: Hemoglobin 7.1, WBC 8.9, platelet count 307,000. Chemistries showed sodium 145, potassium 4.8, chloride 112, CO2 of 29, BUN is 32, creatinine 2.04, calcium 8.2, glucose 95, albumin 1.6. Urinalysis showed 1+ protein. Protein-creatinine ratio is 0.68. Impression And Plan: 1. Acute kidney injury, multifactorial. Continue adequate hydration. Avoid nephrotoxic medication. Monitor electrolytes closely and avoid high potassium intake. 2. Episodes of hypernatremia. The patient is on D5 half normal saline. Monitor electrolytes. Adjust IV fluids accordingly. 3. Osteomyelitis, continue antibiotics. 4. Proteinuria, nonnephrotic. Patient will follow up with flight agent for further workup with electrophoresis and immunofixation. I spent total 36 mij including 25 min to coordinate care plan. ROSANA/HOA Voice ID: [id number] Report ID: [id number] OLGA
[2018-11-23 05:23] LABS: Absolute Lymphocytes (CBC) 1.9 K/uL (0.7-4.9); Basophils % 0.8 % (0-1.3); Hematocrit 23.8 % (36.0-45.0); Lymphocytes % 22.3 % (15.3-44.8); MPV 8.3 fL (7.6-11.3); RBC Red Blood Cell Count 2.48 M/uL (3.86-4.86)
[2018-11-23 05:32] LABS: Albumin 1.5 g/dL (3.4-5.0); Bilirubin Total 0.2 mg/dL (0.2-1.0); Phosphorus 3.5 mg/dL (2.5-4.9)
[2018-11-23] MEDS: BUSPIRONE HCL 5 MG TABLET PO SCH ×3 (10:00→22:24)
[2018-11-23] MEDS: METOPROLOL XL 25 MG TAB PO SCH (10:01)
[2018-11-23] MEDS: POTASSIUM CL SA 10 MEQ TAB PO SCH (10:01)
[2018-11-23] MEDS: AMIODARONE HCL 200 MG TAB PO SCH (10:02)
[2018-11-23] MEDS: MEMANTINE HCL 10 MG TABLET PO SCH (10:03)
[2018-11-23] MEDS: JUVEN PACKET PO SCH ×2 (10:04→22:25)
[2018-11-23] MEDS: ENSURE ENLIVE 237 ML CAN PO SCH ×2 (10:04→22:24)
[2018-11-23 11:22] LABS: Absolute Lymphocytes (CBC) 1.9 K/uL (0.7-4.9); Basophils % 0.8 % (0-1.3); Hematocrit 25.1 % (36.0-45.0); Lymphocytes % 21.8 % (15.3-44.8); MPV 8.2 fL (7.6-11.3); RBC Red Blood Cell Count 2.58 M/uL (3.86-4.86)
[2018-11-23] MEDS: Levofloxacin 250mg IV 250 MG/50 ML BAG IV SCH (12:05)
--- NOTE | 2018-11-23 14:17 | PN ---
Date of Progress Note: 11/23/2018 Subjective: Patient is seen and examined. Chart reviewed and case discussed with RN and Dr. Medeiros. Daughter at the bedside. Treatment plan explained. All questions answered. No acute events overn ight. Medications: List reviewed. Physical Examination: Vital Signs: Temperature 99, heart rate 67, blood pressure 119/55, respirations 16, O2 of 99% on 1.5 L via nasal cannula. General: Awake, alert, oriented to self, elderly female. CV: S1, S2. Irregularly irregular. Peripheral pulses present. Respiratory: Moving air well bilate rally. No wheezing. Gastrointestinal: Abdomen is soft, nontender, nondistended. Positive bowel wang nds. Extremities: No clubbing, cyanosis, or edema. Neurologic: Nonfocal. Laboratory Data: WBC is 8.5, H and H 7.9 and 23.8, platelets 272, neutrophils 62%. Sodium 145, pota ssium 5, chloride 110, CO2 of 31, BUN 37, creatinine 2.11, glucose 85, calcium 8.2, phosphorus 3.5. Assessment And Plan: A 78-year-old female with: 1.Acute metabolic encephalopathy, resolved, currently at baseline, not oriented due to history of de mentia. 2.Left lower extremity wound. Cultures from the previous visit growing methicillin-sensitive Staphy lococcus aureus and Klebsiella from 11/06/2018. We will continue with Augmentin. 3.Hypernatremia, corrected. Continue to monitor. 4.Acute kidney injury secondary to toxic acute tubular necrosis, likely from vancomycin. Kidney fun ction is now stabilized around 2. We will discuss further with Nephrology. Continue to avoid NSAIDs . 5.Esophageal stricture, status post dilatation. Encourage p.o. intake. 6.Acute on chronic anemia secondary to blood loss and iron deficiency, status post esophagogastroduo denoscopy, unable to tolerate colonoscopy. Air-contrast barium enema is scheduled for a.m. Patient has received 1 unit of PRBCs. Hemoglobin is 7.9 this morning. We will recheck and transfuse as need ed. Continue to hold Eliquis. Patient is not a good candidate for anticoagulation. 7.Right ankle and left leg wound. We will continue with offloading. 8.Diarrhea, resolved. 9.Essential hypertension, stable. 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 11.Chronic obstructive pulmonary disease, chronic bronchitis. We will continue nebulizer treatments . 12.History of cerebrovascular accident, stable. 13.Chronic atrial fibrillation. Patient goes back and forth between sinus and atrial fibrillation. Eliquis is on hold due to low hemoglobin. Patient is a fall risk, not a good candidate for anticoag ulation. Daughter understands that patient is at risk for stroke due to her atrial fibrillation. Ho wever, the benefits outweigh the risks due to her gastrointestinal bleed, likely from lower source as her hemoccult was positive and that she has a low hemoglobin. 14.Deep venous thrombosis prophylaxis with SCDs. No chemical anticoagulation due to anemia, acute. /HOA Voice ID: [id number] Report ID: [id number]
[2018-11-23] MEDS: IRON SUCROSE 200 MG in NA CHLORIDE 0.9% 250 ML IV SCH (16:39)
[2018-11-23] MEDS ORDERED: POLYETHYL GLY 3350 17 GM/DOSE PO ONE (18:38)
--- NOTE | 2018-11-23 20:36 | RAD REPORT ---
EXAM DESCRIPTION: US - UPPER EXTREMITY VENOUS UNILATE - 11/23/2018 7:01 pm CLINICAL HISTORY: Left arm pain and swelling, PICC line in place COMPARISON: None. TECHNIQUE: Real-time sonographic evaluation of the left upper extremity deep venous systems was perf ormed. FINDINGS: Normal compressibility, flow augmentation, phasic flow and spontaneous flow are identified in the left upper extremity deep venous system. No intraluminal filling defects seen. Internal jugul ar and subclavian veins are normal as well. IMPRESSION: No DVT in the left upper extremity.
[2018-11-23] MEDS: ESCITALOPRAM 20 MG TAB PO SCH (22:23)
[2018-11-23] MEDS: MIRTAZAPINE 15 MG TAB PO SCH (22:24)
[2018-11-23] MEDS: ATORVASTATIN 10 MG TAB PO SCH (22:24)
[2018-11-23] MEDS: GABAPENTIN 300 MG CAP PO SCH (22:24)
[2018-11-23] MEDS: RISPERIDONE 0.25 MG TABLET PO SCH (22:24)
--- NOTE | 2018-11-23 22:38 | PN ---
Date of Progress Note: 11/23/2018 Chief Complaint: Acute kidney injury, nonoliguric associated with vancomycin toxicity, nonoliguric A TN. Renal infection is plateauing. Patient has nonoliguric urine output. Electrolytes are stable. There is no evidence of uremic symptomatology. Review of Systems: Denies complaints. Physical Examination: Lungs: Few rhonchi. No wheezes. Abdomen: Soft, benign, nontender. Extremities: No edema. Laboratory Data: Hemoglobin 9.2, WBC 8.7, platelet count is 283,000. Chemistry showed sodium 145, p otassium 5.0, chloride 110, CO2 of 31, BUN 37, creatinine 2.11, glucose 85, calcium 8.2, albumin 1.5. Urine protein-creatinine ratio is 0.86. Urinalysis did not show hematuria, rbc less than 5, wbc les s than 5. Urine protein electrophoresis is pending. Assessment/plan: 1.Acute on chronic kidney injury secondary to vancomycin toxicity. Patient is undergoing workup to screen for monoclonal gammopathy of unknown significance. Continue IV fluids. Renal infection is pl ateauing, but there is no significant improvement over last 72 hours. 2.Episodes of hypernatremia. Continue half normal saline. 3.Osteomyelitis. Continue antibiotics. Adjust dose to renal function. 4.Proteinuria, nonnephrotic. Patient is undergoing workup for monoclonal gammopathy of unknown sign ificance. EB/MODL Voice ID: [id number] Report ID: [id number]
[2018-11-23 23:35] LABS: Urine Bacteria >50 /HPF (<20)
[2018-11-23 23:36] LABS: Urine Culture Reflex Order REFLEXED; Urine Yeast PRESENT (NONE SEEN); Urine Yeast with Hyphae PRESENT
[2018-11-24 04:59] LABS: Absolute Lymphocytes (CBC) 2.2 K/uL (0.7-4.9); Basophils % 0.6 % (0-1.3); Hematocrit 23.6 % (36.0-45.0); Lymphocytes % 25.4 % (15.3-44.8); MPV 8.5 fL (7.6-11.3); RBC Red Blood Cell Count 2.43 M/uL (3.86-4.86)
[2018-11-24 05:07] LABS: Albumin 1.5 g/dL (3.4-5.0); Bilirubin Total 0.2 mg/dL (0.2-1.0); Phosphorus 3.2 mg/dL (2.5-4.9); Potassium 4.9 mmol/L (3.5-5.1)
[2018-11-24] MEDS: AMIODARONE HCL 200 MG TAB PO SCH (09:00)
[2018-11-24] MEDS: METOPROLOL XL 25 MG TAB PO SCH (09:00)
[2018-11-24] MEDS: JUVEN PACKET PO SCH ×2 (09:00→22:00)
[2018-11-24] MEDS: MEMANTINE HCL 10 MG TABLET PO SCH (09:00)
[2018-11-24] MEDS: POTASSIUM CL SA 10 MEQ TAB PO SCH (09:00)
[2018-11-24] MEDS: BUSPIRONE HCL 5 MG TABLET PO SCH ×3 (09:00→22:00)
[2018-11-24] MEDS: ENSURE ENLIVE 237 ML CAN PO SCH ×2 (09:00→22:00)
[2018-11-24 11:20] LABS: HIV AG/AB 4TH GEN Non-reactive (Non-reactive)
--- NOTE | 2018-11-24 13:44 | RAD REPORT ---
EXAM DESCRIPTION: RAD - Colon Ba Enema W/Air Cont - 11/24/2018 1:26 pm CLINICAL HISTORY: anemia Abdominal pain COMPARISON: Renal Ultrasound-Complete dated 11/20/2018 FINDINGS: Oyster Tonger image demonstrates moderate retained stool in the colon. Lack of colonic prep limits quality of the barium enema. A rectal tube was placed. The entire colon was filled with barium after weights insufflated air was u tilized to obtain double contrast technique. Retained stool within the colon limits the quality of th e images. Within this limitation, no annular constricting lesion or polypoid defect is grossly apprec iated. There is significant colonic redundancy seen. Total fluoro time: 1.1 minutes Number of images acquired: 13 IMPRESSION: Limited quality double contrast barium enema due to significant amount of stool in the c olon. Within this limitation, no gross annular constricting lesion or polypoid defects seen. Moderate redundancy of the colon is present.
[2018-11-24] MEDS: Levofloxacin 250mg IV 250 MG/50 ML BAG IV SCH (14:58)
[2018-11-24] MEDS: RISPERIDONE 0.25 MG TABLET PO SCH (21:59)
[2018-11-24] MEDS: ATORVASTATIN 10 MG TAB PO SCH (22:00)
[2018-11-24] MEDS: ESCITALOPRAM 20 MG TAB PO SCH (22:00)
[2018-11-24] MEDS: MIRTAZAPINE 15 MG TAB PO SCH (22:00)
[2018-11-24] MEDS: GABAPENTIN 300 MG CAP PO SCH (22:00)
[2018-11-25] MEDS: D5 0.45 NS 1,000 ML IV SCH (00:56)
--- NOTE | 2018-11-25 02:07 | PN ---
Date of Progress Note: 11/24/2018 Chief Complaint: Acute kidney injury, nonoliguric, associated with vancomycin toxicity. History Of Present Illness: The patient has nonoliguric ATN. Renal function has not improved over t he last 24 hours. Renal function is somewhat plateauing. Electrolytes are stable. Review of Systems: Denies complaints. Physical Examination: Lungs: Few rhonchi present bilaterally. Heart: S1, S2. Abdomen: Soft, benign, nontender. Extremities: No edema. Laboratory Work: Hemoglobin 7.7, WBC 8.5, platelet count is 267,000. Chemistries show sodium 144, p otassium 4.9, chloride 110, BUN 36, carbon dioxide 31, creatinine 2.08, glucose 83, calcium 7.8. Impression And Plan: 1.Acute on chronic kidney injury, nonoliguric secondary to vancomycin toxicity. Continue IV fluids. Avoid nephrotoxic medication. 2.Hypertension. Blood pressure controlled. 3.Proteinuria, nonnephrotic. Urine protein electrophoresis was ordered to screen for monoclonal thee mopathy of unknown significance. 4.Episodes of hypernatremia. Continue normal saline for hydration and volume expansion. 5.Osteomyelitis. Continue antibiotics. Adjust dose to renal function. EB/MODL Voice ID: [id number] Report ID: [id number]
[2018-11-25 03:10] LABS: HBsAG Nonreactive (Nonreactive)
[2018-11-25 06:35] LABS: Absolute Lymphocytes (CBC) 1.7 K/uL (0.7-4.9); Basophils % 0.8 % (0-1.3); Hematocrit 25.3 % (36.0-45.0); Lymphocytes % 22.9 % (15.3-44.8); MPV 9.4 fL (7.6-11.3)
[2018-11-25 06:48] LABS: Albumin 1.5 g/dL (3.4-5.0); Bilirubin Total 0.2 mg/dL (0.2-1.0); Potassium 4.9 mmol/L (3.5-5.1); Protein, Total 5.1 g/dL (6.4-8.2)
[2018-11-25 06:49] LABS: Albumin, (SPE) 1.9 g/dL (3.8-4.8); Alpha-1-Globulins 0.5 g/dL (0.2-0.3); Alpha-2-Globulins 0.7 g/dL (0.5-0.9); Gamma Globulins 1.1 g/dL (0.8-1.7); INTERPRETATION REPORT
[2018-11-25] MEDS: JUVEN PACKET PO SCH ×2 (08:29→21:07)
[2018-11-25] MEDS: ENSURE ENLIVE 237 ML CAN PO SCH ×2 (08:29→21:07)
[2018-11-25] MEDS: POTASSIUM CL SA 10 MEQ TAB PO SCH (08:30)
[2018-11-25] MEDS: MEMANTINE HCL 10 MG TABLET PO SCH (08:31)
[2018-11-25] MEDS: AMIODARONE HCL 200 MG TAB PO SCH (08:31)
[2018-11-25] MEDS: METOPROLOL XL 25 MG TAB PO SCH (08:31)
[2018-11-25] MEDS: BUSPIRONE HCL 5 MG TABLET PO SCH ×3 (08:32→21:07)
--- NOTE | 2018-11-25 10:14 | DS ---
Additional Consultants: Dr. Durant with Nephrology and Dr. Inman also with Nephrology. Procedures: Endoscopy on 11/19/2018, EGD. Pathology specimen shows minimal chronic inactive gastrit is. No Helicobacter pylori. No evidence of malignancy. Colonoscopy was unable to be done due to ba d prep. Double barium enema, colon, was also done on 11/24/2018. Admitting Diagnoses: 1.Fever. 2.Altered mental status. 3.Hypernatremia. 4.Pressure ulcer, right ankle, unstageable. 5.Chronic obstructive pulmonary disease. 6.Dementia. 7.Hypertension. Discharge Diagnoses: 1.Acute metabolic encephalopathy, resolved. 2.Left lower extremity wound secondary to Staphylococcus aureus and Klebsiella. 3.Hypernatremia. 4.Acute kidney injury secondary to toxic acute tubular necrosis. 5.Esophageal stricture, status post dilatation. 6.Acute on chronic anemia secondary to blood loss and iron deficiency, status post esophagogastroduo denoscopy. 7.Right ankle and left leg wound. 8.Diarrhea, resolved. 9.Essential hypertension, stable. 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 11.Chronic obstructive pulmonary disease, chronic bronchitis. 12.History of cerebrovascular accident, stable. 13.Chronic atrial fibrillation, not a candidate for Eliquis due to bleed. Hospital Course: Patient is a 78-year-old female who is readmitted from recent discharge for altered mental status, fever, hypernatremia, and dehydration. Patient had been treated for leg wound and wa s on vancomycin IV along with oral Levaquin. Patient had altered mental status. Her vancomycin had to be discontinued due to worsening kidney function, which plateaued around 2. Nephrology was involv ed. This may become her new baseline due to the acute tubular necrosis. Patient also found to have Hemoccult-positive stool. She was transfused and her Eliquis was held. GI was consulted and patient had endoscopy, which did not show any source of bleeding. Colonoscopy was attempted, but patient lucas d poor prep. Therefore, barium enema contrast study was done, which also still had significant amoun t of stool, but within the limitation, there was no gross annular constricting lesion or polypoid def ect. Patient otherwise is lethargic. She did require esophageal dilatation. She was not eating wel l. She seems to be declining secondary to her dementia. She was started on protein supplementation as well. I spoke at length with the daughter who is the medical power of film washer. Patient may need palliative care as she has multiple comorbid conditions including AFib, no longer able to tolerate E liquis due to her anemia. She has been transfused IV iron and will need further transfusions at the nursing facility. She also has advanced dementia. Patient's Risperdal will be discontinued as she p reviously had neuroleptic malignant syndrome from the Risperdal. Patient was then cleared for discha rge from GI and Nephrology standpoint. She was sent back to nursing facility in a fair condition. Activity: Fall precautions. Medications: As per medication reconciliation list. Finish off course of Levaquin. Diet: As tolerated. Low sodium with careful hand feeding, mechanically chopped diet. Followup: Follow up with PCP in 2-3 days. Follow up with GI, Dr. Medeiros, in 2 weeks. Follow up wit h insurance adjuster, Dr. Durant, in 2 weeks. Return to ER for worsening condition. CBC in 1 week. Physical Examination: General: Asleep, but arousable. Elderly female, demented. CV: S1, S2. Irregularly irregular. Respiratory: Moving air well bilaterally. Abdomen: Soft, nontender, nondistended. Positive bowel sounds. Extremities: No clubbing, cyanosis. Patient does have peripheral edema. Neurologic: Nonfocal. Total time spent discharging patient was 35 minutes. ANTHONY Voice ID: [id number] Report ID: [id number]
--- NOTE | 2018-11-25 10:44 | P.PN ---
Subjective Date of Service: 11/25/18 Primary Care Provider: Dr. Ferrer Chief Complaint: Altered mental status, dehydration This in addendum to discharge summary done November 24, 2018. Physical Examination - Vital Signs Temperature: 97.3 F Blood Pressure: 131/64 Pulse: 67 Respirations: 15 Pulse Ox (%): 98 - Physical Exam General: Alert, Cooperative, Demented HEENT: Atraumatic, Other (Dry mucous membranes) Neck: Supple Respiratory: Clear to auscultation bilaterally, Normal air movement Cardiovascular: Normal pulses, Regular rate/rhythm Gastrointestinal: Normal bowel sounds, Soft and benign, Non-distended Neurological: Dementia - Studies Medications List Reviewed: Yes Assessment & Plan Discharge Plan: Other (long term facility) Plan to discharge in: 24 Hours Physician Review Additional Text: Impression: Acute metabolic encephalopathy resolved Left lower extremity wound, culture positive for Staphylococcus aureus and Klebsiella Hypernatremia Acute kidney injury secondary to toxic acute tubular necrosis likely related to vancomycin Esophageal stricture status post dilation Acute on chronic anemia secondary to blood loss and iron deficiency status post EGD Right ankle/left leg who wound HTN Alzheimer dementia COPD Hx of CVA Chronic atrial fibrillation, off chronic anticoagulation due to anemia Plan: Discharge summary reviewed. Patient to be discharge back to the skilled facility to continue her care. Patient will no longer take Eliquis due to acute on chronic anemia. EGD did not show any source of bleeding. Colonoscopy was attempted but had poor prep. Barium enema showed no gross findings. During EGD esophageal dilation was done. She has tolerated a diet. Concerning her atrial fibrillation. She will no longer take Eliquis due to the anemia. CBC and BMP can be monitor closely. Acute renal injury likely related to recent IV vancomycin. This can be followed as an outpatient. At discharge she will continue to finished a course of Levaquin for her wounds. It was recommended that if her condition continues to decline she would benefit with palliative care due to her multiple comorbid conditions. Other consideration would be hospice. This can be further addressed at the skilled facility. Follow up recommendation with GI in 2 weeks, nephrology in 2 weeks as well. Time Spent Managing Pts Care (In Minutes): 55
[2018-11-25] MEDS: Levofloxacin 250mg IV 250 MG/50 ML BAG IV SCH (12:09)
--- NOTE | 2018-11-25 18:01 | PN ---
Date of Progress Note: 11/25/2018 History Of Present Illness: Patient has no event. Still needs psychiatric assistant with feeding. Physical Examination: Vital Signs: Blood pressure 123/60, pulse of 66. Chest: Decreased entry bilateral base. Heart: S1, S2 regular. Abdomen: Soft, nontender. Extremities: +1 edema. Laboratory Data: H and H 8.3/25.3. Sodium 142, potassium 4.9, bicarb 31, BUN 36, creatinine 1.9, ca lcium 8.1. Serum protein electrophoresis negative for monoclonal. PC ratio 0.6. Medications: Current medications the patient on include Levaquin 250 q.24. Eliquis, amiodarone, met oprolol, Tylenol, gabapentin, Lexapro, mirtazapine, risperidone, Ensure, isosorbide, IV fluid D5 half . Assessment And Plan: 1.Acute kidney injury secondary to toxic acute tubular necrosis secondary to urinary tract infection , plateaued currently on the over volume side with peripheral edema. I am going to go ahead and disc ontinue IV fluid. We will continue to monitor the patient. Keep monitoring vancomycin level. Curre ntly off vancomycin. 2.Urinary tract infection secondary to monoclonal. Continue current Levaquin. Agree with holding t he vancomycin. We will follow up the culture. Patient growing yeast and gram-negative rods. 3.Esophageal stricture. Currently, patient tolerating diet with assisting with feeding. We will fo llow up with the primary. JUDITH Voice ID: [id number] Report ID: [id number]
[2018-11-25] MEDS ORDERED: GABAPENTIN 100 MG CAP PO SCH (21:00)
[2018-11-25] MEDS: RISPERIDONE 0.25 MG TABLET PO SCH (21:06)
[2018-11-25] MEDS: ESCITALOPRAM 20 MG TAB PO SCH (21:06)
[2018-11-25] MEDS: ACETAMINOPHEN 500 MG TAB PO PRN (21:06)
[2018-11-25] MEDS: MIRTAZAPINE 15 MG TAB PO SCH (21:06)
[2018-11-25] MEDS: ATORVASTATIN 10 MG TAB PO SCH (21:07)
[2018-11-26] MEDS ORDERED: Meropenem 1000 MG/VIAL IV SCH (09:00)
[2018-11-26] MEDS ORDERED: Meropenem 1,000 MG in NA CHLORIDE 0.9% 100 ML IV SCH (09:00)
[2018-11-26] MEDS: MEMANTINE HCL 10 MG TABLET PO SCH (09:32)
[2018-11-26] MEDS: POTASSIUM CL SA 10 MEQ TAB PO SCH (09:32)
[2018-11-26] MEDS: AMIODARONE HCL 200 MG TAB PO SCH (09:33)
[2018-11-26] MEDS: METOPROLOL XL 25 MG TAB PO SCH (09:33)
[2018-11-26] MEDS: JUVEN PACKET PO SCH (09:34)
[2018-11-26] MEDS: ENSURE ENLIVE 237 ML CAN PO SCH (09:34)
[2018-11-26] MEDS: BUSPIRONE HCL 5 MG TABLET PO SCH ×2 (09:45→13:02)
--- NOTE | 2018-11-26 11:24 | P.DS ---
Admission Date: 11/16/18 Discharge Date: 11/26/18 Primary Care Provider: Dr. Ferrer Disposition: TRANSFER TO LONG TERM Discharge Condition: FAIR Reason for Admission: Altered mental status, dehydration Consultations: Nephrology-Dr. Inman GI-Dr. Medeiros Procedures: Medical problem list: Acute metabolic encephalopathy resolved Left lower extremity wound, culture positive for Staphylococcus aureus and Klebsiella Hypernatremia UTI, urine culture positive for E coli-ESBL Acute kidney injury secondary to toxic acute tubular necrosis likely related to vancomycin Esophageal stricture status post dilation Acute on chronic anemia secondary to blood loss and iron deficiency status post EGD Right ankle/left leg who wound HTN Alzheimer dementia COPD Hx of CVA Chronic atrial fibrillation, off chronic anticoagulation due to anemia Brief History of Present Illness: 78-year-old female presented with fever and altered mental status. Patient found to have encephalopathy likely related to lower extremity wound. Patient also had acute renal injury. The patient was admitted for further evaluation and treatment. Hospital Course: Patient presented with multiple medical problems including altered mental status , fever, hypernatremia and acute renal failure. This was related to a left lower extremity wound. Cultures were positive for Staph aureus and Klebsiella. Patient was placed on IV vancomycin. Unfortunately vancomycin had to be discontinued due to worsening renal function. Nephrology was consulted during her stay to help with this. At discharge renal function remained stable. Medications have been adjusted per renal function. Prior to discharge patient was reassessed. Patient found to have UTI, urine culture positive for E coli- ESBL. This required IV antibiotic therapy-meropenem. Prior to discharge to half-way PICC line was placed for IV antibiotic therapy-meropenem 1 g IV twice daily for 7 days. She will continue with treatment at the half-way. Will recommend hospice after treatment. This was discussed in detail with daughter who understands her multiple medical problems. Patient was also anemic during her stay. This required GI evaluation which included EGD showing esophageal stricture. This required dilation. Patient also had colonoscopy but had a poor prep. H patient required transfusion. Hemoglobin stable at this time. Patient with underlying atrial fibrillation previously on anti coagulation therapy-Eliquis. At discharge she will continue with rate control medication metoprolol 12.5 mg daily. Eliquis has been discontinued due to risk of bleeding and related to her anemia. This was discussed in detail with cardiology. Patient will also continue with amiodarone 200 mg daily. Patient with underlying dementia. At discharge she will continue with her medications including buspirone 10 mg twice daily and buspirone 5 mg at bedtime , Namenda 10 mg daily, Remeron 15 mg at bedtime. Patient with hypertension. At discharge patient will continue with metoprolol 12.5 mg daily. Vital Signs/Physical Exam: Temp Pulse Resp BP Pulse Ox 98.8 F 77 18 125/57 L 94 11/26/18 08:00 11/26/18 09:33 11/26/18 08:00 11/26/18 09:33 11/26/18 08:00 General: Alert, Demented HEENT: Atraumatic Neck: Supple Respiratory: Clear to auscultation bilaterally, Normal air movement Cardiovascular: Normal pulses, Regular rate/rhythm Gastrointestinal: Normal bowel sounds, Soft and benign, Non-distended Musculoskeletal: Contractures (To the lower extremity) Neurological: Dementia Laboratory Data at Discharge: WBC 7.5 K/uL (4.3-10.9) 11/25/18 05:40 Hgb 8.3 g/dL (12.0-15.0) L 11/25/18 05:40 Hct 25.3 % (36.0-45.0) L 11/25/18 05:40 Plt Count 258 K/uL (152-406) 11/25/18 05:40 PT 19.9 SECONDS (9.5-12.5) H 11/13/18 19:05 INR 1.72 11/13/18 19:05 APTT 32.5 SECONDS (24.3-36.9) 11/14/18 05:22 Sodium 142 mmol/L (136-145) 11/25/18 05:40 Potassium 4.9 mmol/L (3.5-5.1) 11/25/18 05:40 BUN 36 mg/dL (7-18) H 11/25/18 05:40 Creatinine 1.95 mg/dL (0.55-1.3) H 11/25/18 05:40 Glucose 85 mg/dL (74-106) 11/25/18 05:40 Uric Acid 6.5 mg/dL (2.6-6.0) H 11/20/18 05:15 Phosphorus 3.2 mg/dL (2.5-4.9) 11/24/18 04:32 Magnesium 2.2 mg/dL (1.8-2.4) 11/13/18 19:05 Total Bilirubin 0.2 mg/dL (0.2-1.0) 11/25/18 05:40 AST 17 U/L (15-37) 11/25/18 05:40 ALT 13 U/L (12-78) 11/25/18 05:40 Alkaline Phosphatase 75 U/L (45-117) 11/25/18 05:40 Lipase 120 U/L (73-393) 11/13/18 19:05 Home Medications: Albuterol Neb [Proventil 0.083% Neb Soln] 1 inh IN Q6H PRN 11/14/18 Amiodarone HCl [Cordarone*] 200 mg PO DAILY 11/14/18 Buspirone HCl [Buspar*] 1 tab PO BEDTIME 11/14/18 Buspirone HCl [Buspar] 10 mg PO BID 11/14/18 Collagenase [Santyl Ointment*] 1 appl TOP DAILY 11/14/18 Escitalopram Oxalate [Lexapro] 5 mg PO BEDTIME 11/14/18 Furosemide [Lasix] 40 mg PO DAILY 11/14/18 Gabapentin 300 mg PO BEDTIME 11/14/18 Isosorbide Dinitrate [Isosorbide Dinitrate ER] 1 tab PO DAILY 11/14/18 Memantine HCl 10 mg PO DAILY 11/14/18 Metoprolol Succinate 12.5 mg PO DAILY 11/14/18 Mirtazapine [Remeron*] 15 mg PO BEDTIME 11/14/18 Pantoprazole [Protonix Tab*] 40 mg PO DAILY 11/14/18 Potassium Chloride 1 tab PO DAILY 11/14/18 Pravastatin Sodium 10 mg PO BEDTIME 11/14/18 Ensure Enlive 237 ml PO BID can 11/24/18 David [David*] 1 pkt PO BID powd.pack 11/24/18 Patient Discharge Instructions: 1. Patient be transferred to half-way to continue IV antibiotic therapy-meropenem 1 g IV twice daily for [address] days. [address] line in place. This can be removed after 7 days with confirmation of treatment of UTI. 2. Patient presented with multiple medical problems including altered mental status, fever, hypernatremia and acute renal failure. This was related to a left lower extremity wound. Cultures were positive for Staph aureus and Klebsiella. Patient was placed on IV vancomycin. Unfortunately vancomycin had to be discontinued due to worsening renal function. Nephrology was consulted during her stay to help with this. At discharge renal function remained stable. Medications have been adjusted per renal function. Prior to discharge patient was reassessed. Patient found to have UTI, urine culture positive for E coli-ESBL. This required IV antibiotic therapy-meropenem. Prior to discharge to half-way PICC line was placed for IV antibiotic therapy- meropenem 1 g IV twice daily for 7 days. She will continue with treatment at the half-way. Will recommend hospice after treatment. This was discussed in detail with daughter who understands her multiple medical problems. 3. Patient was also anemic during her stay. This required GI evaluation which included EGD showing esophageal stricture. This required dilation. Patient also had colonoscopy but had a poor prep. H patient required transfusion. Hemoglobin stable at this time. 4. Patient with underlying atrial fibrillation previously on anti coagulation therapy-Eliquis. At discharge she will continue with rate control medication metoprolol 12.5 mg daily. Eliquis has been discontinued due to risk of bleeding and related to her anemia. This was discussed in detail with cardiology. Patient will also continue with amiodarone 200 mg daily. 5. Patient with underlying dementia. At discharge she will continue with her medications including buspirone 10 mg twice daily and buspirone 5 mg at bedtime, Namenda 10 mg daily, Remeron 15 mg at bedtime. 6. Patient with hypertension. At discharge patient will continue with metoprolol 12.5 mg daily. Diet: Low sodium Activity: Fall precautions Followup: Jennifer Preston MD [COURTESY - CAN ADMIT] - 1-2 Weeks (please call for an appointment) Shahriar Medeiros MD [ASSOCIATE-ACTIVE - CAN ADMIT] - 1-2 Weeks (please call for an appointment) Time spent managing pt's care (in minutes): 55
[2018-11-26] MEDS ORDERED: FUROSEMIDE 20 MG/ 2ML VIAL IV ONE (12:22)
[2018-11-26] MEDS: IRON SUCROSE 200 MG in NA CHLORIDE 0.9% 250 ML IV SCH (15:00)
--- NOTE | 2018-11-26 15:06 | RAD REPORT ---
EXAM DESCRIPTION: RAD - Chest Single View - 11/26/2018 2:53 pm CLINICAL HISTORY: Device placement PICC line placement COMPARISON: The aside FINDINGS: A PICC line has been inserted with its tip in the mid superior vena cava. The small to moderate left pleural effusion with left basilar opacity which may represent atelectasis or pneumonia Mild interstitial pulmonary edema is suspected
--- NOTE | 2018-11-26 16:59 | PN ---
Date of Progress Note: 11/26/2018 Subjective: Patient is still feeling weak, eating with podiatric assistant. Physical Examination: Vital Signs: Blood pressure of 125/57, pulse of 77, afebrile. Patient had good urine output of 1100 . Chest: Clear to auscultation. Heart: S1, S2 regular. Abdomen: Soft, nontender. Extremities: +1 edema. Laboratory Data: WBC 7.5, H and H 8.3/25.3, platelets 258. Sodium 142, potassium 4.9, bicarb 31, BU N 36, creatinine down to 1.9, GFR up to 25, calcium 8.1. Serum protein electrophoresis, no monoclona l. TSH of 2.3. PC ratio 0.8. Medications: Current medications the patient on include IV iron, Eliquis, amiodarone, atorvastatin, metoprolol 12.5, Tylenol, citalopram, gabapentin, we decreased it to 100, buspirone, mirtazapine, Zof ran, isosorbide, KCl. Assessment And Plan: 1.Acute kidney injury secondary to toxic acute tubular necrosis. Patient continues on recovery, sti ll has peripheral edema. No respiratory distress. I am going to go ahead and continue another dose of Lasix today and we will monitor the patient. 2.Hypertension, control optimal. Continue current medication. 3.Urinary tract infection secondary to extended spectrum beta-lactamase. We will adjust the meropen em. Will follow up with primary. Germaine for PICC line. 4.Deconditioning. Continue PT/OT. VIMAL/HOA Voice ID: [id number] Report ID: [id number]
[2018-11-26] MEDS ORDERED: HYDRALAZINE HCL 20 MG/ML VIAL IV ONE (17:30)
[2018-11-26 17:55] VITALS: O2SAT 92
[2018-11-26 20:25] VITALS: BP 128/57; TEMP 99.3
[2018-11-26] MEDS ORDERED: Meropenem 500 MG in NA CHLORIDE 0.9% 100 ML IV SCH ×2 (21:00)
== END 2018-11-26 21:00 | DRG 682 ==
LOC: ER 18:51 → ERHOLD 22:06 → 2ND 22:10 → OBSVTOIN 11-16 14:24
PROVIDERS: ADMIT Hospitalist; ATTEND Family Medicine
PROC: 0DB78ZX Excision of Stomach, Pylorus, Via Natural or Artificial Opening Endoscopic, Diagnostic (ICD-10-PCS; 2018-11-19)
PROC: 0DB88ZX Excision of Small Intestine, Via Natural or Artificial Opening Endoscopic, Diagnostic (ICD-10-PCS; 2018-11-19)
PROC: 0D758ZZ Dilation of Esophagus, Via Natural or Artificial Opening Endoscopic (ICD-10-PCS; 2018-11-19)
PROC: 30233N1 Transfusion of Nonautologous Red Blood Cells into Peripheral Vein, Percutaneous Approach (ICD-10-PCS; principal; 2018-11-22)
DX: N17.0 Acute kidney failure with tubular necrosis (principal); G93.41 Metabolic encephalopathy; M86.9 Osteomyelitis, unspecified; E87.0 Hyperosmolality and hypernatremia; D62 Acute posthemorrhagic anemia; N39.0 Urinary tract infection, site not specified; E86.0 Dehydration; L89.510 Pressure ulcer of right ankle, unstageable; L89.620 Pressure ulcer of left heel, unstageable; N14.1 Nephropathy induced by other drugs, medicaments and biological substances; T36.8X5A Adverse effect of other systemic antibiotics, initial encounter; B95.61 Methicillin susceptible Staphylococcus aureus infection as the cause of diseases classified elsewhere; B96.1 Klebsiella pneumoniae [K. pneumoniae] as the cause of diseases classified elsewhere; J44.9 Chronic obstructive pulmonary disease, unspecified; G30.0 Alzheimer's disease with early onset; F02.80 Dementia in other diseases classified elsewhere, unspecified severity, without behavioral disturbance, psychotic disturbance, mood disturbance, and anxiety; I11.0 Hypertensive heart disease with heart failure; I50.9 Heart failure, unspecified; R19.7 Diarrhea, unspecified; K29.70 Gastritis, unspecified, without bleeding; K44.9 Diaphragmatic hernia without obstruction or gangrene; K22.2 Esophageal obstruction; I48.2 Chronic atrial fibrillation; D50.9 Iron deficiency anemia, unspecified; I69.398 Other sequelae of cerebral infarction; B96.20 Unspecified Escherichia coli [E. coli] as the cause of diseases classified elsewhere; Z16.12 Extended spectrum beta lactamase (ESBL) resistance; Z79.01 Long term (current) use of anticoagulants; Z88.5 Allergy status to narcotic agent
CPT/HCPCS: 36415; 36430; 51702; 70450; 71045; 74280; 76770; 80048; 80053; 80069; 80076; 80202; 81003; 81015; 82274; 82550; 82553; 82565; 82570; 82728; 83540; 83605; 83690; 83735; 83880; 84145; 84156; 84165; 84443; 84466; 84484; 84550; 85014; 85018; 85025; 85610; 85730; 86021; 86038; 86160; 86225; 86317; 86335; 86430; 86704; 86706; 86850; 86900; 86901; 87040; 87045; 87046; 87077; 87086; 87088; 87186; 87340; 87389; 87493; 87522; 88108; 88305; 88312; 90471; 90670; 93005; 93971; 96365; 96375; 97162; 99285; J0360; J0696; J1940; J2704; J2997; J7030; P9016

== ENCOUNTER 2018-12-04 14:18 | Inpatient (IN) | payer OTHER ==
--- OUTSIDE RECORDS SUMMARY | 2018-12-04 14:27 | XMS REPORT | Continuity of Care Document ---
:1940 Author Organization [employer] Care Team Providers Name Role Phone IVDesk Unavailable Unavailable Problems Problem Status Onset Classification Date Comments Source Date Reported Hypotension, 12/29/19 07/12/2018 unspecified 18 [place] Transient 12/24/19 07/12/2018 hypotension 18 [place] Weakness of both 12/24/19 07/12/2018 legs 18 [place] HYPERTENSION Active 12/24/19 18 [place] PER /IRENE HRT Active 08/23/[address] Center TIA, CAD Active 08/23/[address] DX:CLUADICATION, Active 07/10/19 [facility] SEVERE PAD / Medical Center CCL/ R LOWE EXTR Active 07/10/19 [facility] ANGIO / Medical DX:CLUADICATION Center CAD, HTN, DYSPNEA Active 02/11/[address] Center CCL/RENAL Active 02/11/20 [facility] ANGIO/DX: CAD, 14 Medical HTN, DYSPNEA Center Discharge 10/07/19 10/09/2013 [facility] Diagnosis: 14 Medical Ecchymosis Center Discharge 10/07/19 10/09/2013 [facility] Diagnosis: Postop 14 Medical check Center SENT BY Active 10/02/[address] Center CLAUDICATION, Active 09/15/19 [facility] SEVERE PAD 14 Medical Center CCL/RIGHT LOWER Active 09/15/19 [facility] 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 CCL/LEFT LOWER Active 09/02/19 [facility] EXTREMITY 14 Medical 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/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 OPERATOR/DX: C Center ANGINA, ABN STRESS Active 08/22/19 [facility] TEST, CLAUDICATION 14 Medical Center 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 Problem 07/12/[address], [place] Nicotine 07/12/2018 dependence, other [place] [...] deficits 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 Anxiety Resolved Problem 07/12/2018 [facility], [place] Bronchitis Resolved Problem 07/12/2018 [facility], [place] CAD - Coronary Resolved Problem 07/12/2018 [facility] artery [facility], [place] CHF (Confirmed) Resolved Problem 07/12/2018 [facility], [place] COPD - Chronic Resolved Problem 07/12/2018 [facility] pulmonary disease [place], [place] CVA (Confirmed) Resolved Problem 07/12/2018 [facility], [place] Dementia Resolved Problem 07/12/2018 [facility], [place] Dyslipidemia Resolved Problem 07/12/2018 [facility], [place] Headache Resolved Problem 07/12/2018 [facility], [place] Heartburn Resolved Problem 07/12/2018 [facility] HTN - Hypertension Resolved Problem 07/12/2018 [facility] PVD - Peripheral Resolved Problem 07/12/2018 [facility] vascular disease [facility], [place] Squamous cell Resolved Problem 07/12/2018 [facility] carcinoma [facility] [place] Tingling Resolved Problem 07/12/2018 [facility], [place] Weakness Resolved Problem 07/12/2018 [facility], [place] Final: 08/27/2014 [facility] TRANS CEREB Active [facility] ISCHEMIA [facility]ly [facility] Medications Medication Details Route Status Patient Ordering Order Source Instructions Provider Date Sodium Chloride 500 mL, 500 Inactive 0.9% (Bolus) IV ml/hr, Infuse 2017 [facility] Over: 1 hr, Route: IV, 500, Drug form: INJ, ONCE, Priority: STAT, Dosing Weight 61.364 kg, Start date: 12/23/17 16:42:00 CDT, Stop date: 12/23/17 16:42:00 CDT Saline Flush 0.9% 10 mL, Route: Inactive IVP, Drug 2017 [facility] Form: INJ, Dosing Weight 61.364, kg, PRN, PRN Line Flush, Start date: 12/23/17 16:42:00 CDT, Duration: 30 day, Stop date: 01/22/18 16:41:00 CDTNotes: (Same as: BD Posiflush) Niferex-150 Forte 1 cap, Route: No Longer [facility] PO, Drug Form: Active 2014 Medical CAP, Dosing Center Weight 57.273, kg, Daily, Start date: 08/25/14 9:00:00, Duration: 30 day, Stop date: 09/23/14 9:00:00Notes: Give with food. Thiamine 100 mg, 1 tab, No Longer [place] Route: PO, Active 2014 Medical Drug form: Center TAB, Daily, Dosing Weight 57.273, kg, Start date: 08/25/14 9:00:00, Duration: 30 day, Stop date: 09/23/14 9:00:00Notes: (Same As: Vitamin B1) Hydrochlorothiazid 1 tab, PO, Active [facility] e 12.5 MG / Daily, # 30 2014 Medical Olmesartan tab, 0 Center medoxomil 40 MG Refill(s) Oral Tablet 12 HR ranolazine 500 mg=1 tab, Active [facility] 500 MG Extended PO, Q12H, # 30 2015 Medical Release Tablet tab, 0 Center [Ranexa] Refill(s) Vitamin B12 with 1 mg=1 tab, Active [facility] Folic Acid and PO, Daily, # 2015 Medical [place] oral capsule 30 tab, 0 Center Refill(s) prasugrel 10 MG 10 mg=1 tab, Active [facility] Oral Tablet PO, Daily, # 2015 Medical [Effient] 30 tab, 0 Center Refill(s) Trazodone 25 mg=0.5 tab, Active [facility] Hydrochloride 50 PO, Bedtime, 2015 Medical MG Oral Tablet PRN Center Sleeplessness, use this for sleeplessness; discuss possibly continuing it with your primay care MD., # 10 tab, 0 Refill(s)Speci al Instructions: use this for sleeplessness; discuss possibly continuing it with your primay care MD. thiamine 100 mg 100 mg, PO, Active [facility] oral tablet Daily, # 30 2015 Medical tab, 0 Center Refill(s) doxazosin 2 mg 6 mg=3 tab, Active [facility] oral tablet PO, Daily, 2015 Medical take three 0.2 Center mg tabs each day, making 6 mg of medication daily, # 90 tab, 0 Refill(s)Speci al Instructions: take three 0.2 mg tabs each day, making 6 mg of medication daily isosorbide 30 mg=1 tab, Active [facility] mononitrate 30 mg PO, QAM, # 30 2014 Medical oral tablet, tab, 0 [place] extended release Refill(s) Effient 10 mg, 1 tab, Inactive [facility] Route: PO, 2014 Medical Drug form: Center TAB, Daily, Start date: 08/24/14 13:00:00, Duration: 30 day, Stop date: 09/23/14 9:00:00Notes: Same as Effient For patients 60kg, without history of TIA/Ischemic stroke and without likely bypass surgery Effient 10 mg, Route: Inactive [facility] PO, Daily, 2014 Medical Dosing Weight Center 57.273, kg, Start date: 08/24/14 11:27:00, Duration: 30 day, Stop date: 09/23/14 9:00:00 Vitamin B12 1,000 Inactive [facility] microgram, 1 2014 Medical mL, Route: IM, [place] Drug form: INJ, ONCE, Dosing Weight 57.273, kg, Start date: 08/24/14 11:20:00, Stop date: 08/24/14 11:20:00Notes: (Same As: Vitamin B12) atorvastatin 10 mg, 1 tab, No Longer [facility] Route: PO, Active 2014 Medical Drug form: [place] TAB, Bedtime, Dosing Weight 56.818, kg, Start date: 08/23/14 21:00:00, Duration: 30 day, Stop date: 09/21/14 21:00:00Notes: (Same As: Lipitor) Trazodone 25 mg, 0.5 No Longer [facility] tab, Route: Active 2014 Medical PO, Drug form: [place] TAB, Bedtime, Dosing Weight 57.273, kg, PRN Sleep, dose for inability to sleep, please, Start date: 08/23/14 19:52:00, Duration: 30 day, Stop date: 09/22/14 19:51:00Notes: (Same As: Desyrel) potassium chloride 20 mEq, 1 tab, Inactive [place] Route: PO, 2014 Medical Drug form: [place] ERTAB, ONCE, Dosing Weight 57.273, kg, Start date: 08/23/14 14:22:00, Stop date: 08/23/14 14:22:00Notes: (Same as: K-Dur 20) "Do Not Crush" With food and full glass of water Lovenox 40 mg, 0.4 mL, No Longer [place] Route: SUB-Q, Active 2014 Medical Drug form: [place] INJ, [id number], Dosing Weight 57.273, kg, Start date: 08/23/14 10:00:00, Duration: 30 day, Stop date: 09/21/14 10:00:00Notes: (Same as: Lovenox) Albuterol 0.833 3 mL, Route: No Longer [place] MG/ML / INHALATION, Active 2014 Medical Ipratropium Drug Form: [place] 0.167 SOLN, Dosing MG/ML Inhalant Weight 57.273, Solution [DuoNeb] kg, QID, PRN as needed for shortness of breath or wheezing, Start date: 08/23/14 9:04:00, Duration: 30 day, Stop date: 09/22/14 9:03:00Notes: (Same as: Duoneb) Dulcolax Laxative 10 mg, 2 tab, No Longer [place] Route: PO, Active 2014 Medical Drug form: [place] ECTAB, Daily, Dosing Weight 57.273, kg, PRN Constipation, Start date: 08/23/14 9:02:00, Duration: 30 day, Stop date: 09/22/14 9:01:00Notes: (Same As: Dulcolax, Correctol) (Do Not Crush) "Do Not Crush" Docusate 100 mg, 1 cap, No Longer [place] Route: PO, Active 2014 Medical Drug form: [place] CAP, BID, Dosing Weight 56.818, kg, Start date: 08/23/14 9:00:00, Duration: 30 day, Stop date: 09/21/14 17:00:00Notes: (Same as: Colace) (Do Not Crush) Microzide 12.5 mg, 1 No Longer [place] cap, Route: Active 2014 Medical PO, Drug form: [place] CAP, Daily, Start date: 08/23/14 9:00:00, Duration: 30 day, Stop date: 09/21/14 9:00:00Notes: (Same as: Microzide) With food. Isosorbide 30 mg, 1 tab, No Longer [place] Route: PO, Active 2014 Medical Drug form: [place] ERTAB, QAM, Dosing Weight 56.818, kg, hold for sbpNotes: (Same as:Imdur) "Do Not Crush" Take on empty stomach/ full glass of water. Do not crush Hydrochlorothiazid 1 tab, Route: No Longer [place] e 12.5 MG / PO, Drug Form: Active 2014 Medical Olmesartan TAB, Dosing Center medoxomil 40 MG Weight 56.818, Oral Tablet kg, Daily, [Benicar HCT hold for sbp 40/12.5] Nexium 40 mg, Route: No Longer [place] PO, Drug form: Active 2014 Medical ECCAP, Daily, Center Dosing Weight 56.818, kg, Start date: 08/23/14 9:00:00, Duration: 30 day, Stop date: 09/21/14 9:00:00 Coreg 25 mg, 1 tab, No Longer [place] Route: PO, Active 2014 Medical Drug form: [place] TAB, BID, Dosing Weight 56.818, kg, Start date: 08/23/14 9:00:00, Duration: 30 day, Stop date: 09/21/14 17:00:00Notes: Give with food. (Same As: Coreg) Magnesium Oxide 400 mg, 1 tab, No Longer [place] Route: PO, Active 2014 Medical Drug form: [place] TAB, BID, Dosing Weight 57.273, kg, Start date: 08/23/14 9:00:00, Duration: 4 doses or times, Stop date: 08/24/14 17:00:00Notes: (Same as: Mag-Ox 400) Magnesium oxide 854mo=115ys elemental magnesium Dose=____mg magnesium oxide (___mg elemental magnesium) Benicar 40 mg, 2 tab, No Longer [place] Route: PO, Active 2014 Medical Drug form: [place] TAB, Daily, Start date: 08/23/14 9:00:00, Stop date: 09/21/14 9:00:00 Doxazosin 6 mg, 3 tab, No Longer [place] Route: PO, Active 2014 Medical Drug form: [place] TAB, Daily, Dosing Weight 56.818, kg, hold for sbpNotes: (Same as: Pa) Aspirin 81 mg, 1 tab, No Longer [place] Route: PO, Active 2014 Medical Drug form: [place] CHEWTAB, Daily, Dosing Weight 56.818, kg, Start date: 08/23/14 9:00:00, Duration: 30 day, Stop date: 09/21/14 9:00:00Notes: Take with food. 12 HR ranolazine 500 mg, 1 tab, No Longer [place] 500 MG Extended Route: PO, Active 2014 Medical Release Tablet Drug form: [place] [Ranexa] TAB, Q12H, Dosing Weight 56.818, kg, Start date: 08/23/14 9:00:00, Duration: 30 day, Stop date: 09/21/14 21:00:00Notes: Same as Ranexa "Do Not Crush" Mirapex 0.5 mg, 2 tab, No Longer [place] Route: PO, Active 2014 Medical Drug form: [place] TAB, BID, Dosing Weight 56.818, kg, Start date: 08/23/14 9:00:00, Duration: 30 day, Stop date: 09/21/14 17:00:00Notes: (Same as: Mirapex) Namenda 10 mg, 1 tab, No Longer [place] Route: PO, Active 2014 Medical Drug form: [place] TAB, BID, Dosing Weight 56.818, kg, Start date: 08/23/14 9:00:00, Duration: 30 day, Stop date: 09/21/14 17:00:00Notes: (Same As: Namenda) Protonix 40 mg, 1 tab, No Longer [place] Route: PO, Active 2014 Medical Drug form: [place] ECTAB, Before Breakfast, Start date: 08/23/14 7:30:00, Duration: 30 day, Stop date: 09/21/14 7:30:00Notes: Tablet should not be chewed or crushed. (Same as: Protonix) donepezil 10 mg 10 mg=1 tab, Active [place] oral tablet PO, Bedtime, 0 2014 Medical Refill(s) Center doxazosin 4 mg 4 mg=1 tab, No Longer [facility] oral tablet PO, Daily, 0 Active 2014 Medical Refill(s) Center Morphine 2 mg, 1 mL, No Longer [place] Route: IVP, Active 2014 Medical Drug form: Center INJ, Q3H, Dosing Weight 56.818, kg, PRN Pain Score 4-6, Start date: 08/22/14 21:32:00, Duration: 30 day, Stop date: 09/21/14 21:31:00Notes: (Same as:MORPhine Sulfate) Acetaminophen 325 1 tab, Route: No Longer [place] MG / Hydrocodone PO, Drug Form: Active 2014 Medical Bitartrate 5 MG TAB, Dosing Center Oral Tablet Weight 56.818, kg, Q4H, PRN Pain Score 1-3, Start date: 08/22/14 21:32:00, Duration: 30 day, Stop date: 09/21/14 21:31:00Notes: (Same as: [place] 325/5) Do not exceed 4gm/day of acetaminophen. Acetaminophen 650 mg, 2 tab, No Longer [place] Route: PO, Active 2014 Medical Drug form: Center TAB, Q4H, Dosing Weight 56.818, kg, PRN Pain 1-3/Temp > 100.4 F, Start date: 08/22/14 21:32:00, Duration: 30 day, Stop date: 09/21/14 21:31:00Notes: Do not exceed 4 gm/day. (Same as: Tylenol) Ondansetron 4 mg, 2 mL, No Longer [place] Route: IVP, Active 2014 Medical Drug form: Center INJ, Q6H, Dosing Weight 56.818, kg, PRN Nausea & Vomiting, Start date: 08/22/14 21:32:00, Duration: 30 day, Stop date: 09/21/14 21:31:00Notes: (Same as: Tree) MEDICATION WASTE Product Size: 4 mg Product Wasted: ___ mg Doxazosin 4 mg, 1 tab, Inactive [place] Route: PO, 2014 Medical Drug form: [place] TAB, ONCE, Dosing Weight 56.818, kg, Start date: 08/22/14 19:09:00, Stop date: 08/22/14 19:09:00Notes: (Same as: Pa) Aspirin 324 mg, 4 tab, Inactive [facility] Route: CHEW, 2014 Medical Drug form: [place] CHEWTAB, ONCE, Dosing Weight 56.818, kg, Priority: STAT, Start date: 08/22/14 18:47:00, Stop date: 08/22/14 18:47:00Notes: Take with food. Nitroglycerin 100 mg, 250 No Longer [facility] mL, Rate: Active 2014 Medical Infuse as Center directed, Dosing Weight 56.818, kg, Route: IV, Total Volume: 250 mL, Start date: 08/22/14 17:27:00, Duration: 30 day, Stop date: 09/21/14 17:26:00, Replace Every: 24 hrNotes: (Same as:Tridil) Final conc=0.4 mg/ml. Premix bottle. Tylenol 975 mg, Route: Inactive [facility] PO, Drug form: 2014 Medical TAB, ONCE, Center Dosing Weight 56.818, kg, Priority: STAT, Start date: 08/22/14 17:21:00, Stop date: 08/22/14 17:21:00 Saline Flush 0.9% 10 mL, Route: No Longer [facility] IVP, Drug Active 2014 Medical Form: INJ, [place] Dosing Weight 56.818, kg, PRN, PRN Line Flush, Start date: 08/22/14 15:36:00, Duration: 30 day, Stop date: 09/21/14 15:35:00Notes: (Same as: BD Posiflush) hydrochlorothiazid 12.5 mg, 0.5 No Longer [place] e 25 mg oral tab, Route: Active 2013 Medical tablet PO, Drug form: [place] TAB, Daily, Start date: 03/05/14 9:00:00, Duration: 30 day, Stop date: 04/03/14 9:00:00Notes: (Same as: Hydrodiuril) With food. Effient 10 mg, 1 tab, No Longer [place] Route: PO, Active 2013 Medical Drug form: [place] TAB, Daily, Dosing Weight 57.273, kg, Start date: 03/05/14 9:00:00, Duration: 30 day, Stop date: 04/03/14 9:00:00Notes: Same as Effient For patients 60kg, without history of TIA/Ischemic stroke and without likely bypass surgery Benicar 40 mg, 2 tab, No Longer [place] Route: PO, Active 2013 Medical Drug form: [place] TAB, Daily, Start date: 03/05/14 9:00:00, Duration: 30 day, Stop date: 04/03/14 9:00:00 Isosorbide 30 mg, 1 tab, No Longer [place] Route: PO, Active 2013 Medical Drug form: [place] ERTAB, QA, Dosing Weight 57.273, kg, Start [...] aspirin 81 mg, 1 tab, No Longer [facility] Route: PO, Active 2013 Medical Drug form: [place] CHEWTAB, Daily, Dosing Weight 57.273, kg, Start date: 03/05/14 9:00:00, Duration: 30 day, Stop date: 04/03/14 9:00:00Notes: Take with food. Saline Flush 0.9% 10 ml, Route: Inactive [facility] IVP, Drug 2013 Medical Form: INJ, [place] Dosing Weight 57.273, kg, Q12H, Start date: 03/04/14 21:00:00, Duration: 30 day, Stop date: 04/03/14 9:00:00Notes: (Same as: BD Posiflush) carvedilol 25 mg, 1 tab, Inactive [place] Route: PO, 2013 Medical Drug form: [place] TAB, Q12H, Dosing Weight 57.273, kg, Start date: 03/04/14 21:00:00, Duration: 30 day, Stop date: 04/03/14 9:00:00Notes: Give with food. (Same As: Coreg) atorvastatin 10 mg, 1 tab, Inactive [place] Route: PO, 2013 Medical Drug form: [place] TAB, Bedtime, Dosing Weight 57.273, kg, Start date: 03/04/14 21:00:00, Duration: 30 day, Stop date: 04/02/14 21:00:00Notes: (Same As: Lipitor) 12 HR ranolazine 500 mg, 1 tab, Inactive [place] 500 MG Extended Route: PO, 2013 Medical Release Tablet Drug form: [place] [Ranexa] TAB, BID, Dosing Weight 57.273, kg, Start date: 03/04/14 17:00:00, Duration: 30 day, Stop date: 04/03/14 9:00:00Notes: Same as Ranexa "Do Not Crush" Mirapex 0.5 mg, 2 tab, Inactive [facility] Route: PO2013 Medical Drug form: [place] TAB, BID, Dosing Weight 57.273, kg, Start date: 03/04/14 17:00:00, Duration: 30 day, Stop date: 04/03/14 9:00:00Notes: (Same as: Mirapex) Namenda 10 mg, 1 tab, Inactive [facility] Route: PO, 2013 Medical Drug form: [place] TAB, BID, Dosing Weight 57.273, kg, Start date: 03/04/14 17:00:00, Duration: 30 day, Stop date: 04/03/14 9:00:00Notes: (Same As: Namenda) Protonix 40 mg, 1 tab, Inactive [facility] Route: PO2013 Medical Drug form: [place] ECTAB, Before Dinner, Start date: 03/04/14 16:30:00, Duration: 30 day, Stop date: 04/02/14 16:30:00Notes: Tablet should not be chewed or crushed. (Same as: Protonix) Saline Flush 0.9% 10 ml, Route: Inactive [facility] IVP, Drug 2013 Medical Form: INJ, [place] Dosing Weight 57.273, kg, PRN, PRN Line Flush, Start date: 03/04/14 9:27:00, Duration: 30 day, Stop date: 04/03/14 9:26:00Notes: (Same as: BD Posiflush) Nitroglycerin 0.4 mg, 1 tab, Inactive [facility] Route: SL, 2013 Medical Drug form: [place] TAB, Q5Min, Dosing Weight 57.273, kg, PRN Chest Pain, Start date: 03/04/14 9:27:00, Duration: 3 doses or times, Stop date: 03/04/14 17:00:00Notes: (Same as:Nitroquick, Nitrostat) "Do Not Crush" Sublingual tablet isosorbide 30 mg=1 tab, Active [facility] mononitrate 30 mg PO, QAM, # 30 2013 Medical oral tablet, tab, 0 [place] extended release Refill(s) Doxazosin 6 mg, PO, Active [facility] Daily, 0 2013 Medical Refill(s) Center carvedilol 25 mg 25 mg=1 tab, Active [facility] oral tablet PO, Q12H, # 60 2013 Medical tab, 0 Center Refill(s) Hydrochlorothiazid 1 tab, PO, Active [facility] e 12.5 MG / Daily, # 30 2014 Medical Olmesartan tab, 0 Center medoxomil 40 MG Refill(s) Oral Tablet [Benicar HCT 40/12.5] Effient 10 mg, 1 tab, Inactive [facility] Route: PO2013 Medical Drug form: Center TAB, Daily, Dosing Weight 60, kg, Start date: 08/25/13 10:00:00, Duration: 30 day, Stop date: 09/24/13 9:00:00Notes: Same as Effient For patients 60kg, without history of TIA/Ischemic stroke and without likely bypass surgery Tylenol 650 mg, 2 tab, Inactive [facility] Route: 2013 Medical Drug form: Center TAB, Q4H, PRN Pain Score 6-10, Start date: 08/25/13 9:43:00, Duration: 30 day, Stop date: 09/24/13 9:42:00 Tylenol 325 mg, 1 tab, Inactive [facility] Route: PO2013 Medical Drug form: Center TAB, Q4H, Dosing Weight 60, kg, PRN Pain Score 1-5, Start date: 08/25/13 9:36:00, Duration: 30 day, Stop date: 09/24/13 9:35:00Notes: Do not exceed 4 gm/day. (Same as: Tylenol) prasugrel 10 MG 10 mg=1 tab, Active [facility] Oral Tablet PO, Daily, # 2013 Medical [Effient] 30 tab, 0 Center Refill(s) Hydrochlorothiazid 1 tab, Route: No Longer [facility] e 12.5 MG / PO, Drug Form: Active 2013 Medical Olmesartan TAB, Dosing Center medoxomil 40 MG Weight 60, kg, Oral Tablet Daily, Start [Benicar HCT date: 08/25/13 40/12.5] 9:00:00, Duration: 30 day, Stop date: 09/23/13 9:00:00 Benicar 40 mg, 2 tab, Inactive [facility] Route: PO, 2013 Medical Drug form: [place] TAB, Daily, Start date: 08/25/13 9:00:00, Duration: 30 day, Stop date: 09/23/13 9:00:00 Microzide 12.5 mg, 1 Inactive [facility] cap, Route: 2013 Medical PO, Drug form: [place] CAP, Daily, Start date: 08/25/13 9:00:00, Duration: 30 day, Stop date: 09/23/13 9:00:00Notes: (Same as: Microzide) With food. Saline Flush 0.9% 5 ml, Route: No Longer [facility] IVP, Drug Active 2013 Medical Form: INJ, Center Dosing Weight 60, kg, Q12H, Start date: 08/24/13 21:00:00, Duration: 30 day, Stop date: 09/23/13 9:00:00Notes: (Same as: BD Posiflush) Ondansetron 0.8 4 mg, 5 mL, Inactive [facility] MG/ML Oral Route: PO, 2013 Medical Solution [Zofran] Drug form: [place] SOLN, ONCE, Dosing Weight 60, kg, Start date: 08/24/13 16:02:00, Stop date: 08/24/13 16:02:00Notes: (Same as: Zofran) Coreg 12.5 mg, 1 No Longer [facility] tab, Route: Active 2013 Medical PO, Drug form: Center TAB, Q12H, Dosing Weight 60, kg, Start date: 08/24/13 14:00:00, Duration: 30 day, Stop date: 09/23/13 9:00:00Notes: Give with food. (Same As: Coreg) Saline Flush 0.9% 5 ml, Route: No Longer [facility] IVP, Drug Active 2013 Medical Form: INJ, Center Dosing Weight 60, kg, PRN, PRN Line Flush, Start date: 08/24/13 12:13:00, Duration: 30 day, Stop date: 09/23/13 12:12:00Notes: (Same as: BD Posiflush) Nitroglycerin 0.4 mg, 1 tab, Inactive [facility] Route: 2013 Medical Drug form: Center TAB, Q5Min, Dosing Weight 60, kg, PRN Chest Pain, Start date: 08/24/13 12:13:00, Duration: 3 doses or times, Stop date: 08/24/13 17:00:00Notes: (Same as:Nitroquick, Nitrostat) "Do Not Crush" Sublingual tablet carvedilol 25 MG 25 mg=1 tab, Inactive [facility] Oral Tablet PO, BID, # 180 2013 Medical [Coreg] tab, 0 Center Refill(s) Hydrochlorothiazid 1 tab, PO, Inactive [facility] e 12.5 MG / Daily, # 30 2013 Medical Olmesartan tab, 0 Center medoxomil 40 MG Refill(s) Oral Tablet [Benicar HCT 40/12.5] 12 HR ranolazine 500 mg=1 tab, Active [facility] 500 MG Extended PO, BID, # 60 2013 Medical Release Tablet tab, 0 Center [Ranexa] Refill(s) ALPRAZOLam 0.25 mg 0.25 mg=1 tab, Active [facility] oral tablet, PO, TID, for 2013 Medical disintegrating anxiety, 0 Center Refill(s) Memantine 10 mg=1 tab, Active [facility] hydrochloride 10 PO, BID, # 60 2013 Medical MG Oral Tablet tab, 0 Center [Namenda] Refill(s) Pramipexole 0.5 mg=1 tab, Active [facility] dihydrochloride PO, BID, # 270 2013 Medical 0.5 MG Oral Tablet tab, 0 Center [Mirapex] Refill(s) Aspirin Low Dose =1 tab, PO, Active [facility] 81 mg oral tablet Daily, 0 2013 Medical Refill(s) [place] tiotropium 0.018 18 microgram=1 Active [facility] MG/ACTUAT Inhalant cap, 2013 Medical Powder [Spiriva] INHALATION, Center Daily, # 90 cap, 0 Refill(s) Esomeprazole 40 MG 40 mg=1 cap, Active [facility] Enteric Coated PO, Daily, # 2014 Medical Capsule [Nexium] 30 cap, 0 Center Refill(s) Fluticasone 1 puff, Active [place] propionate 0.5 INHALATION, 2013 Medical MG/ACTUAT / BID, # 60 Center salmeterol 0.05 puff, 0 MG/ACTUAT Dry Refill(s) Powder Inhaler [Advair 500/50] atorvastatin 10 mg 10 mg=1 tab, Active [place] oral tablet PO, Bedtime, # 2014 Medical 30 tab, 0 Center Refill(s) clopidogrel 75 MG 75 mg=1 tab, No Longer [place] Oral Tablet PO, Daily, # Active 2013 [facility] [Plavix] 30 tab, 0 Center Refill(s) Allergies, Adverse Reactions, Alerts Substance Category Reaction Severity Reaction Status Date Comments Source type Reported codeine Assertion Drug Active allergy [place] Adhesive Assertion Propensity Active Tape to adverse [facility] reactions to substance Immunizations No Data Provided for This Section Results Order Name Results Value Reference Date Interpretation Comments Source Range URINE AND UA Glucose Negative Negative 12/23 STOOL mg/dL mg/dL [facility] URINE AND UA Protein 30 mg/dL Negative 12/23 STOOL mg/dL [facility] URINE AND UA pH 6.0 5.0 - [...] Bili Negative Negative 12/23 STOOL *NA* /2017 [facility] (12/23/17 6:37 PM) URINE AND UA Ketones Negative Negative 12/23 STOOL mg/dL mg/dL [facility] URINE AND UA Blood Small Negative 12/23 STOOL *ABN* /2017 [facility] (12/23/17 6:37 PM) URINE AND UA Turbidity Clear Clear 12/23 [facility] (12/23/17 6:37 PM) /2017 [facility] CARDIAC Troponin-I 0.04 0.00 - 12/23 ENZYMES 0.40 [facility] CHEM PANEL eGFR 66 12/23 [facility] Comment: The [facility] eGFR is calculated using the CKD-EPI formula. [...] PANEL AST 19 0 - 37 12/23 [facility] CHEM PANEL Alk Phos 235 39 - 136 12/23 [facility] CHEM PANEL ALT 10 0 - 65 12/23 [facility] CHEM PANEL Bili Total 0.3 0.2 - 1.3 12/23 [facility] CHEM PANEL CO2 29 24 - 32 12/23 [facility] CHEM PANEL Glucose Lvl 75 70 - 99 12/23 [facility] CHEM PANEL Albumin Lvl 2.7 3.5 - 5.0 12/23 [facility] CHEM PANEL Total 6.6 6.4 - 8.4 12/23 Protein [facility] CHEM PANEL Calcium Lvl 8.3 8.5 - 10.5 12/23 [facility] CHEM PANEL Chloride Lvl 104 95 - 109 12/23 [facility] CHEM PANEL Potassium 4.3 3.5 - 5.1 12/23 Lvl [facility] CHEM PANEL Sodium Lvl 142 135 - 145 12/23 [facility] CHEM PANEL Creatinine 0.85 0.50 - 09 Lvl 1.40 /2017 [facility] CHEM PANEL BUN 16 7 - 22 12/23 /2017 [facility] CHEM PANEL B/C Ratio 19 6 - 25 09 /2017 [facility] CHEM PANEL AGAP 13.3 10.0 - 09 MH 20.0 /2017 [facility] CHEM PANEL Globulin 3.9 2.7 - 4.2 09/ /2017 [facility] CHEM PANEL A/G Ratio 0.7 0.7 - 1.6 09/ /2017 [facility] HEMATOLOGY PT 13.0 12.0 - 09 MH 14.7 /2017 [facility] HEMATOLOGY INR 0.98 0.85 - 12/23 MH 1.17 /2017 [facility] HEMATOLOGY Platelet 253 133 - 450 12/23 [facility] HEMATOLOGY RDW 13.4 11.5 - 12/23 14.5 /2017 [facility] HEMATOLOGY MPV 8.7 7.4 - 10.4 12/23 /2017 [facility] HEMATOLOGY MCHC 34.4 32.0 - 12/23 36.0 /2017 [facility] HEMATOLOGY MCH 34.0 27.0 - 12/23 31.0 /2017 [facility] HEMATOLOGY MCV 98.9 80.0 - 12/23 MH 98.0 /2018 [facility] HEMATOLOGY RBC 3.32 4.20 - 12/23 5.40 /2017 [facility] HEMATOLOGY WBC 9.2 3.7 - 10.4 09 /2017 [facility] HEMATOLOGY Hct 32.8 36.0 - 12/23 48.0 /2017 [facility] HEMATOLOGY Hgb 11.3 12.0 - 12/23 16.0 /2017 [facility] HEMATOLOGY PTT 34.6 22.9 - 12/23 35.8 /2018 [facility] HEMATOLOGY Lymphocytes 1.6 1.0 - 5.5 /10 MH # /2017 [facility] HEMATOLOGY Monocytes # 0.9 0.0 - 0.8 10 /2017 [facility] HEMATOLOGY Eosinophils 0.1 0.0 - 0.5 /10 MH # /2017 [facility] HEMATOLOGY Basophils # 0.1 0.0 - 0.2 12/23 /2017 [facility] HEMATOLOGY Basophils 0.7 0.0 - 1.0 09 /2017 [facility] HEMATOLOGY Neutrophils 6.6 1.5 - 8.1 09/10 MH # /2017 [facility] HEMATOLOGY Lymphocytes 17.0 20.0 - 12/23 40.0 /2017 [facility] HEMATOLOGY Segs 72.0 45.0 - 12/23 MH 75.0 /2017 [facility] HEMATOLOGY Monocytes 9.7 2.0 - 12.0 12/23 [facility] HEMATOLOGY Eosinophils 0.6 0.0 - 4.0 12/23 [facility] DRUG U Cannab Scr Negative Negative 08/24 [facility] SCREEN *NA* /2014 [facility] (08/24/14 1:18 AM) Center DRUG U Phencyc Negative Negative 08/24 [facility] SCREEN Scr *NA* /2014 [facility] (08/24/14 1:18 AM) Center DRUG U Opiate Scr Positive Negative 08/24 [facility] SCREEN *ABN* /2014 [facility] (08/24/14 1:18 AM) Center DRUG UDS Note See Note 08/24 <sup>5</sup>I [facility] SCREEN (08/24/14 1:18 AM) /2014 nterpretive Medical Data: Drugs Center reported as positive have not been confirmed by a second
nj thod and should be used for medical [...] mg/dL DRUG U Propoxyph Negative Negative 08/24 [facility] SCREEN Scr *NA* /2014 [facility] (08/24/14 1:18 AM) Center DRUG U Methadone Negative Negative 08/24 [facility] SCREEN Scr *NA* Medical (08/24/14 1:18 AM) Center DRUG U Amph Scr Negative Negative 08/24 [facility] SCREEN *NA* /2014 [facility] (08/24/14 1:18 AM) Center DRUG U Edna Scr Negative Negative 08/24 [facility] SCREEN *NA* Medical (08/24/14 1:18 AM) Center DRUG U Benzodia Negative Negative 08/24 [facility] SCREEN Scr *NA* /2014 [facility] (08/24/14 1:18 AM) Center DRUG U Cocaine Negative Negative 08/24 [facility] SCREEN Scr *NA* /2014 [facility] (08/24/14 1:18 AM) Center HEMATOLOGY PB Smear Review of 08/23 [facility] Path [facility] peripheral Center blood smear and CBC results [...] Clinical correlatio n is recommende d. CPT: 96857 IMMUNOLOGY Homocyst Tot 10.8 3.7 - 13.9 08/23 [facility] TOXICOLOGY Etoh (%) <0.003 08/23 <sup>6</sup>I nterpretive Medical Data: Ethanol Center testing results should be used for medical purposes only.
Neg ative Range: <0.003%
T oxic Range: >0.25% TOXICOLOGY Ethanol Lvl <3 08/23 <sup>7</sup>I nterpretive Medical Data: Center Negative Range: <3 mg/dL
Tox ic Range: >250 mg/dL ANEMIA Vitamin B12 326 254 - 1320 08/23 [facility] STUDY Lvl /2014 [facility] CARDIAC Total CK 44 12 - 191 08/23 [facility] ENZYMES /2014 [facility] CARDIAC Troponin-T <0.010 0.000 - 08/23 [facility] ENZYMES 0.100 /2014 [facility] CARDIAC Troponin-I 0.03 0.00 - 08/23 [facility] ENZYMES 0.40 /2015 [facility] ANEMIA RBC Folate 666 280 - 791 08/23 [facility] STUDY [facility] CHEM PANEL eGFR 86 08/23 <sup>1</sup>R esult [...] PANEL CO2 30 24 - 32 08/23 [facility] CHEM PANEL Calcium Lvl 8.5 8.5 - 10.5 08/23 [facility] CHEM PANEL AGAP 10.6 10.0 - 08/23 [facility] 20.0 [facility] CHEM PANEL Creatinine 0.7 0.5 - 1.4 08/23 [facility] CHEM PANEL BUN 19 7 - 22 08/23 2014 [facility] CHEM PANEL Sodium Lvl 143 135 - 145 08/23 [facility] CHEM PANEL Potassium 3.6 3.5 - 5.1 08/23 [facility] CHEM PANEL Chloride Lvl 106 95 - 109 08/23 [facility]2014 [facility] CHEM PANEL Glucose Lvl 76 70 - 99 08/23 <sup>3</sup>I nterpretive Medical Data: [facility] Center reference range values reflect the clinical guidelines
of the [place] [employer]. CHEM PANEL Magnesium 1.7 1.8 - 2.4 08/23 [facility] CHEM PANEL Phosphorus 3.7 2.5 - 4.5 08/23 [facility] HEMATOLOGY Retic Auto 0.9 0.5 - 1.5 08/23 [facility] HEMATOLOGY Monocytes # 0.9 0.0 - 0.8 08/23 [facility] HEMATOLOGY Lymphocytes 3.2 1.0 - 5.5 08/23 # [facility] HEMATOLOGY Macrocyte 1+ None Seen 08/23 [facility] *ABN* /2014 Medical (08/23/14 4:40 AM) [place] HEMATOLOGY Eosinophils 0.1 0.0 - 0.5 08/23 # /2014 [facility] HEMATOLOGY Basophils 0.6 0.0 - 1.0 08/23 [facility] HEMATOLOGY Eosinophils 1.5 0.0 - 4.0 08/23 [facility] HEMATOLOGY Segs-Bands # 3.0 1.5 - 8.1 08/23 [facility] HEMATOLOGY Lymphocytes 44.4 20.0 - 08/23 40.0 [facility] HEMATOLOGY Segs 40.6 45.0 - 08/23 [place] 75.0 [facility] HEMATOLOGY Monocytes 12.9 2.0 - 12.0 08/23 [facility] HEMATOLOGY Hct 34.7 36.0 - 08/23 48.0 [facility] HEMATOLOGY MCV 104.7 80.0 - 08/23 98.0 /2014 [facility] HEMATOLOGY MCH 35.4 27.0 - 08/23 31.0 /2014 [facility] HEMATOLOGY MCHC 33.8 32.0 - 08/23 36.0 /2014 [facility] HEMATOLOGY WBC 7.3 3.7 - 10.4 08/23 [facility] HEMATOLOGY RBC 3.31 4.20 - 08/23 [place] 5.40 /2014 [facility] HEMATOLOGY Hgb 11.7 12.0 - 05 16.0 [facility] HEMATOLOGY RDW 12.0 11.5 - 05 14.5 [facility] HEMATOLOGY Platelet 201 133 - 450 08/23 [facility] HEMATOLOGY MPV 8.8 7.4 - 10.4 08/23 [facility] HEMATOLOGY INR 1.02 0.85 - 08/23 <sup>9</sup>I 1. nterpretive Medical Data: Center RECOMMENDED RANGES FOR PROTIME INR:
2.0-3.0 for most medical and surgical thromboemboli c states.
2.5-3.5 for artificial heart valves and recurrent embolism.<br/ >
INR SHOULD BE USED ONLY FOR PATIENTS ON STABLE ANTICOAGULANT THERAPY. HEMATOLOGY PTT 36.6 22.9 - 08/23 <sup>11</sup> [facility] 35.8 /2014 Interpretive Medical Data: Heparin Center Therapeutic Range: 57 - 92 Seconds HEMATOLOGY PT 13.4 12.0 - 08/23 [facility] 14.7 /2014 [facility] URINE AND UA Sq Epi Occasional Few /LPF 08/22 [facility] STOOL /LPF /2014 [facility] URINE AND UA WBC 0-2 /HPF None Seen 08/22 [facility] /HPF /2014 [facility] URINE AND UA RBC 3-5 /HPF 0 - 2 08/22 [facility] /2014 [facility] URINE AND UA Bacteria Few /HPF None Seen 08/22 [facility] /HPF /2014 [facility] URINE AND UA Turbidity Clear Clear 08/22 [facility] (08/22/14 5:00 PM) /2014 [facility] URINE AND UA Color Yellow Yellow 08/22 [facility] *NA* /2014 [facility] (08/22/14 5:00 PM) [place] URINE AND UA Blood Small Negative 08/22 [facility] *ABN* /2014 [facility] (08/22/14 5:00 PM) [place] URINE AND UA Bili Negative Negative 08/22 [facility] *NA* /2014 [facility] (08/22/14 5:00 PM) [place] URINE AND UA Spec Grav 1.025 <=1.030 08/22 [facility] /2014 [facility] URINE AND UA Ketones Trace Negative 08/22 [facility] *ABN* /2014 [facility] (08/22/14 5:00 PM) [place] URINE AND UA Glucose Negative Negative 08/22 [facility] (08/22/14 5:00 PM) /2014 [facility] URINE AND UA Nitrite Negative Negative 08/22 [facility] (08/22/14 5:00 PM) /2014 [facility] URINE AND UA 0.2 0.1 - 1.0 08/22 [facility] Urobilinogen /2014 [facility] URINE AND UA Protein Negative Negative 08/22 [facility] (08/22/14 5:00 PM) /2014 [facility] URINE AND UA pH 6.0 5.0 - 8.0 08/22 [facility] STOOL [facility] URINE AND UA Leuk Est Negative Negative 08/22 [facility] STOOL (08/22/14 5:00 PM) [facility] URINE CHEM U Cotinine Positive 8 Negative 08/22 <sup>8</sup>I [facility] Lvl *ABN* nterpretive Medical (08/22/14 5:00 PM) Data: Center Negative: </=212 ng/mL Cotinine. CARDIAC Troponin-I <0.02 0.00 - 08/22 [facility] ENZYMES 0.40 [facility] CHEM PANEL eGFR 63 08/22 <sup>2</sup>R esult [...] Calcium Lvl 9.1 8.5 - 10.5 08/22 [facility] CHEM PANEL CO2 30 24 - 32 08/22 [facility] CHEM PANEL Sodium Lvl 139 135 - 145 08/22 [facility] CHEM PANEL Creatinine 0.9 0.5 - 1.4 08/22 [facility] CHEM PANEL Potassium 3.6 3.5 - 5.1 08/22 [facility] CHEM PANEL Chloride Lvl 102 95 - 109 08/22 [facility] CHEM PANEL Glucose Lvl 76 70 - 99 08/22 <sup>4</sup>I nterpretive Medical Data: Adult Center reference range values reflect the clinical guidelines
of the [place] [employer]. CHEM PANEL BUN 19 7 - 22 05/ [facility] CHEM PANEL ALT 19 0 - 65 05/ [facility] CHEM PANEL Bili Total 0.3 0.2 - 1.3 05/ [facility] CHEM PANEL Alk Phos 105 39 - 136 05/ [facility] CHEM PANEL AST 26 0 - 37 05/ [facility] CHEM PANEL Total 7.8 6.4 - 8.4 05 Protein [facility] CHEM PANEL Albumin Lvl 4.1 3.5 - 5.0 05/ [facility] CHEM PANEL AGAP 10.6 10.0 - 0510 [place] 20.0 [facility] CHEM PANEL B/C Ratio 21 6 - 25 05/ [facility] CHEM PANEL A/G Ratio 1.1 0.7 - 1.6 / [facility] CHEM PANEL Globulin 3.7 2.0 - 4.0 05/ [facility] HEMATOLOGY RBC 3.60 4.20 - 0510 [place] 5.40 /2014 [facility] HEMATOLOGY WBC 9.1 3.7 - 10.4 05/ [facility] HEMATOLOGY MCV 105.2 80.0 - 0510 [place] 98.0 /2014 [facility] HEMATOLOGY Hgb 12.7 12.0 - 0510 [place] 16.0 /2014 [facility] HEMATOLOGY Hct 37.9 36.0 - 0510 [place] 48.0 /2014 [facility] HEMATOLOGY MCHC 33.5 32.0 - 05/10 [place] 36.0 /2014 [facility] HEMATOLOGY RDW 11.9 11.5 - 0510 [place] 14.5 /2014 [facility] HEMATOLOGY MCH 35.3 27.0 - 05/10 [place] 31.0 [facility] HEMATOLOGY MPV 8.4 7.4 - 10.4 05 [facility] HEMATOLOGY Platelet 254 133 - 450 05 [facility] HEMATOLOGY INR 0.97 0.85 - 0510 <sup>10</sup> [place] 1.17 Interpretive Medical Data: Center RECOMMENDED RANGES FOR PROTIME INR:
2.0-3.0 for most medical and surgical thromboemboli c states.
2.5-3.5 for artificial heart valves and recurrent embolism.<br/ >
INR SHOULD BE USED ONLY FOR PATIENTS ON STABLE ANTICOAGULANT THERAPY. HEMATOLOGY PT 12.9 12.0 - 08/22 [facility] 14.7 [facility] HEMATOLOGY PTT 34.2 22.9 - 08/22 <sup>12</sup> [facility] 35.8 /2014 Interpretive Medical Data: Heparin Center Therapeutic Range: 57 - 92 Seconds HEMATOLOGY Macrocyte 3+ None Seen 08/22 [facility] *NA* /2014 [facility] (08/22/14 3:51 PM) [place] HEMATOLOGY Segs-Bands # 4.8 1.5 - 8.1 08/22 [facility] HEMATOLOGY Monocytes # 1.0 0.0 - 0.8 08/22 [facility] HEMATOLOGY Lymphocytes 3.2 1.0 - 5.5 08/22 [facility] HEMATOLOGY Basophils # 0.0 0.0 - 0.2 08/22 [facility] HEMATOLOGY Eosinophils 0.1 0.0 - 0.5 08/22 [facility] HEMATOLOGY Eosinophils 1.1 0.0 - 4.0 08/22 [facility] HEMATOLOGY Basophils 0.2 0.0 - 1.0 08/22 [facility] HEMATOLOGY Plt Morph Normal 08/22 [facility] (08/22/14 3:51 PM) [facility] HEMATOLOGY Lymphocytes 35.5 20.0 - 08/22 [facility] 40.0 [facility] HEMATOLOGY Segs 51.9 45.0 - 08/22 [facility] 75.0 [facility] HEMATOLOGY Monocytes 11.3 2.0 - 12.0 08/22 [facility] BLOOD BANK Antibody Negative 07/15 [facility] RESULTS Scrn (07/15/14 7:10 AM) /2014 [facility] BLOOD BANK ABO/Rh O POS 07/15 [facility] RESULTS /2014 [facility] CHEM PANEL eGFR 86 07/15 <sup>1</sup>R esult [...] Calcium Lvl 8.9 8.5 - 10.5 07/15 [facility] CHEM PANEL Sodium Lvl 139 135 - 145 07/15 [facility] CHEM PANEL CO2 31 24 - 32 07/15 2014 [facility] CHEM PANEL Chloride Lvl 103 95 - 109 07/15 2014 [facility] CHEM PANEL Potassium 3.5 3.5 - 5.1 07/15 [facility] CHEM PANEL Creatinine 0.7 0.5 - 1.4 07/15 [facility] CHEM PANEL Glucose Lvl 92 70 - 99 07/15 <sup>2</sup>I nterpretive Medical Data: Adult Center reference range values reflect the clinical guidelines
of the [place] [employer]. CHEM PANEL BUN 13 7 - 22 07/15 [facility] CHEM PANEL AGAP 8.5 10.0 - 07/15 20.0 [facility] HEMATOLOGY Macrocyte 1+ None Seen 07/15 [facility] *ABN* /2014 Medical (07/15/14 7:10 AM) [place] HEMATOLOGY Segs 51.3 45.0 - 07/15 [place] 75.0 [facility] HEMATOLOGY Monocytes 9.0 2.0 - 12.0 07/15 [facility] HEMATOLOGY Eosinophils 1.3 0.0 - 4.0 07/15 [facility] HEMATOLOGY Lymphocytes 37.8 20.0 - 04 [place] 40.0 /2014 [facility] HEMATOLOGY Lymphocytes 2.3 1.0 - 5.5 07/15 [facility] # /2015 [facility] HEMATOLOGY Segs-Bands # 3.1 1.5 - 8.1 / /2014 [facility] HEMATOLOGY Basophils 0.6 0.0 - 1.0 / /2014 [facility] HEMATOLOGY Eosinophils 0.1 0.0 - 0.5 / [facility] # /2014 [facility] HEMATOLOGY Monocytes # 0.5 0.0 - 0.8 / /2014 [facility] HEMATOLOGY PT 12.8 12.0 - 07/15 [place] 14.7 /2014 [facility] HEMATOLOGY PTT 36.0 22.9 - 07/15 <sup>4</sup>I [facility] 35.8 /2014 nterpretive Medical Data: Heparin Center Therapeutic Range: 57 - 92 Seconds HEMATOLOGY INR 0.96 0.85 - 07/15 <sup>3</sup>I [facility] 1.17 nterpretive Medical Data: Center RECOMMENDED RANGES FOR PROTIME INR:
2.0-3.0 for most medical and surgical thromboemboli c states.
2.5-3.5 for artificial heart valves and recurrent embolism.<br/ >
INR SHOULD BE USED ONLY FOR PATIENTS ON STABLE ANTICOAGULANT THERAPY. HEMATOLOGY Hgb 12.0 12.0 - 07/15 [facility] 16.0 /2014 [facility] HEMATOLOGY RBC 3.59 4.20 - 07/15 [facility] 5.40 /2014 [facility] HEMATOLOGY WBC 6.0 3.7 - 10.4 07/15 /2014 [facility] HEMATOLOGY RDW 12.4 11.5 - 07/15 14.5 /2014 [facility] HEMATOLOGY MCHC 32.0 32.0 - 07/15 [place] 36.0 /2014 [facility] HEMATOLOGY MCH 33.4 27.0 - 07/15 [place] 31.0 /2014 [facility] HEMATOLOGY MCV 104.6 80.0 - 07/15 98.0 /2014 [facility] HEMATOLOGY Hct 37.5 36.0 - 07/15 [place] 48.0 /2014 [facility] HEMATOLOGY Platelet 248 133 - 450 07/15 /2014 [facility] HEMATOLOGY MPV 8.3 7.4 - 10.4 07/15 [facility] URINE AND UA <=1.0 0.1 - 1.0 03/04 [facility] STOOL Urobilinogen mg/dL /2013 [facility] URINE AND UA WBC 3 0 - 5 03/04 [facility] STOOL [facility] URINE AND UA Sq Epi Few /LPF Few /LPF 03/04 [facility] STOOL [facility] URINE AND UA Mucus Few /LPF None Seen 03/04 [facility] STOOL /LPF [facility] URINE AND UA RBC 2 0 - 2 03/04 [facility] STOOL [facility] URINE AND UA Leuk Est Negative Negative 03/04 [facility] (03/04/14 11:54 AM) [facility] URINE AND UA Color Light Yellow Yellow 03/04 [facility] STOOL *NA* /2013 [facility] (03/04/14 11:54 AM) [place] URINE AND UA Turbidity Clear Clear 03/04 [facility] (03/04/14 11:54 AM) [facility] URINE AND UA pH 7.0 5.0 - 8.0 03/04 [facility] URINE AND UA Spec Grav 1.049 <=1.030 03/04 [facility] URINE AND UA Glucose Negative Negative 03/04 [facility] mg/dL mg/dL [facility] URINE AND UA Protein 30 mg/dL Negative 03/04 [facility] mg/dL [facility] URINE AND UA Bili Negative Negative 03/04 [facility] *NA* [facility] (03/04/14 11:54 AM) [place] URINE AND UA Nitrite Negative Negative 03/04 [facility] (03/04/14 11:54 AM) [facility] URINE AND UA Blood Moderate Negative 03/04 [facility] *ABN* [facility] (03/04/14 11:54 AM) [place] URINE AND UA Ketones Negative Negative 03/04 [facility] mg/dL mg/dL [facility] BLOOD BANK ABO/Rh O POS 03/04 [facility] RESULTS [facility] BLOOD BANK Antibody Negative 03/04 [facility] RESULTS Scrn (03/04/14 6:30 AM) [facility] CHEM PANEL Magnesium 1.7 1.8 - 2.4 03/04 [facility] Lvl [facility] ELECTROLYT AGAP 9.0 10.0 - 03/04 [facility] ES 20.0 [facility] ELECTROLYT eGFR 73 03/04 <sup>1</sup>R [facility] ES esult Medical Comment: The Center eGFR [...] Calcium Lvl 9.1 8.5 - 10.5 03/04 [facility] ELECTROLYT Chloride Lvl 95 95 - 109 03/04 [facility] ELECTROLYT CO2 30 24 - 32 03/04 [facility] ELECTROLYT Potassium 4.0 3.5 - 5.1 03/04 [facility] ELECTROLYT Creatinine 0.8 0.5 - 1.4 03/04 [facility] ELECTROLYT Glucose Lvl 94 70 - 99 03/04 <sup>2</sup>I nterpretive Medical Data: Adult Center reference range values reflect the clinical guidelines
of the [place] [employer]. ELECTROLYT BUN 12 7 - 22 03/04 [facility] ELECTROLYT Sodium Lvl 130 135 - 145 03/04 [facility] HEMATOLOGY Macrocyte 2+ None Seen 03/04 *ABN* Medical (03/04/14 6:15 AM) Center HEMATOLOGY Eosinophils 0.1 0.0 - 0.5 03/04 # [facility] HEMATOLOGY Basophils # 0.1 0.0 - 0.2 03/04 [facility] HEMATOLOGY Monocytes # 0.8 0.0 - 0.8 03/04 [facility] HEMATOLOGY Lymphocytes 2.4 1.0 - 5.5 03/04 # [facility] HEMATOLOGY Segs-Bands # 6.0 1.5 - 8.1 03/04 [facility] HEMATOLOGY Basophils 0.9 0.0 - 1.0 03/04 [facility] HEMATOLOGY Segs 63.7 45.0 - 03/04 [place] 75.0 /2013 [facility] HEMATOLOGY Lymphocytes 25.5 20.0 - 03/04 [place] 40.0 /2013 [facility] HEMATOLOGY Eosinophils 1.1 0.0 - 4.0 03/04 [facility] HEMATOLOGY Monocytes 8.8 2.0 - 12.0 03/04 [facility] HEMATOLOGY INR 0.95 0.85 - 03/04 <sup>3</sup>I [facility] 1.17 nterpretive Medical Data: Center RECOMMENDED RANGES FOR PROTIME INR:
2.0-3.0 for most medical and surgical thromboemboli c states.
2.5-3.5 for artificial heart valves and recurrent embolism.<br/ >
INR SHOULD BE USED ONLY FOR PATIENTS ON STABLE ANTICOAGULANT THERAPY. HEMATOLOGY PT 12.7 12.0 - 03/04 [place] 14.7 [facility] HEMATOLOGY PTT 37.9 22.9 - 03/04 <sup>4</sup>I [facility] 35.8 nterpretive Medical Data: Heparin Center Therapeutic Range: 57 - 92 Seconds HEMATOLOGY Platelet 319 133 - 450 03/04 [facility] HEMATOLOGY MPV 7.8 7.4 - 10.4 03/04 [facility] HEMATOLOGY Hct 38.4 36.0 - 03/04 [place] 48.0 /2013 [facility] HEMATOLOGY Hgb 13.4 12.0 - 03/04 [place] 16.0 [facility] HEMATOLOGY MCV 107.6 80.0 - 03/04 [place] 98.0 /2013 [facility] HEMATOLOGY MCHC 34.8 32.0 - 03/04 [place] 36.0 [facility] HEMATOLOGY RDW 13.2 11.5 - 03/04 [place] 14. [facility] HEMATOLOGY MCH 37.4 27.0 - 03/04 [place] 31.0 [facility] HEMATOLOGY RBC 3.57 4.20 - 03/04 [place] 5.40 /2013 [facility] HEMATOLOGY WBC 9.4 3.7 - 10.4 03/04 [facility] CHEM PANEL eGFR 86 10/07 <sup>1</sup>R esult [...] PANEL Creatinine 0.7 0.5 - 1.4 10/07 [facility] CHEM PANEL Potassium 3.8 3.5 - 5.1 10/07 [facility] CHEM PANEL BUN 6 7 - 22 10/07 [facility] CHEM PANEL Sodium Lvl 132 135 - 145 10/07 [facility] CHEM PANEL Glucose Lvl 85 70 - 99 10/07 <sup>2</sup>I nterpretive Medical Data: Adult Center reference range values reflect the clinical guidelines
of the [place] [employer]. CHEM PANEL Chloride Lvl 97 95 - 109 10/07 [facility] CHEM PANEL CO2 29 24 - 32 10/07 [facility] CHEM PANEL Calcium Lvl 9.7 8.5 - 10.5 10/07 [facility] CHEM PANEL AGAP 9.8 10.0 - 10/07 20.0 [facility] HEMATOLOGY WBC 7.8 3.7 - 10.4 10/07 [facility] HEMATOLOGY RBC 3.51 4.20 - 10/07 [place] 5.40 [facility] HEMATOLOGY Hgb 12.7 12.0 - 10/07 [place] 16.0 [facility] HEMATOLOGY Hct 35.8 36.0 - 10/07 48.0 /2013 [facility] HEMATOLOGY MCV 102.1 81.0 - 10/07 99.0 /2013 [facility] HEMATOLOGY MCH 36.2 27.0 - 10/07 [place] 31.0 /2013 [facility] HEMATOLOGY MCHC 35.5 32.0 - 10/07 36.0 /2013 [facility] HEMATOLOGY RDW 12.1 11.5 - 10/07 14.5 /2013 [facility] HEMATOLOGY Platelet 314 133 - 450 10/07 [facility] HEMATOLOGY MPV 7.7 7.4 - 10.4 10/07 [facility] HEMATOLOGY Segs 54.0 45.0 - 10/07 75.0 [facility] HEMATOLOGY Lymphocytes 34.6 20.0 - 10/07 40.0 [facility] HEMATOLOGY Monocytes 9.6 2.0 - 12.0 10/07 [facility] HEMATOLOGY Basophils 0.5 0.0 - 1.0 10/07 [facility] HEMATOLOGY Eosinophils 1.3 0.0 - 4.0 10/07 [facility] HEMATOLOGY Lymphocytes 2.7 1.0 - 5.5 10/07 # /2013 [facility] HEMATOLOGY Monocytes # 0.7 0.0 - 0.8 10/07 [facility] HEMATOLOGY Segs-Bands # 4.3 1.5 - 8.1 10/07 [facility] HEMATOLOGY Eosinophils 0.1 0.0 - 0.5 10/07 [facility] HEMATOLOGY Basophils # 0.0 0.0 - 0.2 10/07 [facility] HEMATOLOGY Macrocyte 2+ None Seen 10/07 [facility] *ABN* /2013 Medical (10/06/13 7:50 PM) Center HEMATOLOGY PTT 39.5 22.9 - 10/07 <sup>4</sup>I [place] 35.8 nterpretive Medical Data: Heparin Center Therapeutic Range: 57 - 92 Seconds HEMATOLOGY INR 0.84 0.85 - 10/07 <sup>3</sup>I [facility] 1 nterpretive Medical Data: Center RECOMMENDED RANGES FOR PROTIME INR:
2.0-3.0 for most medical and surgical thromboemboli c states.
2.5-3.5 for artificial heart valves and recurrent embolism.<br/ >
INR SHOULD BE USED ONLY FOR PATIENTS ON STABLE ANTICOAGULANT THERAPY. HEMATOLOGY PT 11.5 12.0 - 10/07 [facility] 14.7 [facility] CHEM PANEL Magnesium 1.4 1.8 - 2.4 09/10 [facility] CHEM PANEL eGFR 86 09/10 <sup>1</sup>R esult [...] values reflect the clinical guidelines
of the [place] [employer]. CHEM PANEL BUN 13 7 - 22 09/10 [facility] CHEM PANEL Creatinine 0.7 0.5 - 1.4 09/10 [facility] CHEM PANEL Sodium Lvl 132 135 - 145 09/10 [facility] CHEM PANEL CO2 29 24 - 32 09/10 [facility] CHEM PANEL Calcium Lvl 9.5 8.5 - 10.5 09/10 [facility] CHEM PANEL Chloride Lvl 94 95 - 109 09/10 [facility] CHEM PANEL Potassium 3.9 3.5 - 5.1 09/10 [facility] CHEM PANEL AGAP 12.9 10.0 - 09/10 [facility] 20.0 [facility] HEMATOLOGY Eosinophils 0.1 0.0 - 0.5 09/10 [place] # /2013 [facility] HEMATOLOGY Monocytes # 0.9 0.0 - 0.8 09/10 [facility] HEMATOLOGY Macrocyte 1+ None Seen 09/10 [facility] *ABN* /2013 Medical (09/10/13 7:05 AM) [place] HEMATOLOGY Basophils # 0.1 0.0 - 0.2 09/10 [facility] HEMATOLOGY Lymphocytes 31.7 20.0 - 09/10 [place] 40.0 [facility] HEMATOLOGY Segs 55.5 45.0 - 09/10 [place] 75.0 [facility] HEMATOLOGY Lymphocytes 2.7 1.0 - 5.5 09/10 # [facility] HEMATOLOGY Segs-Bands # 4.7 1.5 - 8.1 09/10 [facility] HEMATOLOGY Basophils 1.4 0.0 - 1.0 09/10 [facility] HEMATOLOGY Eosinophils 1.0 0.0 - 4.0 09/10 [facility] HEMATOLOGY Monocytes 10.4 2.0 - 12.0 09/10 [facility] HEMATOLOGY PT 12.4 12.0 - 09/10 14.7 [facility] HEMATOLOGY PTT 37.3 22.9 - 09/10 <sup>4</sup>I [facility] 35.8 nterpretive Medical Data: Heparin Center Therapeutic Range: 57 - 92 Seconds HEMATOLOGY INR 0.93 0.85 - 09/10 <sup>3</sup>I [facility] 1.17 nterpretive Medical Data: Center RECOMMENDED RANGES FOR PROTIME INR:
2.0-3.0 for most medical and surgical thromboemboli c states.
2.5-3.5 for artificial heart valves and recurrent embolism.<br/ >
INR SHOULD BE USED ONLY FOR PATIENTS ON STABLE ANTICOAGULANT THERAPY. HEMATOLOGY RBC 4.04 4.20 - 09/10 5.40 [facility] HEMATOLOGY Hct 40.9 36.0 - 09/10 [place] 48.0 [facility] HEMATOLOGY WBC 8.4 3.7 - 10.4 09/10 [facility] HEMATOLOGY Hgb 14.0 12.0 - 09/10 [facility] 16.0 [facility] HEMATOLOGY MCHC 34.3 32.0 - 09/10 [facility] 36.0 [facility] HEMATOLOGY MCH 34.7 27.0 - 09/10 [facility] 31.0 [facility] HEMATOLOGY RDW 11.9 11.5 - 09/10 [facility] 14. [facility] HEMATOLOGY MCV 101.2 81.0 - 09/10 [facility] 99.0 [facility] HEMATOLOGY MPV 7.4 7.4 - 10.4 09/10 [facility] HEMATOLOGY Platelet 325 133 - 450 09/10 [facility] BLOOD BANK ABO/Rh O POS 09/10 [facility] RESULTS [facility] BLOOD BANK Antibody Negative 09/10 [facility] RESULTS Scrn (09/10/13 7:00 AM) [facility] CHEM PANEL Magnesium 1.8 1.8 - 2.4 08/25 [facility] Lvl [facility] CHEM PANEL eGFR 96 08/25 <sup>2</sup>R esult [...] Chloride Lvl 102 95 - 109 08/25 [facility] CHEM PANEL BUN 12 7 - 22 08/25 [facility] CHEM PANEL Glucose Lvl 84 70 - 99 08/25 <sup>4</sup>I nterpretive Medical Data: Adult Center reference range values reflect the clinical guidelines
of the [place] [employer]. CHEM PANEL Sodium Lvl 138 135 - 145 08/25 [facility] CHEM PANEL Creatinine 0.5 0.5 - 1.4 08/25 Lvl [facility] CHEM PANEL Calcium Lvl 8.5 8.5 - 10.5 08/25 [facility] CHEM PANEL CO2 27 24 - 32 08/25 [facility] CHEM PANEL Potassium 4.4 3.5 - 5.1 08/25 <sup>1</sup>R [facility] esult Medical Comment: Center Specimen Slightly Hemolyzed. CHEM PANEL AGAP 13.4 10.0 - 08/25 20.0 [facility] HEMATOLOGY RBC 2.56 4.20 - 08/25 [place] 5.40 /2013 [facility] HEMATOLOGY WBC 6.4 3.7 - 10.4 08/25 [facility] HEMATOLOGY Hct 26.8 36.0 - 08/25 [place] 48.0 [facility] HEMATOLOGY MCH 35.1 27.0 - 08/25 [place] 31.0 [facility] HEMATOLOGY MCV 104.6 81.0 - 08/25 [place] 99.0 [facility] HEMATOLOGY Hgb 9.0 12.0 - 08/25 16.0 [facility] HEMATOLOGY RDW 12.2 11.5 - 08/25 [place] 14.5 [facility] HEMATOLOGY MCHC 33.6 32.0 - 08/25 [place] 36.0 [facility] HEMATOLOGY MPV 7.4 7.4 - 10.4 08/25 [facility] HEMATOLOGY Platelet 194 133 - 450 08/25 [facility] BLOOD BANK ABO/Rh O POS 08/24 [facility] RESULTS [facility] BLOOD BANK Antibody Negative 08/24 [facility] RESULTS Scrn (08/24/13 7:21 AM) [facility] CHEM PANEL Magnesium 1.8 1.8 - 2.4 08/24 Lv [facility] ELECTROLYT AGAP 7.9 10.0 - 08/24 [facility] ES 20.0 [facility] ELECTROLYT eGFR 86 08/24 <sup>3</sup>R esult Medical [...] Calcium Lvl 9.1 8.5 - 10.5 08/24 [facility] ELECTROLYT Sodium Lvl 135 135 - 145 08/24 [facility] ELECTROLYT Creatinine 0.7 0.5 - 1.4 08/24 [facility] ELECTROLYT BUN 12 7 - 22 08/24 [facility] ELECTROLYT Glucose Lvl 99 70 - 99 08/24 <sup>5</sup>I [facility] nterpretive Medical Data: Adult Center reference range values reflect the clinical guidelines
of the [place] [employer]. ELECTROLYT CO2 33 24 - 32 08/24 [facility] ELECTROLYT Chloride Lvl 98 95 - 109 08/24 [facility] ELECTROLYT Potassium 3.9 3.5 - 5.1 08/24 [facility] HEMATOLOGY INR 0.90 0.85 - 08/24 <sup>6</sup>I [facility] 1.17 nterpretive Medical Data: Center RECOMMENDED RANGES FOR PROTIME INR:
2.0-3.0 for most medical and surgical thromboemboli c states.
2.5-3.5 for artificial heart valves and recurrent embolism.<br/ >
INR SHOULD BE USED ONLY FOR PATIENTS ON STABLE ANTICOAGULANT THERAPY. HEMATOLOGY PTT 36.9 22.9 - 08/24 <sup>7</sup>I [facility] 35.8 /2014 nterpretive Medical Data: Heparin Center Therapeutic Range: 57 - 92 Seconds HEMATOLOGY PT 12.1 12.0 - 08/24 14.7 [facility] HEMATOLOGY MCV 103.2 81.0 - 08/24 99.0 /2013 [facility] HEMATOLOGY Hct 40.1 36.0 - 08/24 [place] 48.0 /2013 [facility] HEMATOLOGY Hgb 13.8 12.0 - 08/24 [place] 16.0 [facility] HEMATOLOGY RBC 3.89 4.20 - 08/24 [place] 5.40 /2013 [facility] HEMATOLOGY MPV 7.2 7.4 - 10.4 08/24 [facility] HEMATOLOGY Platelet 273 133 - 450 08/24 [facility] HEMATOLOGY RDW 12.0 11.5 - 08/24 14. [facility] HEMATOLOGY MCHC 34.5 32.0 - 08/24 [place] 36.0 [facility] HEMATOLOGY MCH 35.6 27.0 - 08/24 [place] 31.0 [facility] HEMATOLOGY WBC 8.0 3.7 - 10.4 08/24 [facility] HEMATOLOGY Basophils # 0.1 0.0 - 0.2 08/24 [facility] HEMATOLOGY Monocytes # 0.8 0.0 - 0.8 08/24 [facility] HEMATOLOGY Segs-Bands # 5.6 1.5 - 8.1 08/24 [facility] HEMATOLOGY Lymphocytes 1.5 1.0 - 5.5 08/24 # /2013 [facility] HEMATOLOGY Eosinophils 0.1 0.0 - 0.5 08/24 # [facility] HEMATOLOGY Macrocyte 1+ None Seen 08/24 [facility] *ABN* /2013 Medical (08/24/13 7:05 AM) [place] HEMATOLOGY Basophils 0.5 0.0 - 1.0 08/24 [facility] HEMATOLOGY Eosinophils 0.8 0.0 - 4.0 08/24 [facility] HEMATOLOGY Monocytes 9.8 2.0 - 12.0 08/24 [facility] HEMATOLOGY Lymphocytes 18.9 20.0 - 08/24 [place] 40.0 [facility] HEMATOLOGY Segs 70.0 45.0 - 08/24 [place] 75.0 /2013 [facility] Pathology Reports No Data Provided for This Section Diagnostic Reports Report Value Date Source Brain wo contrast CT I have reviewed this examination and concur with the interpretation. 12/23/2017 [facility] Clinical Indication: - weakness, near syncope; weakness [...] microvascular ischemic sequela again shown ----- SL: [id number] Chest 1view DX EXAM: Chest 1view DX 12/23/2017 [facility] DATE: 12/23/2017 4:42 PM CDT INDICATION: - weakness, hypotensive COMPARISON: 08/22/2014. IMPRESSION: Stable mildly enlarged cardiac silhouette. Tortuous atherosclerotic thoracic aorta. No definite failure. The lungs are mildly hyperexpanded. No gross focal consolidation, significant pleural effusion or thorax. Surgical clips overlying bilateral breasts. Mild dextroscoliosis. SL: LEVI HVI VAS Arterial INDICATION: complaints of dizziness, confusion. near syncope . 08/23/2014 [facility] Extracranial Doppler Bi Center IMPRESSION: 1. There [...] CT CT SCAN OF THE BRAIN 08/22/2014 [facility] DATE: 08/22/2014 at 6:07 p.m. Comparison studies: [...] 1view DX EXAM: CHEST 1 VIEW 08/22/2014 [facility] DATE: August 22, 2014 03:57:00 PM INDICATION: [...] Limb pain. 10/07/2013 [facility] Doppler Center IMPRESSION: 1. There is no [...] VAS Arterial/bypass INDICATION: Peripheral arterial disease 10/07/2013 [facility] bilat Center IMPRESSION: 1. The visualized arteries [...] Date Comments Source BMI Calculated 22.51 12/23/2017 [facility] Height 165.1 cm 12/23/2017 [facility] Temperature Oral (F) 98.6 F 12/23/2017 [facility] Weight 61.364 12/23/2017 [facility] Heart Rate 59 12/23/2017 [facility] Respitory Rate 20 12/23/2017 [facility] Systolic (mm Hg) 120 12/23/2017 [facility] Diastolic (mm Hg) 49 12/23/2017 [facility] Systolic (mm Hg) 129 08/24/2014 [facility] Diastolic (mm Hg) 61 08/24/2014 [facility] Systolic (mm Hg) 89 08/24/2014 [facility] Diastolic (mm Hg) 51 08/24/2014 [facility] Temperature Oral (F) 97.5 F 08/24/2014 [facility] Systolic (mm Hg) 146 08/24/2014 [facility] Diastolic (mm Hg) 63 08/24/2014 [facility] Temperature Oral (F) 97 F 08/24/2014 [facility] Temperature Oral (F) 96.8 F 08/24/2014 [facility] Weight 57.273 08/23/2014 [facility] Respitory Rate 49 08/23/2014 [facility] Respitory Rate 18 08/23/2014 [facility] Respitory Rate 32 08/23/2014 [facility] BMI Calculated 22.19 08/22/2014 [facility] Weight 56.818 08/22/2014 [facility] Height 160.02 cm 08/22/2014 [facility] Heart Rate 66 08/22/2014 [facility] Systolic (mm Hg) 137 07/15/2014 [facility] Diastolic (mm Hg) 66 07/15/2014 [facility] Systolic (mm Hg) 137 07/15/2014 [facility] Diastolic (mm Hg) 66 07/15/2014 [facility] Systolic (mm Hg) 137 07/15/2014 [facility] Diastolic (mm Hg) 66 07/15/2014 [facility] Height 154.94 cm 07/15/2014 [facility] BMI Calculated 24.05 07/15/2014 [facility] Weight 57.727 07/15/2014 [facility] Center Diastolic (mm Hg) 70 03/04/2014 [facility] Center Systolic (mm Hg) 150 03/04/2014 [facility] Center Diastolic (mm Hg) 73 03/04/2014 [facility] Center Systolic (mm Hg) 152 03/04/2014 [facility] Center Diastolic (mm Hg) 70 03/04/2014 [facility] Center Systolic (mm Hg) 154 03/04/2014 [facility] BMI Calculated 23.86 03/04/2014 [facility] Height 154.94 cm 03/04/2014 [facility] Weight 57.273 03/04/2014 [facility] Center Diastolic (mm Hg) 92 10/07/2013 [facility] Systolic (mm Hg) 193 10/07/2013 [facility] Temperature Oral (F) 97.2 F 10/07/2013 [facility] Respitory Rate 18 10/07/2013 [facility] Heart Rate 82 10/07/2013 [facility] Center Systolic (mm Hg) 206 10/07/2013 [facility] Center Diastolic (mm Hg) 92 10/07/2013 [facility] Respitory Rate 18 10/07/2013 [facility] Heart Rate 82 10/07/2013 [facility] Height 154.94 cm 10/06/2013 [facility] BMI Calculated 24.61 10/06/2013 [facility] Weight 59.091 10/06/2013 [facility] Center Systolic (mm Hg) 213 10/06/2013 [facility] Center Diastolic (mm Hg) 93 10/06/2013 [facility] Temperature Oral (F) 98.0 F 10/06/2013 [facility] Respitory Rate 18 10/06/2013 [facility] Heart Rate 78 10/06/2013 [facility] Center Diastolic (mm Hg) 70 09/10/2013 [facility] Center Systolic (mm Hg) 139 09/10/2013 [facility] Center Diastolic (mm Hg) 67 09/10/2013 [facility] Center Systolic (mm Hg) 142 09/10/2013 [facility] Center Diastolic (mm Hg) 66 09/10/2013 [facility] Center Systolic (mm Hg) 144 09/10/2013 [facility] BMI Calculated 24.43 09/10/2013 [facility] Height 154.94 cm 09/10/2013 [facility] Weight 58.636 09/10/2013 [facility] Temperature Oral (F) 97.2 F 08/25/2013 [facility] Systolic (mm Hg) 109 08/25/2013 [facility] Diastolic (mm Hg) 55 08/25/2013 [facility] Systolic (mm Hg) 106 08/25/2013 [facility] Diastolic (mm Hg) 55 08/25/2013 [facility] Diastolic (mm Hg) 50 08/25/2013 [facility] Systolic (mm Hg) 91 08/25/2013 [facility] Respitory Rate 16 08/24/2013 [facility] Temperature Oral (F) 96.7 F 08/24/2013 [facility] Respitory Rate 18 08/24/2013 [facility] Weight 60 08/24/2013 [facility] BMI Calculated 24.99 08/24/2013 [facility] Height 154.94 cm 08/24/2013 [facility] Encounters Location Location Encounter Encounter Reason Attending ADM DC Status Source Details Type Number For Provider Date Date Visit [facility] [id number] [place] 08/24 08/25 [facility] [place] /2013 [facility] Bedded [id number] Chal[place] 09/10 09/10 [facility] [place] /2013 [facility] [place] [id number] [place] 10/06 10/07 [facility] Emergency [place] /2013 [facility] Bedded [id number] Chalino 03/04 03/04 [facility] [place] /2013 [facility] Bedded [id number] Chalino 07/15 07/15 [facility] Har[place] /2014 [facility] Inpatient [id number] Gilda 08/22 08/24 [facility] Martha-Pr /2014 [facility] Emergency [id number] Blake Lang 12/23 12/24 [facility] /2017 [facility] Procedures Procedure Code Date Perfomer Comments Source Partial hysterectomy [id number] [address],[facility] Cardiac [id number] [facility] catheterization, Medical combined right and [place], left heart [facility] Cataract surgery [id number] [facility] Decompression of [id number] [facility] lumbar spine [facility] Limb revascularization [id number] [facility] Assessment and Plan Assessment and Plan Date Source Extracted from:Title: Progress Note * 08/24/2014 [facility] Author: Valentina Mosquera NP STIFF LEG OPERATOR Date: 08/24/14 Impression and Plan Patient is [...] Pt had renal artery stenosis s/p successful ALEMITE OPERATOR and stenting in 02/2014. 4. Dyslipidemia [...] APRN, MSN, ACNP- Department of Cardiology Pager# [phone] MSO# [id number] Extracted from:Title: Neurology Consult Note Author: Iza [...] 3-4 days ago. She was admitted to [facility] at symptom onset. She reports she wasn't very cooperative with them because she doesn't trust them so no testing was done. She wanted to come here where her home service technician Dr. Hammer is affiliated. She was discharged [...] to be of neurological etiology. Dx: Dizziness (620.4) [id number] Addendum by Cornelius Gallegos MD on 08/24/2014 00:13 Patient's B12 is pu622c. She also has macrocytic anemia. Recommend checking for methylmalonic acid levels. Will contiune to follow with vascular imaging study results as well as MMA levels, Extracted from:Title: post cath 03/04/2014 [facility] Author: Sukhdeep Rivas MD Date: 03/04/14 Interventional [...] 72 (MAR 04 09:30) SBP 134 (MAR 04 10:15) 134 (MAR 04 10:15) H 193 (MAR 04 09:30) DBP 75 (MAR 04 10:15) 70 (MAR 04 09:45) 84 (MAR 04 06:00) Weight 57.273 (MAR 04:14) Height 154.94 (MAR 04:14) BMI 23.86 (MAR 04:14) Gen: NAD Chest: decreased b/s b/l lower [...] post ambulation Sukhdeep Rivas MD PGY-7 Interventional Pump Servicer Supervisor pager: [phone] Plan of Care No Data Provided for This Section Social History Social History Date Source Social History TypeResponse 08/23/2014 [facility] Substance Abuse Use: None. Sexual Sexually active: [...] Cessation Counseling Yes Social History TypeResponse 08/23/2014 [facility] Substance Abuse Use: None. Sexual Sexually active: [...]
[2018-12-04] MEDS ORDERED: ACETAMINOPHEN 650MG/RECT SUPP PR ONE (14:32)
[2018-12-04] MEDS ORDERED: NA CHLORIDE 0.9% 1,000 ML ONE (14:33)
[2018-12-04 14:53] LABS: Absolute Lymphocytes (CBC) 3.7 K/uL (0.7-4.9); Basophils % 0.5 % (0-1.3); Lymphocytes % 28.8 % (15.3-44.8); MPV 10.3 fL (7.6-11.3); RBC Red Blood Cell Count 2.82 M/uL (3.86-4.86)
--- NOTE | 2018-12-04 14:55 | RAD REPORT ---
EXAM DESCRIPTION: CT - Head Brain Wo Cont - 12/04/2018 2:45 pm CLINICAL HISTORY: Abdominal pain, abdominal distention, fever, transient alteration of awareness COMPARISON: CT imaging November 13 TECHNIQUE: Axial 5 mm thick images of the head were obtained without IV contrast. All CT scans are performed using dose optimization technique as appropriate and may include automated exposure control or mA/KV adjustment according to patient size. FINDINGS: No intracranial hemorrhage, mass, edema or shift of mid-line structures. No acute cortical based infarction. Patient has advanced atrophy change. Ventriculomegaly is present probably out of p roportion to volume loss. However, the pattern is stable. Chronic ischemic changes are seen in the ce rebral white matter. Arterial and physiologic calcifications are present. Mastoid air cells are clear. Mucosal thickening in the sphenoid sinus matches comparison. No acute bony findings. IMPRESSION: Advanced atrophy and chronic ischemic change match comparison. No acute intracranial fin ding.
[2018-12-04 14:57] LABS: Protime INR 1.17
--- NOTE | 2018-12-04 15:00 | RAD REPORT ---
EXAM DESCRIPTION: CT - Abdomen Pelvis Wo Contrast - 12/04/2018 2:46 pm CLINICAL HISTORY: Fever, abdominal pain, abdominal distention COMPARISON: November 06 TECHNIQUE: Axial [address] imaging of the abdomen and pelvis was performed without IV contrast. No IV contrast was given because of allergy, abnormal renal function, patient refusal or physician re quest. No oral contrast given. All CT scans are performed using dose optimization technique as appropriate and may include automated exposure control or mA/KV adjustment according to patient size. FINDINGS: Small left pleural effusion with left base atelectasis new from comparison. Cardiomegaly i s present with no new or progressive pericardial finding. Trace pleural fluid on the right. Liver and spleen show no suspicious findings on noncontrast imaging. No pancreatitis findings. Severa l small gallstones are identifiable. Patient may have as well some vicarious excretion of contrast in to the gallbladder from prior diagnostic study. No biliary tree dilatation seen. Active gallbladder p rocess not suspected. No hydronephrosis or suspicious renal mass. No significant adrenal finding. Isodense renal masses an d pyelonephritis cannot be excluded in the absence of IV contrast. Well filled urinary bladder shows no wall thickening or edema. No gastric dilatation or gastric wall thickening. Gallegos are accentuated in the contracted state. No d ilated small bowel. Dense contrast is present in the colon. This is believed to be remnant contrast f rom the November 24 barium enema study. Density creates spray artifact. Colon is tortuous and redundant overall. A clearly defined colon mass is not seen. Gallegos of the rectum are relatively prominent and there is congestion and edema in the perirectal fat and presacral fatty tissues. No free air or pneumatosis. Fluid retention is seen in the subcutaneous fatty tissues. No mass or bul ky lymphadenopathy. No hernia seen. Disc and bony degenerative changes are present. No pathologic bone process. IMPRESSION: Small left pleural effusion and left base atelectasis new from November 06 imaging. Gallstones are present but active gallbladder disease is not suspected. No pancreatitis findings. No obstruction or acute finding seen. Isodense masses, pyelonephritis and cystitis are not exclude d on noncontrast imaging. Prominence of the rectal gallegos with stranding in the perirectal fat and presacral tissues. This is no t substantially different from November 06. Correlation is needed with proctitis findings. Fluid retention in the subcutaneous fatty tissues. No bowel obstruction, free air or surgically emergent finding seen. Full assessment is limited is the absence of IV contrast.
[2018-12-04 15:33] LABS: Blood Morphology Comment NOTED (NOT SEEN); Hypochromasia 1+; Platelet Estimate ADEQ
[2018-12-04 15:43] LABS: ALT/SGPT 25 U/L (12-78); AST/SGOT 43 U/L (15-37); Albumin 1.9 g/dL (3.4-5.0); Alkaline Phosphatase 73 U/L (45-117); BUN Blood Urea Nitrogen 87 mg/dL (7-18); Bicarbonate 34 mmol/L (21-32); Bilirubin Direct < 0.1 mg/dL (0-0.2); Bilirubin Total 0.2 mg/dL (0.2-1.0); Creatine Phosphokinase 86 U/L (26-192); Glucose Level 89 mg/dL (74-106); Lipase 132 U/L (73-393); Potassium 4.7 mmol/L (3.5-5.1); Troponin (Emerg Dept Use Only) 0.09 ng/mL (0.0-0.045)
[2018-12-04 15:47] LABS: Sodium Level 165 mmol/L (136-145)
[2018-12-04] MEDS ORDERED: METOPROLOL TARTRATE 5 MG/5 ML INJ IV ONE (16:00)
--- NOTE | 2018-12-04 16:20 | RAD REPORT ---
EXAM DESCRIPTION: RAD - Chest Single View - 12/04/2018 4:13 pm CLINICAL HISTORY: DYSPNEA Chest pain. COMPARISON: Chest Single View dated 11/26/2018; Chest Single View dated 11/19/2018; Chest Single View d ated 11/13/2018; Chest Single View dated 11/09/2018 FINDINGS: Portable technique limits examination quality. The lungs are grossly clear. The heart is mildly prominent in size. Left-sided venous catheter has ti p in the SVC.Contrast is present in the colon. IMPRESSION: No acute intrathoracic process suspected.
--- NOTE | 2018-12-04 16:22 | ER ---
Nurse's Notes [facility] Name: Monique Bocanegra Age: 78 yrs Sex: Female : 1940 Arrival Date: 12/04/2018 Time: 14:24 Bed 5 Private MD: Diagnosis: Sepsis;Dehydration;Acute kidney failure;Atrial fibrillation and flutter-with RVR Presentation: 12/04 14:17 Presenting complaint: EMS states: called out for increased contractures on the right sv and increased tremors. Temp-100.7 orally. HR-120s Afib. O2 dependent. Transition of care: patient was received from another setting of care (long-term care facility), [facility]. Onset of symptoms was December 04, 2018. Risk Assessment: Do you want to hurt yourself or someone else? Patient reports no desire to harm self or others. Initial Sepsis Screen: Does the patient meet any 2 criteria? Temp <36.0*C (96.8*F)) or > 38.3*C (100.9*F). Altered Mental Status. HR > 90 bpm. Yes Does the patient have a suspected source of infection? Yes: Dysuria/Frequency/Urgency/UTI Other: pt is being [place] the [facility] for UTI with Merrem IVPB. Care prior to arrival: IV initiated. 18 GA, in the right forearm, Oxygen administered. via nasal cannula. 14:17 Method Of Arrival: EMS: [facility] sv 14:17 Acuity: JULIUS 2 sv Triage Assessment: 14:20 General: Appears in no apparent distress. uncomfortable, malnourished, Behavior is sv cooperative, quiet. Pain: Denies pain. Neuro: Level of Consciousness is awake, alert, confused, Oriented to none when spoken to pt says yes.. contractures noted to BLE and BUE. Cardiovascular: Pulses are 2+ in right radial artery and left radial artery Rhythm is atrial fibrillation with rapid ventricular response. Respiratory: Airway is patent Respiratory effort is even, unlabored, Respiratory pattern is regular, symmetrical. Derm: Skin is dry, Skin is pale, Skin temperature is hot. Musculoskeletal: Range of motion: limited in left elbow, left wrist, left knee, right elbow, right wrist and right knee. Historical: - Allergies: 14:51 Adhesives; sv 14:51 Codeine; sv - Home Meds: 15:54 Merrem 500 mg intravenous solr twice a day [Active]; mirtazapine 15 mg Oral tab 1 tab sv once daily [Active]; buspirone 5 mg Oral tab nightly [Active]; isosorbide mononitrate 30 mg Oral Tb24 1 tab once daily [Active]; pravastatin 10 mg oral tab 1 tab once daily [Active]; gabapentin 100 mg oral cap 3 caps nightly [Active]; Lexapro 5 mg Oral tab 1 tab once daily [Active]; metoprolol succinate 25 mg oral Tb24 0.5 tab once daily [Active]; Namenda 10 mg oral tab daily [Active]; amiodarone 200 mg Oral tab 1 tab once daily [Active]; Lasix 40 mg Oral tab 1 tab once daily [Active]; potassium chloride 20 mEq Oral TbER 2 tab once daily [Active]; David oral oral [Active]; esomeprazole magnesium 40 mg oral cpDR 1 cap once daily [Active]; - PMHx: 14:51 CHF; Dementia; Hypertension; Acute Cystitis; Cognitive communication deficit; sv Dysphagia; Rhabdomyolysis; Extended spectrum beta lactamase resistence; UTI; 15:48 Atrial Fib; sv - PSHx: 14:51 cardiac implants; sv - Immunization history:: Adult Immunizations up to date. - Social history:: Smoking status: Patient/guardian denies using tobacco. - Ebola Screening: : Unable to complete screening because. - Hospitalizations: : Patient was recently seen at. - History obtained from: EMS. Screenin:20 Abuse screen: Denies threats or abuse. Denies injuries from another. Nutritional sv screening: No deficits noted. Tuberculosis screening: No symptoms or risk factors identified. Fall Risk Fall in past 12 months (25 points). Secondary diagnosis (15 points) dementia, impaired mobility, IV access (20 points). Ambulatory Aid- None/Bed Rest/Nurse Assist (0 pts). Gait- Normal/Bed Rest/Wheelchair (0 pts) Mental Status- Overestimates/Forgets Limitations (15 pts.). Total Hayden Fall Scale indicates High Risk Score (45 or more points). Fall prevention measures have been instituted. Side Rails Up X 2 Placed Close to Nursing Station Frequent Obs/Assessments Occuring. Assessment: 14:40 : Vaginal discharge is white, on labia on perineum excoriated and around the upper sv thighs. Derm: Decubitus located on left buttocks and BLE. Decubitus in different stages. 16:25 Reassessment: Patient appears in no apparent distress at this time. No changes from sv previously documented assessment. Patient and/or family updated on plan of care and expected duration. Pain level reassessed. Family at the bedside. 17:40 Reassessment: Patient appears in no apparent distress at this time. No changes from sv previously documented assessment. Patient and/or family updated on plan of care and expected duration. Pain level reassessed. Family at the bedside. 18:01 Reassessment: Nurse to call back for report. sv 18:25 Reassessment: Patient appears in no apparent distress at this time. No changes from sv previously documented assessment. Patient and/or family updated on plan of care and expected duration. Pain level reassessed. Family at the bedside. Vital Signs: 14:25 BP 110 / 72; Pulse 137; Resp 17; Temp 101.2(R); Pulse Ox 96% ; Weight 49.53 kg; Height sv 63 in. (160.02 cm); Pain 0/10; 15:19 BP 141 / 51; Pulse 137; Resp 19; sv 16:44 Pulse 110; Resp 20; Temp 100.6(C); Pulse Ox 100% on 2 lpm NC; sv 17:00 BP 102 / 60; Pulse 117; Resp 14; Temp 100.6(C); Pulse Ox 100% on 2 lpm NC; sv 17:55 BP 132 / 62; Pulse 105; Resp 15; Temp 100.8(C); Pulse Ox 100% on 2 lpm NC; sv 14:25 Body Mass Index 19.34 (49.53 kg, 160.02 cm) sv [place] Coma Score: 14:47 Eye Response: to voice(3). Verbal Response: confused(4). Motor Response: localizes jr8 pain(5). Total: 12. ED Course: 14:20 pvc monitor on. Pulse ox on. NIBP on. sv 14:24 Patient arrived in ED. jr8 14:24 Juan Graham PA is PHCP. jr8 14:24 Aldair Rivas MD is Attending Physician. jr8 14:25 Arm band placed on. sv 14:25 Patient has correct armband on for positive identification. Bed in low position. Side sv rails up X2. 14:32 Gabi Kwan, RN is Primary Nurse. sv 14:[address] via stretcher. sv 14:40 Basic Metabolic Panel Sent. sv 14:40 Blood Culture Adult (2) Sent. sv 14:41 CBC with Diff Sent. sv 14:41 CPK Sent. sv 14:41 Lactate Sent. sv 14:41 LFT's Sent. sv 14:41 Lipase Sent. sv 14:41 Procalcitonin Sent. sv 14:41 Protime (+inr) Sent. sv 14:45 EKG done, by power tool repair technician. reviewed by Juan JONES. sm3 14:46 CT Head Brain wo Cont In Process Unspecified. EDMS 14:46 CT Abd/Pelvis - Without Contrast In Process Unspecified. EDMS 14:48 Triage completed. sv 14:[address]. sv 15:15 Manual Differential Sent. sv 16:14 Chest Single View XRAY In Process Unspecified. EDMS 16:20 Jason cath inserted, using sterile technique, 16 Fr., by ma, balloon inflated, to sg gravity drainage, urine specimen collected. returned cloudy urine. Patient tolerated well. 16:21 Marti Cerna MD is Hospitalizing Provider. jr8 16:45 Urine collected: Jason catheter specimen, cloudy, sravan colored. jb1 18:16 No provider procedures requiring assistance completed. Patient admitted, IV remains in sv place. intact. Administered Medications: 14:20 Drug: NS 0.9% (30 ml/kg) 30 ml/kg Route: IV; Rate: bolus; Site: PICC; sv 15:55 Follow up: Response: No adverse reaction; IV Status: Completed infusion; IV Intake: sv 1485ml 14:35 Drug: Acetaminophen Suppository 650 mg Route: FL; sv 15:00 Follow up: Response: No adverse reaction sv 16:25 Drug: Lopressor 5 mg Route: IVP; Site: PICC; sv 17:00 Follow up: Response: No adverse reaction sv 17:40 Drug: vancoMYCIN 1 grams Route: IVPB; Infused Over: 2 hrs; Site: PICC; sv 18:16 Follow up: Response: No adverse reaction; IV Status: Infusion continued upon admission sv 17:55 Not Given (Physician Discretion): Lopressor 5 mg IVP every 5 minutes; Hold for SBP < sv 100 or HR < 60. x3 Point of Care Testing: Blood Glucose: 15:03 Blood Glucose: 102 mg/dL; sv Ranges: Intake: 15:55 IV: 1485ml; Total: 1485ml. sv Outcome: 16:21 Decision to Hospitalize by Provider. ty 18:16 Admitted to Tele accompanied by tech, family with patient, via stretcher, room 206, sv with oxygen, with chart, Report called to Viktoriya GILBERT 18:16 Condition: stable 18:16 Instructed on the need for admit. 18:30 Patient left the ED. sv Signatures: Dispatcher [employer] EDMS Blake Rhodes jb1 Gabi Kwan RN RN sv Gay, Steven, RN RN Juan Perez PA PA jr8 Latanya Valerio sm3 Corrections: (The following items were deleted from the chart) 18:50 18:36 Patient left the ED. sv sv
--- NOTE | 2018-12-04 16:22 | EDPHYS ---
Physician Documentation [facility] Name: Monique Bocanegra Age: 78 yrs Sex: Female : 1940 Arrival Date: 12/04/2018 Time: 14:24 Bed 5 Private MD: ED Physician Aldair Rivas HPI: 12/04 14:47 This 78 yrs old Female presents to ER via Unassigned with complaints of Fever.jr8 14:47 The patient reports fever, with an emergency department temperature of 101.2 degrees jr8 Fahrenheit. Onset: The symptoms/episode began/occurred acutely, today. Modifying factors: Recent medications: Other Meropenem . Associated signs and symptoms: Pertinent positives: worsening of contractures and tremors. Severity of symptoms: At their worst the symptoms were moderate in the emergency department the symptoms are unchanged. It is unknown whether or not the patient has had similar symptoms in the past. The patient has been recently seen by a physician:. Patient was admitted and discharged last month on PICC line with abx for ESBL urosepsis. Stated that since then she has been more altered and has had increase on contractures and tremors. EMS was called out today for worsening of state and now with fever . Historical: - Allergies: 14:51 Adhesives; sv 14:51 Codeine; sv - Home Meds: 15:54 Merrem 500 mg intravenous solr twice a day [Active]; mirtazapine 15 mg Oral tab 1 tab sv once daily [Active]; buspirone 5 mg Oral tab nightly [Active]; isosorbide mononitrate 30 mg Oral Tb24 1 tab once daily [Active]; pravastatin 10 mg oral tab 1 tab once daily [Active]; gabapentin 100 mg oral cap 3 caps nightly [Active]; Lexapro 5 mg Oral tab 1 tab once daily [Active]; metoprolol succinate 25 mg oral Tb24 0.5 tab once daily [Active]; Namenda 10 mg oral tab daily [Active]; amiodarone 200 mg Oral tab 1 tab once daily [Active]; Lasix 40 mg Oral tab 1 tab once daily [Active]; potassium chloride 20 mEq Oral TbER 2 tab once daily [Active]; David oral oral [Active]; esomeprazole magnesium 40 mg oral cpDR 1 cap once daily [Active]; - PMHx: 14:51 CHF; Dementia; Hypertension; Acute Cystitis; Cognitive communication deficit; sv Dysphagia; Rhabdomyolysis; Extended spectrum beta lactamase resistence; UTI; 15:48 Atrial Fib; sv - PSHx: 14:51 cardiac implants; sv - Immunization history:: Adult Immunizations up to date. - Social history:: Smoking status: Patient/guardian denies using tobacco. - Ebola Screening: : Unable to complete screening because. - Hospitalizations: : Patient was recently seen at. - History obtained from: EMS. ROS: 14:47 Constitutional: Positive for fever. jr8 14:47 Unable to obtain ROS due to altered mental status. Exam: 14:47 Eyes: Pupils equal round and reactive to light, extra-ocular motions intact. Lids and jr8 lashes normal. Conjunctiva and sclera are non-icteric and not injected. Cornea within normal limits. Periorbital areas with no swelling, redness, or edema. ENT: Nares patent. No nasal discharge, no septal abnormalities noted. Tympanic membranes are normal and external auditory canals are clear. Oropharynx with no redness, swelling, or masses, exudates, or evidence of obstruction, uvula midline. Mucous membranes moist. Neck: Trachea midline, no thyromegaly or masses palpated, and no cervical lymphadenopathy. Supple Cardiovascular: Irregularly irregular rhythm with tachycardic rate present. No gallops, murmurs, or rubs. Normal PMI, no JVD. No pulse deficits. Respiratory: Decreased breath sounds noted to left upper lung field. Otherwise no other adventitious sounds noted Abdomen/GI: Soft with normal bowel sounds. Mild distension present without tympany. No guarding or rebound. Back: No spinal tenderness. No costovertebral tenderness. Full range of motion. Skin: Warm, dry with decreased turgor. Normal color with no rashes, no lesions, and no evidence of cellulitis. Bilateral pressure wounds noted to feet and heels. No cellulitis noted MS/ Extremity: Pulses equal, no cyanosis. Neurovascular intact. Full, normal range of motion. Neuro: Awake and responsive to pain only. Confused and will not follow commands. Contractures present with resting tremor 14:47 Constitutional: The patient appears febrile. Vital Signs: 14:25 BP 110 / 72; Pulse 137; Resp 17; Temp 101.2(R); Pulse Ox 96% ; Weight 49.53 kg; Height sv 63 in. (160.02 cm); Pain 0/10; 15:19 BP 141 / 51; Pulse 137; Resp 19; sv 16:44 Pulse 110; Resp 20; Temp 100.6(C); Pulse Ox 100% on 2 lpm NC; sv 17:00 BP 102 / 60; Pulse 117; Resp 14; Temp 100.6(C); Pulse Ox 100% on 2 lpm NC; sv 17:55 BP 132 / 62; Pulse 105; Resp 15; Temp 100.8(C); Pulse Ox 100% on 2 lpm NC; sv 14:25 Body Mass Index 19.34 (49.53 kg, 160.02 cm) sv [place] Coma Score: 14:47 Eye Response: to voice(3). Verbal Response: confused(4). Motor Response: localizes jr8 pain(5). Total: 12. MDM: 14:24 Patient medically screened. jr8 16:20 Data reviewed: vital signs, nurses notes, lab test result(s), EKG, radiologic studies, jr8 CT scan, plain films. Data interpreted: Pulse oximetry: on room air is 96 %. Interpretation: normal. Counseling: I had a detailed discussion with the patient and/or guardian regarding: the historical points, exam findings, and any diagnostic results supporting the discharge/admit diagnosis, lab results, radiology results, the need for further work-up and treatment in the hospital. Response to treatment: the patient's symptoms have mildly improved after treatment. Physician consultation: Marti Cerna MD was called at 16:21, was contacted at 16:21, regarding admission, to the telemetry unit. consult, patient's condition, and will see patient. 12/04 14:25 Order name: Basic Metabolic Panel [facility] 12/04 14:25 Order name: Blood Culture Adult (2) [facility] 12/04 14:25 Order name: CBC with Diff [facility] 12/04 14:25 Order name: CPK [facility] 12/04 14:25 Order name: Lactate [facility] 12/04 14:25 Order name: LFT's [facility] 12/04 14:25 Order name: Lipase [facility] 12/04 14:25 Order name: Procalcitonin [facility] 12/04 14:25 Order name: Protime (+inr) [facility] 12/04 14:25 Order name: Ptt, Activated; Complete Time: 15:08 [facility] 12/04 14:25 Order name: Troponin (emerg Dept Use Only); Complete Time: 15:54 [facility] 12/04 14:25 Order name: Basic Metabolic Panel; Complete Time: 15:54 EDMS 12/04 14:26 Order name: Blood Culture [facility] 12/04 14:26 Order name: CBC with Automated Diff; Complete Time: 15:36 EDMS 12/04 14:25 Order name: Chest Single View XRAY; Complete Time: 16:22 [facility] 12/04 14:25 Order name: CT Head Brain wo Cont; Complete Time: 15:08 [facility] 12/04 14:25 Order name: CT Abd/Pelvis - Without Contrast; Complete Time: 15:08 [facility] 12/04 14:26 Order name: Creatine Phosphokinase; Complete Time: 15:54 EDMS 12/04 14:26 Order name: Lactate; Complete Time: 15:30 EDMS 12/04 14:26 Order name: Liver (Hepatic) Function; Complete Time: 15:54 EDMS 12/04 14:26 Order name: Lipase; Complete Time: 15:54 EDMS 12/04 14:26 Order name: Procalcitonin; Complete Time: 15:45 EDMS 12/04 14:26 Order name: Protime (+INR); Complete Time: 15:08 [facility] 12/04 14:57 Order name: Manual Differential; Complete Time: 15:36 EDMS 12/04 15:54 Order name: Urine Microscopic Only; Complete Time: 17:21 [facility] 12/04 15:54 Order name: Urine Culture [facility] 12/04 16:39 Order name: Urine Dipstick--Ancillary (enter results); Complete Time: 17:21 em1 12/04 17:01 Order name: Vancomycin Level Trough [facility] 12/04 14:25 Order name: Accucheck; Complete Time: 15:15 [facility] 12/04 14:25 Order name: Cardiac monitoring; Complete Time: 14:39 [facility] 12/04 14:25 Order name: EKG - Nurse/Tech; Complete Time: 14:39 [facility] 12/04 14:25 Order name: IV Saline Lock - Large Bore; Complete Time: 14:39 [facility] 12/04 14:25 Order name: Labs collected and sent; Complete Time: 14:39 jr8 12/04 14:25 Order name: O2 Per Protocol; Complete Time: 14:39 jr8 12/04 14:25 Order name: O2 Sat Monitoring; Complete Time: 14:39 jr8 12/04 14:25 Order name: Urine Dipstick-Ancillary (obtain specimen); Complete Time: 16:36 jr8 12/04 15:54 Order name: Jason; Complete Time: 16:35 jr8 Administered Medications: 14:20 Drug: NS 0.9% (30 ml/kg) 30 ml/kg Route: IV; Rate: bolus; Site: PICC; sv 15:55 Follow up: Response: No adverse reaction; IV Status: Completed infusion; IV Intake: sv 1485ml 14:35 Drug: Acetaminophen Suppository 650 mg Route: [place]; sv 15:00 Follow up: Response: No adverse reaction sv 16:25 Drug: Lopressor 5 mg Route: IVP; Site: PICC; sv 17:00 Follow up: Response: No adverse reaction sv 17:40 Drug: vancoMYCIN 1 grams Route: IVPB; Infused Over: 2 hrs; Site: PICC; sv 18:16 Follow up: Response: No adverse reaction; IV Status: Infusion continued upon admission sv 17:55 Not Given (Physician Discretion): Lopressor 5 mg IVP every 5 minutes; Hold for SBP < sv 100 or HR < 60. x3 Point of Care Testing: Blood Glucose: 15:03 Blood Glucose: 102 mg/dL; sv Ranges: Critical Glucose Levels:Adult <50 mg/dl or >400 mg/dl <40 mg/dl or >180 mg/dl Disposition: 12/05 07:15 Co-signature as Attending Physician, Aldair Rivas MD I agree with the assessment and bisi plan of care. Disposition: 12/04/18 16:21 Hospitalization ordered by Marti Cerna for Inpatient Admission. Preliminary diagnosis are Sepsis, Dehydration, Acute kidney failure, Atrial fibrillation and flutter - with RVR. - Bed requested for Telemetry/MedSurg (Inpatient). - Status is Inpatient Admission. sv - Condition is Fair. - Problem is new. - Symptoms have improved. UTI on Admission? Yes Critical care time excluding procedures: 12/04 16:23 Critical care time: Bedside Care: 20 minutes, Consultation: 10 minutes, Family jr8 Intervention: 10 minutes. Total time: 40 minutes Signatures: Dispatcher [employer] Gabi Delgado RN RN sv Anderson, Corey, MD MD cha Martinez, Eric em1 Juan Graham PA PA jr8 Corrections: (The following items were deleted from the chart) 16:22 16:21 Hospitalization Ordered by Marti Cerna MD for Inpatient Admission. Preliminary jr8 diagnosis is Sepsis; Dehydration; Acute kidney failure. Bed requested for Telemetry/MedSurg (Inpatient). Status is Inpatient Admission. Condition is Fair. Problem is new. Symptoms have improved. UTI on Admission? Yes. jr8 17:13 16:22 12/04/2018 16:21 Hospitalization Ordered by Marti Cerna MD for Inpatient em1 Admission. Preliminary diagnosis is Sepsis; Dehydration; Acute kidney failure; Atrial fibrillation and flutter - with RVR. Bed requested for Telemetry/MedSurg (Inpatient). Status is Inpatient Admission. Condition is Fair. Problem is new. Symptoms have improved. UTI on Admission? Yes. jr8 18:36 17:13 12/04/2018 16:21 Hospitalization Ordered by Marti Cerna MD for Inpatient sv Admission. Preliminary diagnosis is Sepsis; Dehydration; Acute kidney failure; Atrial fibrillation and flutter - with RVR. Bed requested for Telemetry/MedSurg (Inpatient). Status is Inpatient Admission. Condition is Fair. Problem is new. Symptoms have improved. UTI on Admission? Yes. em1
[2018-12-04 17:08] LABS: Urine Amorphous Sediment 1+ /HPF (NONE SEEN); Urine Bacteria 20-50 /HPF (<20); Urine Culture Reflex Order NOT NEEDED
[2018-12-04 17:09] LABS: Urine Blood 2+ (NEG); Urine Glucose NEGATIVE (NEG); Urine Protein NEGATIVE (NEG); Urine pH 5.5 (5.0-7.0)
[2018-12-04] MEDS ORDERED: VANCOMYCIN 1.25 GM in NA CHLORIDE 0.9% 250 ML IVPB ONE (18:00)
[2018-12-04] MEDS ORDERED: ONDANSETRON 4 MG/2 ML VIAL IV PRN (19:31)
[2018-12-04] MEDS ORDERED: D5W 1,000 ML IV SCH (19:31)
[2018-12-04] MEDS ORDERED: ACETAMINOPHEN 325 MG TABLET PO PRN (19:31)
[2018-12-04] MEDS ORDERED: NA CHLORIDE 0.9% 500 ML IV ONE (20:23)
[2018-12-04 20:30] LABS: Potassium 4.3 mmol/L (3.5-5.1)
[2018-12-04] MEDS ORDERED: Meropenem 500 MG/100 ML BAG ONE (20:57)
[2018-12-04] MEDS: HEPARIN 5000 UNIT/ML 1 ML VIAL SQ SCH (21:00)
[2018-12-04] MEDS ORDERED: Meropenem 1000 MG/VIAL IV SCH ×2 (21:00)
[2018-12-04] MEDS: D5W 1,000 ML IV SCH ×2 (21:00→22:07)
[2018-12-04] MEDS: RANITIDINE 150 MG TABLET PO SCH (21:02)
[2018-12-04] MEDS: DOCUSATE NA 100 MG CAP PO SCH (21:02)
[2018-12-04 21:09] LABS: Thyroid Stimulating Hormone 1.63 uIU/mL (0.360-3.740); Uric Acid 7.2 mg/dL (2.6-6.0)
[2018-12-04 22:44] LABS: Urine Protein/Creatinine Ratio 0.92 ratio (<0.15)
[2018-12-05 04:57] LABS: Absolute Lymphocytes (CBC) 2.3 K/uL (0.7-4.9); Basophils % 0.6 % (0-1.3); Hematocrit 23.6 % (36.0-45.0); Lymphocytes % 24.4 % (15.3-44.8); MPV 10.7 fL (7.6-11.3); RBC Red Blood Cell Count 2.34 M/uL (3.86-4.86)
[2018-12-05 05:07] LABS: Magnesium 2.3 mg/dL (1.8-2.4); Phosphorus 2.6 mg/dL (2.5-4.9)
--- NOTE | 2018-12-05 05:08 | HP ---
Date of Admission: 12/04/2018 Chief Complaint: Altered mental status. Code Status: Do not resuscitate. Daughter is at the bedside and she is MPOA. Patient has living will and advanced directives. History Of Present Illness: Patient is a 78-year-old female with past medical history of CVA, hypertension, coronary artery disease, peripheral arterial disease, dementia, who was recently discharged from the hospital after a prolonged stay on meropenem for resistant ESBL E coli UTI and also had leg wounds and was in for infection of the wounds. Patient was discharged on meropenem. She also had some development of acute kidney injury, comes back to the hospital with sepsis and hypernatremia, altered mental status. Patient has been not eating properly. She has end-stage dementia and had long discussion with daughter last time, stated that she is towards end of her life and she would benefit from palliative care. She has spoken with her brother previously ; however, they want to give her another chance prior to initiating hospice care. Patient comes in with altered mental status, tremors. Her lab work showed sodium of 165, chloride 128. Lactate was normal. Procalcitonin was also negative. Troponin was 0.09. Daughter did mention fever of 102 at the nursing facility early this morning. White count is 13,000. There is no apparent source of infection. Patient has been on meropenem since discharge and to be completed on 12/13/2018. Her UA currently is positive. Patient also had atrial fibrillation with RVR upon arrival with rate in the 150s. She was given Lopressor, which improved her rate to the 130s to 140s. Patient was also bolused with IV fluids and referred for admission. Her symptoms are constant, moderate, progressively worsening. Past Medical History: Advanced Alzheimer dementia, hypertension, history of CVA 10 years ago, coronary artery disease, peripheral arterial disease, history of benign tumor. Surgical History: Hysterectomy, bilateral foot surgery, stent in the legs and heart. Allergies: ADHESIVES AND CODEINE. Medications: List reviewed. Social History: Patient is resident of nursing facility. Former heavy smoker. No current alcohol use. Patient needs assistance with her activities of daily living, is nonmobile. Family History: Father had lung cancer. Mother had stroke and sister also had stroke. Review of Systems: Ten-point system reviewed, negative except as per HPI. Laboratory Data: UA: Negative nitrite, 1+ leukocyte esterase, 10 to 20 rbc's, 10 to 20 wbc's 20 to 50 bacteria. Sodium 165, potassium 4.7, chloride 128, CO2 of 34, BUN 87, creatinine 2.21, glucose 89, lactate 1.2, calcium 8.3. Troponin 0.09. Procalcitonin 0.15. INR 1.17. WBC 13, H and H 8.8 and 28, platelets 243 , neutrophil 61%. CT scan of the head: Advanced atrophy and chronic ischemic change, matches comparison. No acute intracranial finding. Chest x-ray personally reviewed shows no acute intrathoracic process suspected. Abdomen and pelvis CT without contrast shows small left pleural effusion and left base atelectasis, new from November 06 imaging. Gallstones are present, but active gallbladder disease is not suspected. No pancreatitis findings. No obstruction or acute finding. Isodense mass, pyelonephritis, or cystitis are not excluded. Prominence of rectal gallegos with stranding in the perirectal fat and presacral tissues, not substantially different from November 06. Fluid retention in the subcutaneous fatty tissues. No bowel obstruction, free air, or surgically emergent finding. Assessment: A 78-year-old female with: 1. Sepsis, unclear etiology, may be related to urinary tract infection. Patient has been on meropenem and may now have resistance to meropenem as well. We will re-culture urine. For now, we will cover with broad-spectrum antibiotics including vancomycin and continue meropenem. Patient also has a source of infection, possibly from the pressure ulcers in her feet. 2. Acute severe hypernatremia. Sodium is 165. We will switch to D5W. Patient likely has no access to free water due to her dementia. We will continue to monitor sodium level every 4 hours. Consult Cardiology. 3. Acute kidney injury. We will continue with IV fluids. Avoid NSAIDs. Appreciate Nephrology input. 4. Acute cystitis with hematuria. We will continue with IV antibiotics. Patient currently on treatment for ESBL E coli with meropenem. 5. Elevated troponin, likely due to demand mismatch. 6. Chronic obstructive pulmonary disease, chronic bronchitis. We will continue with albuterol as needed. 7. Alzheimer dementia, early onset without behavioral disturbance. Patient has end-stage dementia. 8. Acute metabolic encephalopathy. Patient's mental status has changed from previous, likely due to sepsis and her acute issues. Plan: We will admit to [facility], place as inpatient. Patient is a do not attempt resuscitation. Her daughter is the medical power of employee benefits attorney. She has living will and paperwork stating as such. Overall, patient's prognosis is very poor. We will consult Podiatry as well for pressure ulcers on the feet. I would recommend hospice for this patient due to her comorbid conditions and quality of life. Length of stay greater than 2 midnights. ANTHONY Voice ID: [id number] MTDD
--- NOTE | 2018-12-05 07:15 | EKG ---
Test Date: 2018-12-04 Test Time: 14:35:17 Certified Flex Endoscope Reprocessor: REINA MEASUREMENT RESULTS: Intervals: Rate: 151 GA: QRSD: 76 QT: 262 QTc: 415 [place]: P: GA: QRS: 34 T: 203 INTERPRETIVE STATEMENTS: Atrial fibrillation with rapid ventricular response ST & T wave abnormality, consider anterolateral ischemia or digitalis effect Abnormal ECG Compared to ECG 11/14/2018 22:13:09 No significant changes Electronically Signed On 12-05-18 07:13:35 CDT by Abelardo Flannery
[2018-12-05 07:30] LABS: Blood Morphology Comment NOT SEEN (NOT SEEN); Platelet Estimate ADEQ
[2018-12-05] MEDS: HEPARIN 5000 UNIT/ML 1 ML VIAL SQ SCH ×2 (07:56→20:51)
[2018-12-05] MEDS: DOCUSATE NA 100 MG CAP PO SCH ×3 (07:56→21:00)
[2018-12-05] MEDS: D5W 1,000 ML IV SCH ×3 (07:57→21:03)
--- NOTE | 2018-12-05 08:47 | P.CNS ---
Date of Consult: 12/05/18 Reason for Consult: wounds bilateral feet and ankles Requesting Physician: Marti Cerna Chief Complaint: chronic pressure ulcers bilateral feet and ankles Allergies adhesive Allergy (Mild, Verified 12/05/18 00:31) Rash codeine Allergy (Verified 12/05/18 00:31) Unknown Home Medications: Albuterol Neb [Proventil 0.083% Neb Soln] 1 inh IN Q6H PRN 11/14/18 Amiodarone HCl [Cordarone*] 200 mg PO DAILY 11/14/18 Buspirone HCl [Buspar*] 1 tab PO BEDTIME 11/14/18 Buspirone HCl [Buspar] 10 mg PO BID 11/14/18 Escitalopram Oxalate [Lexapro] 5 mg PO BEDTIME 11/14/18 Furosemide [Lasix] 40 mg PO DAILY 11/14/18 Gabapentin 100 mg PO BID 11/14/18 Metoprolol Succinate 12.5 mg PO DAILY 11/14/18 Mirtazapine [Remeron*] 15 mg PO BEDTIME 11/14/18 Potassium Chloride 2 tab PO DAILY 11/14/18 Pravastatin Sodium 10 mg PO BEDTIME 11/14/18 Ensure Enlive 237 ml PO BID can 11/24/18 David [David*] 1 pkt PO BID powd.pack 11/24/18 Meropenem [Merrem] 500 mg IV BID #14 vial 11/26/18 Acetaminophen [Tylenol -Tablet] 650 mg PO Q6HP PRN 12/05/18 Esomeprazole Magnesium 40 mg PO DAILY 12/05/18 Gabapentin 3 cap PO BEDTIME 12/05/18 Isosorbide Mononitrate [Isosorbide Mononitrate ER] 30 mg PO DAILY 12/05/18 Mag Hydroxide 8% [Milk Of Magnesia] 30 ml PO DAILY PRN 12/05/18 - Past Medical/Surgical History Diabetic: No -: stroke 10 yrs ago -: hypertension -: acute cystitis -: dysphagia -: muscle weakness -: chf -: esbl -: dementia -: uti -: mrsa-foot -: stents in leg and heart -: hysterectomy -: bilateral foot surgery - Family History Father Medical History: Cancer Notes: lung cancer Mother Medical History: Stroke Sister Medical History: Stroke - Social History Smoking Status: Current every day smoker Alcohol use: Yes CD- Drugs: No Caffeine use: Yes Place [facility]idence: [facility] Review of Systems is unable to be obtained Physical Examination Temp Pulse Resp BP Pulse Ox 97.3 F 118 H 16 119/73 98 12/05/18 04:00 12/05/18 04:00 12/05/18 04:00 12/05/18 04:00 12/05/18 04:00 General: Unresponsive Cardiovascular: No edema, Abnormal pulses (nonpalpable pedal pulses bilateral lower extremity) Capillary refill: >2 Seconds Musculoskeletal: No clubbing, No swelling, Contractures (contracture noted right knee and hip) Integumentary: No rashes, Pressure ulcer (unstageable ulcerations with black eschar noted right lateral malleolus, right plantar and lateral heel, right lateral fifth mpj and left plantar medial heel. Minimal drainage noted. minimal erythema noted lateral malleolar wound. No purulence noted) Neurological: Abnormal sensation Laboratory Data (last 24 hrs) 12/04/18 14:30: PT 13.7 H, INR 1.17, APTT 30.9 12/04/18 14:30: WBC 13.0 H D, Hgb 8.8 L, Hct 28.0 L, Plt Count 243 12/04/18 14:30: Sodium 165 H*, Potassium 4.7, BUN 87 H D, Creatinine 2.21 H, Glucose 89, Total Bilirubin 0.2, AST 43 H, ALT 25, Alkaline Phosphatase 73, Lipase 132 - Problems (1) Pressure ulcer of ankle, right, unstageable Current Visit: No Status: Acute (2) Pressure ulcer of heel, left, unstageable Current Visit: No Status: Acute Conclusions/Impression: Multiple unstageable pressure ulcers to bilateral foot and ankle with eschar noted. Patient isn't a good surgical candidate due to her PVD and also has a DNR in place. Pressure relief to areas with heel protectors and pillows. Santyl to all wound daily with saline moistened gauze. Patient is a good candidate for hospice care
[2018-12-05] MEDS: Meropenem 500 MG in NA CHLORIDE 0.9% 100 ML IV SCH ×2 (08:58→20:51)
[2018-12-05] MEDS ORDERED: ENOXAPARIN 30 MG/0.3 ML SQ SCH (09:00)
[2018-12-05] MEDS: COLLAGENASE 30 GM OINTMENT TOP SCH (09:24)
[2018-12-05] MEDS: METOPROLOL XL 25 MG TAB PO SCH (09:26)
[2018-12-05] MEDS ORDERED: MAGNESIUM HYDROXIDE 8% 30 ML PO PRN (10:04)
[2018-12-05] MEDS ORDERED: METOPROLOL TARTRATE 5 MG/5 ML INJ IV PRN (10:08)
[2018-12-05] MEDS: AMIODARONE HCL 200 MG TAB PO SCH (10:20)
--- NOTE | 2018-12-05 10:45 | P.CNS ---
Date of Consult: 12/05/18 Reason for Consult: hypernatremia and Suzanne Chief Complaint: chronic pressure ulcers bilateral feet and ankles History of Present Illness: PT IS unable to provide Hx , Hx obtained from chart A 78-year-old woman with past medical history of CVA, hypertension, coronary artery disease, peripheral arterial disease, and advanced dementia Pt presented for AMS pt was discharged recently, she was treated for Uropsepsis with E.coli ESBL pt na was 165 , pt tachycardic Allergies adhesive Allergy (Mild, Verified 12/05/18 00:31) Rash codeine Allergy (Verified 12/05/18 00:31) Unknown Home Medications: Albuterol Neb [Proventil 0.083% Neb Soln] 1 inh IN Q6H PRN 11/14/18 Amiodarone HCl [Cordarone*] 200 mg PO DAILY 11/14/18 Buspirone HCl [Buspar*] 1 tab PO BEDTIME 11/14/18 Buspirone HCl [Buspar] 10 mg PO BID 11/14/18 Escitalopram Oxalate [Lexapro] 5 mg PO BEDTIME 11/14/18 Furosemide [Lasix] 40 mg PO DAILY 11/14/18 Gabapentin 100 mg PO BID 11/14/18 Metoprolol Succinate 12.5 mg PO DAILY 11/14/18 Mirtazapine [Remeron*] 15 mg PO BEDTIME 11/14/18 Potassium Chloride 2 tab PO DAILY 11/14/18 Pravastatin Sodium 10 mg PO BEDTIME 11/14/18 Ensure Enlive 237 ml PO BID can 11/24/18 David [David*] 1 pkt PO BID powd.pack 11/24/18 Meropenem [Merrem] 500 mg IV BID #14 vial 11/26/18 Acetaminophen [Tylenol -Tablet] 650 mg PO Q6HP PRN 12/05/18 Esomeprazole Magnesium 40 mg PO DAILY 12/05/18 Gabapentin 3 cap PO BEDTIME 12/05/18 Isosorbide Mononitrate [Isosorbide Mononitrate ER] 30 mg PO DAILY 12/05/18 Mag Hydroxide 8% [Milk Of Magnesia] 30 ml PO DAILY PRN 12/05/18 - Past Medical/Surgical History Diabetic: No -: stroke 10 yrs ago -: hypertension -: acute cystitis -: dysphagia -: muscle weakness -: chf -: esbl -: dementia -: uti -: mrsa-foot -: stents in leg and heart -: hysterectomy -: bilateral foot surgery - Family History Father Medical History: Cancer Notes: lung cancer Mother Medical History: Stroke Sister Medical History: Stroke - Social History Smoking Status: Current every day smoker Alcohol use: Yes CD- Drugs: No Caffeine use: Yes Place of Residence: [facility] Review of Systems is unable to be obtained Physical Examination Temp Pulse Resp BP Pulse Ox 97.9 F 142 H 18 124/80 99 12/05/18 08:00 12/05/18 09:26 12/05/18 08:00 12/05/18 09:26 12/05/18 08:00 General: Other (lethargic ) HEENT: Atraumatic Neck: Supple, Without JVD or thyroid abnormality Respiratory: Clear to auscultation bilaterally, Normal air movement Cardiovascular: Normal S1 S2, No gallops, No rubs, No murmurs, Irregular heart rate/rhythm Gastrointestinal: Normal bowel sounds Musculoskeletal: Other (Contracted Rt leg , dresssing ) Laboratory Data (last 24 hrs) 12/04/18 14:30: PT 13.7 H, INR 1.17, APTT 30.9 12/04/18 14:30: WBC 13.0 H D, Hgb 8.8 L, Hct 28.0 L, Plt Count 243 12/04/18 14:30: Sodium 165 H*, Potassium 4.7, BUN 87 H D, Creatinine 2.21 H, Glucose 89, Total Bilirubin 0.2, AST 43 H, ALT 25, Alkaline Phosphatase 73, Lipase 132 - Problems (1) Altered mental status Current Visit: No Status: Acute (2) Hypernatremia Current Visit: No Status: Acute Conclusions/Impression: hypernatremia due to dehydration and poor oral intake improving will reduce d5w to 70ml/hr Sepsis likely due to UTI and foot infection Cont Abx monitor vanco level SUZANNE Cr stable now previous W/U serology -ve, except JOSE 1; 320 , and mildly low c3 , ANti DS -ve Afib rate controlled now Advanced dementia cont supportive care over all poor prognosis
[2018-12-05] MEDS: BUSPIRONE HCL 5 MG TABLET PO SCH ×3 (11:15→21:00)
--- NOTE | 2018-12-05 11:53 | PN ---
Date of Progress Note: 12/05/2018 Patient seen and examined. Chart reviewed and case discussed with RN and Dr. Rose. Patient seems to be fluid overloaded, does respond, however, appears to be confused, not very agitated. Patient's heart rate in the 120s to 140s. Medications: List reviewed. Physical Examination: Vital Signs: Temperature 97.9, heart rate 122, blood pressure 124/80, respirations 18, O2 at 99% on 2 L via nasal cannula. General: Awake, alert, confused, elderly female, disoriented, ill-appearing, frail, cachectic. CV: S1, S2. Irregularly irregular with rapid rate. Peripheral pulses weak. Respiratory: Diminished breath sounds. No wheezing or stridor. Gastrointestinal: Abdomen is soft, nontender, nondistended. Positive bowel sounds. Extremities: No clubbing or cyanosis. The patient has peripheral edema both upper and lower extremities. Skin: The patient has pressure ulcers and pressure arterial ulcers on both feet with eschar formation. Laboratory Data: Sodium 156, potassium 4, chloride 110, CO2 of 30, BUN 75, creatinine 1.98, glucose 356, lactate 0.6, calcium 7.2. WBC 9.4, H and H 7.4 and 23.6, platelets 186. Blood cultures pending. Urine culture, no growth to date. Wound cultures also pending. Assessment And Plan: 78-year-old female with: 1. Sepsis of unclear etiology, may be related to her recurrent UTI. We will continue with meropenem for ESBL producing bacteria from previous hospitalization. The patient is to complete her meropenem on 12/13/2018. We will cover with vancomycin for possible skin source. The patient has wounds on her feet. We will follow up on blood cultures. 2. Severe acute hypernatremia. Sodium is improving. We will adjust fluid rate. Continue with D5W. Appreciate Nephrology input. 3. Acute kidney injury. Creatinine is improving. We will continue to avoid NSAIDs and monitor closely. 4. Acute cystitis with hematuria. Continue IV antibiotics. Repeat cultures so far no growth. However, patient has ESBL E coli, being treated with meropenem for 1 more week. 5. Elevated troponin level likely due to demand mismatch. 6. Chronic obstructive pulmonary disease, chronic bronchitis. We will continue with Xopenex. 7. Atrial fibrillation with rapid ventricular rate. We will restart amiodarone and metoprolol. Use Lopressor p.r.n. Patient is not a good candidate for anticoagulation due to her anemia and previous history of bleed. 8. Alzheimer's dementia early onset without behavioral disturbance. 9. Acute metabolic encephalopathy. The patient is still confused, likely due to sepsis. 10. Anemia, likely due to iron deficiency. We will recheck H and H, transfuse as needed. 11. Severe protein-calorie malnutrition. We will continue protein supplementation. 12. Unstageable pressure and arterial ulcer of the bilateral feet. Continue with IV vancomycin. Not a surgical candidate. Appreciate Dr. Levin's input. The patient has a very poor prognosis. Would recommend hospice care for her. We will have discussion with daughter. ANTHONY Voice ID: [id number] Report ID: [id number] MTDD
[2018-12-05] MEDS: LEVALBUTEROL 1.25 MG/3 ML NEB NEB SCH ×2 (16:10→19:50)
[2018-12-05 18:55] LABS: Hematocrit 25.7 % (36.0-45.0)
[2018-12-05] MEDS: ATORVASTATIN 10 MG TAB PO SCH ×2 (20:52→21:00)
[2018-12-05] MEDS: MIRTAZAPINE 15 MG TAB PO SCH ×2 (20:52→21:00)
[2018-12-05] MEDS: ESCITALOPRAM 20 MG TAB PO SCH ×2 (20:52→21:00)
[2018-12-05] MEDS: GABAPENTIN 300 MG CAP PO SCH ×2 (20:52→21:00)
[2018-12-05] MEDS: RANITIDINE 150 MG TABLET PO SCH ×2 (20:53→21:00)
[2018-12-05] MEDS: ENSURE ENLIVE 237 ML CAN PO SCH (21:00)
[2018-12-05] MEDS: JUVEN PACKET PO SCH (21:00)
[2018-12-06] MEDS: D5W 1,000 ML IV SCH ×3 (01:09→21:00)
[2018-12-06] MEDS: LEVALBUTEROL 1.25 MG/3 ML NEB NEB SCH ×4 (01:55→20:30)
[2018-12-06 05:10] LABS: Absolute Lymphocytes (CBC) 2.9 K/uL (0.7-4.9); Basophils % 0.4 % (0-1.3); Hematocrit 24.7 % (36.0-45.0); Lymphocytes % 27.2 % (15.3-44.8); MPV 10.4 fL (7.6-11.3); RBC Red Blood Cell Count 2.51 M/uL (3.86-4.86)
[2018-12-06] MEDS: METOPROLOL XL 25 MG TAB PO SCH (05:27)
[2018-12-06 05:29] LABS: Magnesium 2.5 mg/dL (1.8-2.4); Phosphorus 2.5 mg/dL (2.5-4.9)
[2018-12-06] MEDS ORDERED: PANTOPRAZOLE 40MG TABLET PO SCH (06:30)
[2018-12-06] MEDS ORDERED: ISOSORBIDE MONO SR 30 MG TAB PO SCH (09:00)
[2018-12-06] MEDS: DOCUSATE NA 100 MG CAP PO SCH ×2 (09:00→21:00)
[2018-12-06] MEDS: AMIODARONE HCL 200 MG TAB PO SCH (09:00)
[2018-12-06] MEDS: ENSURE ENLIVE 237 ML CAN PO SCH ×2 (09:00→21:00)
[2018-12-06] MEDS: JUVEN PACKET PO SCH ×2 (09:00→21:00)
[2018-12-06] MEDS: BUSPIRONE HCL 5 MG TABLET PO SCH ×3 (09:00→21:00)
[2018-12-06 09:41] LABS: Potassium 3.6 mmol/L (3.5-5.1)
[2018-12-06] MEDS: Meropenem 500 MG in NA CHLORIDE 0.9% 100 ML IV SCH ×2 (09:59→17:33)
[2018-12-06] MEDS: HEPARIN 5000 UNIT/ML 1 ML VIAL SQ SCH ×2 (09:59→21:00)
[2018-12-06] MEDS: COLLAGENASE 30 GM OINTMENT TOP SCH (10:00)
--- NOTE | 2018-12-06 12:33 | RAD REPORT ---
EXAM DESCRIPTION: RAD - Chest Single View - 12/06/2018 12:05 pm CLINICAL HISTORY: Feeding tube placement COMPARISON: CT abdomen and pelvis December 04 TECHNIQUE: AP portable chest image was obtained 1158 hours . FINDINGS: Feeding tube placement shows tube in the distal esophagus. Tip is directed superiorly and there is likely an acute bend or kink in the distal tubing. Tube is not within the lumen of the stoma ch. Hazy left base opacification probably pleural effusion and atelectasis. Heart size is enlarged. Left subclavian PICC line in place. IMPRESSION: Feeding tube is curled in the distal esophagus with the tip superiorly directed. Left base pleural effusion and atelectasis.
--- NOTE | 2018-12-06 13:11 | PN ---
Date of Progress Note: 12/06/2018 Subjective: Patient seen and examined, chart reviewed and case discussed with RN and daughter. Daughter was contacted over the phone. Treatment plan explained. All questions answered. She is okay with initiating temporary tube feeds until she decides on whether or not she wants to initiate hospice. Medications List: Reviewed. Physical Examination: Vital Signs: Temperature 97.8, heart rate 130, blood pressure 118/76, respirations 97% on 2 L via nasal cannula. General: Asleep but arousable, in some mild distress. Elderly female, confused , cachectic, frail. BMI of 19. CV: S1, S2, irregularly irregular. Peripheral pulses weak. Respiratory: Diminished breath sounds. No wheezing or stridor. Gastrointestinal: Abdomen is soft, nontender, nondistended. Positive bowel sounds. Extremities: No clubbing, cyanosis, or edema. Neurologic: Nonfocal. Skin: Patient has multiple arterial pressure ulcers on both of her feet with eschar formation, unstageable. Laboratory Data: Sodium 158, potassium 3.6, chloride 123, CO2 of 32, BUN 59, creatinine 1.64, glucose 95, calcium 8. WBC 10.6, H and H 7.9, 24.7, platelets 203, neutrophils 64%. Blood cultures no growth. Urine culture also shows no growth. Wound culture from the right ankle growing mixed skin jailene and yeast. Assessment And Plan: A 78-year-old female with: 1. Sepsis likely related to recurrent UTI and wounds from her feet. We will continue with broad-spectrum IV antibiotics. Follow up on cultures. Wound cultures growing yeast and skin jailene. 2. Severe hypernatremia. Sodium trending up. We will adjust D5W rate. Nephrology on board. 3. Acute kidney injury. Creatinine is improving. We will continue to monitor. Avoid NSAIDs. 4. Acute cystitis with hematuria. The patient had ESBL producing E coli and will be on meropenem until 12/13/2018. Repeat cultures, no growth to date. 5. Elevated troponin level, likely due to demand mismatch. No EKG changes. 6. COPD, chronic bronchitis. We will continue with Xopenex. 7. Atrial fibrillation with rapid ventricular rate. Continue with metoprolol IV p.r.n. for rate greater than 130. Her metoprolol dose has been increased to 25 b.i.d. Currently, patient is unable to take p.o. intake. We will need to place [place] for medications through the feeding tube. 8. Alzheimer's dementia early onset without behavioral disturbance. 9. Acute metabolic encephalopathy, likely due to sepsis and hypernatremia. 10. Iron-deficiency anemia. We will continue to monitor H and H, transfuse as needed. 11. Severe protein-calorie malnutrition. We will continue supplementation. 12. Arterial and pressure ulcer of bilateral feet, unstageable. Continue with IV antibiotics. Not a surgical candidate. Continue wound care per Dr. Levin's orders. 13. Overall, patient has a poor prognosis. Family is considering hospice. Daughter is the medical power of associate attorney. For now, she is agreeable to tube feedings until she decides for hospice care. ADDENDUM: Daughter agreeable to starting tube feeds for nutrition. Called by RN later on stating daughter has agreed to hospice care. Patient to be DC to [facility] hospice. /HOA Voice ID: [id number] Report ID: [id number] OLGA
--- NOTE | 2018-12-06 15:34 | P.PN ---
Subjective Date of Service: 12/06/18 Chief Complaint: chronic pressure ulcers bilateral feet and ankles Subjective: No new changes Today no new changes in clinical status not candidate for surgical intervention family agreed for comfort care will sign off call us prn Physical Examination - Vital Signs Temperature: 98.1 F Blood Pressure: 98/55 Pulse: 107 Respirations: 16 Pulse Ox (%): 96 - Physical Exam General: Confused HEENT: Atraumatic Neck: Supple, Without JVD or thyroid abnormality Respiratory: Clear to auscultation bilaterally, Normal air movement Cardiovascular: No edema, Regular rate/rhythm Gastrointestinal: Normal bowel sounds, Soft and benign Musculoskeletal: Other (B/l feet dressing, Lt heel black discoloration ) - Studies Microbiology Data (last 24 hrs): 12/04/18 16:30 Catheterized Urine [place] Count - Final <10,000 CFU/ML. 12/04/18 16:30 Catheterized Urine - Final No growth. Assessment And Plan - Current Problems (Diagnosis) (1) Altered mental status Current Visit: No Status: Acute (2) Hypernatremia Current Visit: No Status: Acute - Plan hypernatremia due to dehydration and poor oral intake on d5w Sepsis likely due to UTI and foot infection Cont Abx monitor vanco level NELA Cr improving Afib rate controlled now Advanced dementia cont supportive care over all poor prognosis , family agreed for hospice care , will sign off call us prn
[2018-12-06] MEDS ORDERED: VANCOMYCIN 750 MG in NA CHLORIDE 0.9% 150 ML IVPB SCH (18:00)
[2018-12-06 20:36] VITALS: BP 119/66; TEMP 99
[2018-12-06] MEDS: ATORVASTATIN 10 MG TAB PO SCH (21:00)
[2018-12-06] MEDS: GABAPENTIN 300 MG CAP PO SCH (21:00)
[2018-12-06] MEDS: MIRTAZAPINE 15 MG TAB PO SCH (21:00)
[2018-12-06] MEDS: RANITIDINE 150 MG TABLET PO SCH (21:00)
[2018-12-06] MEDS: ESCITALOPRAM 20 MG TAB PO SCH (21:00)
[2018-12-06 21:14] VITALS: O2SAT 98
[2018-12-07] MEDS ORDERED: METOPROLOL XL 25 MG TAB PO SCH (06:00)
--- NOTE | 2018-12-07 12:42 | DS ---
Date of Discharge: 12/06/2018 Consultants: Dr. Rose with Nephrology, Dr. Levin with Podiatry. Admitting Diagnoses: 1.Sepsis. 2.Acute severe hypernatremia. 3.Acute kidney injury. 4.Acute cystitis with hematuria. 5.Elevated troponin. 6.Chronic obstructive pulmonary disease, chronic bronchitis. 7.Alzheimer dementia early onset without behavioral disturbance. 8.Acute metabolic encephalopathy. 9.Arterial pressure ulcers of bilateral feet and ankle. 10.Extended-spectrum beta-lactamases escherichia coli infection, acute. Discharge Diagnoses: 1.Sepsis secondary to urinary tract infection. 2.Severe hypernatremia, improving. 3.Acute kidney injury, improving. 4.Acute cystitis with hematuria secondary to extended-spectrum beta-lactamases producing escherichia coli on meropenem. 5.Elevated troponin level. 6.Chronic obstructive pulmonary disease, chronic bronchitis. 7.Atrial fibrillation with rapid ventricular rate. 8.Alzheimer dementia, early onset without behavioral disturbance. 9.Acute metabolic encephalopathy. 10.Iron deficiency anemia. 11.Severe protein-calorie malnutrition. 12.Arteriolar pressure ulcers of bilateral feet and ankle. Hospital Course: Patient is an elderly female, 78 years old with advanced Alzheimer dementia along w ith history of heart disease, CVA, peripheral arterial disease, atrial fibrillation, not a candidate for anticoagulation, multiple arterial pressure ulcers on her feet and ankle, who was recently discha rged from the hospital after a prolonged stay on meropenem for resistant ESBL E coli UTI and leg woun ds. Patient was in the [facility], was likely unable to have access to free water, became severely hypernatremic with a sodium of 165 and dehydrated. Patient was found to be septic on this admission . Did have a troponin bump. White count was 13,000, fever of 102 at the nursing facility. Her cult ures were redrawn, including urine culture and blood culture, which remained negative to date, verenice savage, patient was on meropenem until December 13 for previous urine culture on the that grew ou t ESBL producing E coli. Patient's kidney function did improve over the course of the hospital stay. Nephrology was consulted. She was started on D5W. Sodium levels improved. She was also seen by Wei Levin for possible debridement of her pressure ulcers, however, she is not a surgical candidate. He recommended wound care only. A long discussion with the medical power of supervisor shearing who is the daug hter regarding palliative care and hospice options, patient is already do not resuscitate. MPOA and discussion with her brother and she agreed to hospice care. Patient was transitioned to hospice care at the nursing facility. She was discharged in a fair condition to initiate care and comfort measur es. For physical exam findings please see progress note dictated on the day of discharge. Time Spent: Total time spent discharging the patient was 47 minutes. ANTHONY Voice ID: [id number] Report ID: [id number]
== END 2018-12-06 22:08 | disposition hospice, inpatient (51) | DRG 871 ==
LOC: ER 14:18 → ERHOLD 16:53 → 2ND 18:15
PROVIDERS: ADMIT Family Medicine; ATTEND Family Medicine
DX: A41.9 Sepsis, unspecified organism (principal); G93.41 Metabolic encephalopathy; E43 Unspecified severe protein-calorie malnutrition; N30.01 Acute cystitis with hematuria; N17.9 Acute kidney failure, unspecified; E87.0 Hyperosmolality and hypernatremia; Z68.1 Body mass index [BMI] 19.9 or less, adult; B96.20 Unspecified Escherichia coli [E. coli] as the cause of diseases classified elsewhere; Z16.12 Extended spectrum beta lactamase (ESBL) resistance; J44.9 Chronic obstructive pulmonary disease, unspecified; I48.91 Unspecified atrial fibrillation; G30.0 Alzheimer's disease with early onset; F02.80 Dementia in other diseases classified elsewhere, unspecified severity, without behavioral disturbance, psychotic disturbance, mood disturbance, and anxiety; D50.9 Iron deficiency anemia, unspecified; L89.520 Pressure ulcer of left ankle, unstageable; L89.510 Pressure ulcer of right ankle, unstageable; R79.89 Other specified abnormal findings of blood chemistry; I25.10 Atherosclerotic heart disease of native coronary artery without angina pectoris; L89.620 Pressure ulcer of left heel, unstageable; Z66 Do not resuscitate; Z95.5 Presence of coronary angioplasty implant and graft
CPT/HCPCS: 36415; 51702; 70450; 71045; 74176; 76770; 80048; 80076; 80202; 81003; 81015; 82550; 82570; 82962; 83605; 83690; 83735; 83970; 84100; 84145; 84156; 84295; 84443; 84484; 84550; 85014; 85018; 85025; 85610; 85730; 87040; 87070; 87086; 87088; 87205; 93005; 94640; 96361; 96365; 96367; 96375; 99285; J1644; J2185; J3590; J7030